=== PATIENT | female | born 1995 | race Caucasian/White ===

== ENCOUNTER 2017-11-11 05:04 | Emergency (ER) | payer BC, SELFPAY ==
[2017-11-11 05:17] VITALS: BMI 18.6
--- NOTE | 2017-11-11 05:19 | CT_ITS ---
CT head/brain wo con Ordering Physician: Brandon Carrion MD Patient Age: 22 years: Female HISTORY: ITS.REASON: pain TECHNIQUE: Axial CT head with brain and bone windows performed and submitted to PACS. COMPARISON :No relevant FINDINGS No acute intracranial findings. . No hemorrhage. No mass. No subdural collection. Ventricles and basal cisterns appear satisfactory. [place]-white matter interface satisfactory. Posterior fossa unremarkable. The mastoid air cells are well-developed and clear. Middle ear unremarkable. IACs unremarkable. IMPRESSION: No acute intracranial findings. Brain within normal limits.
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
--- NOTE | 2017-11-11 05:19 | XR_ITS ---
XR pelvis 1-2V Ordering Physician: Brandon Carrion MD Patient Age: 22 years: Female HISTORY: ITS.REASON: pain TECHNIQUE: AP osseous pelvis COMPARISON :CT abdomen and pelvis May 2017 FINDINGS The study is performed subsequent to a contrast CT. This contrast outlines the ureters filling the common and filling the bladder. The osseous pelvis is intact with no fractures evident. AP view of sacrum and hips unremarkable. IMPRESSION: Osseous pelvis intact. No fracture.
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
--- NOTE | 2017-11-11 05:23 | XR_ITS ---
XR knee RT 3V Ordering Physician: Brandon Carrion MD Patient Age: 22 years: Female HISTORY: ITS.REASON: painright knee pain TECHNIQUE: 3 views right knee COMPARISON :. None. FINDINGS No fracture evident. Osseous structures intact. Joint spaces well-maintained. Upper normal joint fluid; Difficult to exclude scant joint effusion. Lateral view there is also some slight undulation at the anterior aspect of the femoral condyle. If pain should persist persist this questionable observation may benefit from follow-up IMPRESSION: . no discrete fracture. No dislocation A detailed review note subtle undulation anterior aspect of femoral condyle lateral view.- I doubt acute significance but if pain persists may warrant follow-up/further evaluation. Upper normal joint fluid
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
[2017-11-11 05:24] VITALS: BP 124/73; PULSE 80; RESP 14; TEMP 36.9; O2SAT 100; BMI 18.6
[2017-11-11 05:26] LABS: Urine Pregnancy, HCG Qual. Negative (Negative)
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
--- NOTE | 2017-11-11 06:00 | PC.NURSE ---
Deputy Ramos is at bedside at this time speaking with pt's mother.
[2017-11-11 06:10] LABS: Basophils % 0.2 % (0.1-2.0); Eosinophils % 0.2 % (0.1-12.0); Hematocrit 43.3 % (37.0-47.0); Hemoglobin 14.5 g/dL (12.2-16.2); Lymphocytes # 1.5 K/mm3 (0.7-4.5); Mean Corpuscular HGB Conc 33.5 g/dL (31.8-35.4); Mean Corpuscular Hemoglobin 31.1 pg (27.0-31.2); Mean Corpuscular Volume 92.9 fl (81-99); Mean Platelet Volume 7.7 fl (7.4-10.4); Monocytes # 0.6 K/mm3 (0.1-1.0); Monocytes % 3.9 % (1.7-9.3); Neutrophils # 12.4 K/mm3 (1.8-7.8); Neutrophils % 85.7 % (37.0-80.0); Platelet Count 249 K/mm3 (142-424); Red Blood Count 4.66 M/mm3 (4.20-5.40); Red Cell Distribution Width 12.6 % (11.5-17.5); White Blood Count 14.5 K/mm3 (4.5-13.0)
[2017-11-11 06:12] LABS: MANUAL DIFFERENTIAL MANUAL DIFFERENTIAL (MANUAL DIFF)
[2017-11-11 06:12] LABS: Appearance,Urine CLEAR (Clear); Bilirubin,Urine Negative (Negative); Blood, Urine Negative (Negative); Color,Urine YELLOW (Yellow); Glucose,Urine (UA) Negative (Negative); Ketones,Urine TRACE (Negative); Leukocyte Esterase,Urine Negative (Negative); Microscopic, Urine URINE MICROSCOPIC (MICROSCOPIC); Nitrate,Urine Negative (Negative); Protein,Urine 1+ (Negative); Specific Gravity, Urine 1.015 (1.005-1.030); Urobilinogen,Urine 0.2 EU/dl (0.2)
[2017-11-11 06:17] LABS: Activated Partial Thrombo Time 24.5 seconds (23.6-34.0); Prothrombin Time 11.9 seconds (9.4-11.8)
[2017-11-11 06:19] LABS: Alanine Aminotransferase 19 U/L (12-78); Albumin Level 4.8 gm/dL (3.4-5.0); Albumin/Globulin Ratio 1.3 (1.1-1.8); Alkaline Phosphatase 73 U/L (46-116); Amylase 178 U/L (25-125); Anion Gap 13.2 mEq/L (5-15); Aspartate Amino Transferase 11 U/L (15-37); Bilirubin,Total 0.4 mg/dL (0.2-1.0); Blood Urea Nitrogen 9 mg/dL (7-18); Calcium 9.2 mg/dL (8.5-10.1); Carbon Dioxide 24 mmol/L (21.0-32.0); Chloride 101 mmol/L (98-107); Creatinine Clearance Estimated 64 mL/min (0-300); Creatinine,Serum 1.06 mg/dL (0.55-1.02); Estimated Glomerular Filt Rate 66 ml/min (>60); GFR (African American) 80 ML/MIN (>60); Globulin 3.6 gm/dl (1.3-3.2); Glucose 121 mg/dL (74-106); Lipase 65 u/L (73-393); Potassium 3.2 mmoL/L (3.5-5.1); Sodium 135 mmol/L (136-145); Total Protein,Serum 8.4 gm/dL (6.4-8.2)
[2017-11-11 06:20] LABS: RBC,Urine Occasional #/hpf (0-3); WBC,Urine Occasional #/hpf (0-3)
[2017-11-11 06:21] LABS: Bacteria,Urine 1+ /lpf; Mucus,Urine 1+ /lpf
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
[2017-11-11 06:34] LABS: Lymphocytes % 12 % (10-50); Monocytes % 4 % (2-9); Neutrophils % 81 % (42-76); Platelet Estimate Normal; RBC Morphology Normal; Total Cells Counted 100
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
[2017-11-11 07:16] VITALS: BP 120/68; PULSE 88; RESP 12; TEMP 36.9; O2SAT 98
== END 2017-11-11 07:19 | disposition home or self-care (01) ==
PROVIDERS: Emergency Provider Emergency Medicine
DX: S06.0X0A Concussion without loss of consciousness, initial encounter (principal); S60.512A Abrasion of left hand, initial encounter; S80.212A Abrasion, left knee, initial encounter; Y04.2XXA Assault by strike against or bumped into by another person, initial encounter; Y92.009 Unspecified place in unspecified non-institutional (private) residence as the place of occurrence of the external cause; R09.89 Other specified symptoms and signs involving the circulatory and respiratory systems; F17.210 Nicotine dependence, cigarettes, uncomplicated
CPT/HCPCS: 70450; 70486; 70491; 71045; 72125; 72170; 73130; 73562; 80053; 81001; 81025; 82150; 83690; 85007; 85025; 85610; 85730; 93041; 99283; Q9967

== ENCOUNTER → 2018-04-16 14:59 | Outpatient (CLI) | payer BC, SELFPAY ==
[2018-04-16 15:40] LABS: Basophils % 0.4 % (0.1-2.0); Eosinophils # 0.1 K/mm3 (0.0-0.4); Eosinophils % 1.2 % (0.1-12.0); Hematocrit 35.5 % (37.0-47.0); Hemoglobin 11.9 g/dL (12.2-16.2); Lymphocytes # 1.7 K/mm3 (0.7-4.5); Lymphocytes % 23.8 K/mm3 (10-50); Mean Corpuscular HGB Conc 33.5 g/dL (31.8-35.4); Mean Corpuscular Hemoglobin 31.1 pg (27.0-31.2); Mean Corpuscular Volume 92.9 fl (81-99); Mean Platelet Volume 7.4 fl (7.4-10.4); Monocytes # 0.2 K/mm3 (0.1-1.0); Monocytes % 3.4 % (1.7-9.3); Neutrophils % 71.2 % (37.0-80.0); Platelet Count 193 K/mm3 (142-424); Red Blood Count 3.82 M/mm3 (4.20-5.40); Red Cell Distribution Width 12.7 % (11.5-17.5)
[2018-04-16 15:47] LABS: Amphetamine/Metha Screen,Urine Negative ng/mL (<1000); Barbiturates Screen,Urine Negative ng/mL (<200); Benzodiazepines Screen,Urine Negative ng/mL (<200); Cannabinoid Screen,Urine Negative ng/mL (<50); Cocaine Screen,Urine Negative ng/mL (<300); Methadone Screen,Urine Negative ng/mL (<300); Opiate Screen,Urine Negative ng/mL (<300); Phencyclidine Screen,Urine Negative ng/mL (<25)
[2018-04-16 16:15] LABS: Thyroid Stimulating Hormone 0.75 uIU/ml (0.516-4.13)
[2018-04-18 07:25] LABS: HIV Screen 4th Generation wRfx Non Reactive (Non Reactive)
[2018-04-18 08:11] LABS: Hepatitis B Surface Antigen Negative (Negative)
[2018-04-18 08:46] LABS: Rubella Antibodies, IgG 1.35 index (Immune >0.99)
[2018-04-18 11:31] LABS: Rapid Plasma Reagin Ab Titer Non Reactive (NonRea<1:1)
== END ==
PROVIDERS: Family Provider Family Medicine; PCP Family Medicine; Visit Provider Obstetrics & Gynecology
DX: Z34.90 Encounter for supervision of normal pregnancy, unspecified, unspecified trimester (principal)
CPT/HCPCS: 36415; 80305; 84443; 85025; 86592; 86703; 86762; 86850; 87340; G0432

== ENCOUNTER → 2018-07-24 14:55 | Outpatient (CLI) | payer BC, SELFPAY ==
--- NOTE | 2018-07-24 15:01 | US_ITS ---
US OB /maternal detail: INDICATION: ITS.REASON: SIZE DISCREPANCY ORDERING PHYSICIAN: Delio Montes MD PATIENT AGE: 22 years TECHNIQUE: ultrasound transabdominal scanning. COMPARISON: No previous relevant studies. FINDINGS: Single viable intrauterine gestation. Cephalic position. Placenta: Posterior placenta grade 1. There is anteverted amount fluid. The cervix appears satisfactory. Closed and measuring 3 cm in length. Complete survey performed and was unremarkable on the submitted images as in PACS. No discrete anomalies identified on survey imaging by technologist. Active fetus. Three-vessel cord with satisfactory umbilical cord insertion. 4- chamber heart noted. Survey of brain & ventricles unremarkable. Face and neck survey unremarkable. Diaphragm and chest views unremarkable. Abdomen: Both kidneys noted and unremarkable. Stomach noted and satisfactory. Spine: Survey of the spine satisfactory with no anomalies identified nor imaged. Both arms and legs noted. Amniotic Fluid: Adequate. Maternal adnexa: No significant findings. Measurements: Average ultrasound age 23w3d. Gestational Age 22w4d. Estimated due date by ultrasound age 0311/17/2018. Estimated weight 574 grams. BPD = 23w6d OFD = 23w1d HC = 22w6d AC = 23w4d FL = 23w0d Growth Percentile= 75% Heart Rate = 146 Cerebellum = 23w0d Humerus = 23w1d HC/AC is 1.11 (1.06-1.25). CI is 80% (70-86%). FL/BPD is 69%. FL/AC is 22% (20-24%). IMPRESSION: There is a single live fetus present which is in cephalic presentation. Average ultrasound age is 23 weeks and 3 days. Fetus is active with no obvious anomalies. Estimated due date by ultrasound is 11/17/2018. All parameters correlate. Please see above for details.
== END ==
PROVIDERS: PCP Family Medicine; Visit Provider Obstetrics & Gynecology
DX: Z34.90 Encounter for supervision of normal pregnancy, unspecified, unspecified trimester (principal)
CPT/HCPCS: 76811

== ENCOUNTER → 2018-08-10 15:17 | Outpatient (CLI) | payer BC, SELFPAY ==
[2018-08-10 17:18] LABS: Glucose 1 Hour 79 mg/dL (74-106)
== END ==
PROVIDERS: Visit Provider Obstetrics & Gynecology
DX: Z34.90 Encounter for supervision of normal pregnancy, unspecified, unspecified trimester (principal)
CPT/HCPCS: 36415; 82951

== ENCOUNTER → 2018-10-15 15:52 | Outpatient (CLI) | payer BC, SELFPAY | PROVIDERS: Visit Provider Obstetrics & Gynecology | DX: Z34.90 Encounter for supervision of normal pregnancy, unspecified, unspecified trimester (principal) | CPT/HCPCS: 86403 ==

== ENCOUNTER 2018-11-09 00:24 | Outpatient (CLI) | payer BC, SELFPAY ==
[2018-11-09 00:44] VITALS: BMI 25.3
[2018-11-09 00:51] LABS: Microscopic, Urine URINE MICROSCOPIC (MICROSCOPIC)
[2018-11-09 01:00] LABS: Appearance,Urine CLEAR (Clear); Bilirubin,Urine Negative (Negative); Blood, Urine Negative (Negative); Color,Urine YELLOW (Yellow); Glucose,Urine (UA) Negative (Negative); Ketones,Urine Negative (Negative); Leukocyte Esterase,Urine Negative (Negative); Nitrate,Urine Negative (Negative); Protein,Urine Negative (Negative); Specific Gravity, Urine <= 1.005 (1.005-1.030); Urobilinogen,Urine 0.2 EU/dl (0.2)
[2018-11-09 01:06] LABS: WBC,Urine Occasional #/hpf (0-3)
[2018-11-09 01:07] LABS: Bacteria,Urine Trace /lpf
[2018-11-09 01:11] VITALS: BP 119/76; PULSE 95; RESP 20; TEMP 36.6; O2SAT 98; BMI 25.3
[2018-11-09 01:23] LABS: Fetal Membrane Rupture (Rapid) Negative (Negative)
== END 2018-11-09 03:18 | disposition home or self-care (01) ==
LOC: OBOUT 00:27 → OB 00:28
PROVIDERS: PCP Family Medicine; Visit Provider Obstetrics & Gynecology
DX: O60.03 Preterm labor without delivery, third trimester (principal); Z3A.37 37 weeks gestation of pregnancy
CPT/HCPCS: 59025; 81001; 84112; 96360; 96372

== ENCOUNTER 2018-11-11 16:22 | Outpatient (CLI) | payer BC, SELFPAY ==
[2018-11-11 16:33] VITALS: BMI 25.3
[2018-11-11 16:42] LABS: Microscopic, Urine URINE MICROSCOPIC (MICROSCOPIC)
[2018-11-11 16:46] LABS: Appearance,Urine SL CLOUDY (Clear); Bilirubin,Urine Negative (Negative); Blood, Urine Negative (Negative); Color,Urine YELLOW (Yellow); Glucose,Urine (UA) Negative (Negative); Ketones,Urine Negative (Negative); Leukocyte Esterase,Urine Negative (Negative); Nitrate,Urine Negative (Negative); Protein,Urine Negative (Negative)
[2018-11-11 16:57] LABS: Bacteria,Urine 1+ /lpf
[2018-11-11 17:00] LABS: Amphetamine/Metha Screen,Urine Negative ng/mL (<1000); Barbiturates Screen,Urine Negative ng/mL (<200); Benzodiazepines Screen,Urine Negative ng/mL (<200); Cannabinoid Screen,Urine Negative ng/mL (<50); Cocaine Screen,Urine Negative ng/mL (<300); Methadone Screen,Urine Negative ng/mL (<300); Opiate Screen,Urine Negative ng/mL (<300); Phencyclidine Screen,Urine Negative ng/mL (<25)
[2018-11-11 17:36] VITALS: BP 111/71; PULSE 99; RESP 18; TEMP 36.6; O2SAT 99; BMI 25.3
== END 2018-11-11 18:05 | disposition home or self-care (01) ==
LOC: OBOUT 16:22 → OB 16:24
PROVIDERS: PCP Family Medicine; Visit Provider Nurse Practitioner Obstetrics & Gynecology
DX: O60.03 Preterm labor without delivery, third trimester (principal); Z3A.39 39 weeks gestation of pregnancy
CPT/HCPCS: 59025; 80305; 81001; 87086; 96360

== ENCOUNTER 2018-11-12 05:54 | Inpatient (IN) ==
[2018-11-12 08:13] LABS: Basophils % 0.2 % (0.1-2.0); Eosinophils % 0.3 % (0.1-12.0); Hematocrit 32.8 % (37.0-47.0); Hemoglobin 11.2 g/dL (12.2-16.2); Lymphocytes # 1.9 K/mm3 (0.7-4.5); Mean Corpuscular HGB Conc 34.1 g/dL (31.8-35.4); Mean Corpuscular Hemoglobin 30.3 pg (27.0-31.2); Mean Corpuscular Volume 88.9 fl (81-99); Mean Platelet Volume 7.6 fl (7.4-10.4); Monocytes # 0.3 K/mm3 (0.1-1.0); Monocytes % 2.6 % (1.7-9.3); Neutrophils # 10.4 K/mm3 (1.8-7.8); Neutrophils % 81.9 % (37.0-80.0); Platelet Count 296 K/mm3 (142-424); Red Blood Count 3.69 M/mm3 (4.20-5.40); Red Cell Distribution Width 13.6 % (11.5-17.5); White Blood Count 12.7 K/mm3 (4.8-10.8)
--- NOTE | 2018-11-12 08:39 | Progress Note ---
[facility] Anesthesia Checklist - Structural Data Admitted From: Inpatient Planned Operative Procedure/s: labor epidural Consent for Planned Operative Procedure(s) Verified: Yes - Airway Assessment C-Spine Mobility Assessed: Yes TMJ Mobility Assessed: Yes Dentition: Good Dentition - Neurological Assessment Level of Consciousness: Awake, Alert, Appropriate - Anesthesia Plan Anesthesia Risk discussed: Yes Anesthesia Plan: Verified ASA Class: II Anesthesia Type: Epidural [facility] History I have reviewed the patient's past medical history: Yes *Have you ever received a pneumonia vaccine?: No *Have you received a flu vaccine this season?: No Other Surgeries: No: Amputation: No Fractures: Yes (right leg as child) - *Social History Smoking Status: Current every day smoker # Packs/Day (cigarettes): 1 Alcohol Intake: never Alcohol Intake Frequency:: a few times a month Substance Use Type: denies use *Occupational Status:: unemployed Family Hx:: Hypertension Para: 0
--- NOTE | 2018-11-12 08:53 | Progress Note ---
Internal Medicine - PN: Subj *Date: 11/12/18 *Time: 08:52 Interval history: Epidural now in situ. Cervix completely effaced, 5 cm, with the presenting vertex at -1 station. Plan is for vaginal delivery. It should be noted that the patient is Rh- but did not receive RhoGam during the because she had moved to [place] and was supposed to see an enterprise business architect there. However, she states that she never did see anyone before moving back here. Exam Vital signs and Labs for Last 24 Hours: Temp Pulse Resp BP Pulse Ox 97.6 F 70 18 127/77 100 11/12/18 06:23 11/12/18 06:23 11/12/18 06:23 11/12/18 06:23 11/12/18 06:23 Laboratory Results - last 24 hr 11/12/18 08:00: WBC 12.7 H, RBC 3.69 L, Hgb 11.2 L, Hct 32.8 L, MCV 88.9, MCH 30.3, MCHC 34.1, RDW 13.6, Plt Count 296, MPV 7.6, Neut % (Auto) 81.9 H, Lymph % (Auto) 15.0, [place] % (Auto) 2.6, Eos % (Auto) 0.3, Baso % (Auto) 0.2, Neut # (Auto) 10.4 H, Lymph # (Auto) 1.9, [place] # (Auto) 0.3, Eos # (Auto) 0.0, Baso # (Auto) 0.0 I & O for Last 24 hours: Intake & Output 11/09/18 11/10/18 11/11/18 11/12/18 10:59 10:59 11:59 11:59 Weight 143 lb
--- NOTE | 2018-11-12 10:24 | Progress Note ---
Internal Medicine - PN: Subj *Date: 11/12/18 *Time: 10:23 Interval history: Cervix now completely effaced, 6-7 cm, with the presenting vertex at 0 station. Exam Vital signs and Labs for Last 24 Hours: Temp Pulse Resp BP Pulse Ox 97.6 F 70 18 127/77 100 11/12/18 06:23 11/12/18 06:23 11/12/18 06:23 11/12/18 06:23 11/12/18 06:23 Laboratory Results - last 24 hr 11/12/18 08:00: WBC 12.7 H, RBC 3.69 L, Hgb 11.2 L, Hct 32.8 L, MCV 88.9, MCH 30.3, MCHC 34.1, RDW 13.6, Plt Count 296, MPV 7.6, Neut % (Auto) 81.9 H, Lymph % (Auto) 15.0, [place] % (Auto) 2.6, Eos % (Auto) 0.3, Baso % (Auto) 0.2, Neut # (Auto) 10.4 H, Lymph # (Auto) 1.9, [place] # (Auto) 0.3, Eos # (Auto) 0.0, Baso # ( Auto) 0.0 11/12/18 08:00: Blood Type O Negative, Antibody Screen Negative I & O for Last 24 hours: Intake & Output 11/09/18 11/10/18 11/11/18 11/12/18 10:59 10:59 11:59 11:59 Weight 143 lb
--- NOTE | 2018-11-12 12:31 | Progress Note ---
Internal Medicine - PN: Subj *Date: 11/12/18 *Time: 12:31 Interval history: Cervix now complete, complete, +2. Pushing. Exam Vital signs and Labs for Last 24 Hours: Temp Pulse Resp BP Pulse Ox 97.6 F 70 18 127/77 100 11/12/18 06:23 11/12/18 06:23 11/12/18 06:23 11/12/18 06:23 11/12/18 06:23 Laboratory Results - last 24 hr 11/12/18 08:00: WBC 12.7 H, RBC 3.69 L, Hgb 11.2 L, Hct 32.8 L, MCV 88.9, MCH 30.3, MCHC 34.1, RDW 13.6, Plt Count 296, MPV 7.6, Neut % (Auto) 81.9 H, Lymph % (Auto) 15.0, [place] % (Auto) 2.6, Eos % (Auto) 0.3, Baso % (Auto) 0.2, Neut # (Auto) 10.4 H, Lymph # (Auto) 1.9, [place] # (Auto) 0.3, Eos # (Auto) 0.0, Baso # (Auto) 0.0 11/12/18 08:00: Blood Type O Negative, Antibody Screen Negative I & O for Last 24 hours: Intake & Output 11/10/18 11/11/18 11/12/18 11/13/18 10:59 11:59 11:59 11:59 Weight 143 lb
--- NOTE | 2018-11-12 12:32 | Progress Note ---
Internal Medicine - PN: Subj *Date: 11/12/18 *Time: 12:31 Interval history: Cervix now a rim, complete, 0 station. Exam Vital signs and Labs for Last 24 Hours: Temp Pulse Resp BP Pulse Ox 97.6 F 70 18 127/77 100 11/12/18 06:23 11/12/18 06:23 11/12/18 06:23 11/12/18 06:23 11/12/18 06:23 Laboratory Results - last 24 hr 11/12/18 08:00: WBC 12.7 H, RBC 3.69 L, Hgb 11.2 L, Hct 32.8 L, MCV 88.9, MCH 30.3, MCHC 34.1, RDW 13.6, Plt Count 296, MPV 7.6, Neut % (Auto) 81.9 H, Lymph % (Auto) 15.0, [place] % (Auto) 2.6, Eos % (Auto) 0.3, Baso % (Auto) 0.2, Neut # (Auto) 10.4 H, Lymph # (Auto) 1.9, [place] # (Auto) 0.3, Eos # (Auto) 0.0, Baso # (Auto) 0.0 11/12/18 08:00: Blood Type O Negative, Antibody Screen Negative I & O for Last 24 hours: Intake & Output 11/10/18 11/11/18 11/12/18 11/13/18 10:59 11:59 11:59 11:59 Weight 143 lb
--- NOTE | 2018-11-12 13:11 | Procedure Note ---
- Delivery Note Delivery Date:: 11/12/18 Delivery Time:: 12:54 Anesthesia Type: Epidural Was labor medically induced?: No Induction method: none Gestational age (weeks): 38 Infant delivered prior to 39 weeks?: Yes Justification for early elective delivery:: Active Labor Infant Gender: Female at 1 minute: 9 at 5 minutes: 9 Suction Catheter Type: [place] AF:: Clear Delivery Procedure:: Normal spontaneous vaginal delivery Placental Delivery Description: Spontaneous
--- NOTE | 2018-11-12 13:16 | Progress Note ---
Internal Medicine - PN: Subj *Date: 11/12/18 *Time: 12:54 Interval history: This 23-year-old 1, now para 1, Ab0 white female was admitted at 38-2/7 weeks with regular contractions at 4 cm of dilatation. Her course has been uncomplicated, except for the fact that she did not receive RhoGam at 28 weeks because she had [place] and did not see any thermostat mechanic during that timeframe. An amniotomy revealed clear fluid, and an internal monitor was placed. The patient labored under a labor epidural, which worked well. She went steadily to completion at 1220 and delivered spontaneously, without an episiotomy, at 1254. Was no nuchal cord, nor was there any meconium. The baby's nasal and oropharynx were bulb suction, and the baby cried spontaneously on the perineum, as was delivered. The cord was clamped and cut, 3 vessels were noted to be within the cord, and cord blood was obtained. The cord pH was 7.34. The baby was handed into the arms of the attending RN, who assigned Apgars of 9 at 1 minute and 9 at 5 minutes to this 6 pound 8 ounce, 19 inch female infant, born at 1254 on 11/12/18. The baby was recovered in excellent condition. The placenta delivered spontaneously, intact, at 1257, making the total time in labor 7 hours 57 minutes. The uterus was inspected and was felt to be clean, and was involuting well, with IV Pitocin running. There were no lacerations. The sponge and needle count was correct. The estimated blood loss was 350 cc. The patient tolerated the procedure well, and was recovered in good condition. Her blood type is O Rh-, and she will be worked up for Rh immunoglobulin eligibility. Her rubella titer is immune. She plans to breast-feed. Exam Vital signs and Labs for Last 24 Hours: Temp Pulse Resp BP Pulse Ox 97.6 F 70 18 127/77 100 11/12/18 06:23 11/12/18 06:23 11/12/18 06:23 11/12/18 06:23 11/12/18 06:23 Laboratory Results - last 24 hr 11/12/18 08:00: WBC 12.7 H, RBC 3.69 L, Hgb 11.2 L, Hct 32.8 L, MCV 88.9, MCH 30.3, MCHC 34.1, RDW 13.6, Plt Count 296, MPV 7.6, Neut % (Auto) 81.9 H, Lymph % (Auto) 15.0, [place] % (Auto) 2.6, Eos % (Auto) 0.3, Baso % (Auto) 0.2, Neut # (Auto) 10.4 H, Lymph # (Auto) 1.9, [place] # (Auto) 0.3, Eos # (Auto) 0.0, Baso # (Auto) 0.0 11/12/18 08:00: Blood Type O Negative, Antibody Screen Negative I & O for Last 24 hours: Intake & Output 11/10/18 11/11/18 11/12/18 11/13/18 10:59 11:59 11:59 11:59 Weight 143 lb
--- NOTE | 2018-11-12 16:21 | Progress Note ---
Internal Medicine - PN: Subj *Date: 11/12/18 *Time: 16:20 Interval history: Day of delivery. Lochia normal. Uterine fundus involuting well. Vital signs stable. Impression: Stable. Exam Vital signs and Labs for Last 24 Hours: Temp Pulse Resp BP Pulse Ox 97.6 F 70 18 127/77 100 11/12/18 06:23 11/12/18 06:23 11/12/18 06:23 11/12/18 06:23 11/12/18 06:23 Laboratory Results - last 24 hr 11/12/18 08:00: WBC 12.7 H, RBC 3.69 L, Hgb 11.2 L, Hct 32.8 L, MCV 88.9, MCH 30.3, MCHC 34.1, RDW 13.6, Plt Count 296, MPV 7.6, Neut % (Auto) 81.9 H, Lymph % (Auto) 15.0, [place] % (Auto) 2.6, Eos % (Auto) 0.3, Baso % (Auto) 0.2, Neut # (Auto) 10.4 H, Lymph # (Auto) 1.9, [place] # (Auto) 0.3, Eos # (Auto) 0.0, Baso # (Auto) 0.0 11/12/18 08:00: Blood Type O Negative, Antibody Screen Negative 11/12/18 13:07: Cord ABG pH 7.34 L I & O for Last 24 hours: Intake & Output 11/10/18 11/11/18 11/12/18 11/13/18 10:59 11:59 11:59 11:59 Weight 143 lb
[2018-11-13 05:59] LABS: Hematocrit 25.1 % (37.0-47.0); Hemoglobin 8.4 g/dL (12.2-16.2)
--- NOTE | 2018-11-13 07:19 | Progress Note ---
Internal Medicine - PN: Subj *Date: 11/13/18 *Time: 07:18 Interval history: This is day #1. The patient is afebrile. Vital signs stable. Abdomen soft. Lochia normal. Uterine fundus involuting well. She is nursing well. Her hemoglobin is 8.4 g, but she is clinically stable. The baby is Rh-, and therefore RhoGam is not indicated. Impression: Stable. Exam Vital signs and Labs for Last 24 Hours: Temp Pulse Resp BP Pulse Ox 97.6 F 70 18 127/77 100 11/12/18 06:23 11/12/18 06:23 11/12/18 06:23 11/12/18 06:23 11/12/18 06:23 Laboratory Results - last 24 hr 11/12/18 08:00: WBC 12.7 H, RBC 3.69 L, Hgb 11.2 L, Hct 32.8 L, MCV 88.9, MCH 30.3, MCHC 34.1, RDW 13.6, Plt Count 296, MPV 7.6, Neut % (Auto) 81.9 H, Lymph % (Auto) 15.0, [place] % (Auto) 2.6, Eos % (Auto) 0.3, Baso % (Auto) 0.2, Neut # (Auto) 10.4 H, Lymph # (Auto) 1.9, [place] # (Auto) 0.3, Eos # (Auto) 0.0, Baso # (Auto) 0.0 11/12/18 08:00: Blood Type O Negative, Antibody Screen Negative 11/12/18 13:07: Cord ABG pH 7.34 L 11/13/18 05:16: Blood Type Cancelled, Antibody Screen Cancelled, Screen Cancelled, Baby's Rh Status Cancelled 11/13/18 05:16: Hgb 8.4 L D, Hct 25.1 L I & O for Last 24 hours: Intake & Output 11/10/18 11/11/18 11/12/18 11/13/18 10:59 11:59 11:59 11:59 Weight 143 lb
[2018-11-13 13:05] LABS: Hematocrit 24.5 % (37.0-47.0); Hemoglobin 8.4 g/dL (12.2-16.2)
[2018-11-14 08:45] VITALS: BP 105/58
--- NOTE | 2018-11-14 10:00 | Discharge Summary ---
General - General Admission date:: 11/12/18 Discharge date: 11/14/18 HPI HPI: She is a 23-year-old 1 now para 1 who is 38 and 2 weeks gestational age. She came in in active labor. Hospital Course Hospital Course: She progressed under labor epidural to full dilation and delivered spontaneously a liveborn female child at 12:54 PM in the afternoon of November 12, 2018. The baby had Apgars of 9 at 1 minute and 9 at 5 minutes. She has done well and has remained afebrile throughout her hospitalization. She is eating and drinking and ambulate in. She is breast-feeding. She has O- blood, she is rubella immune and was group B stopcock is negative. Her baby is Rh- so she did not receive RhoGam. She is discharged home to follow-up with Dr. Hare in approximately 3 weeks time. She is taking [id number] analgesics. She will continue with her vitamins and iron. Objective Vital signs: Temp Pulse Resp BP Pulse Ox 98.7 F 91 H 18 105/58 L 99 11/14/18 08:45 11/14/18 08:45 11/14/18 08:45 11/14/18 08:45 11/14/18 08:45 no acute distress Results Labs on day of discharge: Labs from last 24 hours 11/13/18 12:57 Hgb 8.4 L Hct 24.5 L DS: Diagnosis - Discharge Diagnosis (1) Normal delivery at term Status: Acute Discharge Plan - Patient Discharge Instructions ACTIVITY: No heavy lifting DIET: continue same diet Additional Instructions: NO DRIVING FOR 2 WEEKS NO HEAVY LIFTING OR STRENUOUS ACTIVITY NOTHING IN VAGINA FOR 6 [address]KS FOLLOW-UP WITH DR. HARE IN 2 WEEKS Patient Instructions: Depression, Hemorrhage, HMH Post Discharge Instructions - Follow up Plan Disposition: Home, Self-Retirement Medications: Home Medications Medication Instructions Recorded Confirmed Type Ferrous Sulfate 325 mg PO DAILY 11/09/18 11/09/18 History Mv-Mins No.50/Iron,Carb/Folic 1 tab PO DAILY 11/09/18 11/09/18 History [Vol-Tab Rx Tablet] Prescriptions/Medication Reconciliation: Continue Mv-Mins No.50/Iron,Carb/Folic [Vol-Tab Rx Tablet] 1 tab PO DAILY Ferrous Sulfate 325 mg PO DAILY
== END 2018-11-14 10:55 | disposition home or self-care (01) | DRG 807 ==
LOC: OBOUT 05:54 → OB 05:55
PROVIDERS: ADMIT Obstetrics & Gynecology; ATTEND Obstetrics & Gynecology
CPT/HCPCS: C1758

== ENCOUNTER 2019-07-23 02:30 | Observation (INO) ==
[2019-07-23 03:45] LABS: Basophils % 0.2 % (0.1-2.0); Eosinophils # 0.1 K/mm3 (0.0-0.4); Eosinophils % 0.3 % (0.1-12.0); Hematocrit 36.5 % (37.0-47.0); Hemoglobin 11.7 g/dL (12.2-16.2); Lymphocytes # 1.5 K/mm3 (0.7-4.5); Lymphocytes % 9.4 % (10-50); Mean Corpuscular Volume 95.2 fl (81-99); Mean Platelet Volume 7.9 fl (7.4-10.4); Monocytes # 0.5 K/mm3 (0.1-1.0); Neutrophils # 13.5 K/mm3 (1.8-7.8); Neutrophils % 87.1 % (37.0-80.0); Platelet Count 317 K/mm3 (142-424); Red Blood Count 3.84 M/mm3 (4.20-5.40); Red Cell Distribution Width 14.7 % (11.5-17.5); White Blood Count 15.5 K/mm3 (4.8-10.8)
[2019-07-23 04:02] LABS: Anisocytosis 1+; Lymphocytes % 8 % (10-50); Monocytes % 1 % (2-9); Neutrophils % 91 % (42-76); Total Cells Counted 100
[2019-07-23 04:12] LABS: Microscopic, Urine URINE MICROSCOPIC (MICROSCOPIC)
[2019-07-23 04:13] LABS: Appearance,Urine CLEAR (Clear); Bilirubin,Urine Negative (Negative); Blood, Urine Negative (Negative); Color,Urine YELLOW (Yellow); Glucose,Urine (UA) Negative (Negative); Ketones,Urine 1+ (Negative); Leukocyte Esterase,Urine 1+ (Negative); PH,Urine 6.5 (5.0-8.5); Protein,Urine Negative (Negative); Specific Gravity, Urine 1.025 (1.005-1.030)
[2019-07-23 04:22] LABS: Amphetamine/Metha Screen,Urine Negative ng/mL (<1000); Barbiturates Screen,Urine Negative ng/mL (<200); Benzodiazepines Screen,Urine Negative ng/mL (<200); Cannabinoid Screen,Urine Positive ng/mL (<50); Cocaine Screen,Urine Negative ng/mL (<300); Methadone Screen,Urine Negative ng/mL (<300); Opiate Screen,Urine Negative ng/mL (<300); Phencyclidine Screen,Urine Negative ng/mL (<25)
[2019-07-23 04:25] LABS: Bacteria,Urine 1+ /lpf; Mucus,Urine 1+ /lpf
[2019-07-23 05:47] VITALS: BP 104/72
[2019-07-23 07:48] LABS: Anion Gap 12.5 mEq/L (5-15); Calcium 8.9 mg/dL (8.5-10.1); Thyroid Stimulating Hormone 0.86 uIU/ml (0.358-3.740)
[2019-07-23 07:49] LABS: Albumin Level 3.5 gm/dL (3.4-5.0); Bilirubin,Direct 0.1 mg/dL (0.0-0.2); Bilirubin,Indirect 0.2 mg/dL (0.0-0.9); Bilirubin,Total 0.3 mg/dL (0.2-1.0); Total Protein,Serum 7.6 gm/dL (6.4-8.2)
--- NOTE | 2019-07-23 10:47 | Progress Note ---
Internal Medicine - PN: Subj *Date: 07/23/19 *Time: 10:45 (This 23-year-old white female at 20 weeks of gestation ( care in [facility]) was admitted early this morning by Dr. Hoffmna with signs and symptoms of hyperemesis gravidarum. She was treated with IV fluids and Phenergan/Zofran, and now feels better. Her lab work, including CMP, was normal. The baby is active. The patient is discharged home and instructed to stay well-hydrated. She has an appointment next week in [place] and she is to keep that. If her symptoms recur, she will contact her primary OB.) Exam Vital signs and Labs for Last 24 Hours: Temp Pulse Resp BP Pulse Ox 98.1 F 66 24 104/72 L 99 07/23/19 05:18 07/23/19 02:56 07/23/19 02:56 07/23/19 05:18 07/23/19 02:56 Laboratory Results - last 24 hr 07/23/19 03:05: Influenza Type A Ag Negative, Influenza Type B Ag Negative 07/23/19 03:05: WBC 15.5 H, RBC 3.84 L, Hgb 11.7 L, Hct 36.5 L, MCV 95.2, MCH 30.5, MCHC 32.0, RDW 14.7, Plt Count 317, MPV 7.9, Neut % (Auto) 87.1 H, Lymph % (Auto) 9.4 L, [place] % (Auto) 3.0, Eos % (Auto) 0.3, Baso % (Auto) 0.2, Neut # (Auto) 13.5 H, Lymph # (Auto) 1.5, [place] # (Auto) 0.5, Eos # (Auto) 0.1, Baso # (Auto) 0.0, Total Counted 100, Neutrophils % (Manual) 91 H, Lymphocytes % (Manual) 8 L, Monocytes % (Manual) 1 L, Platelet Estimate Normal, Anisocytosis 1+ 07/23/19 03:05: Sodium 139, Potassium 3.5, Chloride 106, Carbon Dioxide 24, Anion Gap 12.5, BUN 10, Creatinine 0.80, Estimated Creat Clear 88, Estimated GFR 91, Est GFR ( Amer) 110, Glucose 111 H, Calcium 8.9, TSH 0.86 11/19/19 03:05: Total Bilirubin 0.3, Direct Bilirubin 0.1, Indirect Bilirubin 0.2, AST 14 L, ALT 12, Alkaline Phosphatase 78, Total Protein 7.6, Albumin 3.5 07/23/19 04:03: Urine Color Yellow, Urine Appearance Clear, Urine pH 6.5, Ur Specific [place] 1.025, Urine Protein Negative, Urine Glucose (UA) Negative, Urine Ketones 1+, Urine Blood Negative, Urine Nitrate Negative, Urine Bilirubin Negative, Urine Urobilinogen 1.0, Ur Leukocyte Esterase 1+ A, Urine RBC 3-5, Urine WBC 5-10, Ur Squamous Epith Cells 5-10, Urine Bacteria 1+, Urine Mucus 1+ 07/23/19 04:03: Urine Opiates Screen Negative, Urine Methadone Screen Negative, Ur Barbituates Screen Negative, Ur Phencyclidine Scrn Negative, Ur Amphetamines Screen Negative, U Benzodiazepines Scrn Negative, Urine Cocaine Screen Negative, U Marijuana (THC) Screen Positive H I & O for Last 24 hours: Intake & Output 07/20/19 07/21/19 07/22/19 07/23/19 11:59 11:59 11:59 11:59 Weight 110 lb
--- NOTE | 2019-07-23 10:51 | Discharge Summary ---
General - General Admission date:: 07/23/19 Discharge date: 07/23/19 (This 23-year-old white female at 20 weeks of gestation was admitted for signs and symptoms of hyperemesis. The baby looked good on the monitor. She was treated with intravenous fluids, Phenergan and Zofran, and her symptoms have subsided. She is tolerating liquids. She has her usual care in [facility]. She is discharged home to increase her fluid intake orally. She is to follow-up with her primary OB.) Objective Vital signs: Temp Pulse Resp BP Pulse Ox 98.1 F 66 24 104/72 L 99 07/23/19 05:18 07/23/19 02:56 07/23/19 02:56 07/23/19 05:18 07/23/19 02:56 Results Labs on day of discharge: Labs from last 24 hours 07/23/19 07/23/19 07/23/19 04:03 04:03 03:05 WBC RBC Hgb Hct MCV MCH MCHC RDW Plt Count MPV Neut % (Auto) Lymph % (Auto) [place] % (Auto) Eos % (Auto) Baso % (Auto) Neut # (Auto) Lymph # (Auto) [place] # (Auto) Eos # (Auto) Baso # (Auto) Total Counted Neutrophils % (Manual) Lymphocytes % (Manual) Monocytes % (Manual) Platelet Estimate Anisocytosis Sodium Potassium Chloride Carbon Dioxide Anion Gap BUN Creatinine Estimated Creat Clear Estimated GFR Est GFR ( Amer) Glucose Calcium Total Bilirubin 0.3 Direct Bilirubin 0.1 Indirect Bilirubin 0.2 AST 14 L ALT 12 Alkaline Phosphatase 78 Total Protein 7.6 Albumin 3.5 TSH Urine Color Yellow Urine Appearance Clear Urine pH 6.5 Ur Specific [place] 1.025 Urine Protein Negative Urine Glucose (UA) Negative Urine Ketones 1+ Urine Blood Negative Urine Nitrate Negative Urine Bilirubin Negative Urine Urobilinogen 1.0 Ur Leukocyte Esterase 1+ A Urine RBC 3-5 Urine WBC 5-10 Ur Squamous Epith Cells 5-10 Urine Bacteria 1+ Urine Mucus 1+ Urine Opiates Screen Negative Urine Methadone Screen Negative Ur Barbituates Screen Negative Ur Phencyclidine Scrn Negative Ur Amphetamines Screen Negative U Benzodiazepines Scrn Negative Urine Cocaine Screen Negative U Marijuana (THC) Screen Positive H Influenza Type A Ag Influenza Type B Ag 07/23/19 07/23/19 07/23/19 03:05 03:05 03:05 WBC 15.5 H RBC 3.84 L Hgb 11.7 L Hct 36.5 L MCV 95.2 MCH 30.5 MCHC 32.0 RDW 14.7 Plt Count 317 MPV 7.9 Neut % (Auto) 87.1 H Lymph % (Auto) 9.4 L [place] % (Auto) 3.0 Eos % (Auto) 0.3 Baso % (Auto) 0.2 Neut # (Auto) 13.5 H Lymph # (Auto) 1.5 [place] # (Auto) 0.5 Eos # (Auto) 0.1 Baso # (Auto) 0.0 Total Counted 100 Neutrophils % (Manual) 91 H Lymphocytes % (Manual) 8 L Monocytes % (Manual) 1 L Platelet Estimate Normal Anisocytosis 1+ Sodium 139 Potassium 3.5 Chloride 106 Carbon Dioxide 24 Anion Gap 12.5 BUN 10 Creatinine 0.80 Estimated Creat Clear 88 Estimated GFR 91 Est GFR ( Amer) 110 Glucose 111 H Calcium 8.9 Total Bilirubin Direct Bilirubin Indirect Bilirubin AST ALT Alkaline Phosphatase Total Protein Albumin TSH 0.86 Urine Color Urine Appearance Urine pH Ur Specific [place] Urine Protein Urine Glucose (UA) Urine Ketones Urine Blood Urine Nitrate Urine Bilirubin Urine Urobilinogen Ur Leukocyte Esterase Urine RBC Urine WBC Ur Squamous Epith Cells Urine Bacteria Urine Mucus Urine Opiates Screen Urine Methadone Screen Ur Barbituates Screen Ur Phencyclidine Scrn Ur Amphetamines Screen U Benzodiazepines Scrn Urine Cocaine Screen U Marijuana (THC) Screen Influenza Type A Ag Negative Influenza Type B Ag Negative Discharge Plan - Patient Discharge Instructions ACTIVITY: Ambulate as tolerated DIET: advance to your usual diet - Follow up Plan Disposition: Home, Self-Fdc Medications: Home Medications Medication Instructions Recorded Confirmed Type Ferrous Sulfate 325 mg PO DAILY 11/09/18 07/23/19 History Mv-Mins No.50/Iron,Carb/Folic 1 tab PO DAILY 11/09/18 07/23/19 History [Vol-Tab Rx Tablet] Prescriptions/Medication Reconciliation: Continued Mv-Mins No.50/Iron,Carb/Folic [Vol-Tab Rx Tablet] 1 tab PO DAILY Ferrous Sulfate 325 mg PO DAILY - Problem Reconciliation Problems Reviewed?: Yes
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
== END 2019-07-23 11:23 | disposition home or self-care (01) ==
LOC: OBOUT 02:30 → OB 02:37 → INTOOBSV 05:34 → OB 05:34
PROVIDERS: ADMIT Obstetrics & Gynecology; ATTEND Obstetrics & Gynecology
CPT/HCPCS: 59025; 80048; 80076; 80305; 81001; 84443; 85007; 85025; 87086; 87275; 87276; 96360; 96367; G0378; J2405

== ENCOUNTER 2019-09-15 13:02 | Outpatient (CLI) | payer OTHER, SELFPAY ==
[2019-09-15 13:53] VITALS: BMI 18.8
[2019-09-15 14:00] VITALS: BMI 18.8
[2019-09-15 14:07] LABS: Microscopic, Urine URINE MICROSCOPIC (MICROSCOPIC)
[2019-09-15 14:09] LABS: Appearance,Urine CLEAR (Clear); Bilirubin,Urine Negative (Negative); Blood, Urine 2+ (Negative); Color,Urine YELLOW (Yellow); Glucose,Urine (UA) Negative (Negative); Ketones,Urine Negative (Negative); Leukocyte Esterase,Urine 2+ (Negative); Nitrate,Urine Negative (Negative); PH,Urine 6.5 (5.0-8.5); Protein,Urine Negative (Negative); Specific Gravity, Urine 1.025 (1.005-1.030)
[2019-09-15 14:16] LABS: Bacteria,Urine 2+ /lpf; Mucus,Urine 2+ /lpf
[2019-09-15 14:18] LABS: Amphetamine/Metha Screen,Urine Negative ng/mL (<1000); Barbiturates Screen,Urine Negative ng/mL (<200); Benzodiazepines Screen,Urine Negative ng/mL (<200); Cannabinoid Screen,Urine Positive ng/mL (<50); Cocaine Screen,Urine Negative ng/mL (<300); Methadone Screen,Urine Negative ng/mL (<300); Opiate Screen,Urine Negative ng/mL (<300); Phencyclidine Screen,Urine Negative ng/mL (<25)
[2019-09-15 15:30] VITALS: BP 101/50; PULSE 64; RESP 16; TEMP 36.4; O2SAT 100
== END 2019-09-15 16:50 | disposition home or self-care (01) ==
LOC: OBOUT 13:04 → OB 13:07
PROVIDERS: PCP Family Medicine; Visit Provider Obstetrics & Gynecology
DX: O47.02 False labor before 37 completed weeks of gestation, second trimester (principal); Z3A.27 27 weeks gestation of pregnancy
CPT/HCPCS: 59025; 80305; 81001; 87086; 96360; 96372

== ENCOUNTER → 2019-10-02 12:03 | Outpatient (CLI) | payer OTHER, SELFPAY | PROVIDERS: Visit Provider Obstetrics & Gynecology | DX: Z34.90 Encounter for supervision of normal pregnancy, unspecified, unspecified trimester (principal) | CPT/HCPCS: 36415; J2790 ==

== ENCOUNTER 2019-10-03 09:55 | Outpatient (CLI) | payer OTHER, SELFPAY ==
[2019-10-03 10:15] VITALS: BP 97/48; PULSE 79; RESP 18; O2SAT 100
== END 2019-10-03 10:30 | disposition home or self-care (01) ==
LOC: INF 10:08
PROVIDERS: PCP Family Medicine; Visit Provider Obstetrics & Gynecology
DX: O26.899 Other specified pregnancy related conditions, unspecified trimester (principal); Z3A.30 30 weeks gestation of pregnancy; Z67.91 Unspecified blood type, Rh negative
CPT/HCPCS: 96372; J2790

== ENCOUNTER → 2019-10-04 13:31 | Outpatient (CLI) | payer OTHER, SELFPAY ==
--- NOTE | 2019-10-04 13:31 | US_ITS ---
PROCEDURE: US OB /MATERNAL DETAIL CLINICAL INDICATION: US OB Complete Late care anatomy scan COMPARISON: OBFEMAT US OB /maternal detail from 07/24/2018 FINDINGS: There is a single live fetus which is in cephalic position. Cervix is closed and measures 3.8 cm transabdominal. Placenta is anterior in implantation and grade 2. Average appearing amniotic fluid volume. Amniotic fluid volume index is normal at 9 cm Complete survey performed and was unremarkable on the submitted images as in PACS. No discrete anomalies identified on survey imaging by technologist. Active fetus. Three-vessel cord with satisfactory umbilical cord insertion. 4- chamber heart noted. Survey of brain & ventricles Unremarkable. Face and neck survey unremarkable. Diaphragm and chest views unremarkable. Abdomen: Both kidneys noted and unremarkable. Stomach noted and satisfactory. Spine: Survey of the spine satisfactory with no anomalies identified nor imaged. Both arms and legs noted. Amniotic Fluid: Adequate. Maternal adnexa: No significant findings. Measurements: Average ultrasound age 30weeks 2days. Gestational Age 30weeks 2days Estimated due date by ultrasound age 0412/11/2019. Estimated weight 1,460g BPD = 30weeks 5days OFD = weeks 3 HC = 30weeks 3days AC = 29weeks 2days FL = 30weeks 3days Growth Percentile= 19% Heart Rate = 132bpm Cerebellum = Humerus = 30weeks 3days HC/AC is 1.11 CI is 0.77 FL/BPD is 0.76 FL/AC is 0.23 IMPRESSION: A single live IUP which is in cephalic presentation with an average ultrasound age 30 weeks and 2 days. heart body motion noted. No obvious anomalies. Please see above for Dictated by: Flo Morelos MD 10/04/2019 18:06 Electronically signed by Flo Morelos MD in [place] 10/04/2019 18:06
== END ==
PROVIDERS: PCP Family Medicine; Visit Provider Obstetrics & Gynecology
DX: Z36.0 Encounter for antenatal screening for chromosomal anomalies (principal)
CPT/HCPCS: 76805; 76811

== ENCOUNTER 2019-10-20 01:56 | Observation (INO) ==
[2019-10-20 02:27] LABS: Microscopic, Urine URINE MICROSCOPIC (MICROSCOPIC)
[2019-10-20 02:39] LABS: Appearance,Urine CLEAR (Clear); Bilirubin,Urine Negative (Negative); Blood, Urine Negative (Negative); Color,Urine YELLOW (Yellow); Glucose,Urine (UA) Negative (Negative); Ketones,Urine 2+ (Negative); Leukocyte Esterase,Urine 2+ (Negative); PH,Urine 6.5 (5.0-8.5); Protein,Urine Negative (Negative); Specific Gravity, Urine 1.025 (1.005-1.030)
[2019-10-20 02:40] LABS: Amphetamine/Metha Screen,Urine Negative ng/mL (<1000); Barbiturates Screen,Urine Negative ng/mL (<200); Benzodiazepines Screen,Urine Negative ng/mL (<200); Cannabinoid Screen,Urine Negative ng/mL (<50); Cocaine Screen,Urine Negative ng/mL (<300); Methadone Screen,Urine Negative ng/mL (<300); Opiate Screen,Urine Negative ng/mL (<300); Phencyclidine Screen,Urine Negative ng/mL (<25)
[2019-10-20 02:46] LABS: WBC,Urine 20-50 #/hpf (0-3)
--- NOTE | 2019-10-20 11:17 | History & Physical Report ---
OB - H&P: HPI Antepartum - History of Present Illness Chief complaint: labor History of present illness: She is a 24-year-old 3 para 1 aborta 1 who is 32 weeks gestational age. She began having contractions on October 19, 2019. As result that we elected to admit her for tocolyse this. She has not had labor in the past. - History of Present Criteria for establishing EDC:: LMP confirmed by 1st trimester US care: good care Ultrasounds: normal 1st trimester US, normal mid trimester US Obstetrical complications: labor Medical complications: none [facility] History I have reviewed the patient's past medical history: Yes Medical History: Denies:: Cancer, Diabetes Mellitus Type 1, Diabetes Mellitus Type 2, MRSA *Have you ever received a pneumonia vaccine?: No *Have you received a flu vaccine this season?: No Other Surgeries: Yes: Dilation and Curettage. No: Amputation: No Fractures: Yes (right leg as child) - *Social History Smoking Status: Current every day smoker # Packs/Day (cigarettes): 1 Alcohol Intake: never Alcohol Intake Frequency:: a few times a month Substance Use Type: denies use *Occupational Status:: employed *Travel in the last 8 weeks: None Family Hx:: Hypertension Para: 1 Review of Systems - Review of Systems Review of systems:: pertinent systems reviewed and negative unless documented below Meds Home Medications Medication Instructions Recorded Confirmed Type lq-[id number]-iron 8 mg-folic acid 1 tab PO DAILY tab 10/02/19 10/20/19 History 400 mcg-vit K1 50 mcg-lutein tablet RX: Ondansetron [Ondansetron Odt 4 mg PO Q6HP PRN 10/20/19 10/20/19 History 8mg Tab] Allergies Allergy/AdvReac Type Severity Reaction Status Date / Time Penicillins [PENICILLINS] Allergy Unknown Hives Verified 10/20/19 03:05 venom-honey bee Allergy Unknown Hives Verified 10/20/19 03:05 [BEE VENOM (HONEY BEE)] OB - H&P: Exam - Physical Exam Vital signs: Temp Pulse Resp BP Pulse Ox 98.1 F 81 18 96/53 L 98 10/20/19 07:13 10/20/19 07:13 10/20/19 07:13 10/20/19 07:13 10/20/19 07:13 - Constitutional no acute distress - Routine HEENT Exam Head: Present: normocephalic Eye: Present: EOMI, PERRL ENT: Present: mucous membranes moist - Routine Neck Exam Present: supple, full ROM - Routine Respiratory Exam Absent: accessory muscle use (good air entry bilaterally), respiratory distress, wheezes, crackles - Routine Cardiovascular Exam Present: RRR. Absent: murmur - Routine Abdominal Exam Present: soft, normoactive bowel sounds. Absent: tenderness, distended, guarding - Routine Rectal Exam Patient deferred: visual exam, digital exam - Routine Exam Patient deferred: external exam, groin exam, perineal exam - Routine Extremities Exam Present: full ROM. Absent: cyanosis, edema - Routine Skin Exam Present: intact. Absent: cyanosis - Routine Neurological Exam Present: alert, oriented X3 - Routine Psychiatric Exam Present: normal affect OB - Results - Labs Labs: Urine 10/20/19 Range/Units 02:05 Urine Color Yellow (Yellow) Urine Appearance Clear (Clear) Urine pH 6.5 (5.0-8.5) Ur Specific [place] 1.025 (1.005-1.030) Urine Protein Negative (Negative) Urine Glucose (UA) Negative (Negative) OB - A/P Antepartum (1) labor in third trimester Current visit: Yes Status: Acute (2) Tobacco smoking complicating Problem details: 09/05 PPD Current visit: No Status: Acute - Additional Plan Plan: other Additional Information:: She has been having contractions and she was found to be 2 cm dilated 50% effaced. Her contractions have come and gone. She has received her first course of steroids. She will receive another dose this evening. She has taken IV fluids as well as Brethine and this seemed to help with her contractions. I have however restarted again this morning. We will try nifedipine and see if this helps. She also has a urinary tract infection we will treat her with Ancef. We will plan to keep her again today. We will see how she does over the next 24 hours.
--- NOTE | 2019-10-20 11:20 | Progress Note ---
Internal Medicine - PN: Subj *Date: 10/20/19 *Time: 11:18 Interval history: She continues to have occasional contractions and most recently has had contractions every 2 minutes. She has received a bolus and nifedipine. This seems to have settled her contractions. We will continue with this and continue with her hospitalization today. She will receive another dose of steroids this evening. She had 2+ leukocytes in her urine we will go ahead and treat her with Ancef. She says that she has a an allergy to penicillin that she says that she had this as a child and does not know what the reaction was. Exam Vital signs and Labs for Last 24 Hours: Temp Pulse Resp BP Pulse Ox 98.1 F 81 18 96/53 L 98 10/20/19 07:13 10/20/19 07:13 10/20/19 07:13 10/20/19 07:13 10/20/19 07:13 Laboratory Results - last 24 hr 10/20/19 02:05: Urine Color Yellow, Urine Appearance Clear, Urine pH 6.5, Ur Specific [place] 1.025, Urine Protein Negative, Urine Glucose (UA) Negative, Urine Ketones 2+, Urine Blood Negative, Urine Nitrate Negative, Urine Bilirubin Negative, Urine Urobilinogen 1.0, Ur Leukocyte Esterase 2+ A, Urine WBC 20-50, Ur Squamous Epith Cells 3-5 10/20/19 02:05: Urine Opiates Screen Negative, Urine Methadone Screen Negative, Ur Barbituates Screen Negative, Ur Phencyclidine Scrn Negative, Ur Amphetamines Screen Negative, U Benzodiazepines Scrn Negative, Urine Cocaine Screen Negative, U Marijuana (THC) Screen Negative 10/20/19 02:05: Fibronectin Negative I & O for Last 24 hours: Intake & Output 10/17/19 10/18/19 10/19/19 10/20/19 11:59 11:59 11:59 11:59 Weight 114 lb - Constitutional no acute distress Assessment and Plan (1) labor in third trimester Current visit: Yes Status: Acute Category: Medical Code(s): O60.03 - labor without delivery, third trimester (2) Tobacco smoking complicating Problem details: 09/05 PPD Current visit: No Status: Acute Category: Medical Code(s): O99.330 - Smoking (tobacco) complicating , unspecified trimester - Assessment and plan all Dx Assessment and Plan for all problems:: We will continue with hospitalization for now. We will continue with nifedipine as well as IV fluids. She is getting another bolus this morning. We have started her on Ancef 2 g now and then 1 g every 8 hours. She will receive her second dose of steroids this evening. We will continue with bedrest and admission for now.
[2019-10-21 12:09] VITALS: BP 103/59
--- NOTE | 2019-10-21 13:04 | Discharge Summary ---
General - General Admission date:: 10/20/19 Discharge date: 10/21/19 HPI HPI: Admitted at 32 4/7 weeks with labor Previous treatment for contractions (brethine) earlier this and had documented cervical change She was admitted for tocolysis (brethine, procardia) and steroids Treatment was successful and contractions abated She is discharged home on HD #3 in stable condition, on bedrest She will continue procardia po q6 F/U already scheduled in office for later this week labor precautions advised Hospital Course Hospital Course: per HPI Rhogam Administration: Not Indicated (Previous documentation of rhogam at 30 wks) Objective Vital signs: Temp Pulse Resp BP Pulse Ox 98.4 F 64 17 103/59 L 99 10/21/19 12:00 10/21/19 12:00 10/21/19 12:00 10/21/19 12:00 10/21/19 12:00 Narrative: CONSTITUTIONAL: no acute distress HEENT: mucous membranes moist PULMONARY: breathing unlabored without audible wheezes CV: no tachycardia or visible JVD; normal LE peripheral pulses ABD: soft, NT/ND, no guarding. Gravid uterus. : cervix 2/50/-2 (no change) SKIN: no visible rash or lesions HEME: no lymphadenopathy EXT: no edema LEs NEURO: alert/oriented, no altered mental status PSYCH: appropriate mood and demeanor without anxiety/depression NST: Basline: 140 Variability: moderate Accelerations: yes Decelerations: no Impression: Reactive, Category 1 DS: Diagnosis - Discharge Diagnosis (1) labor in third trimester Status: Acute (2) Small for dates fetus Status: Acute (3) Tobacco smoking complicating Status: Acute Problem details: 1/2 PPD (4) Anemia affecting Status: Acute Problem details: HgB 10.4 (5) Rh negative status during Status: Acute (6) Rubella non-immune status, antepartum Status: Acute Discharge Plan - Patient Discharge Instructions ACTIVITY: Bed rest DIET: regular diet Additional Instructions: bed rest, nothing in vagina, follow-up with dr. hoffman on monday @ 10:30 Patient Instructions: Hemorrhage, [facility] Labor, Antepartum Care - Follow up Plan Follow up with: April Hoffman MD [Staff Physician] - Disposition: Home, Self-Shelter Medications: Home Medications Medication Instructions Recorded Confirmed Type zp-jmqq-gxbt-iron 8 mg-folic acid 1 tab PO DAILY tab 10/02/19 10/20/19 History 400 mcg-vit K1 50 mcg-lutein tablet Ondansetron [Ondansetron Odt 8mg 4 mg PO Q6HP PRN 10/20/19 10/20/19 History Tab] NIFEdipine [NIFEdipine 10mg 10 mg PO Q6HP #120 cap 10/21/19 Rx Capsule] Prescriptions/Medication Reconciliation: New NIFEdipine [NIFEdipine 10mg Capsule] 10 mg PO Q6HP #120 cap Continued mu-thiy-ubbl-iron 8 mg-folic acid 400 mcg-vit K1 50 mcg-lutein tablet 1 tab PO DAILY tab Ondansetron [Ondansetron Odt 8mg Tab] 4 mg PO Q6HP PRN PRN Reason: nausea and vomiting - Problem Reconciliation Problems Reviewed?: Yes
== END 2019-10-21 13:10 | disposition home or self-care (01) ==
LOC: OB 01:56 → OBOUT 01:56 → OB 01:57
PROVIDERS: ADMIT Nurse Practitioner Obstetrics & Gynecology; ATTEND Nurse Practitioner Obstetrics & Gynecology
CPT/HCPCS: 59025; 80305; 81001; 82731; 87086; 94761; 96361; 96365; 96366; 96367; 96372; G0378; G0463

== ENCOUNTER → 2019-10-25 14:25 | Outpatient (CLI) | payer OTHER, SELFPAY ==
[2019-10-25 16:47] LABS: Amphetamine/Metha Screen,Urine Negative ng/ml (<1000)
[2019-10-25 16:48] LABS: Barbiturates Screen,Urine Negative ng/ml (<200)
[2019-10-25 16:49] LABS: Benzodiazepines Screen,Urine Negative ng/ml (<200); Cannabinoid Screen,Urine Negative ng/ml (<50)
[2019-10-25 16:50] LABS: Cocaine Screen,Urine Negative ng/ml (<300)
[2019-10-25 16:51] LABS: Methadone Screen,Urine Negative ng/ml (<300); Opiate Screen,Urine Negative ng/ml (<300)
[2019-10-25 16:52] LABS: Phencyclidine Screen,Urine Negative ng/ml (<25)
== END ==
PROVIDERS: Visit Provider Obstetrics & Gynecology
DX: Z34.90 Encounter for supervision of normal pregnancy, unspecified, unspecified trimester (principal)
CPT/HCPCS: 80305

== ENCOUNTER → 2019-11-07 16:51 | Outpatient (CLI) | payer OTHER, SELFPAY ==
[2019-11-12 14:58] LABS: Neisseria gonorrhoeae, NAA Negative (Negative)
== END ==
PROVIDERS: Visit Provider Obstetrics & Gynecology
DX: Z34.90 Encounter for supervision of normal pregnancy, unspecified, unspecified trimester (principal)
CPT/HCPCS: 86403; 87491; 87591

== ENCOUNTER 2019-11-28 18:32 | Outpatient (CLI) | payer OTHER, SELFPAY ==
[2019-11-28 18:42] VITALS: BMI 21.6
[2019-11-28 18:51] LABS: Microscopic, Urine URINE MICROSCOPIC (MICROSCOPIC)
[2019-11-28 18:53] VITALS: BP 115/75; PULSE 88; RESP 18; TEMP 36.3; O2SAT 100; BMI 22.3
[2019-11-28 19:03] LABS: Appearance,Urine CLEAR (Clear); Bilirubin,Urine Negative (Negative); Blood, Urine Negative (Negative); Color,Urine YELLOW (Yellow); Glucose,Urine (UA) Negative (Negative); Ketones,Urine Negative (Negative); Leukocyte Esterase,Urine 3+ (Negative); Nitrate,Urine Negative (Negative); Protein,Urine Negative (Negative); Urobilinogen,Urine 0.2 EU/dl (0.2)
[2019-11-28 19:14] LABS: Barbiturates Screen,Urine Negative ng/ml (<200); Benzodiazepines Screen,Urine Negative ng/ml (<200)
[2019-11-28 19:15] LABS: Amphetamine/Metha Screen,Urine Negative ng/ml (<1000)
[2019-11-28 19:16] LABS: Cannabinoid Screen,Urine Negative ng/ml (<50); Cocaine Screen,Urine Negative ng/ml (<300)
[2019-11-28 19:17] LABS: Methadone Screen,Urine Negative ng/ml (<300); Opiate Screen,Urine Negative ng/ml (<300)
[2019-11-28 19:18] LABS: Phencyclidine Screen,Urine Negative ng/ml (<25)
[2019-11-28 19:19] LABS: Bacteria,Urine Trace /lpf
== END 2019-11-28 22:55 | disposition home or self-care (01) ==
LOC: OBOUT 18:34 → OB 18:35
PROVIDERS: PCP Obstetrics & Gynecology; Visit Provider Obstetrics & Gynecology
DX: O60.03 Preterm labor without delivery, third trimester (principal); Z3A.38 38 weeks gestation of pregnancy
CPT/HCPCS: 59025; 80305; 81001; 87086; 96365; 96367; G0463

== ENCOUNTER 2019-11-29 02:52 | Inpatient (IN) ==
[2019-11-29 03:36] LABS: Basophils % 0.1 % (0.1-2.0); Eosinophils # 0.1 K/mm3 (0.0-0.4); Eosinophils % 0.4 % (0.1-12.0); Hematocrit 33.9 % (37.0-47.0); Hemoglobin 11.5 g/dL (12.2-16.2); Lymphocytes # 1.8 K/mm3 (0.7-4.5); Lymphocytes % 12.8 % (10-50); Mean Corpuscular Volume 87.5 fl (81-99); Mean Platelet Volume 8.4 fl (7.4-10.4); Monocytes # 0.4 K/mm3 (0.1-1.0); Monocytes % 3.1 % (1.7-9.3); Neutrophils # 11.8 K/mm3 (1.8-7.8); Neutrophils % 83.7 % (37.0-80.0); Platelet Count 314 K/mm3 (142-424); Red Blood Count 3.88 M/mm3 (4.20-5.40); Red Cell Distribution Width 15.2 % (11.5-17.5); White Blood Count 14.1 K/mm3 (4.8-10.8)
--- NOTE | 2019-11-29 04:42 | Progress Note ---
[facility] Anesthesia Checklist - Patient Identification Patient Identification: Arm Band, Verbal (Name & ) - Structural Data Admitted From: Home Planned Operative Procedure/s: Labor epidural Consent for Planned Operative Procedure(s) Verified: Yes Verified Documents: Surgical Consent, History and Physical - Chart Verification Results Verified: CBC - Additional verifications Patient : Yes Anesthesia Reactions: No - Airway Assessment C-Spine Mobility Assessed: Yes TMJ Mobility Assessed: Yes Dentition: Good Dentition - Neurological Assessment Level of Consciousness: Awake, Alert, Appropriate, Follows Commands Hx Seizures: No Numbness or tingling in extremities: No - Anesthesia Plan Anesthesia Risk discussed: Yes Anesthesia Plan: Verified ASA Class: II Anesthesia Type: Epidural [facility] History I have reviewed the patient's past medical history: Yes Medical History: Denies:: Cancer, Diabetes Mellitus Type 1, Diabetes Mellitus Type 2, MRSA *Have you ever received a pneumonia vaccine?: No *Have you received a flu vaccine this season?: No Anesthesia experience/problems:: none Other Surgeries: Yes: Dilation and Curettage. No: Amputation: No Fractures: Yes (right leg as child) - *Social History Smoking Status: Current every day smoker # Packs/Day (cigarettes): 1 Alcohol Intake: never Alcohol Intake Frequency:: a few times a month Substance Use Type: denies use *Occupational Status:: unemployed *Travel in the last 8 weeks: None Family Hx:: Hypertension Para: 1
--- NOTE | 2019-11-29 06:02 | Procedure Note ---
- Delivery Note Delivery Date:: 11/29/19 Delivery Time:: 05:30 Anesthesia Type: Epidural Was labor medically induced?: No Infant delivered prior to 39 weeks?: Yes Justification for early elective delivery:: Active Labor Infant Gender: Male at 1 minute: 8 at 5 minutes: 9 Delivery Procedure:: 38 6/7 wks, presented with spontaneous active labor. Following placement of epidural, amniotomy performed with clear fluid noted. FSE placed without complication or difficulty. Patient progressed rapidly to complete dilation and spontaneous vaginal delivery of live born male over intact perineum. Delivery uncomplicated No nuchal cord or shoulder dystocia with delivery placed in RAHUL with mother immediately after umbilical cord clamped/cut, with standard nursing assessment performed Infant Apgars: 8 & 9 Placenta spontaneously expressed and examined; noted to be complete/intact. Vulva, vagina, and cervix inspected; small superficial perineal laceration reapproximated for hemostasis EBL: 200 cc All sponge/needle/instrument counts correct at conclusion of procedure Disposition: Mom/baby stable to recovery in LDRP Placental Delivery Description: Spontaneous
[2019-11-30 05:59] LABS: Hematocrit 30.1 % (37.0-47.0); Hemoglobin 9.5 g/dL (12.2-16.2)
--- NOTE | 2019-11-30 11:49 | Discharge Summary ---
General - General Admission date:: 11/29/19 Discharge date: 11/30/19 HPI HPI: PPD #1 No unusual complaints Ambulating and voiding without difficulty Tolerating regular diet Lochia appropriate Hospital Course Rhogam Administration: Not Indicated Objective Vital signs: Temp Pulse Resp BP Pulse Ox 98.2 F 63 16 120/70 100 11/30/19 11:25 11/30/19 11:25 11/30/19 11:25 11/30/19 11:25 11/30/19 07:40 Narrative: CONSTITUTIONAL: no acute distress HEENT: mucous membranes moist PULMONARY: breathing unlabored without audible wheezes CV: no tachycardia or visible JVD; normal LE peripheral pulses ABD: soft, NT/ND, no guarding : fundus firm at/below umbilicus SKIN: no visible rash or lesions EXT: 1+ edema LEs NEURO: alert/oriented, no altered mental status PSYCH: appropriate mood and demeanor without visible anxiety/depression Results Labs on day of discharge: Labs from last 24 hours 11/30/19 11/29/19 05:50 03:30 Hgb 9.5 L Hct 30.1 L Antibody Identification Anti-D DS: Diagnosis - Discharge Diagnosis (1) Vaginal delivery Status: Acute (2) Active labor at term Status: Acute (3) Anemia affecting Status: Acute Problem details: HgB 10.4 (4) Penicillin allergy Status: Acute (5) Rh negative status during Status: Acute (6) Rubella non-immune status, antepartum Status: Acute (7) Tobacco smoking complicating Status: Acute Problem details: 1/2 PPD Discharge Plan - Patient Discharge Instructions ACTIVITY: Continue current activity DIET: regular diet Additional Instructions: No heavy lifting, no strenuous activity, nothing in the vagina for 6 weeks. Patient Instructions: Depression, Hemorrhage, Measles, Mumps, Rubella Vaccine, DI for Labor and Delivery, Vaginal , DI for Pre- eclampsia, [facility] Post Discharge Instructions - Follow up Plan Follow up with: April Zamora MD [Staff Physician] - (CALL ON MONDAY TO SCHEDULE A 6 WEEK FOLLOW UP APPOINTMENT WITH DR. ZAMORA [phone]) Disposition: Home, Self-Custodial Medications: Home Medications Medication Instructions Recorded Confirmed Type kk-rghl-zmdz-iron 8 mg-folic acid 1 tab PO DAILY tab 10/02/19 11/29/19 History 400 mcg-vit K1 50 mcg-lutein tablet Ondansetron [Ondansetron Odt 8mg 4 mg PO Q6HP PRN 10/20/19 11/29/19 History Tab] Ibuprofen [Motrin 400mg 800 mg PO Q6HP PRN #30 tab 11/30/19 Rx tablet] Prescriptions/Medication Reconciliation: New Ibuprofen [Motrin 400mg tablet] 800 mg PO Q6HP PRN #30 tab PRN Reason: Mild To Moderate Pain Acetaminophen [Acetaminophen 325mg tab] 650 mg PO Q4HP PRN tablet PRN Reason: Mild Pain Continued cg-onob-ovko-iron 8 mg-folic acid 400 mcg-vit K1 50 mcg-lutein tablet 1 tab PO DAILY tab Ondansetron [Ondansetron Odt 8mg Tab] 4 mg PO Q6HP PRN PRN Reason: nausea and vomiting - Problem Reconciliation Problems Reviewed?: Yes
[2019-11-30 17:42] VITALS: BP 116/68
== END 2019-11-30 17:20 | disposition home or self-care (01) | DRG 807 ==
LOC: OBOUT 02:52 → OB 02:58
PROVIDERS: ADMIT Obstetrics & Gynecology; ATTEND Obstetrics & Gynecology
CPT/HCPCS: G0463

== ENCOUNTER 2020-05-18 15:03 | Emergency (ER) | payer OTHER, SELFPAY ==
[2020-05-18 15:09] VITALS: BMI 19.5
[2020-05-18 15:10] VITALS: BP 112/70; PULSE 80; RESP 18; TEMP 36.7; O2SAT 99
== END 2020-05-18 15:12 | disposition home or self-care (01) ==
LOC: UTC 15:10
PROVIDERS: Emergency Provider Nurse Practitioner Family; PCP Emergency Medicine
DX: Z48.02 Encounter for removal of sutures (principal)

== ENCOUNTER → 2020-07-16 11:17 | Outpatient (CLI) | payer OTHER, SELFPAY ==
[2020-07-17 10:36] LABS: HIV Screen 4th Generation wRfx Non Reactive (Non Reactive)
[2020-07-17 11:43] LABS: Hep A Ab, IgM Negative (Negative); Hepatitis B Core Antibody IgM Negative (Negative); Hepatitis B Surface Antigen Negative (Negative)
[2020-07-17 18:57] LABS: Hepatitis C Antibody <0.1 s/co ratio (0.0-0.9); Rapid Plasma Reagin Ab Titer Non Reactive (NonRea<1:1)
== END ==
PROVIDERS: Visit Provider Obstetrics & Gynecology
DX: Z01.419 Encounter for gynecological examination (general) (routine) without abnormal findings (principal)
CPT/HCPCS: 36415; 80074; 86592; 86703; G0432

== ENCOUNTER 2020-08-20 15:06 | Emergency (ER) | payer OTHER, SELFPAY ==
[2020-08-20 15:50] VITALS: BP 107/50; PULSE 83; RESP 20; TEMP 36.4; O2SAT 97; BMI 18.6
--- NOTE | 2020-08-20 16:08 | HMH.EDUTC ---
[facility] [place] Disposition Clinical Impression: Exposure to COVID-19 virus Disposition: Home, Self-Care Condition on Discharge: Good Instructions: COVID-19: Testing and Tracing, Preventing the Spread of Coronavirus Discharge Instructions, COVID-19 Viral Test, DI for COVID-19 (Suspected or Confirmed ) Additional Instructions: You were tested for today for COVID19 your test result should be back in the next 24-48 hours, you may call to the [facility] to see if your test results are back in the next 48 hours [phone] [facility] hours are 9am-9pm You was given a handout with instructions for Self Quarantine and Self isolation for while you wait on test results and what to do if they are positive If you are positive the Health Dept will be contacting you also Referrals: Keron Hope MD [Primary Care Provider] - As needed Time of Disposition: 16:09 Medical Decision Making - Stevie Inquiry Pt receiving controlled substance: No Stevie was queried for this patient: No Vital Signs: 08/20/20 15:50 Temperature 97.6 F Temperature Source Oral Pulse Rate [Right Brachial] 83 Respiratory Rate 20 Blood Pressure [Right Arm] 107/50 L Blood Pressure Mean [Right Arm] 69 Blood Pressure Source [Right Arm] Automatic Cuff Blood Pressure Position [Right Arm] Sitting 02 Sat by Pulse Oximetry 97 Oxygen Delivery Method Room Air Orders (Tests/Meds): ORDERS Category Date Time Status Covid-19 Nasal PCR Sendout P&C Stat Lab 08/20/20 15:40 Received [facility] [place] HPI - General Stated complaint: covid test Time Seen by Provider: 08/20/20 16:08 Mode of Arrival: Ambulatory Source of Information: Patient Limitations: No Limitations Description of Symptoms (Recalled from Triage Doc. by RN): REQUESTING COVID TEST D/T EXPOSURE; DENIES SYMPTOMS HEENT Symptoms (Recalled from RN notes): No Resp Symptoms (Recalled from RN notes): No Skin Symptoms (Recalled from RN notes): No MS Symptoms (Recalled from RN notes): No Functional Status (Recalled from RN notes): WNL - History of Present Illness Provider Complaint: Patient states that she was recently around her brother and his girlfriend and they have since tested postive for COVID states that she is not having any symptoms but wanted to get tested - Related Data Allergies Allergy/AdvReac Type Severity Reaction Status Date / Time Penicillins [PENICILLINS] Allergy Unknown Hives Verified 07/16/20 09:06 venom-honey bee Allergy Unknown Hives Verified 07/16/20 09:06 [BEE VENOM (HONEY BEE)] - Worker's Comp Is this a Worker's Comp case?: No [facility] History - Hepatitis A Screen Drug use history?: No High risk sexual behaviors?: No History of sexually transmitted infection?: No Currently employed?: No Childcare worker?: No Do you have indoor plumbing?: Yes Do you have electricity?: Yes Attestation statement:: This patient has been screened for Hepatitis A risk factors. I have reviewed the patient's past medical history: Yes Medical History: Denies:: Cancer, Diabetes Mellitus Type 1, Diabetes Mellitus Type 2, MRSA, Seizures Other Surgeries: Yes: Dilation and Curettage. No: Amputation: No Fractures: Yes (right leg as child) Comment: 2016- D&E - Social History Smoking Status: Current every day smoker # Packs/Day (cigarettes): 1 Alcohol Intake: never Alcohol Intake Frequency:: a few times a month Substance Use Type: denies use Occupational Status: other Family Hx:: Hypertension Comment: 2016- SAB, D&E, 11/12/18-Vaginal Delivery (female) ROS Obtained: Yes All systems reviewed & no additional complaints, Yes Systems reviewed as appropriate & no additional complaints - Constitutional Constitutional: Reports system reviewed and no additional complaints, except as docu, Denies body ache, Denies fever(s), Denies headache(s) - ENT Ears, Nose, Mouth, and Throat: Reports system reviewed and no additional complaints, except as docu, Denies nasal congestion, Denies nasal discharge, Denies sore throa
[2020-08-20 16:10] VITALS: BP 107/50; PULSE 83; RESP 20; TEMP 36.4; O2SAT 97
[2020-08-22 10:57] LABS: Covid-19 Nasal PCR Sendout P&C NEGATIVE
== END 2020-08-20 16:24 | disposition home or self-care (01) ==
PROVIDERS: Emergency Provider Nurse Practitioner; PCP Family Medicine
DX: Z20.828 Contact with and (suspected) exposure to other viral communicable diseases (principal); F17.210 Nicotine dependence, cigarettes, uncomplicated; Z88.0 Allergy status to penicillin
CPT/HCPCS: 99201; U0004

== ENCOUNTER 2021-05-21 20:01 | Emergency (ER) | payer OTHER, SELFPAY ==
[2021-05-21] VITALS (7 sets, daily range): BP systolic 117–125; BP diastolic 68–91; PULSE 90–117; RESP 14; TEMP 37.3; O2SAT 99–100; BMI 17.4
--- NOTE | 2021-05-21 20:08 | HMH.EDGENADL ---
ED Disposition Clinical Impression: Opiate withdrawal, Dehydration, Hypokalemia, Exposure to COVID-19 virus Disposition: Home, Self-Care Condition on Discharge: Good Instructions: DI for Dehydration -- Adult, DI for Hypokalemia, DI for Drug or Alcohol Withdrawal Additional Instructions: Phenergan as needed for nausea. Drink plenty of fluids. COVID-19 Quarantine: Quarantine if you have been in close contact (within 6 feet of someone for a cumulative total of 15 minutes or more over a 24-hour period) with someone who has COVID-19, unless you have been fully vaccinated. People who are fully vaccinated do NOT need to quarantine after contact with someone who had COVID-19 unless they have symptoms. However, fully vaccinated people should get tested 3-5 days after their exposure, even if they don?t have symptoms and wear a mask indoors in public for 14 days following exposure or until their test result is negative. What to do Stay home for 14 days after your last contact with a person who has COVID-19. Watch for fever (100.4?F), cough, shortness of breath, or other symptoms of COVID-19. If possible, stay away from people you live with, especially people who are at higher risk for getting very sick from COVID-19. After quarantine: Watch for symptoms until 14 days after exposure. If you have symptoms, immediately self-isolate and contact your local public health authority or healthcare provider. You may be able to shorten your quarantine Your local public health authorities make the final decisions about how long quarantine should last, based on local conditions and needs. Follow the recommendations of your local public health department if you need to quarantine. Options they will consider include stopping quarantine: After day 10 without testing OR After day 7 after receiving a negative test result (test must occur on day 5 or later) Referrals: Provider,Referral, [Primary Care Provider] - - Critical Care Critical Care Time: No Attestation: On 05/21/21, the high probability of a clinically significant, sudden or life threatening deterioration of the following system(s) required my full and direct attention, intervention and personal management. The time I documented below is in addition to time spent performing reported procedures but includes the following listed in this critical care notation. Medical Decision Making - Stevie Inquiry Pt receiving controlled substance: No Vital Signs: 05/21/21 19:57 05/21/21 20:29 05/21/21 21:00 Temperature 99.1 F Temperature Source Oral Pulse Rate 114 H Pulse Rate [Left Radial] 101 H Respiratory Rate 14 Blood Pressure 123/90 Blood Pressure [Right Arm] 125/91 H Blood Pressure Mean 97 Blood Pressure Mean [Right Arm] 102 Blood Pressure Source [Right Arm] Automatic Cuff Blood Pressure Position [Right Arm] Supine 02 Sat by Pulse Oximetry 100 99 Oxygen Delivery Method Room Air Room Air 05/21/21 21:30 05/21/21 22:00 05/21/21 22:30 Temperature Temperature Source Pulse Rate 115 H 112 H 117 H Pulse Rate [Left Radial] Respiratory Rate Blood Pressure 119/85 119/88 121/77 Blood Pressure [Right Arm] Blood Pressure Mean 94 100 91 Blood Pressure Mean [Right Arm] Blood Pressure Source [Right Arm] Blood Pressure Position [Right Arm] 02 Sat by Pulse Oximetry 99 99 99 Oxygen Delivery Method 05/21/21 23:00 Temperature Temperature Source Pulse Rate 114 H Pulse Rate [Left Radial] Respiratory Rate Blood Pressure 125/68 Blood Pressure [Right Arm] Blood Pressure Mean 85 Blood Pressure Mean [Right Arm] Blood Pressure Source [Right Arm] Blood Pressure Position [Right Arm] 02 Sat by Pulse Oximetry 99 Oxygen Delivery Method - Lab Data Lab Results 05/21/21 20:13: WBC 12.0 H, RBC 5.06, Hgb 15.7, Hct 46.4, MCV 91.8, MCH 30.9, MCHC 33.7, RDW 13.5, Plt Count 377, MPV 7.2 L, Neut % (Auto) 84.3 H, Lymph % (Auto) 9.8
--- NOTE | 2021-05-21 20:17 | XR_ITS ---
PROCEDURE INFORMATION: Exam: XR Chest Exam date and time: 05/21/2021 8:17 PM Age: 25 years old Clinical indication: Cough and other: Exposure to covid; Additional info: Cough, covid exposure TECHNIQUE: Imaging protocol: XR of the chest. Views: 1 view. COMPARISON: CR CXR2 XR chest AP 11/11/2017 6:07 AM FINDINGS: Airway: Patent Lungs: Unremarkable. No consolidation. Pleural spaces: Unremarkable. No pleural effusion. No pneumothorax. Heart/Mediastinum: Unremarkable. No cardiomegaly. Bones/joints: No acute skeletal abnormality or aggressive osseous lesion. Soft tissues: Bilateral nipple piercings. IMPRESSION: Negative for acute thoracic pathology.
[2021-05-21 20:28] LABS: Basophils % 0.3 % (0.1-2.0); Coronavirus 19, PCR Not Detected (NotDetected); Eosinophils # 0.1 K/mm3 (0.0-0.4); Eosinophils % 0.9 % (0.1-12.0); Hematocrit 46.4 % (37.0-47.0); Hemoglobin 15.7 g/dL (12.2-16.2); Influenza A, PCR Not Detected (NotDetected); Influenza B, PCR Not Detected (NotDetected); Lymphocytes # 1.2 K/mm3 (0.7-4.5); Lymphocytes % 9.8 % (10-50); Mean Corpuscular HGB Conc 33.7 g/dL (31.8-35.4); Mean Corpuscular Hemoglobin 30.9 pg (27.0-31.2); Mean Corpuscular Volume 91.8 fl (81-99); Mean Platelet Volume 7.2 fl (7.4-10.4); Monocytes # 0.6 K/mm3 (0.1-1.0); Monocytes % 4.7 % (1.7-9.3); Neutrophils # 10.1 K/mm3 (1.8-7.8); Neutrophils % 84.3 % (37.0-80.0); Platelet Count 377 K/mm3 (142-424); Red Blood Count 5.06 M/mm3 (4.20-5.40); Red Cell Distribution Width 13.5 % (11.5-17.5)
[2021-05-21 20:31] LABS: Chloride 101 mmol/L (98-107); Potassium 3.1 mmoL/L (3.5-5.1); Sodium 149 mmol/L (136-145)
[2021-05-21 20:33] LABS: Alanine Aminotransferase 19 U/L (12-78); Alkaline Phosphatase 94 U/L (38-126); Anion Gap 20.1 mEq/L (5-15); Aspartate Amino Transferase 25 U/L (14-36); Bilirubin,Total 0.5 mg/dl (0.2-1.3); Blood Urea Nitrogen 14 mg/dl (7-17); Carbon Dioxide 31 mmol/L (22.0-30.0); Creatinine Clearance Estimated 44 mL/min (50-200); Estimated Glomerular Filt Rate 47 ml/min (>60); GFR (African American) 56 ML/MIN (>60)
[2021-05-21 20:34] LABS: Albumin Level 5.2 g/dl (3.5-5.0); Albumin/Globulin Ratio 1.3 (1.1-1.8); Calcium 9.5 mg/dl (8.4-10.2); Globulin 4.1 g/dL (1.3-3.2); Glucose 122 mg/dl (74-100); Total Protein,Serum 9.3 g/dl (6.3-8.2)
[2021-05-21 20:39] LABS: Ethyl Alcohol < 10 mg/dl (0-10); HCG Qualitative, Serum Negative (Negative)
[2021-05-21 23:24] LABS: Amphetamine/Metha Screen,Urine Negative ng/ml (<1000)
[2021-05-21 23:25] LABS: Barbiturates Screen,Urine Negative ng/ml (<200); Benzodiazepines Screen,Urine Negative ng/ml (<200)
[2021-05-21 23:26] LABS: Cannabinoid Screen,Urine Positive ng/ml (<50); Cocaine Screen,Urine Negative ng/ml (<300)
[2021-05-21 23:27] LABS: Methadone Screen,Urine Negative ng/ml (<300)
[2021-05-21 23:28] LABS: Opiate Screen,Urine Negative ng/ml (<300); Phencyclidine Screen,Urine Negative ng/ml (<25)
== END 2021-05-22 00:24 | disposition home or self-care (01) ==
PROVIDERS: Emergency Provider Emergency Medicine
DX: F11.93 Opioid use, unspecified with withdrawal (principal); E86.0 Dehydration; Z20.822 Contact with and (suspected) exposure to COVID-19; F12.10 Cannabis abuse, uncomplicated; E87.6 Hypokalemia; F17.210 Nicotine dependence, cigarettes, uncomplicated; Z88.0 Allergy status to penicillin
CPT/HCPCS: 71045; 80053; 80305; 84703; 85025; 96365; 99283; C9803; J2405; U0003; U0005

== ENCOUNTER 2021-08-12 12:03 | Emergency (ER) | payer OTHER, SELFPAY ==
[2021-08-12 12:26] VITALS: BMI 19.5
[2021-08-12 12:27] VITALS: BP 95/60; PULSE 134; RESP 16; TEMP 36.6; O2SAT 99; BMI 19.5
[2021-08-12 12:33] LABS: Apearance,Urine Clear (Clear); Bilirubin,Urine Negative (Negative); Blood, Urine Trace (Negative); Color,Urine Yellow (Yellow); Glucose,Urine (UA) Negative (Negative); Ketones,Urine 15 (Negative); Protein,Urine Negative (Negative); Specific Gravity, Urine 1.025 (1.005-1.030); UTC Leukocyte Esterase,Urine Trace (Negative); UTC Nitrate,Urine Negative (Negative); UTC Pregnancy Test, Urine Negative (Negative); Urobilinogen,Urine 0.2 EU/dl (0.2)
--- NOTE | 2021-08-12 12:39 | HMH.EDUTC ---
[facility] [place] Disposition Clinical Impression: Right lower quadrant abdominal pain Disposition: Still a Patient Condition on Discharge: Fair Referrals: Keron Hope MD [Primary Care Provider] - Time of Disposition: 13:12 Medical Decision Making - Medical Records Medical records reviewed: No: I reviewed the patient's medical records. - Stevie Inquiry Pt receiving controlled substance: No Vital Signs: 08/12/21 12:27 08/12/21 12:55 Temperature 98 F 98 F Temperature Source Oral Oral Pulse Rate [Left Radial] 134 H 131 H Respiratory Rate 16 16 Blood Pressure [Right Arm] 95/60 L 98/61 L Blood Pressure Mean [Right Arm] 71 73 02 Sat by Pulse Oximetry 99 99 Oxygen Delivery Method Room Air Room Air - Lab Data Lab results reviewed: Yes: I reviewed the patient's lab results. Lab Results 08/12/21 12:27: Urine Color Yellow, Urine Appearance Clear, Urine pH 6.0, Ur Specific [place] 1.025, Urine Protein Negative, Urine Glucose (UA) Negative, Urine Ketones 15, Urine Blood Trace, Urine Nitrate Negative, Urine Bilirubin Negative, Urine Urobilinogen 0.2, Ur Leukocyte Esterase Trace, Tst Clinic Negative Orders (Tests/Meds): ORDERS Category Date Time Status Complete Blood Count Auto Diff Stat Lab 08/12/21 12:53 Received Comprehensive Metabolic Panel Stat Lab 08/12/21 12:53 Received Urinalysis and Microscopic Stat Lab 08/12/21 12:53 Received Medical Decision Narrative: She was sent to the er due to her right lower quadrant abdominal pain. [facility] HPI - General Stated complaint: rt side pain Time Seen by Provider: 08/12/21 12:39 Mode of Arrival: Ambulatory Source of Information: Patient Limitations: No Limitations Description of Symptoms (Recalled from Triage Doc. by RN): [facility]/o right flank pain that started 2 days ago. pt states this pain started abruptly while she was working. pt denies urinary symptoms such as burning with urination, frequency and urgency. pt states this pain gets worse when she takes a deep breath in. HEENT Symptoms (Recalled from RN notes): No Resp Symptoms (Recalled from RN notes): No Skin Symptoms (Recalled from RN notes): No MS Symptoms (Recalled from RN notes): No Functional Status (Recalled from RN notes): na - History of Present Illness Provider Complaint: She is here with progressively worsening right lower quadrant abdominal pain. Her pain started 2 days ago. She has not had a fever but she has been chilling. She denies any urinary complaints. She denies possibility that she might be . She denies any vaginal bleeding. She does still have her appendix. - Related Data Home Medications Medication Instructions Recorded Confirmed No Known Home Medications 01/13/21 05/21/21 Allergies Allergy/AdvReac Type Severity Reaction Status Date / Time Penicillins [PENICILLINS] Allergy Unknown Hives Verified 07/16/20 09:06 venom-honey bee Allergy Unknown Hives Verified 07/16/20 09:06 [BEE VENOM (HONEY BEE)] - Worker's Comp Is this a Worker's Comp case?: No [facility] History - Hepatitis A Screen Drug use history?: No High risk sexual behaviors?: No History of sexually transmitted infection?: No Currently employed?: No Childcare worker?: No Do you have indoor plumbing?: Yes Do you have electricity?: Yes Attestation statement:: This patient has been screened for Hepatitis A risk factors. I have reviewed the patient's past medical history: Yes Medical History: Denies:: Cancer, Diabetes Mellitus Type 1, Diabetes Mellitus Type 2, MRSA, Seizures Other Surgeries: Yes: Dilation and Curettage. No: Amputation: No Fractures: Yes (right leg as child) Comment: 2017- D&E - Social History Smoking Status: Current every day smoker # Packs/Day (cigarettes): 1 Alcohol Intake: never Alcohol Intake Frequency:: a few times a month Substance Use Type: denies use Occupational Status: other Family Hx:: Hypertension Comment: 2017- SAB, D&E, 11/12/18-Vag
[2021-08-12 12:55] VITALS: BP 98/61; PULSE 131; RESP 16; TEMP 36.6; O2SAT 99; BMI 19.5
[2021-08-12 13:06] LABS: Microscopic, Urine URINE MICROSCOPIC (MICROSCOPIC)
--- NOTE | 2021-08-12 13:08 | CT_ITS ---
PROCEDURE INFORMATION: Exam: CT Abdomen And Pelvis With Contrast Exam date and time: 08/12/2021 1:08 PM Age: 25 years old Clinical indication: Abdominal pain; Additional info: Right sided flank pain TECHNIQUE: Imaging protocol: Computed tomography of the abdomen and pelvis with contrast. Radiation optimization: All CT scans at this facility use at least one of these dose optimization techniques: automated exposure control; mA and/or kV adjustment per patient size (includes targeted exams where dose is matched to clinical indication); or iterative reconstruction. Contrast material: ISOVUE; Contrast volume: 75 ml; Contrast route: IV; COMPARISON: ABDPELW/O CT ABD PELVIS W/O CONTRAST 05/13/2017 11:16 PM FINDINGS: Evaluation is somewhat limited by paucity of mesenteric fat. Pleural spaces: No acute airspace or pleural disease. Liver: Hepatic granuloma. Gallbladder and bile ducts: Unremarkable gallbladder. Pancreas: No pancreatic mass or ductal dilatation. Spleen: Granuloma in the enlarged spleen, measuring 14.5 cm in length. Adrenal glands: Stable left adrenal nodularity. Kidneys and ureters: Normal renal morphology. No hydronephrosis. Stomach and bowel: Prominent stool and diverticula.Localized infiltration of mesenteric fat and trace fluid in the subhepatic space, contiguous with the hepatic flexure, most likely representing diverticulitis. Follow-up imaging is recommended to ensure complete interval resolution. Appendix: No acute appendicitis. Intraperitoneal space: Prominent dependent free fluid in the cul-de-sac. Vasculature: Normal caliber of the abdominal aorta. Lymph nodes: Subcentimeter lymph nodes. Urinary bladder: Nondistended bladder. Reproductive: Follicular change in the ovaries along with a 1.5 cm left ovarian cyst. Bones/joints: No acute osseous pathology. Soft tissues: Umbilical piercing. IMPRESSION: 1. Localized infiltration mesenteric fat and trace fluid in the subhepatic space, contiguous with the hepatic flexure, most likely representing diverticulitis. Follow-up imaging is recommended to ensure complete interval resolution. 2. Prominent free fluid in the cul-de-sac. 3. Additional findings as described above.
[2021-08-12 13:10] LABS: Appearance,Urine CLEAR (Clear); Bilirubin,Urine Negative (Negative); Blood, Urine TRACE-I (Negative); Color,Urine YELLOW (Yellow); Glucose,Urine (UA) Negative (Negative); Ketones,Urine 1+ (Negative); Leukocyte Esterase,Urine Negative (Negative); Nitrate,Urine Negative (Negative); Protein,Urine Negative (Negative); Specific Gravity, Urine 1.025 (1.005-1.030); Urobilinogen,Urine 0.2 EU/dl (0.2)
[2021-08-12 13:12] LABS: Basophils # 0.1 K/mm3 (0-0.2); Basophils % 0.5 % (0.1-2.0); Eosinophils # 0.1 K/mm3 (0.0-0.4); Eosinophils % 0.7 % (0.1-12.0); Hemoglobin 10.8 g/dL (12.2-16.2); Lymphocytes # 1.6 K/mm3 (0.7-4.5); Mean Corpuscular HGB Conc 33.9 g/dL (31.8-35.4); Mean Corpuscular Hemoglobin 30.4 pg (27.0-31.2); Mean Corpuscular Volume 89.8 fl (81-99); Mean Platelet Volume 7.8 fl (7.4-10.4); Monocytes # 0.4 K/mm3 (0.1-1.0); Monocytes % 4.1 % (1.7-9.3); Neutrophils # 8.6 K/mm3 (1.8-7.8); Neutrophils % 79.7 % (37.0-80.0); Platelet Count 280 K/mm3 (142-424); Red Blood Count 3.56 M/mm3 (4.20-5.40); Red Cell Distribution Width 13.9 % (11.5-17.5); White Blood Count 10.7 K/mm3 (4.8-10.8)
[2021-08-12 13:18] LABS: Alanine Aminotransferase 8 U/L (12-78); Albumin Level 4.1 g/dl (3.5-5.0); Albumin/Globulin Ratio 1.4 (1.1-1.8); Alkaline Phosphatase 85 U/L (38-126); Anion Gap 8.7 mEq/L (5-15); Aspartate Amino Transferase 19 U/L (14-36); Bilirubin,Total 0.4 mg/dl (0.2-1.3); Blood Urea Nitrogen 9 mg/dl (7-17); Carbon Dioxide 26 mmol/L (22.0-30.0); Chloride 104 mmol/L (98-107); Creatinine Clearance Estimated 77 mL/min (50-200); Estimated Glomerular Filt Rate 78 ml/min (>60); GFR (African American) 94 ML/MIN (>60); Glucose 93 mg/dl (74-100); Potassium 3.7 mmoL/L (3.5-5.1); Sodium 135 mmol/L (136-145); Total Protein,Serum 7.1 g/dl (6.3-8.2)
--- NOTE | 2021-08-12 13:22 | PC.NURSE ---
Pt to CT
[2021-08-12 13:32] LABS: Bacteria,Urine Trace /lpf
[2021-08-12 13:47] VITALS: BP 126/63; PULSE 74; RESP 16; O2SAT 100
--- NOTE | 2021-08-12 13:48 | HMH.EDGENADL ---
ED Disposition Clinical Impression: Ruptured ovarian cyst Disposition: Home, Self-Care Condition on Discharge: Good Instructions: DI for Acute Abdominal Pain Additional Instructions: Ibuprofen for pain while at work or driving. [place] for pain at night. Follow-up with Dr. Hoffman in the office, call for appointment. Additional instructions for ABDOMINAL PAIN: Return immediately if worsening abdominal pain, vomiting, shortness of breath, fever, vomiting of blood or abdominal distention. Prescriptions: Hydrocod/Acet 5/325 mg [[place] 5/325mg tablet] 1 tab PO Q6HP PRN #8 tab PRN Reason: Pain Transmission Status: Sent to [facility] Referrals: Keron Hope MD [Primary Care Provider] - Forms: Work/School Release - Critical Care Critical Care Time: No Attestation: On 08/12/21, the high probability of a clinically significant, sudden or life threatening deterioration of the following system(s) required my full and direct attention, intervention and personal management. The time I documented below is in addition to time spent performing reported procedures but includes the following listed in this critical care notation. Medical Decision Making - Stevie Inquiry Pt receiving controlled substance: No Vital Signs: 08/12/21 12:27 08/12/21 12:55 08/12/21 13:47 Temperature 98 F 98 F Temperature Source Oral Oral Pulse Rate [Left Radial] 134 H 131 H 74 Respiratory Rate 16 16 16 Blood Pressure [Right Arm] 95/60 L 98/61 L 126/63 Blood Pressure Mean [Right Arm] 71 73 84 Blood Pressure Source [Right Arm] Automatic Cuff Blood Pressure Position [Right Arm] Sitting 02 Sat by Pulse Oximetry 99 99 100 Oxygen Delivery Method Room Air Room Air Room Air 08/12/21 15:35 Temperature Temperature Source Pulse Rate [Left Radial] 70 Respiratory Rate 16 Blood Pressure [Right Arm] 128/71 Blood Pressure Mean [Right Arm] 90 Blood Pressure Source [Right Arm] Automatic Cuff Blood Pressure Position [Right Arm] Sitting 02 Sat by Pulse Oximetry 98 Oxygen Delivery Method Room Air - Lab Data Lab Results 08/12/21 12:27: Urine Color Yellow, Urine Appearance Clear, Urine pH 6.0, Ur Specific [place] 1.025, Urine Protein Negative, Urine Glucose (UA) Negative, Urine Ketones 15, Urine Blood Trace, Urine Nitrate Negative, Urine Bilirubin Negative, Urine Urobilinogen 0.2, Ur Leukocyte Esterase Trace, [facility]st Clinic Negative 08/12/21 12:53: Urine Color Yellow, Urine Appearance Clear, Urine pH 6.0, Ur Specific [place] 1.025, Urine Protein Negative, Urine Glucose (UA) Negative, Urine Ketones 1+, Urine Blood Trace-i, Urine Nitrate Negative, Urine Bilirubin Negative, Urine Urobilinogen 0.2, Ur Leukocyte Esterase Negative, Urine RBC 3-5, Urine WBC 5-10, Ur Squamous Epith Cells 5-10, Urine Bacteria Trace 08/12/21 12:53: WBC 10.7, RBC 3.56 L, Hgb 10.8 L, Hct 32.0 L, MCV 89.8, MCH 30.4, MCHC 33.9, RDW 13.9, Plt Count 280, MPV 7.8, Neut % (Auto) 79.7, Lymph % (Auto) 15.0, [place] % (Auto) 4.1, Eos % (Auto) 0.7, Baso % (Auto) 0.5, Neut # (Auto) 8.6 H, Lymph # (Auto) 1.6, [place] # (Auto) 0.4, Eos # (Auto) 0.1, Baso # (Auto) 0.1 08/12/21 12:53: Sodium 135 L, Potassium 3.7, Chloride 104, Carbon Dioxide 26, Anion Gap 8.7, BUN 9, Creatinine 0.90, Estimated Creat Clear 77, Estimated GFR 78, Est GFR ( Amer) 94, Glucose 93, Calcium 9.0, Total Bilirubin 0.4, AST 19, ALT 8 L, Alkaline Phosphatase 85, Total Protein 7.1, Albumin 4.1, Globulin 3.0, Albumin/Globulin Ratio 1.4 08/12/21 12:54: HCG, Quant < 2 Result diagrams: 08/12/21 12:53 08/12/21 12:53 Orders (Tests/Meds): ED MEDICATIONS Discontinued Medications Generic Name Dose Route Start Last Admin Trade Name Freq PRN Reason Stop Dose Admin Sodium Chloride 1,000 mls @ 999 mls/hr 08/12/21 13:15 08/12/21 13:14 Sod Chlor 0.9% 1000ml Bag IV 08/12/21 14:15 999 mls/hr .Q1H1M RAMÓN Administration Iopamidol 75 ml 08/12/21 13:31 08/12/21 13:32 Iopamidol-
[2021-08-12 15:23] LABS: HCG,Quantitative < 2 mIU/ml (0-5.42)
[2021-08-12 15:35] VITALS: BP 128/71; PULSE 70; RESP 16; O2SAT 98
--- NOTE | 2021-08-12 15:38 | US_ITS ---
PROCEDURE INFORMATION: Exam: US Pelvis, Transvaginal Exam date and time: 08/12/2021 3:38 PM Age: 25 years old Clinical indication: Pelvic pain; Patient HX: RT side pain-- CT showed free fluid; Additional info: Pelvic fluid TECHNIQUE: Imaging protocol: Real-time transvaginal pelvic ultrasound with image documentation. Transvaginal imaging was used for better evaluation of the endometrium, adnexa, and/or cervix. COMPARISON: Abdominal/pelvic CT 08/12/21 FINDINGS: Uterus: Uterus measures 9.9 by 3.8 by 5.0 cm. Normal caliber of the endometrium measuring 9 mm in diameter. Cervix: Nabothian cyst. Right ovary/adnexa: Right ovary measures 4.1 x 2.2 x 2.7 cm. Subcentimeter follicles. Ovarian blood flow demonstrated on color flow imaging. Doppler imaging was not performed. Left ovary/adnexa: Left ovary measures 4.0 x 2.4 by 3.6 cm. Multiple follicles, the largest measuring 10 mm. Ovarian blood flow demonstrated on color flow imaging. Doppler imaging was not performed. Intraperitoneal space: Prominent free fluid with low level internal echoes. IMPRESSION: Prominent free fluid with low level internal echoes.
--- NOTE | 2021-08-12 16:01 | PC.NURSE ---
PT GOING FOR TRANSVAG US
--- NOTE | 2021-08-12 16:19 | PC.NURSE ---
Shasha from rad speaking with Dr. Gusman regarding US report
[2021-08-12 16:59] LABS: C-Reactive Protein 59.7 mg/L (0-4)
[2021-08-12 17:11] LABS: Erythrocyte Sedimentation Rate 40 mm/hr (0-20)
[2021-08-12 17:41] VITALS: BP 122/70; PULSE 70; RESP 16; TEMP 36.8; O2SAT 98
[2021-08-16 05:07] LABS: Neisseria gonorrhoeae, NAA Negative (Negative)
== END 2021-08-12 17:42 | disposition home or self-care (01) ==
LOC: UTC 12:06 → ER 12:59
PROVIDERS: Nurse Practitioner Family; Emergency Provider Emergency Medicine; PCP Family Medicine
DX: N83.201 Unspecified ovarian cyst, right side (principal); F17.210 Nicotine dependence, cigarettes, uncomplicated
CPT/HCPCS: 74177; 76830; 80053; 81001; 81003; 81025; 84702; 85025; 85651; 86140; 87210; 87491; 87591; 96365; 96375; 99284; J2405; Q9967

== ENCOUNTER 2021-08-18 13:09 | Emergency (ER) | payer OTHER, SELFPAY ==
[2021-08-18] VITALS (11 sets, daily range): BP systolic 95–118; BP diastolic 55–82; PULSE 62–92; RESP 14–18; TEMP 36.8; O2SAT 96–100; BMI 19.5
--- NOTE | 2021-08-18 13:20 | CT_ITS ---
PROCEDURE: CT ABDOMEN PELVIS W CON CLINICAL INDICATION: abd pain COMPARISON: CT CT ABDOMEN PELVIS W CON from 08/12/2021 TECHNIQUE: IV Contrast: 75ML Isovue 370 Oral Contrast None Axial images obtained with sagittal and coronal reformats. All CT scans at the facility use one or more dose reduction, viz: automated exposure control, ma/kV adjustment per patient size (including targeted exams where dose is matched to indication, i.e. head), or iterative reconstruction technique. FINDINGS: LOWER THORAX: No acute finding ABDOMEN & PELVIS: The liver, spleen, adrenal glands, and pancreas have an unremarkable appearance. No renal or ureteral calculi. No hydronephrosis. There remains some mild stranding of the fat in the right pericolic gutter with a small amount fluid in the right pericolic gutter.. No obvious colonic wall thickening.. There may be a slight increase in mount of fluid in the right pericolic gutter. No evidence of appendicitis. No intestinal obstruction or free air. There is a moderate amount of fluid in the pelvis. There is a 1.7 cm left ovarian cyst with enhancing rim. No obvious pelvic abscess. Multiple unopacified bowel loops in the abdomen or pelvis which could obscure or mimic pathology. If symptoms persist, consider repeat exam with IV and oral contrast.. The uterus is anteverted and demonstrates some heterogeneous density.. The cervix is somewhat prominent. No acute bony findings. IMPRESSION: Persistent small amount fluid in the right pericolic gutter with some minimal stranding of the fat in the right pericolic gutter. This does raises question of of underlying inflammatory changes. Previous reader raise the question of diverticulitis in the right colon. No obvious diverticula or focal thickening of the colon apparent. This could be better evaluated with repeat exam with IV and oral contrast. Moderate amount of fluid in the pelvis with heterogeneous density of the uterus. Pelvic inflammatory disease is a consideration. Please correlate with clinical parameters. Dictated by: Flo Morelos MD 08/18/2021 15:50 Flo Morelos MD in OV 08/18/2021 15:50
--- NOTE | 2021-08-18 13:20 | US_ITS ---
PROCEDURE: US TRANSVAGINAL CLINICAL INDICATION: abd sabrina COMPARISON: US US TRANSVAGINAL from 08/12/2021 FINDINGS: UTERUS: 9cm x 6cmx 4cm with a combined endometrial thickness of 5.8mm LEFT OVARY: [id number] with a volume of 16.6ml. RIGHT OVARY: [id number] with a volume of 16.3ml. Is a moderate amount of pelvic fluid. There are bilateral ovarian follicles with the largest on the left at 1.6 cm. IMPRESSION: Moderate amount fluid in the pelvis Dictated by: Flo Morelos MD 08/18/2021 14:35 Flo Morelos MD in OV 08/18/2021 14:35
[2021-08-18 13:28] LABS: Microscopic, Urine URINE MICROSCOPIC (MICROSCOPIC)
[2021-08-18 13:32] LABS: Basophils # 0.1 K/mm3 (0-0.2); Basophils % 0.8 % (0.1-2.0); Eosinophils # 0.2 K/mm3 (0.0-0.4); Eosinophils % 2.6 % (0.1-12.0); Hematocrit 34.2 % (37.0-47.0); Hemoglobin 11.6 g/dL (12.2-16.2); Lymphocytes # 2.4 K/mm3 (0.7-4.5); Mean Corpuscular HGB Conc 33.9 g/dL (31.8-35.4); Mean Corpuscular Hemoglobin 30.1 pg (27.0-31.2); Mean Corpuscular Volume 88.8 fl (81-99); Mean Platelet Volume 7.9 fl (7.4-10.4); Monocytes # 0.4 K/mm3 (0.1-1.0); Monocytes % 4.4 % (1.7-9.3); Neutrophils # 5.8 K/mm3 (1.8-7.8); Neutrophils % 65.2 % (37.0-80.0); Platelet Count 432 K/mm3 (142-424); Red Blood Count 3.85 M/mm3 (4.20-5.40); Red Cell Distribution Width 13.5 % (11.5-17.5); White Blood Count 8.9 K/mm3 (4.8-10.8)
--- NOTE | 2021-08-18 13:35 | PC.NURSE ---
notified rad of ultrasound order
[2021-08-18 13:41] LABS: Chloride 105 mmol/L (98-107); Sodium 139 mmol/L (136-145)
[2021-08-18 13:44] LABS: Alanine Aminotransferase 10 U/L (12-78); Alkaline Phosphatase 90 U/L (38-126); Aspartate Amino Transferase 22 U/L (14-36); Bilirubin,Total 0.4 mg/dl (0.2-1.3); Blood Urea Nitrogen 12 mg/dl (7-17); Carbon Dioxide 25 mmol/L (22.0-30.0); Creatinine Clearance Estimated 77 mL/min (50-200); Estimated Glomerular Filt Rate 78 ml/min (>60); GFR (African American) 94 ML/MIN (>60); Glucose 101 mg/dl (74-100); Lipase 37 U/L (23-300)
[2021-08-18 13:55] LABS: Appearance,Urine CLEAR (Clear); Bilirubin,Urine Negative (Negative); Blood, Urine Negative (Negative); Color,Urine YELLOW (Yellow); Glucose,Urine (UA) Negative (Negative); Ketones,Urine Negative (Negative); Leukocyte Esterase,Urine Negative (Negative); Nitrate,Urine Negative (Negative); Protein,Urine Negative (Negative); Specific Gravity, Urine >= 1.030 (1.005-1.030); Urobilinogen,Urine 0.2 EU/dl (0.2)
[2021-08-18 13:59] LABS: HCG Qualitative, Serum Negative (Negative)
[2021-08-18 14:01] LABS: Anion Gap 13.1 mEq/L (5-15); Potassium 4.1 mmoL/L (3.5-5.1)
--- NOTE | 2021-08-18 14:01 | PC.NURSE ---
Shasha from US speaking with Dr. Maya regarding results
[2021-08-18 14:04] LABS: Albumin Level 4.2 g/dl (3.5-5.0); Albumin/Globulin Ratio 1.1 (1.1-1.8); Globulin 3.8 g/dL (1.3-3.2)
--- NOTE | 2021-08-18 14:52 | HMH.EDABDPAI ---
ED Disposition Clinical Impression: PID (acute pelvic inflammatory disease) Disposition: Home, Self-Care Condition on Discharge: Good Instructions: Pelvic Inflammatory Disease Additional Instructions: Please follow-up with your primary care physician in 1 to 2 days for further management. You have also been prescribed doxycycline and Flagyl to take for 14 days as prescribed please return back to the emergency department for any concerning symptoms such as worsening abdominal pain, fevers, lethargy or any other concerning symptoms. Prescriptions: Ketorolac Tromethamine [Toradol 10mg tablet] 30 mg PO Q6HP PRN #10 tab MDD 40mg/day PRN Reason: ([employer] Use Only) Pain Per Pt Transmission Status: Received by [facility] Doxycycline Hyclate [Doxycycline 150mg Tablet] 150 mg PO BID #30 tab Transmission Status: Received by [facility] metroNIDAZOLE [metroNIDAZOLE 500mg Tablet] 500 mg PO BID #28 tab Transmission Status: Received by [facility] Referrals: Keron Hope MD [Primary Care Provider] - Forms: Work/School Release Time of Disposition: 17:00 - Critical Care Critical Care Time: No Attestation: On 08/18/21, the high probability of a clinically significant, sudden or life threatening deterioration of the following system(s) required my full and direct attention, intervention and personal management. The time I documented below is in addition to time spent performing reported procedures but includes the following listed in this critical care notation. Medical Decision Making - Medical Records Medical records reviewed: Yes: I reviewed the patient's medical records. - Stevie Inquiry Pt receiving controlled substance: No Vital Signs: 08/18/21 13:10 08/18/21 13:17 08/18/21 13:30 Temperature 98.2 F Temperature Source Oral Pulse Rate 75 79 Pulse Rate [Right Radial] 89 Respiratory Rate 16 16 18 Blood Pressure 105/58 L 112/62 Blood Pressure [Right Arm] 105/58 L Blood Pressure Mean 66 72 Blood Pressure Mean [Right Arm] 73 Blood Pressure Source [Right Arm] Automatic Cuff Blood Pressure Position [Right Arm] Sitting 02 Sat by Pulse Oximetry 97 99 98 Oxygen Delivery Method Room Air 08/18/21 14:02 08/18/21 14:30 08/18/21 15:30 Temperature Temperature Source Pulse Rate 82 74 92 H Pulse Rate [Right Radial] Respiratory Rate 14 16 14 Blood Pressure 99/61 L 100/76 L 104/82 L Blood Pressure [Right Arm] Blood Pressure Mean 68 Blood Pressure Mean [Right Arm] Blood Pressure Source [Right Arm] Blood Pressure Position [Right Arm] 02 Sat by Pulse Oximetry 100 96 100 Oxygen Delivery Method 08/18/21 15:45 08/18/21 16:21 08/18/21 16:30 Temperature Temperature Source Pulse Rate 71 67 79 Pulse Rate [Right Radial] Respiratory Rate 14 14 15 Blood Pressure 95/55 L 95/55 L 104/62 L Blood Pressure [Right Arm] Blood Pressure Mean 62 76 Blood Pressure Mean [Right Arm] Blood Pressure Source [Right Arm] Blood Pressure Position [Right Arm] 02 Sat by Pulse Oximetry 99 97 98 Oxygen Delivery Method 08/18/21 17:00 08/18/21 17:39 Temperature 98.3 F Temperature Source Pulse Rate 62 84 Pulse Rate [Right Radial] Respiratory Rate 17 15 Blood Pressure 96/56 L 118/74 Blood Pressure [Right Arm] Blood Pressure Mean 69 Blood Pressure Mean [Right Arm] Blood Pressure Source [Right Arm] Blood Pressure Position [Right Arm] 02 Sat by Pulse Oximetry 98 Oxygen Delivery Method Room Air - Lab Data Lab results reviewed: Yes: I reviewed the patient's lab results. Lab Results 08/18/21 13:15: Urine Color Yellow, Urine Appearance Clear, Urine pH 6.0, Ur Specific [place] >= 1.030, Urine Protein Negative, Urine Glucose (UA) Negative, Urine Ketones Negative, Urine Blood Negative, Urine Nitrate Negative, Urine Bilirubin Negative, Urine Urobilinogen 0.2, Ur Leukocyte Esterase Negative, Urine RBC None, U
[2021-08-18 15:29] LABS: Lactic Acid 0.5 mmol/L (0.7-2.1)
== END 2021-08-18 17:41 | disposition home or self-care (01) ==
PROVIDERS: Emergency Provider Student in an Organized Health Care Education/Training Program; PCP Family Medicine
DX: N73.0 Acute parametritis and pelvic cellulitis (principal); F17.210 Nicotine dependence, cigarettes, uncomplicated; Z88.0 Allergy status to penicillin
CPT/HCPCS: 74177; 76830; 80053; 81001; 83605; 83690; 84703; 85025; 86850; 96365; 96375; 99283; J2405; Q9967

== ENCOUNTER → 2021-12-14 10:21 | Outpatient (CLI) | payer OTHER, SELFPAY ==
[2021-12-14 12:05] LABS: HCG,Quantitative 40 mIU/ml (0-5.42)
== END ==
PROVIDERS: Visit Provider Obstetrics & Gynecology
DX: Z32.00 Encounter for pregnancy test, result unknown (principal)
CPT/HCPCS: 36415; 84702

== ENCOUNTER → 2021-12-21 15:06 | Outpatient (CLI) | payer OTHER, SELFPAY ==
[2021-12-21 16:57] LABS: HCG,Quantitative 1539 mIU/ml (0-5.42)
== END ==
PROVIDERS: Visit Provider Obstetrics & Gynecology
DX: Z34.90 Encounter for supervision of normal pregnancy, unspecified, unspecified trimester (principal)
CPT/HCPCS: 36415; 84702

== ENCOUNTER → 2021-12-23 12:33 | Outpatient (CLI) | payer OTHER, SELFPAY ==
[2021-12-23 15:49] LABS: HCG,Quantitative 2373 mIU/ml (0-5.42)
== END ==
PROVIDERS: Visit Provider Obstetrics & Gynecology
DX: Z34.90 Encounter for supervision of normal pregnancy, unspecified, unspecified trimester (principal)
CPT/HCPCS: 36415; 84702

== ENCOUNTER → 2021-12-29 09:10 | Outpatient (CLI) | payer OTHER, SELFPAY ==
[2021-12-29 10:59] LABS: HCG,Quantitative 8928 mIU/ml (0-5.42)
== END ==
PROVIDERS: Visit Provider Obstetrics & Gynecology
DX: Z34.90 Encounter for supervision of normal pregnancy, unspecified, unspecified trimester (principal)
CPT/HCPCS: 36415; 84702

== ENCOUNTER → 2022-01-05 15:06 | Outpatient (CLI) | payer OTHER, SELFPAY ==
--- NOTE | 2022-01-05 15:15 | US_ITS ---
FINAL REPORT CLINICAL HISTORY: Viability, dates FINDINGS: PELVIC ULTRASOUND A single living intrauterine is present. A yolk sac is noted. The heart rate is detected at 122 beats per minute. Estimated gestational age is 6 weeks 1 day based on a crown-rump length of 0.4 cm. The right ovary is unremarkable and measures 2.7 x 1.7 x 1.1 cm. The left ovary is unremarkable and measures 3.6 x 2.6 x 2.5 cm. There is a trace amount of fluid in the cul-de-sac. IMPRESSION: Single living intrauterine with an estimated gestational age of 6 weeks 1 day. Reviewed, Interpreted and Dictated by Ismael Hennessy III, MD Transcribed by Albin Flores Authenticated by Ismael Hennessy III, MD on 01/05/2022 04:35:55 PM [facility]
[2022-01-05 18:32] LABS: HCG,Quantitative 24098 mIU/ml (0-5.42)
== END ==
PROVIDERS: PCP Nurse Practitioner Family; Visit Provider Obstetrics & Gynecology
DX: Z34.90 Encounter for supervision of normal pregnancy, unspecified, unspecified trimester (principal)
CPT/HCPCS: 36415; 76801; 84702

== ENCOUNTER 2022-01-24 12:24 | Emergency (ER) | payer OTHER, SELFPAY ==
[2022-01-24] VITALS (7 sets, daily range): BP systolic 97–110; BP diastolic 48–60; PULSE 100–118; RESP 16–20; TEMP 36.8; O2SAT 92–100; BMI 18.6
[2022-01-24 13:01] LABS: Influenza A, PCR Not Detected (NotDetected); Influenza B, PCR Not Detected (NotDetected)
[2022-01-24 13:46] LABS: Coronavirus 19, PCR Detected (NotDetected)
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
== END 2022-01-24 15:04 | disposition home or self-care (01) ==
PROVIDERS: Emergency Provider Student in an Organized Health Care Education/Training Program; PCP Family Medicine
DX: U07.1 COVID-19 (principal); J06.9 Acute upper respiratory infection, unspecified; M54.9 Dorsalgia, unspecified; Z3A.09 9 weeks gestation of pregnancy; Z72.0 Tobacco use
CPT/HCPCS: 96374; 99284; C9803; U0003; U0005

== ENCOUNTER 2022-01-25 20:26 | Emergency (ER) | payer OTHER, SELFPAY ==
[2022-01-25 20:29] VITALS: BP 110/63; PULSE 80; RESP 18; TEMP 36.7; O2SAT 100; BMI 18.6
[2022-01-25 20:40] VITALS: BMI 18.6
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
--- NOTE | 2022-01-25 21:11 | PC.NURSE ---
Pt gone to RAD
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
[2022-01-25 21:36] LABS: Urine Pregnancy, HCG Qual. Positive (Negative)
[2022-01-25 21:57] VITALS: BP 108/73; PULSE 87; RESP 16; TEMP 37.1; O2SAT 99
== END 2022-01-25 21:59 | disposition home or self-care (01) ==
PROVIDERS: Emergency Provider Emergency Medicine; PCP Physician Assistant
DX: O26.891 Other specified pregnancy related conditions, first trimester (principal); S06.0X0A Concussion without loss of consciousness, initial encounter; Z3A.09 9 weeks gestation of pregnancy; Y04.8XXA Assault by other bodily force, initial encounter; U07.1 COVID-19; Z72.0 Tobacco use; Z88.0 Allergy status to penicillin
CPT/HCPCS: 70150; 70250; 71046; 72040; 81025; 99284

== ENCOUNTER → 2022-03-03 11:16 | Outpatient (CLI) | payer OTHER, SELFPAY ==
[2022-03-03 12:09] LABS: Basophils % 0.3 % (0.1-2.0); Eosinophils # 0.1 K/mm3 (0.0-0.4); Eosinophils % 1.1 % (0.1-12.0); Hematocrit 34.6 % (37.0-47.0); Hemoglobin 12.1 g/dL (12.2-16.2); Lymphocytes # 1.7 K/mm3 (0.7-4.5); Lymphocytes % 21.5 % (10-50); Mean Corpuscular Hemoglobin 32.1 pg (27.0-31.2); Mean Corpuscular Volume 91.7 fl (81-99); Mean Platelet Volume 7.6 fl (7.4-10.4); Monocytes # 0.2 K/mm3 (0.1-1.0); Monocytes % 2.9 % (1.7-9.3); Neutrophils # 5.7 K/mm3 (1.8-7.8); Neutrophils % 74.2 % (37.0-80.0); Platelet Count 234 K/mm3 (142-424); Red Blood Count 3.78 M/mm3 (4.20-5.40); Red Cell Distribution Width 13.4 % (11.5-17.5); White Blood Count 7.7 K/mm3 (4.8-10.8)
[2022-03-03 12:26] LABS: Amphetamine/Metha Screen,Urine Negative ng/ml (<1000); Benzodiazepines Screen,Urine Negative ng/ml (<200)
[2022-03-03 12:27] LABS: Barbiturates Screen,Urine Negative ng/ml (<200)
[2022-03-03 12:28] LABS: Cannabinoid Screen,Urine Positive ng/ml (<50); Cocaine Screen,Urine Negative ng/ml (<300)
[2022-03-03 12:29] LABS: Methadone Screen,Urine Negative ng/ml (<300)
[2022-03-03 12:30] LABS: Opiate Screen,Urine Negative ng/ml (<300); Phencyclidine Screen,Urine Negative ng/ml (<25)
[2022-03-03 14:51] LABS: Thyroid Stimulating Hormone 2.23 uIU/mL (0.465-4.68)
[2022-03-04 08:15] LABS: HIV Screen 4th Generation wRfx Non Reactive (Non Reactive)
[2022-03-04 09:58] LABS: Rubella Antibodies, IgG 4.55 index (Immune >0.99)
[2022-03-04 10:18] LABS: Hepatitis B Surface Antigen Negative (Negative); Hepatitis C Antibody <0.1 s/co ratio (0.0-0.9)
[2022-03-04 11:28] LABS: Rapid Plasma Reagin Ab Titer Non Reactive (NonRea<1:1)
== END ==
PROVIDERS: PCP Nurse Practitioner Family; Visit Provider Obstetrics & Gynecology
DX: Z34.90 Encounter for supervision of normal pregnancy, unspecified, unspecified trimester (principal)
CPT/HCPCS: 36415; 80305; 84443; 85025; 86592; 86703; 86762; 86850; 87340; 87380; G0432

== ENCOUNTER → 2022-03-10 09:54 | Outpatient (CLI) | payer OTHER, SELFPAY | PROVIDERS: PCP Nurse Practitioner Family; Visit Provider Obstetrics & Gynecology | DX: Z34.80 Encounter for supervision of other normal pregnancy, unspecified trimester (principal) | CPT/HCPCS: 36415 ==

== ENCOUNTER → 2022-05-04 12:49 | Outpatient (CLI) | payer OTHER, SELFPAY ==
--- NOTE | 2022-05-04 12:53 | US_ITS ---
FINAL REPORT CLINICAL HISTORY: 20 week Anatomy scan FINDINGS: There is a single live intrauterine gestation. Presentation is breech. The cervix is closed and measures 4.5 cm. Placenta is posterior, high, grade 1. movement is noted. Heart rate detected at 143 beats per minute Three-vessel cord with satisfactory umbilical cord insertion. Four-chamber heart is noted. ABDOMEN: Both kidneys are unremarkable. Stomach is unremarkable. SPINE: No anomalies identified. AMNIOTIC FLUID: Appropriate amount. MEASUREMENTS: ULTRASOUND AGE: 23 weeks 0 days. GESTATION AGE: 23 weeks 1 day. ESTIMATED WEIGHT: 541 g GROWTH PERCENTILE: LMP percentile 29 % BPD: 5.66 cm corresponding to 23 days. OFD: 7.10 cm corresponding to 22 weeks 6 days. HC: 20.17 cm corresponding to 22 weeks days. AC: 18 cm corresponding to 23 weeks 0 days. FL: 4.01 cm corresponding to 23 weeks 0 days. CEREBELLUM: 2.39 cm corresponding to 23 weeks 4 days. HUMERUS: 3.74 cm corresponding to 23 weeks 1 day. HC/AC: 1.12 CI: 80% FL/BPD: 71% FL/AC: 22% IMPRESSION: Single living IUP with an ultrasound age of 23 weeks 0 days. Reviewed, Interpreted and Dictated by Ismael Hennessy III, MD Transcribed by Renay Linton Authenticated and . [facility]
== END ==
PROVIDERS: PCP Nurse Practitioner Family; Visit Provider Obstetrics & Gynecology
DX: Z34.90 Encounter for supervision of normal pregnancy, unspecified, unspecified trimester (principal); Z3A.20 20 weeks gestation of pregnancy
CPT/HCPCS: 76811

== ENCOUNTER 2022-06-09 08:15 | Outpatient (CLI) | payer OTHER, SELFPAY ==
[2022-06-09 08:18] LABS: MANUAL DIFFERENTIAL MANUAL DIFFERENTIAL (MANUAL DIFF)
[2022-06-09 08:39] LABS: Basophils # 0.1 K/mm3 (0-0.2); Basophils % 0.9 % (0.1-2.0); Eosinophils # 0.1 K/mm3 (0.0-0.4); Eosinophils % 1.5 % (0.1-12.0); Hematocrit 35.7 % (37.0-47.0); Hemoglobin 11.9 g/dL (12.2-16.2); Lymphocytes # 2.1 K/mm3 (0.7-4.5); Lymphocytes % 26.9 % (10-50); Mean Corpuscular HGB Conc 33.4 g/dL (31.8-35.4); Mean Corpuscular Hemoglobin 30.5 pg (27.0-31.2); Mean Corpuscular Volume 91.3 fl (81-99); Mean Platelet Volume 8.5 fl (7.4-10.4); Monocytes # 0.3 K/mm3 (0.1-1.0); Neutrophils # 5.3 K/mm3 (1.8-7.8); Neutrophils % 66.8 % (37.0-80.0); Platelet Count 302 K/mm3 (142-424); Red Cell Distribution Width 14.1 % (11.5-17.5); White Blood Count 7.9 K/mm3 (4.8-10.8)
[2022-06-09 09:00] LABS: Glucose,Fasting 83 mg/dl (74-100)
[2022-06-09 09:40] VITALS: BP 121/58; PULSE 78; RESP 18; O2SAT 100
[2022-06-09 10:18] LABS: Glucose 1 Hour 102 mg/dL (74-100)
[2022-06-09 11:31] LABS: Eosinophils % 1 % (0-3); Lymphocytes % 33 % (10-50); Monocytes % 4 % (2-9); Neutrophils % 62 % (42-76); Platelet Estimate Normal; RBC Morphology Normal; Total Cells Counted 100
== END 2022-06-09 09:50 | disposition home or self-care (01) ==
LOC: LAB 08:15 → INF 09:54
PROVIDERS: PCP Nurse Practitioner Family; Visit Provider Obstetrics & Gynecology
DX: Z34.90 Encounter for supervision of normal pregnancy, unspecified, unspecified trimester (principal); Z3A.22 22 weeks gestation of pregnancy
CPT/HCPCS: 36415; 82951; 85007; 85014; 85018; 85048; 85049; 96372; J2790

== ENCOUNTER 2022-06-22 14:25 | Outpatient (CLI) | payer OTHER, SELFPAY ==
[2022-06-22 14:37] VITALS: BMI 21.2
[2022-06-22 14:54] LABS: Microscopic, Urine URINE MICROSCOPIC (MICROSCOPIC)
[2022-06-22 15:03] LABS: Appearance,Urine CLEAR (Clear); Bilirubin,Urine Negative (Negative); Blood, Urine Negative (Negative); Color,Urine YELLOW (Yellow); Glucose,Urine (UA) Negative (Negative); Ketones,Urine 2+ (Negative); Leukocyte Esterase,Urine 1+ (Negative); Nitrate,Urine Negative (Negative); Protein,Urine Negative (Negative); Urobilinogen,Urine 0.2 EU/dl (0.2)
[2022-06-22 15:07] VITALS: BP 132/59; PULSE 116; RESP 16; TEMP 36.9; O2SAT 100; BMI 21.2
[2022-06-22 15:18] LABS: Amphetamine/Metha Screen,Urine Negative ng/ml (<1000); Barbiturates Screen,Urine Negative ng/ml (<200)
[2022-06-22 15:19] LABS: Benzodiazepines Screen,Urine Negative ng/ml (<200)
[2022-06-22 15:20] LABS: Cannabinoid Screen,Urine Positive ng/ml (<50); Cocaine Screen,Urine Negative ng/ml (<300)
[2022-06-22 15:21] LABS: Bacteria,Urine Trace /lpf; Methadone Screen,Urine Negative ng/ml (<300); Squamous Epithelial Cell,Urine Occasional #/hpf (0-5); WBC,Urine Occasional #/hpf (0-3)
[2022-06-22 15:22] LABS: Opiate Screen,Urine Negative ng/ml (<300)
[2022-06-22 15:23] LABS: Phencyclidine Screen,Urine Negative ng/ml (<25)
--- NOTE | 2022-07-21 10:00 | US_ITS ---
FINAL REPORT CLINICAL HISTORY: sga FINDINGS: TRANSABDOMINAL ULTRASOUND There is a single live intrauterine gestation. Presentation is cephalic. The cervix is closed and measures 2.9 cm. Placenta is posterior/fundal grade 2. Cardiac activity is confirmed at 128 bpm. Fetus is active. BLADE: 8.8 cm cm MEASUREMENTS: ULTRASOUND AGE: 33 weeks 3 days. GESTATION AGE: 34 weeks 2 days. ESTIMATED WEIGHT: 2065 g GROWTH PERCENTILE: 11% LMP percentile BPD: 8.5 cm corresponding with 34 weeks 3 days. OFD: 10.5 cm corresponding with 33 weeks 0 days. HC: 30 cm corresponding with 33 weeks 2 days. AC: 28.4 cm corresponding with 32 weeks 3 days. FL: 6.4 cm corresponding with 33 weeks 1 days. HC/AC: 1.06 CI: 81% FL/BPD: 75% FL/AC: 23% S/D ratio: 2.16 BREATHIN/2 MOVEMENT: 2/2 TONE: 2/2 FLUID VOLUME: 2/2 BPP SCORE: 8/8 IMPRESSION: Single living IUP with an ultrasound age of 33 weeks 3 days. No gross anomaly identified. BPP SCORE: 8/8 BLADE: 8.8 cm S/D ratio: 2.16 Reviewed, Interpreted and Dictated by Moreno Kelsey MD Transcribed by Tiera Conteh Authenticated and [facility]
== END 2022-06-22 15:49 | disposition home or self-care (01) ==
LOC: OBOUT 14:27 → OB 14:28
PROVIDERS: Nurse Practitioner Obstetrics & Gynecology; PCP Nurse Practitioner Family; Visit Provider Obstetrics & Gynecology
DX: O26.893 Other specified pregnancy related conditions, third trimester (principal); Z3A.30 30 weeks gestation of pregnancy; M54.50 Low back pain, unspecified
CPT/HCPCS: 59025; 80305; 81001; 87086; G0463

== ENCOUNTER → 2022-07-21 09:56 | Outpatient (CLI) | payer OTHER, SELFPAY | PROVIDERS: PCP Nurse Practitioner Family; Visit Provider Obstetrics & Gynecology | DX: Z34.90 Encounter for supervision of normal pregnancy, unspecified, unspecified trimester (principal) | CPT/HCPCS: 76811; 76819; 76820 ==

== ENCOUNTER 2022-07-25 09:59 | Outpatient (CLI) | payer OTHER, SELFPAY ==
[2022-07-25 10:12] VITALS: BMI 21.7
[2022-07-25 10:29] VITALS: BP 118/67; PULSE 86; RESP 18; TEMP 37.1; O2SAT 100; BMI 22.4
== END 2022-07-25 10:45 | disposition home or self-care (01) ==
LOC: OBOUT 10:01 → OB 10:02
PROVIDERS: PCP Nurse Practitioner Family; Visit Provider Obstetrics & Gynecology
DX: O26.893 Other specified pregnancy related conditions, third trimester (principal); Z3A.34 34 weeks gestation of pregnancy
CPT/HCPCS: 96372; G0463

== ENCOUNTER 2022-07-26 10:02 | Outpatient (CLI) | payer OTHER, SELFPAY ==
[2022-07-26 10:15] VITALS: BP 106/68; PULSE 108; RESP 18; TEMP 36.7; O2SAT 100; BMI 22.6
== END 2022-07-26 15:35 | disposition home or self-care (01) ==
LOC: OBOUT 10:03 → OB 10:04 → OBOUT 12:12 → OB 12:13
PROVIDERS: PCP Nurse Practitioner Family; Visit Provider Obstetrics & Gynecology
DX: O72.1 Other immediate postpartum hemorrhage (principal)
CPT/HCPCS: G0378

== ENCOUNTER → 2022-08-02 17:10 | Outpatient (CLI) | payer OTHER, SELFPAY | PROVIDERS: Visit Provider Obstetrics & Gynecology | DX: Z34.90 Encounter for supervision of normal pregnancy, unspecified, unspecified trimester (principal) | CPT/HCPCS: 86403 ==

== ENCOUNTER 2022-08-04 04:47 | Inpatient (IN) | payer OTHER, SELFPAY ==
[2022-08-04 04:57] VITALS: BMI 22.1
[2022-08-04 05:41] LABS: Coronavirus 19, PCR Not Detected (NotDetected); Influenza A, PCR Not Detected (NotDetected); Influenza B, PCR Not Detected (NotDetected); Microscopic, Urine URINE MICROSCOPIC (MICROSCOPIC)
[2022-08-04 05:43] LABS: Appearance,Urine CLEAR (Clear); Bilirubin,Urine Negative (Negative); Blood, Urine Negative (Negative); Color,Urine YELLOW (Yellow); Glucose,Urine (UA) Negative (Negative); Ketones,Urine Negative (Negative); Leukocyte Esterase,Urine Negative (Negative); Nitrate,Urine Negative (Negative); PH,Urine 6.5 (5.0-8.5); Protein,Urine Negative (Negative); Specific Gravity, Urine >= 1.030 (1.005-1.030); Urobilinogen,Urine 0.2 EU/dl (0.2)
[2022-08-04 05:49] LABS: Basophils # 0.1 K/mm3 (0-0.2); Basophils % 0.8 % (0.1-2.0); Eosinophils # 0.1 K/mm3 (0.0-0.4); Hematocrit 34.6 % (37.0-47.0); Lymphocytes # 2.4 K/mm3 (0.7-4.5); Mean Corpuscular HGB Conc 31.8 g/dL (31.8-35.4); Mean Corpuscular Hemoglobin 28.9 pg (27.0-31.2); Mean Corpuscular Volume 90.7 fl (81-99); Mean Platelet Volume 9.2 fl (7.4-10.4); Monocytes # 0.3 K/mm3 (0.1-1.0); Monocytes % 3.5 % (1.7-9.3); Neutrophils # 6.8 K/mm3 (1.8-7.8); Neutrophils % 69.7 % (37.0-80.0); Platelet Count 304 K/mm3 (142-424); Red Blood Count 3.81 M/mm3 (4.20-5.40); Red Cell Distribution Width 14.8 % (11.5-17.5); White Blood Count 9.8 K/mm3 (4.8-10.8)
[2022-08-04 05:56] LABS: Barbiturates Screen,Urine Negative ng/ml (<200)
[2022-08-04 05:57] LABS: Amphetamine/Metha Screen,Urine Negative ng/ml (<1000); Benzodiazepines Screen,Urine Negative ng/ml (<200)
[2022-08-04 05:58] LABS: Cannabinoid Screen,Urine Negative ng/ml (<50)
[2022-08-04 05:59] LABS: Cocaine Screen,Urine Negative ng/ml (<300); Methadone Screen,Urine Negative ng/ml (<300)
[2022-08-04 06:00] VITALS: BP 101/53; PULSE 60; RESP 17; TEMP 36.7; O2SAT 98; BMI 22.1
[2022-08-04 06:00] LABS: Opiate Screen,Urine Negative ng/ml (<300); Phencyclidine Screen,Urine Negative ng/ml (<25)
[2022-08-04 06:03] LABS: Bacteria,Urine Trace /lpf; RBC,Urine Occasional #/hpf (0-3)
[2022-08-04 07:15] VITALS: BP 111/77; PULSE 74; RESP 17; TEMP 36.6; O2SAT 100
--- NOTE | 2022-08-04 11:37 | EXP.ANES.CKL ---
[facility] Disclaimer: The information contained in this section may have been updated after the patient was seen, as this information can be updated by other users. Medical History PID (acute pelvic inflammatory disease) Surgical History History of dilation and curettage Family History Other Hypertension Social History Smoking Status: Current every day smoker alcohol intake: never substance use type: denies use current occupational status: unemployed Travel in the last 8 weeks: None [facility] Anesthesia Checklist Patient Identification Patient Identification: Arm Band and Verbal (Name & ) Structural Data Admitted From: Inpatient Planned Operative Procedure/s: Labor epidural Consent for Planned Operative Procedure(s) Verified: Yes NPO Status Verified Time NPO: 00:00 Chart Verification Results Verified: CBC Additional verifications Patient : Yes Anesthesia Reactions: No Airway Assessment C-Spine Mobility Assessed: Yes TMJ Mobility Assessed: Yes Dentition: Good Dentition Neurological Assessment Level of Consciousness: Awake Hx Seizures: No Numbness or tingling in extremities: No Anesthesia Plan Anesthesia Risk discussed: Yes Anesthesia Plan: Verified ASA Class: II Anesthesia Type: Epidural
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
--- NOTE | 2022-08-04 17:33 | EXP.DN ---
Delivery Note Delivery Date:: 08/04/22 Delivery Time:: 12:46 Anesthesia Type: Epidural Was labor medically induced?: Yes Induction method: per pitocin protocol Gestational age (weeks): 36 delivered prior to 39 weeks?: Yes Justification for early elective delivery:: IUGR and Oligohydraminos Gender: Female at 1 minute: 8 at 5 minutes: 9 Delivery Procedure:: Spontaneous vaginal delivery of live born over intact perineum. Delivery uncomplicated No nuchal cord No shoulder dystocia with delivery placed in RAHUL immediately after delivery, with standard nursing assessment performed Apgars: 8 & 9 Placenta spontaneously expressed and examined; noted to be complete/intact. Vulva, vagina, and cervix inspected; no lacerations present EBL: 300 cc All sponge/needle/instrument counts correct at conclusion of procedure Placental Delivery Description: Spontaneous
[2022-08-04 20:46] VITALS: BP 114/68; PULSE 70; RESP 17; TEMP 36.9; O2SAT 98
[2022-08-05 04:44] VITALS: BP 116/69; PULSE 60; RESP 16; TEMP 36.7; O2SAT 99
[2022-08-05 07:54] LABS: Hematocrit 29.9 % (37.0-47.0); Hemoglobin 10.1 g/dL (12.2-16.2)
[2022-08-05 08:43] VITALS: BP 113/74; PULSE 70; RESP 18; TEMP 36.6
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
== END 2022-08-06 12:07 | disposition home or self-care (01) | DRG 806 ==
PROVIDERS: Admitting Provider Obstetrics & Gynecology; PCP Family Medicine; Visit Provider Obstetrics & Gynecology
DX: O36.5930 Maternal care for other known or suspected poor fetal growth, third trimester, not applicable or unspecified (principal); O41.03X0 Oligohydramnios, third trimester, not applicable or unspecified; Z37.0 Single live birth; Z3A.36 36 weeks gestation of pregnancy; F12.90 Cannabis use, unspecified, uncomplicated; Z23 Encounter for immunization; O36.5130 Maternal care for known or suspected placental insufficiency, third trimester, not applicable or unspecified
CPT/HCPCS: 59409; 36415; 59025; 80305; 81001; 85014; 85018; 85025; 86403; 86850; 86870; C1758; C9803; U0003; U0005

== ENCOUNTER 2023-01-28 00:21 | Emergency (ER) | payer OTHER, SELFPAY ==
[2023-01-28 00:22] VITALS: BP 104/60; PULSE 89; RESP 14; TEMP 36.6; O2SAT 98; BMI 21.0
--- NOTE | 2023-01-28 00:44 | CT_ITS ---
PROCEDURE INFORMATION: Exam: CT Abdomen And Pelvis With Contrast Exam date and time: 01/28/2023 1:47 AM Age: 27 years old Clinical indication: Nausea and vomiting TECHNIQUE: Imaging protocol: Computed tomography of the abdomen and pelvis with contrast. Total images: 258 Radiation optimization: All CT scans at this facility use at least one of these dose optimization techniques: automated exposure control; mA and/or kV adjustment per patient size (includes targeted exams where dose is matched to clinical indication); or iterative reconstruction. Contrast material: ISOVUE; Contrast volume: 75 ml; Contrast route: IV; REPORTING DATA: Count of CT and Cardiac NM exams in prior 12 months: This patient has received 0 known CTs and 0 known cardiac nuclear medicine studies in the 12 months prior to the current study. COMPARISON: CT ABDOMEN PELVIS W CON 08/18/2021 2:50 PM FINDINGS: Lungs: Lung bases are clear. Heart: Normal heart size. Liver: Normal. No mass. Gallbladder and bile ducts: Normal. No calcified stones. No ductal dilation. Pancreas: Normal. No ductal dilation. Spleen: Nonenlarged spleen with calcified granuloma. Adrenal glands: Normal. No mass. Kidneys and ureters: No nephrolithiasis, hydronephrosis, or perinephric fluid. No discrete renal mass. Stomach and bowel: Gastric antral wall thickening. Wall thickening of the duodenum and small bowel compatible with acute enteritis. Fluid-filled nondilated small bowel and colon. No ileus or bowel obstruction. Fluid-filled colon with scattered air-fluid levels implying diarrheal state. No significant colonic wall thickening. Unremarkable rectum. Appendix: Normal appendix. Intraperitoneal space: No ascites. No free air. Vasculature: Abdominal aorta is normal in caliber. Major abdominal vessels enhance appropriately. Lymph nodes: Unremarkable. No enlarged lymph nodes. Urinary bladder: Collapsed bladder. Reproductive: Uterus and ovaries appear physiologic. No adnexal mass. Trace free pelvic fluid. Bones/joints: No acute osseous abnormality or concerning bone lesions. Soft tissues: Focal diastasis of the rectus fascia at the umbilicus. IMPRESSION: 1. Generalized bowel wall thickening of the gastric antrum, duodenum, and small bowel (with associated fluid distention) compatible with acute gastroenteritis. 2. No ileus or bowel obstruction. 3. Scattered air-fluid levels throughout the colon compatible with diarrheal state. No convincing evidence for active colitis. 4. Trace free pelvic fluid.
[2023-01-28 00:56] LABS: Basophils # 0.1 K/mm3 (0-0.2); Basophils % 0.4 % (0.1-2.0); Eosinophils # 0.2 K/mm3 (0.0-0.4); Eosinophils % 1.2 % (0.1-12.0); Hematocrit 41.3 % (37.0-47.0); Hemoglobin 13.4 g/dL (12.2-16.2); Lymphocytes # 1.8 K/mm3 (0.7-4.5); Lymphocytes % 15.1 % (10-50); Mean Corpuscular HGB Conc 32.4 g/dL (31.8-35.4); Mean Corpuscular Hemoglobin 28.7 pg (27.0-31.2); Mean Corpuscular Volume 88.8 fl (81-99); Mean Platelet Volume 8.1 fl (7.4-10.4); Monocytes # 0.4 K/mm3 (0.1-1.0); Monocytes % 3.4 % (1.7-9.3); Neutrophils # 9.8 K/mm3 (1.8-7.8); Platelet Count 295 K/mm3 (142-424); Red Blood Count 4.65 M/mm3 (4.20-5.40); Red Cell Distribution Width 13.2 % (11.5-17.5); White Blood Count 12.3 K/mm3 (4.8-10.8)
[2023-01-28 01:00] LABS: Chloride 103 mmol/L (98-107); Potassium 3.4 mmoL/L (3.5-5.1); Sodium 139 mmol/L (136-145)
[2023-01-28 01:02] LABS: Amylase 105 U/L (30-110)
[2023-01-28 01:03] LABS: Alanine Aminotransferase 24 U/L (12-78); Albumin Level 4.7 g/dl (3.5-5.0); Albumin/Globulin Ratio 1.3 (1.1-1.8); Alkaline Phosphatase 77 U/L (38-126); Anion Gap 16.4 mEq/L (5-15); Aspartate Amino Transferase 29 U/L (14-36); Bilirubin,Total 0.3 mg/dl (0.2-1.3); Blood Urea Nitrogen 9 mg/dl (7-17); Calcium 9.3 mg/dl (8.4-10.2); Carbon Dioxide 23 mmol/L (22.0-30.0); Creatinine Clearance Estimated 71 mL/min (50-200); Estimated Glomerular Filt Rate 68 ml/min (>60); GFR (African American) 82 ML/MIN (>60); Globulin 3.6 g/dL (1.3-3.2); Glucose 142 mg/dl (74-100); Lipase 58 U/L (23-300); Total Protein,Serum 8.3 g/dl (6.3-8.2)
[2023-01-28 01:06] LABS: HCG Qualitative, Serum Negative (Negative)
[2023-01-28 01:30] VITALS: BP 120/71; PULSE 97; O2SAT 99
[2023-01-28 02:00] VITALS: BP 113/64; PULSE 95; O2SAT 98
[2023-01-28 02:30] VITALS: BP 107/54; PULSE 89; O2SAT 96
--- NOTE | 2023-01-28 02:33 | HMH.EDNVD ---
Discharge Plan Disposition Patient Disposition: Home, Self-Care Prescriptions Prescriptions: New ondansetron HCl 4 mg Tablet 4 mg PO Q8H PRN (Reason: Nausea) Qty: 20 0RF No Action Xulane 150-35 mcg/24 hr patch weekly 1 patch transdermal Q7D Qty: 3 2RF Rx Instructions: apply once weekly for 3 weeks of a 4-week cycle Referrals Follow up/Referrals: Claire Sanchez MD [Primary Care Provider] - See instructions Clinical Impressions Clinical Impression: Gastroenteritis Instructions Patient Instructions: DI for Nausea -- Adult Discharge ED Provider: Murali (ED)Brandon Nausea/Vomiting/Diarrhea HPI General Chief complaint: Nausea/Vomiting/Diarrhea Stated complaint: vomiting, weakness, abd pain Time Seen by Provider: 01/28/23 02:34 Mode of Arrival: Wheelchair Source of Information: Patient and Medical Record Limitations: No Limitations Description of Symptoms (Recalled from ER Triage Doc. by RN): pt states that she woke up aprox 10 pm and started vomiting amd has been unable to stop . the pt states that she has also been dizzy but contributes that to the fact that she is hypoglycemic and she is unable to eat History of Present Illness HPI Narrative: onset of vomiting tonight - no diarrhea and no fever - some element of abd pain complaint: vomiting and abdominal pain Onset (ago): hour(s) Associated Abdominal Pain: Yes Location of pain: diffuse Severity: moderate Quality: cramping Associated symptoms: denies other symptoms Related Data Previous Rx's Medication Instructions Recorded norelgestromin 150 mcg-e.estradiol 1 patch transdermal Q7D #3 ea 12/01/22 35 mcg/24 hr weekly transderm patch (Xulane) ondansetron HCl 4 mg tablet 4 mg PO Q8H PRN Nausea #20 tabs 01/28/23 Allergies Allergy/AdvReac Type Severity Reaction Status Date / Time Penicillins [PENICILLINS] Allergy Unknown Hives Verified 01/06/23 13:22 venom-honey bee Allergy Unknown Hives Verified 01/06/23 13:22 [BEE VENOM (HONEY BEE)] [facility] Disclaimer: The information contained in this section may have been updated after the patient was seen, as this information can be updated by other users. Medical History History of chlamydia PID (acute pelvic inflammatory disease) Rh negative status during Fetus Rh negative Surgical History History of dilation and curettage Family History Other Hypertension Social History Smoking Status: Current every day smoker tobacco type: e-cigarettes alcohol intake: never substance use type: denies use current occupational status: unemployed Travel in the last 8 weeks: None ROS Obtained: Yes All systems reviewed & no additional complaints except as documented Physical Exam General General appearance: alert Head Head exam: normocephalic Eye Eye exam: Present PERRL and EOMI ENT ENT exam: Present mucous membranes moist Neck Neck exam: Absent trachea midline Chest Chest inspection: Present normal inspection Respiratory Respiratory exam: Present normal lung sounds bilaterally Cardiovascular Cardiovascular exam: Present regular rate; Absent systolic murmur Abdominal Exam Abdominal exam: Present soft; Absent tenderness or guarding Extremities Exam Extremities exam: Present full ROM Neurological Exam Neurological exam: Present alert, oriented X3 and CN II-XII intact; Absent motor sensory deficit Psychiatric Psychiatric exam: Present normal affect Skin Skin exam: Absent rash Medical Decision Making Medical Records Medical records reviewed: Yes I reviewed the patient's medical records. Stevie Inquiry Pt receiving controlled substance: No Vital Signs: 01/28/23 00:22 01/28/23 01:30 01/28/23 02:00 Temperature 97.8 F Temperature So
[2023-01-28 03:29] VITALS: BP 104/58; PULSE 68; RESP 14; TEMP 36.9; O2SAT 99
== END 2023-01-28 03:51 | disposition home or self-care (01) ==
PROVIDERS: Emergency Provider Emergency Medicine; PCP Family Medicine
DX: K52.9 Noninfective gastroenteritis and colitis, unspecified (principal); R53.1 Weakness; F17.290 Nicotine dependence, other tobacco product, uncomplicated
CPT/HCPCS: 74177; 80053; 82150; 83690; 84703; 85025; 96361; 96374; 96375; 99284; 99285; J2405; Q9967

== ENCOUNTER 2023-01-31 07:47 | Emergency (ER) | payer OTHER, SELFPAY ==
[2023-01-31 07:47] VITALS: BP 106/72; PULSE 97; RESP 17; TEMP 36.4; O2SAT 97; BMI 20.3
--- NOTE | 2023-01-31 07:58 | PC.NURSE ---
KAREN CRUZ at
[2023-01-31 08:00] VITALS: BP 110/63; PULSE 88; O2SAT 100
--- NOTE | 2023-01-31 08:04 | HMH.EDGENADL ---
Discharge Plan Disposition Patient Disposition: Home, Self-Care Condition: Good Prescriptions Prescriptions: New ondansetron 4 mg tablet,disintegrating 4 mg PO Q8H PRN (Reason: nausea and vomiting) 4 Days Qty: 10 0RF promethazine 12.5 mg tablet 12.5 mg PO Q6H PRN (Reason: nausea and vomiting) Qty: 10 0RF Rx Instructions: 3 doses during day; last dose no later than 4 hr before bedtime No Action Xulane 150-35 mcg/24 hr patch weekly 1 patch transdermal Q7D Qty: 3 2RF Rx Instructions: apply once weekly for 3 weeks of a 4-week cycle ondansetron HCl 4 mg Tablet 4 mg PO Q8H PRN (Reason: Nausea) Qty: 20 0RF Referrals Follow up/Referrals: Keron Hope MD [Primary Care Provider] - See instructions Activity Restrictions/Add. Instructions Additional Instructions/Restrictions: Hydrate with an oral rehydration solution such as Pedialyte. Avoid caffeine and dairy products. Avoid fried greasy spicy foods. Clinical Impressions Clinical Impression: Gastroenteritis Stand Alone Forms Stand Alone Forms: Work/School Release Instructions Patient Instructions: DI for Diarrhea and Traveler's Diarrhea -- Adult, DI for Diarrhea and Traveler's Diarrhea -- Child, DI for Nausea -- Adult, DI for Nausea -- Child Discharge ED Provider: Murali ([facility])Brandon General Adult HPI General Chief complaint: Nausea/Vomiting/Diarrhea Stated complaint: Vomiting, diarrhea Time Seen by Provider: 01/31/23 07:55 Mode of Arrival: Ambulatory Source of Information: Patient Limitations: No Limitations Description of Symptoms (Recalled from ER Triage Doc. by RN): pt to the ED with nausea, vomiting and diarrhea since monday with no relief from OTC medications History of Present Illness HPI narrative: Patient presents with an approximate 5-day history of nausea vomiting diarrhea and lower abdominal discomfort she was seen here on January 28 for abdominal pain and diarrhea at that time and had a CT scan that demonstrated findings consistent with gastroenteritis. She denies fever at this time. She states the diarrhea has abated but she has persistent vomiting and lower abdominal discomfort which she describes as moderate. Related Data Previous Rx's Medication Instructions Recorded norelgestromin 150 mcg-e.estradiol 1 patch transdermal Q7D #3 ea 12/01/22 35 mcg/24 hr weekly transderm patch (Xulane) ondansetron HCl 4 mg tablet 4 mg PO Q8H PRN Nausea #20 tabs 01/28/23 ondansetron 4 mg disintegrating 4 mg PO Q8H PRN nausea and 01/31/23 tablet vomiting 4 days #10 tabs promethazine 12.5 mg tablet 12.5 mg PO Q6H PRN nausea and 01/31/23 vomiting #10 tabs Allergies Allergy/AdvReac Type Severity Reaction Status Date / Time Penicillins [PENICILLINS] Allergy Unknown Hives Verified 01/06/23 13:22 venom-honey bee Allergy Unknown Hives Verified 01/06/23 13:22 [BEE VENOM (HONEY BEE)] [facility] Disclaimer: The information contained in this section may have been updated after the patient was seen, as this information can be updated by other users. Medical History History of chlamydia PID (acute pelvic inflammatory disease) Rh negative status during Surgical History History of dilation and curettage Family History Other Hypertension Social History Smoking Status: Never smoker alcohol intake: never substance use type: denies use current occupational status: unemployed Travel in the last 8 weeks: None ROS Obtained: Yes All systems reviewed & no additional complaints except as documented Physical Exam General General appearance: alert and in no apparent distress Head Head exam: atraumatic, normocephalic and normal inspection Eye Eye exam: Present normal appearance, PERRL and EOMI
[2023-01-31 08:12] LABS: Basophils % 0.7 % (0.1-2.0); Eosinophils # 0.2 K/mm3 (0.0-0.4); Eosinophils % 2.9 % (0.1-12.0); Hematocrit 46.2 % (37.0-47.0); Lymphocytes # 1.8 K/mm3 (0.7-4.5); Lymphocytes % 31.6 % (10-50); Mean Corpuscular HGB Conc 32.6 g/dL (31.8-35.4); Mean Corpuscular Hemoglobin 28.9 pg (27.0-31.2); Mean Corpuscular Volume 88.7 fl (81-99); Mean Platelet Volume 8.1 fl (7.4-10.4); Monocytes # 0.4 K/mm3 (0.1-1.0); Monocytes % 6.4 % (1.7-9.3); Neutrophils # 3.3 K/mm3 (1.8-7.8); Neutrophils % 58.4 % (37.0-80.0); Platelet Count 305 K/mm3 (142-424); Red Blood Count 5.21 M/mm3 (4.20-5.40); White Blood Count 5.6 K/mm3 (4.8-10.8)
[2023-01-31 08:13] LABS: Chloride 101 mmol/L (98-107); Potassium 3.6 mmoL/L (3.5-5.1); Sodium 142 mmol/L (136-145)
[2023-01-31 08:15] LABS: Alanine Aminotransferase 24 U/L (12-78); Aspartate Amino Transferase 31 U/L (14-36); Blood Urea Nitrogen 10 mg/dl (7-17); Creatinine Clearance Estimated 71 mL/min (50-200); Estimated Glomerular Filt Rate 68 ml/min (>60); GFR (African American) 82 ML/MIN (>60)
[2023-01-31 08:16] LABS: Albumin Level 4.7 g/dl (3.5-5.0); Albumin/Globulin Ratio 1.3 (1.1-1.8); Alkaline Phosphatase 81 U/L (38-126); Anion Gap 16.6 mEq/L (5-15); Bilirubin,Total 0.4 mg/dl (0.2-1.3); Carbon Dioxide 28 mmol/L (22.0-30.0); Globulin 3.7 g/dL (1.3-3.2); Glucose 90 mg/dl (74-100); Lipase 50 U/L (23-300); Total Protein,Serum 8.4 g/dl (6.3-8.2)
[2023-01-31 08:30] VITALS: BP 101/53
[2023-01-31 08:45] LABS: Benzodiazepines Screen,Urine Negative ng/ml (<200)
[2023-01-31 08:46] LABS: Amphetamine/Metha Screen,Urine Negative ng/ml (<1000); Barbiturates Screen,Urine Negative ng/ml (<200)
[2023-01-31 08:47] LABS: Cannabinoid Screen,Urine Positive ng/ml (<50)
[2023-01-31 08:48] LABS: Cocaine Screen,Urine Negative ng/ml (<300); Methadone Screen,Urine Negative ng/ml (<300)
[2023-01-31 08:49] LABS: Opiate Screen,Urine Negative ng/ml (<300)
[2023-01-31 08:50] LABS: Phencyclidine Screen,Urine Negative ng/ml (<25)
--- NOTE | 2023-01-31 08:50 | PC.NURSE ---
pt given warm blanket, pt reports tolerating roslyn mist well, not nauseated at this time. notified er
[2023-01-31 09:10] VITALS: BP 101/53; PULSE 77; RESP 16; TEMP 36.6; O2SAT 98
== END 2023-01-31 09:15 | disposition home or self-care (01) ==
PROVIDERS: Emergency Medicine; Emergency Provider Emergency Medicine; PCP Family Medicine
DX: K52.9 Noninfective gastroenteritis and colitis, unspecified (principal); F12.90 Cannabis use, unspecified, uncomplicated
CPT/HCPCS: 80053; 80305; 83690; 85025; 96361; 96374; 99284; 99285; J2405

== ENCOUNTER 2023-03-21 17:55 | Emergency (ER) | payer OTHER, SELFPAY ==
[2023-03-21 17:56] VITALS: BP 120/73; PULSE 86; RESP 16; TEMP 36.9; O2SAT 100; BMI 21.0
--- NOTE | 2023-03-21 18:46 | PC.NURSE ---
DR ENCARNACION AT BEDSIDE
--- NOTE | 2023-03-21 18:54 | XR_ITS ---
PROCEDURE INFORMATION: Exam: XR Left Hand Exam date and time: 03/21/2023 6:56 PM Age: 27 years old Clinical indication: Injury or trauma; Other: Guinea pig bite to left index finger. Patient HX: Guinea pig bite to left index finger Monday. ; Additional info: L index finger concern tenosynovitis TECHNIQUE: Imaging protocol: Radiologic exam of the left hand. Views: 3 or more views. COMPARISON: No relevant prior studies available. FINDINGS: Bones/joints: No acute fracture or malalignment. Soft tissues: Possible small puncture or laceration along the radial aspect of the distal index finger. IMPRESSION: Possible small puncture or laceration along the radial aspect of the distal index finger. No acute osseous findings.
--- NOTE | 2023-03-21 18:57 | HMH.EDGENADL ---
Discharge Plan Disposition Patient Disposition: Xfer Short-Term Hosp Chief Complaint: Animal Bite Prescriptions Prescriptions: No Action Xulane 150-35 mcg/24 hr patch weekly 1 patch transdermal Q7D Qty: 3 2RF Rx Instructions: apply once weekly for 3 weeks of a 4-week cycle ondansetron 4 mg tablet,disintegrating 4 mg PO Q8H PRN (Reason: nausea and vomiting) 4 Days Qty: 10 0RF promethazine 12.5 mg tablet 12.5 mg PO Q6H PRN (Reason: nausea and vomiting) Qty: 10 0RF Rx Instructions: 3 doses during day; last dose no later than 4 hr before bedtime Referrals Follow up/Referrals: Ivis Lopez APRN [Primary Care Provider] - See instructions Activity Restrictions/Add. Instructions Additional Instructions/Restrictions: At this time please present directly to [facility] in [place] for evaluation by the hand surgery team. Clinical Impressions Clinical Impression: Infected hand, Animal bite Discharge ED Provider: Delta Anderson General Adult HPI General Chief complaint: Animal Bite Stated complaint: ao07/16 Lt index finger guinea pig bite Time Seen by Provider: 03/21/23 18:26 Mode of Arrival: Ambulatory Source of Information: Patient Limitations: No Limitations Description of Symptoms (Recalled from ER Triage Doc. by RN): Patient presents to ED for complaints of a Guinea pig bite to the left pointer finger that happened Monday. Patient reports using neosporin and peroxide to the bite daily to keep it clean. PAtient reports the pain is getting worse. Notable reddness and swelling to the puncture site. Not UTD on tetanus vaccine. History of Present Illness HPI narrative: Patient is a 27-year-old female with no pertinent past medical history who presents to the emergency department for evaluation of finger swelling and pain. History is obtained by patient at bedside. She was bit by her guinea pig on her distal finger on Monday evening. Since then she has originally slow progressing but over the last 24 hours rapidly progressing erythema, swelling, pain, inability to significantly range her index finger. This caused her to present for continued evaluation. No other acute complaints at this time. Related Data Previous Rx's Medication Instructions Recorded norelgestromin 150 mcg-e.estradiol 1 patch transdermal Q7D #3 ea 12/01/22 35 mcg/24 hr weekly transderm patch (Xulane) ondansetron 4 mg disintegrating 4 mg PO Q8H PRN nausea and 01/31/23 tablet vomiting 4 days #10 tabs promethazine 12.5 mg tablet 12.5 mg PO Q6H PRN nausea and 01/31/23 vomiting #10 tabs Allergies Allergy/AdvReac Type Severity Reaction Status Date / Time Penicillins [PENICILLINS] Allergy Unknown Hives Verified 02/03/23 13:28 venom-honey bee Allergy Unknown Hives Verified 02/03/23 13:28 [BEE VENOM (HONEY BEE)] [facility] Disclaimer: The information contained in this section may have been updated after the patient was seen, as this information can be updated by other users. Medical History History of chlamydia PID (acute pelvic inflammatory disease) Rh negative status during Fetus Rh negative Surgical History History of dilation and curettage Family History Other Hypertension Social History Smoking Status: Current every day smoker tobacco type: e-cigarettes alcohol intake: never substance use type: denies use current occupational status: unemployed Travel in the last 8 weeks: None ROS Obtained: Yes Systems reviewed as appropriate & no additional complaints except as documented Physical Exam General General appearance: alert and in no apparent distress Head Head exam: atraumatic and normocephalic Eye Eye exam: Present PERRL and EOMI ENT ENT exam:
--- NOTE | 2023-03-21 19:00 | PC.NURSE ---
Report given to shipping and receiving supervisor
--- NOTE | 2023-03-21 19:29 | PC.NURSE ---
call to [facility] for transfer they will call back, images power shared
[2023-03-21 19:40] LABS: Basophils # 0.1 K/mm3 (0-0.2); Basophils % 0.7 % (0.1-2.0); Chloride 103 mmol/L (98-107); Eosinophils # 0.1 K/mm3 (0.0-0.4); Eosinophils % 1.5 % (0.1-12.0); Hemoglobin 12.4 g/dL (12.2-16.2); Lymphocytes # 2.4 K/mm3 (0.7-4.5); Lymphocytes % 35.7 % (10-50); Mean Corpuscular HGB Conc 31.9 g/dL (31.8-35.4); Mean Corpuscular Hemoglobin 28.5 pg (27.0-31.2); Mean Corpuscular Volume 89.6 fl (81-99); Mean Platelet Volume 8.2 fl (7.4-10.4); Monocytes # 0.3 K/mm3 (0.1-1.0); Monocytes % 4.1 % (1.7-9.3); Neutrophils # 3.9 K/mm3 (1.8-7.8); Neutrophils % 58.1 % (37.0-80.0); Platelet Count 331 K/mm3 (142-424); Red Blood Count 4.35 M/mm3 (4.20-5.40); Red Cell Distribution Width 12.9 % (11.5-17.5); White Blood Count 6.8 K/mm3 (4.8-10.8)
[2023-03-21 19:41] LABS: Potassium 4.3 mmoL/L (3.5-5.1); Sodium 139 mmol/L (136-145)
[2023-03-21 19:43] LABS: Alanine Aminotransferase 17 U/L (12-78); Aspartate Amino Transferase 21 U/L (14-36); Blood Urea Nitrogen 13 mg/dl (7-17); Creatinine Clearance Estimated 71 mL/min (50-200); Estimated Glomerular Filt Rate 68 ml/min (>60); GFR (African American) 82 ML/MIN (>60)
[2023-03-21 19:44] LABS: Albumin Level 4.5 g/dl (3.5-5.0); Albumin/Globulin Ratio 1.3 (1.1-1.8); Alkaline Phosphatase 83 U/L (38-126); Anion Gap 11.3 mEq/L (5-15); Bilirubin,Total 0.2 mg/dl (0.2-1.3); Calcium 9.5 mg/dl (8.4-10.2); Carbon Dioxide 29 mmol/L (22.0-30.0); Globulin 3.6 g/dL (1.3-3.2); Glucose 98 mg/dl (74-100); Total Protein,Serum 8.1 g/dl (6.3-8.2)
[2023-03-21 19:52] LABS: HCG Qualitative, Serum Negative (Negative)
--- NOTE | 2023-03-21 19:53 | PC.NURSE ---
Dr Anderson spoke with nathaly CRUZ
--- NOTE | 2023-03-21 19:58 | PC.NURSE ---
pt accepted at [facility] by Dr Maher
--- NOTE | 2023-03-21 20:15 | PC.NURSE ---
gave report to Shayla QUIROGA at [facility]
[2023-03-21 20:24] VITALS: BP 125/72; PULSE 69; RESP 16; TEMP 36.8
== END 2023-03-21 20:28 | disposition short-term general hospital (02) ==
PROVIDERS: Emergency Provider Emergency Medicine; PCP Nurse Practitioner Family
DX: F17.290 Nicotine dependence, other tobacco product, uncomplicated; W55.81XA Bitten by other mammals, initial encounter; R22.31 Localized swelling, mass and lump, right upper limb; S61.25 Open bite of finger without damage to nail; L08.9 Local infection of the skin and subcutaneous tissue, unspecified
CPT/HCPCS: 73130; 80053; 84703; 85025; 87040; 96365; 96375; 99285

== ENCOUNTER 2023-06-29 17:33 | Emergency (ER) | payer OTHER, SELFPAY ==
[2023-06-29] VITALS (7 sets, daily range): BP systolic 89–110; BP diastolic 56–82; PULSE 62–80; RESP 16; TEMP 36.9; O2SAT 99–100; BMI 20.2
--- NOTE | 2023-06-29 17:48 | HMH.EDGENADL ---
Discharge Plan Disposition Patient Disposition: Home, Self-Care Prescriptions Prescriptions: New ondansetron 4 mg tablet,disintegrating 4 mg PO Q6H PRN (Reason: nausea and vomiting) 5 Days Qty: 20 0RF No Action valacyclovir [Valtrex] 1 gram tablet 1,000 mg PO Q12H 7 Days Qty: 14 0RF lidocaine 5 % ointment 1 applic topical BID PRN (Reason: pain) Qty: 30 0RF metronidazole 500 mg tablet 500 mg PO BID 7 Days Qty: 14 0RF Referrals Follow up/Referrals: Ivis Lopez APRN [Primary Care Provider] - See instructions Activity Restrictions/Add. Instructions Additional Instructions/Restrictions: Your symptoms are most likely secondary to a viral illness and should be self-limiting please return with any worsening abdominal pain or inability to tolerate anything by mouth. Clinical Impressions Clinical Impression: Nausea vomiting and diarrhea Instructions Patient Instructions: DI for Diarrhea and Traveler's Diarrhea -- Adult, DI for Diarrhea and Traveler's Diarrhea -- Child, DI for Nausea -- Adult, DI for Nausea -- Child Discharge ED Provider: Stacy Hoffman General Adult HPI General Chief complaint: Nausea/Vomiting/Diarrhea Stated complaint: nausea, vomiting, hot flashes Time Seen by Provider: 06/29/23 17:37 History of Present Illness HPI narrative: Patient is a 27-year-old female here with nausea vomiting diarrhea for the last week. She is accompanied by her mother. Both are historians. Patient states that she is a G4, P3 has not missed any periods but is concerned she may be . She would like to have a test from her blood to make sure that she is not . She knows that she is too early for this to show up on urine test she states. No significant abdominal pain no dysuria frequency or urgency. No blood in her urine no vaginal bleeding or vaginal discharge. No blood in her stool no fevers. Also she has a history of chronic marijuana use but states her symptoms have not improved with hot shower. Related Data Previous Rx's Medication Instructions Recorded lidocaine 5 % topical ointment 1 applic topical BID PRN pain #30 05/31/23 grams valacyclovir 1 gram tablet 1,000 mg PO Q12H 7 days #14 tabs 05/31/23 (Valtrex) metronidazole 500 mg tablet 500 mg PO BID 7 days #14 tabs 06/05/23 ondansetron 4 mg disintegrating 4 mg PO Q6H PRN nausea and 06/29/23 tablet vomiting 5 days #20 tabs Allergies Allergy/AdvReac Type Severity Reaction Status Date / Time Penicillins [PENICILLINS] Allergy Unknown Hives Verified 05/31/23 13:33 venom-honey bee Allergy Unknown Hives Verified 05/31/23 13:33 [BEE VENOM (HONEY BEE)] [facility] Disclaimer: The information contained in this section may have been updated after the patient was seen, as this information can be updated by other users. Medical History (Updated 06/29/23 @ 17:50 by Stacy Hoffman MD) Herpes simplex of female genitalia History of chlamydia PID (acute pelvic inflammatory disease) Rh negative status during Surgical History History of dilation and curettage Family History Other Hypertension Social History Smoking Status: Current every day smoker tobacco type: e-cigarettes alcohol intake: never substance use type: denies use current occupational status: unemployed Travel in the last 8 weeks: None ROS Obtained: Yes All systems reviewed & no additional complaints except as documented Physical Exam General General appearance: alert Respiratory Respiratory exam: Present normal lung sounds bilaterally Cardiovascular Cardiovascular exam: Present regular rate; Absent tachycardia Abdominal Exam Abdominal exam: Present soft; Absent distention or tenderness Neurological Exam Neurological exam: Present alert and oriented
[2023-06-29 18:06] LABS: Basophils % 0.8 % (0.1-2.0); Eosinophils # 0.1 K/mm3 (0.0-0.4); Eosinophils % 2.5 % (0.1-12.0); Hematocrit 38.7 % (37.0-47.0); Hemoglobin 13.2 g/dL (12.2-16.2); Lymphocytes # 2.2 K/mm3 (0.7-4.5); Lymphocytes % 38.2 % (10-50); Mean Corpuscular HGB Conc 34.1 g/dL (31.8-35.4); Mean Corpuscular Volume 87.8 fl (81-99); Mean Platelet Volume 7.8 fl (7.4-10.4); Monocytes # 0.2 K/mm3 (0.1-1.0); Monocytes % 3.6 % (1.7-9.3); Neutrophils # 3.1 K/mm3 (1.8-7.8); Neutrophils % 54.8 % (37.0-80.0); Platelet Count 251 K/mm3 (142-424); Red Blood Count 4.41 M/mm3 (4.20-5.40); Red Cell Distribution Width 15.5 % (11.5-17.5); White Blood Count 5.7 K/mm3 (4.8-10.8)
[2023-06-29 18:07] LABS: Chloride 103 mmol/L (98-107); Sodium 138 mmol/L (136-145)
[2023-06-29 18:08] LABS: Potassium 3.5 mmoL/L (3.5-5.1)
[2023-06-29 18:10] LABS: Alanine Aminotransferase 18 U/L (12-78); Albumin Level 4.9 g/dl (3.5-5.0); Albumin/Globulin Ratio 1.4 (1.1-1.8); Alkaline Phosphatase 61 U/L (38-126); Anion Gap 11.5 mEq/L (5-15); Aspartate Amino Transferase 26 U/L (14-36); Bilirubin,Total 0.4 mg/dl (0.2-1.3); Blood Urea Nitrogen 10 mg/dl (7-17); Carbon Dioxide 27 mmol/L (22.0-30.0); Creatinine Clearance Estimated 68 mL/min (50-200); Estimated Glomerular Filt Rate 68 ml/min (>60); GFR (African American) 82 ML/MIN (>60); Globulin 3.4 g/dL (1.3-3.2); Total Protein,Serum 8.3 g/dl (6.3-8.2)
[2023-06-29 18:11] LABS: Calcium 9.2 mg/dl (8.4-10.2); Glucose 116 mg/dl (74-100)
[2023-06-29 18:36] LABS: HCG Qualitative, Serum Negative (Negative)
--- NOTE | 2023-06-29 18:48 | PC.NURSE ---
Pt ambulatory to bathroom and back to bed. No other needs voiced. Call light within reach.
--- NOTE | 2023-06-29 19:03 | PC.NURSE ---
Pt made aware of lipase order
--- NOTE | 2023-06-29 19:34 | PC.NURSE ---
Rounded on patient; PAtient stating she is feeling better. MD notified Call light within reach of patient
--- NOTE | 2023-06-29 19:49 | PC.NURSE ---
[facility] requesting to PO challenge patient; drink provided to patient.
[2023-06-29 20:03] LABS: Lipase 42 U/L (23-300)
== END 2023-06-29 20:26 | disposition home or self-care (01) ==
PROVIDERS: Emergency Provider Student in an Organized Health Care Education/Training Program; PCP Nurse Practitioner Family
DX: R11.2 Nausea with vomiting, unspecified (principal); R19.7 Diarrhea, unspecified
CPT/HCPCS: 80053; 83690; 84703; 85025; 96361; 96374; 99285; J2405

== ENCOUNTER → 2023-07-11 15:28 | Outpatient (CLI) | payer OTHER, SELFPAY ==
[2023-07-11 16:47] LABS: HCG,Quantitative < 2 mIU/ml (0-5.42)
[2023-07-13 11:12] LABS: Progesterone 11.3 ng/mL (.)
== END ==
PROVIDERS: PCP Nurse Practitioner Family; Visit Provider Obstetrics & Gynecology
DX: Z32.00 Encounter for pregnancy test, result unknown (principal)
CPT/HCPCS: 36415; 84144; 84702

== ENCOUNTER 2023-10-04 04:39 | Observation (INO) | payer OTHER, SELFPAY ==
[2023-10-04] VITALS (8 sets, daily range): BP systolic 80–119; BP diastolic 37–71; PULSE 54–87; RESP 16–18; TEMP 36.4–37.1; O2SAT 92–100; BMI 35.1; BMI 17.5
--- NOTE | 2023-10-04 05:00 | CT_ITS ---
PROCEDURE INFORMATION: Exam: CT Abdomen And Pelvis With Contrast Exam date and time: 10/04/2023 5:49 AM Age: 28 years old Clinical indication: Abdominal pain; Additional info: Lower abd pain w/ n/v x2d TECHNIQUE: Imaging protocol: Computed tomography of the abdomen and pelvis with contrast. Radiation optimization: All CT scans at this facility use at least one of these dose optimization techniques: automated exposure control; mA and/or kV adjustment per patient size (includes targeted exams where dose is matched to clinical indication); or iterative reconstruction. Contrast material: ISOVUE; Contrast volume: 75 ml; Contrast route: IV; COMPARISON: CT ABDOMEN PELVIS W CON 01/28/2023 1:47 AM FINDINGS: Liver: Normal. No mass. Gallbladder and bile ducts: Normal. No calcified stones. No ductal dilation. Pancreas: Normal. No ductal dilation. Spleen: Normal. No splenomegaly. Adrenal glands: Normal. No mass. Kidneys and ureters: Normal. No hydronephrosis. Stomach and bowel: Unremarkable. No obstruction. No mucosal thickening. Appendix: No evidence of appendicitis. Intraperitoneal space: Unremarkable. No free air. No significant fluid collection. Vasculature: Unremarkable. No abdominal aortic aneurysm. Lymph nodes: Unremarkable. No enlarged lymph nodes. Urinary bladder: Unremarkable as visualized. Reproductive: Left adnexal hypodensity measuring 1.7 cm likely prominent follicle.. Bones/joints: Unremarkable. No acute fracture. Soft tissues: Unremarkable. IMPRESSION: No acute findings.
--- NOTE | 2023-10-04 05:01 | HMH.EDGENADL ---
Discharge Plan Disposition Patient Disposition: Still a Patient Chief Complaint: Abdominal Pain Prescriptions Prescriptions: No Action valacyclovir [Valtrex] 1 gram tablet 1,000 mg PO Q12H 7 Days Qty: 14 0RF ondansetron 4 mg tablet,disintegrating 4 mg PO Q6H PRN (Reason: nausea and vomiting) 5 Days Qty: 20 0RF Referrals Follow up/Referrals: Ivis Lopez APRN [Primary Care Provider] - See instructions Clinical Impressions Clinical Impression: Unintentional weight loss Nausea & vomiting Qualifiers: Vomiting type: unspecified Qualified Code(s): R11.2 - Nausea with vomiting, unspecified Instructions Patient Instructions: DI for Acute Abdominal Pain Discharge ED Provider: Jean Gunderson General Adult [facility] General Chief complaint: Abdominal Pain Stated complaint: vomiting, nausea Time Seen by Provider: 10/04/23 04:42 Mode of Arrival: Ambulatory Source of Information: Patient Limitations: No Limitations Description of Symptoms (Recalled from ER Triage Doc. by RN): Pt presents with abdominal pain with N/V since yesterday. Pt states she hasnt been able to eat much since havinf 7 teeth pulled last . Denies any fevers or excessive drainage from tooth extractions. Has been on antibiotic, steroid and pain medication since . History of Present Illness HPI narrative: 28-year-old female currently on steroids, antibiotics, Lortab after recent tooth extractions presents to the ER with lower abdominal pain, nausea, vomiting for the last 2 days. Patient states she cannot keep anything down. She states she tried taking home Phenergan but had emesis after. She states she has lower abdominal pain, no history of cholecystectomy or appendectomy. Patient states that she has been taking her medications from her teeth extractions as directed. She endorses mild constipation, no diarrhea. She states she has not had a documented fever but did have sweats in the last 24 hours. Nonbloody, nonbilious vomiting. Last menstrual period was 1 week ago. Related Data Previous Rx's Medication Instructions Recorded valacyclovir 1 gram tablet 1,000 mg PO Q12H 7 days #14 tabs 05/31/23 (Valtrex) ondansetron 4 mg disintegrating 4 mg PO Q6H PRN nausea and 06/29/23 tablet vomiting 5 days #20 tabs Allergies Allergy/AdvReac Type Severity Reaction Status Date / Time Penicillins [PENICILLINS] Allergy Unknown Hives Verified 08/14/23 15:27 venom-honey bee Allergy Unknown Hives Verified 08/14/23 15:27 [BEE VENOM (HONEY BEE)] [facility] Disclaimer: The information contained in this section may have been updated after the patient was seen, as this information can be updated by other users. 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 genitalia History of chlamydia PID (acute pelvic inflammatory disease) Rh negative status during Fetus Rh negative Surgical History History of dilation and curettage Family History Other Hypertension Social History Smoking Status: Current every day smoker tobacco type: e-cigarettes alcohol intake: never substance use type: denies use current occupational status: unemployed Travel in the last 8 weeks: None ROS Obtained: Yes All systems reviewed & no additional complaints except as documented Constitutional Constitutional: Denies chills, Denies fever(s), Denies headache(s) and Denies weakness Eyes Eyes: Denies change in vision ENT Ears, Nose, Mouth, and Throat: Denies dizziness, Denies headache(s), Denies nasal congestion and Denies sore throat Cardiovascular Cardiovascular: Denies chest pain, Denies dyspnea and Denies leg edema Respiratory Respiratory: Denies cough and Denies dyspnea Gastrointestinal Gastrointestingal: Reports abdominal pain, nausea and vomiting; Denies constipation or diarrhea Genitourinary Female Genitourinary: Denies dysuria Musculoskeletal Musculoskeletal: Denies arthralgias, Denies myalgias, Denies numbness and Denies tingling Integumentary/Breasts Skin/Breast: Denies change in pigmentation Neurologic Neurologic: Denies dizziness, Denies headache(s), Denies numbness, Denies tingling and Denies weakness Physical Exam General General appearance: alert and in no apparent distress Head Head exam: atraumatic and normocephalic Eye Eye exam: Present PERRL and EOMI ENT ENT exam: Present mucous membranes moist and other (Well-healing tooth extraction sites, no signs of intraoral infection) Neck Neck exam: Present normal inspection and full ROM Chest Chest inspection: Present symmetric chest wall rise Respiratory Respiratory exam: Present normal lung sounds bilaterally; Absent respiratory distress, wheezes or stridor Cardiovascular Cardiovascular exam: Present regular rate and normal rhythm Abdominal Exam Abdominal exam: Present soft and tenderness (lower abdominal without rebound or guarding); Absent distention, guarding or rebound Extremities Exam Extremities exam: Present full ROM Neurological Exam Neurological exam: Present alert and oriented X3; Absent motor sensory deficit Psychiatric Psychiatric exam: Present normal affect and normal mood Skin Skin exam: Present warm and dry Medical Decision Making Stevie Inquiry Pt receiving controlled substance: No Vital Signs: 10/04/23 04:40 10/04/23 05:39 10/04/23 06:42 Temperature 97.9 F Temperature Source Oral Pulse Rate 54 L Pulse Rate [Left] 87 Respiratory Rate 18 Blood Pressure 84/37 L Blood Pressure [Orthostatic Lying Left Arm] 81/40 L Blood Pressure [Orthostatic Sitting Left Arm] 87/42 L Blood Pressure [Orthostatic Standing Left Arm] 97/58 L Blood Pressure [Right Arm] 91/50 L Blood Pressure Mean [Right Arm] 63 Blood Pressure Source Blood Pressure Source [Right Arm] Automatic Cuff Blood Pressure Position Blood Pressure Position [Right Arm] Sitting 02 Sat by Pulse Oximetry 98 100 Oxygen Delivery Method Room Air 10/04/23 06:43 Temperature 97.9 F Temperature Source Oral Pulse Rate 58 L Pulse Rate [Left] Respiratory Rate 18 Blood Pressure 80/52 L Blood Pressure [Orthostatic Lying Left Arm] Blood Pressure [Orthostatic Sitting Left Arm] Blood Pressure [Orthostatic Standing Left Arm] Blood Pressure [Right Arm] Blood Pressure Mean [Right Arm] Blood Pressure Source Manual Cuff/ Auscultation Blood Pressure Source [Right Arm] Blood Pressure Position Supine Blood Pressure Position [Right Arm] 02 Sat by Pulse Oximetry 98 Oxygen Delivery Method Room Air Lab Data Lab Results 10/04/23 05:00: WBC 10.7, RBC 4.54, Hgb 14.1, Hct 41.3, MCV 91.1, MCH 31.1, MCHC 34.1, RDW 14.9, Plt Count 221, MPV 7.8, Neut % (Auto) 79.4, Lymph % (Auto) 16.2, Logan % (Auto) 2.9, Eos % (Auto) 0.9, Baso % (Auto) 0.6, Neut # (Auto) 8.5 H, Lymph # (Auto) 1.7, Logan # (Auto) 0.3, Eos # (Auto) 0.1, Baso # (Auto) 0.1, Sodium 137, Potassium 4.3, Chloride 103, Carbon Dioxide 22, Anion Gap 16.3 H, BUN 16, Creatinine 0.90, Estimated Creat Clear 135, Estimated GFR 76, Est GFR ( Amer) 92, Glucose 69 L, Calcium 9.4, Total Bilirubin 0.9, AST 21, ALT 13, Alkaline Phosphatase 80, Total Protein 8.0, Albumin 4.8, Globulin 3.2, Albumin/Globulin Ratio 1.5, Serum HCG, Qual Negative 10/04/23 05:00 10/04/23 05:00 Orders (Tests/Meds): ED MEDICATIONS Generic Name Dose Route Start Last Admin Trade Name Freq PRN Reason Stop Dose Admin Promethazine HCl 12.5 mg 10/04/23 06:39 Promethazine Hcl 25mg/Ml 1ml Vial IV 10/04/23 06:40 ONCE ONE Sodium Chloride 10 ml 10/04/23 05:56 10/04/23 05:57 Sodium Chloride 0.9% 10ml Syr (Rad Only) IV 11/03/23 05:55 10 ml NEEDED PRN Administration Maintain IV Site Sodium Chloride 25 ml 10/04/23 06:39 Sodium Chloride 0.9% 25ml Bag IV 10/04/23 06:40 ONCE ONE Discontinued Medications Generic Name Dose Route Start Last Admin Trade Name Freq PRN Reason Stop Dose Admin Acetaminophen 1,000 mg 10/04/23 05:00 10/04/23 05:09 Acetaminophen 1,000mg/100ml Vial IV 10/04/23 05:01 1,000 mg ONCE ONE Administration Lactated Ringer's 1,000 mls @ 999 mls/hr 10/04/23 05:00 10/04/23 05:10 Lactated Ringer's 1000 Ml Bag IV 10/04/23 06:00 999 mls/hr .Q1H1M ONE Administration Lactated Ringer's 1,000 mls @ 999 mls/hr 10/04/23 05:43 10/04/23 05:45 Lactated Ringer's 1000 Ml Bag IV 10/04/23 06:43 999 mls/hr .Q1H1M ONE Administration Iopamidol 75 ml 10/04/23 05:56 10/04/23 05:57 Iopamidol-370 (76%);100ml Bottle IV 10/04/23 05:57 75 ml ONCE ONE Administration Ondansetron HCl 4 mg 10/04/23 05:00 10/04/23 05:09 Ondansetron 4mg/2ml Vial IV 10/04/23 05:01 4 mg ONCE ONE Administration ORDERS Category Date Time Status CT abdomen pelvis w con Stat Cat Scan 10/04/23 05:00 Completed CBC w/Auto Diff [Complete Blood Count Auto Diff] Stat Lab 10/04/23 05:00 Completed CMP [Comprehensive Metabolic Panel] Stat Lab 10/04/23 05:00 Completed HCG Qualitative, Serum Stat Lab 10/04/23 05:00 Completed UDS [Drug Screen,Urine] Stat Lab 10/04/23 06:30 Received Urinalysis and Microscopic Stat Lab 10/04/23 06:30 Received Medical Decision Narrative: In summary, this 28year old female presents to the emergency department today with lower abdominal pain, nausea, vomiting. On initial evaluation patient is hemodynamically stable, afebrile, physical exam notable for lower abdominal tenderness to palpation, no rebound or guarding, moist mucous membranes with good skin turgor, no findings of dehydration on exam, cardiopulmonary exam reassuring. Differential diagnosis includes but is not limited to appendicitis, constipation, medication side effect, urinary tract infection, viral syndrome, electrolyte abnormality, dehydration though I have much lower suspicion for dehydration based on clinical exam. Based on these concerns, I ordered basic labs, CT imaging, test, urine studies. Patient received IV fluids, Zofran, IV Tylenol for treatment. Review of prior records demonstrates patient has history of THC positive urine screens which increases my suspicion for possible cannabis hyperemesis. Labs personally reviewed demonstrate no leukocytosis or anemia, CMP notable for tracely elevated anion gap likely secondary to emesis and volume losses as well as ketosis from poor oral intake. Normal bilirubin, normal kidney function and liver function tests. Patient did have blood pressure in the ER and received a second liter of IV fluids. She continued to perfuse well and had normal heart rate. She states she has history of having significantly low blood pressure. Review of [employer] visit from the beginning of 2022 demonstrates she had blood pressure 92/72 but her visits since that time have been more normotensive with SBP 100 or above. On further discussion with patient, she admits that she has previously had abnormal Pap smears and was actually supposed to have follow-up today to reevaluate and make sure the abnormal cells had resolved. This does increase my suspicion for possible malignancy. On further review of prior records, patient has frequently presented to our ER in the last year for nausea, vomiting, diarrhea. She admits that she has lost 20 pounds in the last several months unintentionally because of this intractable problem. She states that she has tried both smoking marijuana and not smoking marijuana however review of prior records demonstrates frequently positive THC. It is possible patient has developed cannabis hyperemesis. May also have cyclic vomiting syndrome. CT abdomen pelvis on my personal interpretation does not demonstrate any findings of appendicitis or bowel obstruction. No masses. See radiology read for final interpretation. On reassessment patient remains hypotensive. Her maps are above 60 and she continues to perfuse well, mentating normally, she denies being lightheaded, however she continues having nausea. IV Phenergan was ordered. Given she is requiring repeated doses of antiemetics as well as fluid bolus in order to maintain her blood pressure yet she still is hypotensive I do not believe she is appropriate for discharge. I discussed admission with the patient and she is amenable to this plan. Her orthostatic blood pressures are better and show improvement when patient stands, however when she is sitting and lying she has extremely low blood pressures I am concerned for hypoperfusion and the potential for organ damage though she does not have signs of this at this time. I called to discuss admission of this patient with the hospitalist at [place] 6:40 AM however they were unavailable. They are likely rounding/handing off but I do think they should at least evaluate the patient for admission given her weight loss and hypotension as well as intractable nausea. Patient handed off to Dr. Arora at physician handoff pending hospitalist consult. Critical Care Critical Care Time Critical Care Time: No
[2023-10-04] MEDS: ACETAMINOPHEN 1,000MG/100ML VIAL 1000 MG IV (05:09)
[2023-10-04] MEDS: ONDANSETRON 4MG/2ML VIAL 4 MG IV (05:09)
[2023-10-04] MEDS: LACTATED RINGERS 1000ML 1,000 ML 999 ML IV ×2 (05:10→05:45)
[2023-10-04 05:13] LABS: Basophils # 0.1 K/mm3 (0-0.2); Basophils % 0.6 % (0.1-2.0); Eosinophils # 0.1 K/mm3 (0.0-0.4); Eosinophils % 0.9 % (0.1-12.0); Hematocrit 41.3 % (37.0-47.0); Hemoglobin 14.1 g/dL (12.2-16.2); Lymphocytes # 1.7 K/mm3 (0.7-4.5); Lymphocytes % 16.2 % (10-50); Mean Corpuscular HGB Conc 34.1 g/dL (31.8-35.4); Mean Corpuscular Hemoglobin 31.1 pg (27.0-31.2); Mean Corpuscular Volume 91.1 fl (81-99); Mean Platelet Volume 7.8 fl (7.4-10.4); Monocytes # 0.3 K/mm3 (0.1-1.0); Monocytes % 2.9 % (1.7-9.3); Neutrophils # 8.5 K/mm3 (1.8-7.8); Neutrophils % 79.4 % (37.0-80.0); Platelet Count 221 K/mm3 (142-424); Red Blood Count 4.54 M/mm3 (4.20-5.40); Red Cell Distribution Width 14.9 % (11.5-17.5); White Blood Count 10.7 K/mm3 (4.8-10.8)
[2023-10-04 05:22] LABS: Alanine Aminotransferase 13 U/L (12-78); Albumin Level 4.8 g/dl (3.5-5.0); Albumin/Globulin Ratio 1.5 (1.1-1.8); Alkaline Phosphatase 80 U/L (38-126); Anion Gap 16.3 mEq/L (5-15); Aspartate Amino Transferase 21 U/L (14-36); Bilirubin,Total 0.9 mg/dl (0.2-1.3); Blood Urea Nitrogen 16 mg/dl (7-17); Calcium 9.4 mg/dl (8.4-10.2); Carbon Dioxide 22 mmol/L (22.0-30.0); Chloride 103 mmol/L (98-107); Creatinine Clearance Estimated 135 mL/min (50-200); Estimated Glomerular Filt Rate 76 ml/min (>60); GFR (African American) 92 ML/MIN (>60); Globulin 3.2 g/dL (1.3-3.2); Glucose 69 mg/dl (74-100); Potassium 4.3 mmoL/L (3.5-5.1); Sodium 137 mmol/L (136-145)
[2023-10-04 05:29] LABS: HCG Qualitative, Serum Negative (Negative)
--- NOTE | 2023-10-04 05:31 | PC.NURSE ---
Pt aware of urine specimen needed
--- NOTE | 2023-10-04 05:46 | PC.NURSE ---
pt. to CT
[2023-10-04] MEDS: IOPAMIDOL-370 (76%);100ML BOTTLE 75 ML IV (05:57)
[2023-10-04] MEDS: SODIUM CHLORIDE 0.9% 10ML SYR (RAD ONLY) 10 ML IV (05:57)
--- NOTE | 2023-10-04 06:04 | PC.NURSE ---
PATIENT BACK FROM CT
[2023-10-04 06:34] LABS: Microscopic, Urine URINE MICROSCOPIC (MICROSCOPIC)
[2023-10-04 06:38] LABS: Appearance,Urine CLEAR (Clear); Blood, Urine TRACE-I (Negative); Color,Urine YELLOW (Yellow); Glucose,Urine (UA) Negative (Negative); Ketones,Urine 3+ (Negative); Leukocyte Esterase,Urine Negative (Negative); Nitrate,Urine Negative (Negative); Protein,Urine Negative (Negative); Specific Gravity, Urine 1.025 (1.005-1.030); Urobilinogen,Urine 0.2 EU/dl (0.2)
[2023-10-04] MEDS: PROMETHAZINE HCL 25MG/ML 1ML VIAL 12.5 MG IV (06:49)
--- NOTE | 2023-10-04 06:53 | PC.NURSE ---
CONTACTED house for bed assignment. dx: intractible vomiting,unintentional weight loss, hypotension
[2023-10-04 07:10] LABS: Bilirubin,Urine 1+ (Negative)
[2023-10-04 07:11] LABS: RBC,Urine Occasional #/hpf (0-3)
[2023-10-04 07:12] LABS: Bacteria,Urine Trace /lpf
--- NOTE | 2023-10-04 07:28 | PC.NURSE ---
dr tee speaking with hospitalist
[2023-10-04] MEDS: METOCLOPRAMIDE HCL 10MG/2ML VIAL 10 MG IVP (07:48)
--- NOTE | 2023-10-04 08:05 | PC.NURSE ---
report given to kallie rn
--- NOTE | 2023-10-04 08:15 | PC.NURSE ---
arrived by w/c from ED
[2023-10-04] MEDS: LACTATED RINGERS 1000ML 1,000 ML 50 ML IV (08:45)
[2023-10-04 09:12] LABS: Barbiturates Screen,Urine Negative ng/ml (<200); Benzodiazepines Screen,Urine Negative ng/ml (<200)
[2023-10-04 09:13] LABS: Amphetamine/Metha Screen,Urine Negative ng/ml (<1000)
[2023-10-04 09:14] LABS: Cannabinoid Screen,Urine Positive ng/ml (<50); Cocaine Screen,Urine Negative ng/ml (<300)
[2023-10-04 09:15] LABS: Methadone Screen,Urine Negative ng/ml (<300)
[2023-10-04 09:16] LABS: Opiate Screen,Urine Positive ng/ml (<300)
[2023-10-04 09:25] LABS: Phencyclidine Screen,Urine Negative ng/ml (<25)
[2023-10-04] MEDS: DEXTROSE 15GM PACKET 15 GM PO (09:41)
[2023-10-04 11:12] LABS: POC Glucose,Bedside 71 (70-110)
--- NOTE | 2023-10-04 13:06 | DIET.NUTRFU ---
Saw patient to review diet consistency. Patient recently had 7 teeth extracted. All her wisdom teeth and two front teeth that will later be replaced with bridge. She has not been able to eat anything since sx. She is very anxious about eating anything also, reviewed the different diet choices and would rather be on full liquids until stitches at taken out, She believes her followup for stitches removal is in the next couple days. This RD did encourage her to request diet advancement when ready through nursing. If pain subsides and able to chew would not recommend the full liquids for long length of time. Full liquids will not meet nutritional needs. Patient does not trigger for nutritional assessment at this time.
--- NOTE | 2023-10-04 16:46 | P.HP_ITS ---
History of Present Illness *Reason for visit:: Intractable nausea vomiting *History of present illness: Patient is a 28-year-old female with past medical history of marijuana use who presented to hospital due to greater than nausea vomiting. According to patient she has not been able to hold down food, she tried home Zofran without much improvement. Patient mentions she also has abdominal discomfort. Patient mention she had these episodes in the past as well. Patient denies fever chills diarrhea constipation dysuria. Assessment Intractable nausea vomiting Marijuana use Weight loss Plan Gentle IV fluid therapy As needed Zofran, Phenergan Monitor and replace electrolytes Resume home medications Likely discharge 1 to 2 days pending clinical improvement DVT prophylaxis-Lovenox PFSH PFS Disclaimer: The information contained in this section may have been updated after the patient was seen, as this information can be updated by other users. Medical History (Updated 10/04/23 @ 08:23 by Sakina Calderon RN) Anxiety Herpes simplex of female genitalia History of chlamydia PID (acute pelvic inflammatory disease) Rh negative status during Surgical History History of dilation and curettage Family History Other Hypertension Social History (Updated 10/04/23 @ 08:23 by Sakina Calderon RN) Smoking Status: Current every day smoker tobacco type: e-cigarettes alcohol intake: never substance use type: denies use current occupational status: unemployed Travel in the last 8 weeks: None Review of Systems Review of Systems Review of systems (narrative): as per HPI Constitutional Constitutional: Denies headache(s) and Denies weakness ENT Ears, Nose, Mouth, and Throat: Denies dizziness and Denies headache(s) *Musculoskeletal Musculoskeletal: Denies numbness and Denies tingling *Neurologic Neurologic: Denies dizziness, Denies headache(s), Denies numbness, Denies tingling and Denies weakness Meds Home Medications and Allergies Home Medications Medication Instructions Recorded Confirmed Type ondansetron 4 mg disintegrating 4 mg PO Q6H PRN nausea and 06/29/23 10/04/23 Rx tablet vomiting 5 days #20 tabs New Prescriptions to Start Prescriptions: Allergies Allergy/AdvReac Type Severity Reaction Status Date / Time Penicillins [PENICILLINS] Allergy Unknown Hives Verified 08/14/23 15:27 venom-honey bee Allergy Unknown Hives Verified 08/14/23 15:27 [BEE VENOM (HONEY BEE)] Exam Data for Last 24 hours Vital signs and Labs for Last 24 Hours: Temp Pulse Resp BP Pulse Ox O2 Del Method 98.1 F 56 L 16 98/59 L 98 Room Air 10/04/23 15:57 10/04/23 15:57 10/04/23 15:57 10/04/23 15:57 10/04/23 15:57 10/04/23 15:57 Laboratory Results - last 24 hr 10/04/23 05:00: WBC 10.7, RBC 4.54, Hgb 14.1, Hct 41.3, MCV 91.1, MCH 31.1, MCHC 34.1, RDW 14.9, Plt Count 221, MPV 7.8, Neut % (Auto) 79.4, Lymph % (Auto) 16.2, Valencia % (Auto) 2.9, Eos % (Auto) 0.9, Baso % (Auto) 0.6, Neut # (Auto) 8.5 H, Lymph # (Auto) 1.7, Valencia # (Auto) 0.3, Eos # (Auto) 0.1, Baso # (Auto) 0.1, Sodium 137, Potassium 4.3, Chloride 103, Carbon Dioxide 22, Anion Gap 16.3 H, BUN 16, Creatinine 0.90, Estimated Creat Clear 135, Estimated GFR 76, Est GFR ( Amer) 92, Glucose 69 L, Calcium 9.4, Total Bilirubin 0.9, AST 21, ALT 13, Alkaline Phosphatase 80, Total Protein 8.0, Albumin 4.8, Globulin 3.2, Albumin/Globulin Ratio 1.5, Serum HCG, Qual Negative 10/04/23 06:30: Urine Color Yellow, Urine Appearance Clear, Urine pH 6.0, Ur Specific Alpine 1.025, Urine Protein Negative, Urine Glucose (UA) Negative, Urine Ketones 3+, Urine Blood Trace-i, Urine Nitrate Negative, Urine Bilirubin 1+ A, Urine Urobilinogen 0.2, Ur Leukocyte Esterase Negative, Urine RBC Occasional, Urine WBC 3-5, Ur Squamous Epith Cells 5-10, Urine Bacteria Trace, Urine Opiates Screen Positive H, Urine Methadone Screen Negative, Ur Barbituates Screen Negative, Ur Phencyclidine Scrn Negative, Ur Amphetamines Screen Negative, U Benzodiazepines Scrn Negative, Urine Cocaine Screen Negative, U Marijuana (THC) Screen Positive H 10/04/23 11:03: POC Glucose 71 I & O for Last 24 hours: Intake & Output 10/01/23 10/02/23 10/03/23 10/04/23 23:59 23:59 23:59 23:59 Intake Total 170 / 170 Output Total 0 / 0 Balance 170 / 170 Weight 43.573 kg Constitutional Constitutional: no acute distress *Routine HEENT Exam Head: Present normocephalic Eye: Present EOMI and PERRL ENT: Present mucous membranes moist *Routine Neck Exam Neck: Present supple; Absent lymphadenopathy *Routine Respiratory Exam Respiratory: Present CTA bilaterally *Routine Cardiovascular Exam Cardiovascular: Present RRR *Routine Abdominal Exam Abdominal: Present soft and normoactive bowel sounds; Absent tenderness *Routine Rectal Exam Rectal:: deferred *Routine Genitalia Exam Genitalia:: deferred *Routine Extremities Exam Extremities: Absent cyanosis, clubbing or edema *Routine Skin Exam Skin: Present warm; Absent rash *Routine Neurological Exam Neurological: Present alert and oriented X3 Assessment and Plan *Assessment and plan (1) Nausea & vomiting: Status: Acute Qualifiers: Vomiting type: unspecified Qualified Code(s): R11.2 - Nausea with vomiting, unspecified Category: Medical Code(s): R11.2 - Nausea with vomiting, unspecified (2) Unintentional weight loss: Status: Acute Category: Medical Code(s): R63.4 - Abnormal weight loss (3) Nausea vomiting and diarrhea: Status: Acute Category: Medical Code(s): R11.2 - Nausea with vomiting, unspecified; R19.7 - Diarrhea, unspecified (4) Gastroenteritis: Status: Acute Category: Medical Code(s): K52.9 - Noninfective gastroenteritis and colitis, unspecified (5) Urinary tract infection: Status: Acute Category: Medical Code(s): N39.0 - Urinary tract infection, site not specified Plan Patient is a 28-year-old female with past medical history of marijuana use who presented to hospital due to greater than nausea vomiting. According to patient she has not been able to hold down food, she tried home Zofran without much improvement. Patient mentions she also has abdominal discomfort. Patient mention she had these episodes in the past as well. Patient denies fever chills diarrhea constipation dysuria. Assessment Intractable nausea vomiting Marijuana use Weight loss Plan Gentle IV fluid therapy As needed Zofran, Phenergan Monitor and replace electrolytes Resume home medications Likely discharge 1 to 2 days pending clinical improvement DVT prophylaxis-Lovenox
--- NOTE | 2023-10-04 17:51 | PC.NURSE ---
No vomiting during shift. Bowel sounds active and VS stable. Patient able to drink gatorade and ensure chocolate shake. Patient able to tolerate drinks well.
[2023-10-05] MEDS: PROMETHAZINE HCL 25MG/ML 1ML VIAL 25 MG IV (00:38)
[2023-10-05] MEDS: ACETAMINOPHEN 325MG TAB 650 MG PO (00:42)
[2023-10-05 04:00] VITALS: BP 104/69; PULSE 55; RESP 18; TEMP 36.7; O2SAT 99; BMI 17.9
[2023-10-05] MEDS: LACTATED RINGERS 1000ML 1,000 ML 50 ML IV (04:39)
--- NOTE | 2023-10-05 06:11 | PC.NURSE ---
Patient rested well throughout shift without concerns. Medicated once for PRN nausea and pain per MAR with relief. Patient VSS, NAD, and plans to discharge home today.
[2023-10-05 07:13] LABS: Basophils % 0.6 % (0.1-2.0); Eosinophils # 0.2 K/mm3 (0.0-0.4); Eosinophils % 3.1 % (0.1-12.0); Hematocrit 33.4 % (37.0-47.0); Hemoglobin 11.5 g/dL (12.2-16.2); Lymphocytes # 2.4 K/mm3 (0.7-4.5); Lymphocytes % 44.6 % (10-50); Mean Corpuscular HGB Conc 34.4 g/dL (31.8-35.4); Mean Corpuscular Hemoglobin 31.2 pg (27.0-31.2); Mean Corpuscular Volume 90.8 fl (81-99); Mean Platelet Volume 7.8 fl (7.4-10.4); Monocytes # 0.3 K/mm3 (0.1-1.0); Monocytes % 4.8 % (1.7-9.3); Neutrophils # 2.5 K/mm3 (1.8-7.8); Neutrophils % 46.8 % (37.0-80.0); Platelet Count 199 K/mm3 (142-424); Red Blood Count 3.68 M/mm3 (4.20-5.40); White Blood Count 5.4 K/mm3 (4.8-10.8)
[2023-10-05 07:15] LABS: Chloride 103 mmol/L (98-107); Potassium 3.6 mmoL/L (3.5-5.1); Sodium 137 mmol/L (136-145)
[2023-10-05 07:18] LABS: Anion Gap 9.6 mEq/L (5-15); Blood Urea Nitrogen 9 mg/dl (7-17); Calcium 8.4 mg/dl (8.4-10.2); Carbon Dioxide 28 mmol/L (22.0-30.0); Creatinine Clearance Estimated 60 mL/min (50-200); Estimated Glomerular Filt Rate 67 ml/min (>60); GFR (African American) 81 ML/MIN (>60); Glucose 86 mg/dl (74-100)
[2023-10-05 08:00] VITALS: BP 104/67; PULSE 52; RESP 18; TEMP 36.8; O2SAT 99
--- NOTE | 2023-10-05 09:27 | P.DS_ITS ---
General Admission date:: 10/04/23 Discharge date: 10/05/23 HPI HPI HPI: Patient is a 28-year-old female with past medical history of marijuana use who presented to hospital due to greater than nausea vomiting. According to patient she has not been able to hold down food, she tried home Zofran without much improvement. Patient mentions she also has abdominal discomfort. Patient mention she had these episodes in the past as well. Patient denies fever chills diarrhea constipation dysuria. Hospital Course Hospital Course Hospital Course: Patient is a 28-year-old female with past medical history of marijuana use who presented to hospital due to greater than nausea vomiting. According to patient she has not been able to hold down food, she tried home Zofran without much improvement. Patient mentions she also has abdominal discomfort. Patient mention she had these episodes in the past as well. Patient denies fever chills diarrhea constipation dysuria. Assessment Intractable nausea vomiting - resolved, patient is tolerating diet and mentions she feels back to her regular health status, she wishes to be discharged, patient will be discharged in stable condition Marijuana use Weight loss - recommended to f/u with PCP as OP Exam Data for Last 24 hours Vital signs and Labs for Last 24 Hours: Temp Pulse Resp BP Pulse Ox O2 Del Method 98.2 F 52 L 18 104/67 L 99 Room Air 10/05/23 08:00 10/05/23 08:00 10/05/23 08:00 10/05/23 08:00 10/05/23 08:00 10/05/23 08:55 Laboratory Results - last 24 hr 10/04/23 06:30: Ur Phencyclidine Scrn Negative 10/04/23 11:03: POC Glucose 71 10/05/23 06:39: WBC 5.4 D, RBC 3.68 L, Hgb 11.5 L, Hct 33.4 L, MCV 90.8, MCH 31.2, MCHC 34.4, RDW 15.0, Plt Count 199, MPV 7.8, Neut % (Auto) 46.8, Lymph % (Auto) 44.6, [place] % (Auto) 4.8, Eos % (Auto) 3.1, Baso % (Auto) 0.6, Neut # (Auto) 2.5, Lymph # (Auto) 2.4, [place] # (Auto) 0.3, Eos # (Auto) 0.2, Baso # (Auto) 0.0, Sodium 137, Potassium 3.6, Chloride 103, Carbon Dioxide 28, Anion Gap 9.6, BUN 9 D, Creatinine 1.00, Estimated Creat Clear 60, Estimated GFR 67, Est GFR ( Amer) 81, Glucose 86, Calcium 8.4 I & O for Last 24 hours: Intake & Output 10/02/23 10/03/23 10/04/23 10/05/23 23:59 23:59 23:59 23:59 Intake Total 804 / 1654 850 / 850 Output Total 0 / 200 200 / 200 Balance 804 / 1454 650 / 650 Weight 43.573 kg 44.225 kg Constitutional Constitutional: no acute distress *Routine HEENT Exam Head: Present normocephalic Eye: Present EOMI and PERRL ENT: Present mucous membranes moist *Routine Neck Exam Neck: Present supple; Absent lymphadenopathy *Routine Respiratory Exam Respiratory: Present CTA bilaterally *Routine Cardiovascular Exam Cardiovascular: Present RRR *Routine Abdominal Exam Abdominal: Present soft and normoactive bowel sounds; Absent tenderness *Routine Extremities Exam Extremities: Absent cyanosis, clubbing or edema *Routine Skin Exam Skin: Present warm; Absent rash *Routine Neurological Exam Neurological: Present alert and oriented X3 Results Data Completed and Pending Labs on day of discharge: Labs from last 24 hours 10/05/23 10/04/23 10/04/23 06:39 11:03 06:30 WBC 5.4 D RBC 3.68 L Hgb 11.5 L Hct 33.4 L MCV 90.8 MCH 31.2 MCHC 34.4 RDW 15.0 Plt Count 199 MPV 7.8 Neut % (Auto) 46.8 Lymph % (Auto) 44.6 [place] % (Auto) 4.8 Eos % (Auto) 3.1 Baso % (Auto) 0.6 Neut # (Auto) 2.5 Lymph # (Auto) 2.4 [place] # (Auto) 0.3 Eos # (Auto) 0.2 Baso # (Auto) 0.0 Sodium 137 Potassium 3.6 Chloride 103 Carbon Dioxide 28 Anion Gap 9.6 BUN 9 D Creatinine 1.00 Estimated Creat Clear 60 Estimated GFR 67 Est GFR ( Amer) 81 Glucose 86 POC Glucose 71 Calcium 8.4 Ur Phencyclidine Scrn Negative DS: Diagnosis Discharge Diagnosis (1) Nausea & vomiting: Status: Acute Code(s): R11.2 - Nausea with vomiting, unspecified Qualifiers: Vomiting type: unspecified Qualified Code(s): R11.2 - Nausea with vomiting, unspecified (2) Unintentional weight loss: Status: Acute Code(s): R63.4 - Abnormal weight loss (3) Nausea vomiting and diarrhea: Status: Acute Code(s): R11.2 - Nausea with vomiting, unspecified; R19.7 - Diarrhea, unspecified (4) Gastroenteritis: Status: Acute Code(s): K52.9 - Noninfective gastroenteritis and colitis, unspecified (5) Urinary tract infection: Status: Acute Code(s): N39.0 - Urinary tract infection, site not specified Meds Home Medications and Allergies Home Medications Medication Instructions Recorded Confirmed Type ondansetron 4 mg disintegrating 4 mg PO TID PRN nausea and 10/05/23 10/06/23 Rx tablet vomiting 4 days #10 tabs New Prescriptions to Start Prescriptions: ondansetron Lalo George Allergies Allergy/AdvReac Type Severity Reaction Status Date / Time Penicillins [PENICILLINS] Allergy Unknown Hives Verified 10/06/23 09:58 venom-honey bee Allergy Unknown Hives Verified 10/06/23 09:58 [BEE VENOM (HONEY BEE)] Discharge Plan Disposition Patient Disposition: Home, Self-Care Condition: Good Follow up Plan Follow up with: Ivis Lopez APRN [Primary Care Provider] - 10/18/23 10:00 am Prescriptions/Medication Reconciliation: New ondansetron 4 mg tablet,disintegrating 4 mg PO TID PRN (Reason: nausea and vomiting) 4 Days Qty: 10 0RF Discontinued ondansetron 4 mg tablet,disintegrating 4 mg PO Q6H PRN (Reason: nausea and vomiting) 5 Days Qty: 20 0RF Problem Reconciliation Problems Reviewed?: Yes Patient Discharge Instructions ACTIVITY: Ambulate as tolerated DIET: advance to your usual diet Patient Instructions: DI for Vomiting -- Adult, Nausea and Vomiting-Adult Providers Primary Care Provider: Ivis Lopez Admit Provider: Lalo George Attending Provider: Lalo George
--- NOTE | 2023-10-05 09:33 | PC.NURSE ---
clinic pharmacy called.
--- NOTE | 2023-10-06 14:24 | CARE MANAGER ---
Contacted patient related to hospital discharge. She states she still feels bad, but is not vomiting. She is aware of follow up appointment and denies any questions or concerns. KIMBER Chen
== END 2023-10-05 10:21 | disposition home or self-care (01) ==
LOC: ER 06:51 → 2ND 07:14
PROVIDERS: Emergency Medicine; Admitting Provider Internal Medicine; Emergency Provider Emergency Medicine; PCP Nurse Practitioner Family; Visit Provider Internal Medicine
DX: K52.9 Noninfective gastroenteritis and colitis, unspecified (principal); N39.0 Urinary tract infection, site not specified; F17.290 Nicotine dependence, other tobacco product, uncomplicated; R19.7 Diarrhea, unspecified; R63.4 Abnormal weight loss; R11.2 Nausea with vomiting, unspecified
CPT/HCPCS: 36415; 74177; 80048; 80053; 80307; 81001; 82962; 84703; 85025; 99285; G0378; J0131; J2405; Q9967

== ENCOUNTER 2023-10-19 10:24 | Day surgery (SDC) | payer OTHER, SELFPAY ==
[2023-10-12 15:36] VITALS: BMI 16.2
[2023-10-19] MEDS: LACTATED RINGERS 1000ML 1,000 ML 100 ML IV (11:13)
[2023-10-19 11:16] VITALS: BP 98/67; PULSE 80; RESP 18; TEMP 36.4; O2SAT 100
[2023-10-19 11:33] LABS: Urine Pregnancy, HCG Qual. Negative (Negative)
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
[2023-10-19 11:56] VITALS: O2SAT 98
--- NOTE | 2023-10-19 12:05 | HMH.SCOPE ---
Procedure: Date: 10/19/23 Patient Date of :: 1995 Procedure Performed:: Diagnostic EGD Indications:: Nausea/Vomiting Weight loss Performing Provider:: Shannan Agosto MD Referring Provider:: Radha Winston APRN Sedation:: Propofol Procedure:: The gastroscope was gently passed through the incisoral orifice into the oral cavity and under direct visualization the esophagus was intubated. The endoscope was passed down the esophagus, through the stomach, and into the duodenum. Color, texture, mucosa, and anatomy of the esophagus, stomach, and duodenum were carefully examined with the scope. Findings:: Oropharynx: normal Esophagus: normal EG Junction: intact at 40 cm Cardia: normal Fundus: normal Body: normal Antrum: normal Duodenal bulb: normal Duodenum (second and third portion): normal Impression: Normal EGD. No evidence of ulcer disease or outlet obstruction Signs and symptoms consistent with nicotine overdose/poisoning exacerbated by Cannabis use Recommendations:: Cessation of nicotine and cannabis use Complications:: None Estimated blood obtained (mL): 0 Colonoscopy Component Colonoscopy Component Was a colonoscopy performed during today's procedure?: No
[2023-10-19 12:10] VITALS: BP 97/47; PULSE 90; RESP 14; TEMP 36.6; O2SAT 92
[2023-10-19 12:20] VITALS: BP 95/57; PULSE 79; RESP 16; O2SAT 96
--- NOTE | 2023-10-19 12:26 | SUR.PHASEII ---
1210: Pt is postop bay. O2 3L mask placed on pt. Oral airway in place. Nataliia Child Rn at bedside at this time.
--- NOTE | 2023-10-19 12:29 | SUR.PHASEII ---
1220: Pt responds to commands. Oral airway out and O2 removed.
[2023-10-19 12:30] VITALS: BP 91/57; PULSE 80; RESP 16; O2SAT 97
== END 2023-10-19 12:45 | disposition home or self-care (01) ==
PROVIDERS: PCP Family Medicine; Visit Provider Internal Medicine Gastroenterology
PROC: 0DJ08ZZ Inspection of Upper Intestinal Tract, Via Natural or Artificial Opening Endoscopic (ICD-10-PCS; CPT 43235; principal; 2023-10-19 11:30)
DX: R11.2 Nausea with vomiting, unspecified (principal); R63.4 Abnormal weight loss; T65.294A Toxic effect of other tobacco and nicotine, undetermined, initial encounter; F12.90 Cannabis use, unspecified, uncomplicated
CPT/HCPCS: 43235; 81025

== ENCOUNTER 2023-12-13 11:53 | Outpatient (CLI) | payer OTHER, SELFPAY ==
[2023-12-16 07:12] LABS: Neisseria gonorrhoeae, NAA Negative (Negative)
== END 2023-12-13 23:59 | disposition home or self-care (01) ==
LOC: LAB.DROPOF 12-15 11:55
PROVIDERS: PCP Family Medicine; Visit Provider Obstetrics & Gynecology
DX: O26.891 Other specified pregnancy related conditions, first trimester (principal); Z3A.09 9 weeks gestation of pregnancy
CPT/HCPCS: 87086; 87491; 87591

== ENCOUNTER 2023-12-27 08:45 | Outpatient (CLI) | payer OTHER, SELFPAY ==
[2023-12-27 09:09] LABS: Basophils % 0.4 % (0.1-2.0); Eosinophils # 0.1 K/mm3 (0.0-0.4); Eosinophils % 1.6 % (0.1-12.0); Hematocrit 36.3 % (37.0-47.0); Mean Corpuscular HGB Conc 33.1 g/dL (31.8-35.4); Mean Corpuscular Hemoglobin 32.1 pg (27.0-31.2); Mean Corpuscular Volume 97.2 fl (81-99); Mean Platelet Volume 8.4 fl (7.4-10.4); Monocytes # 0.3 K/mm3 (0.1-1.0); Monocytes % 3.3 % (1.7-9.3); Neutrophils # 5.3 K/mm3 (1.8-7.8); Neutrophils % 60.7 % (37.0-80.0); Platelet Count 227 K/mm3 (142-424); Red Blood Count 3.74 M/mm3 (4.20-5.40); Red Cell Distribution Width 13.4 % (11.5-17.5); White Blood Count 8.8 K/mm3 (4.8-10.8)
[2023-12-27 18:37] LABS: Iron 134 ug/dL (37-170)
[2023-12-27 18:47] LABS: Total Iron Binding Capacity 337 ug/dL (265-497)
[2023-12-28 10:42] LABS: HIV Screen 4th Generation wRfx Non Reactive (Non Reactive)
[2023-12-28 12:12] LABS: Rapid Plasma Reagin Ab Titer Non Reactive titer (NonRea<1:1)
[2023-12-29 10:08] LABS: Hepatitis B Surface Antigen Negative; Hepatitis C Antibody Non Reactive
[2023-12-29 10:09] LABS: Rubella Antibodies, IgG 2.76
== END 2023-12-27 23:59 | disposition home or self-care (01) ==
PROVIDERS: PCP Family Medicine; Visit Provider Obstetrics & Gynecology
DX: O26.891 Other specified pregnancy related conditions, first trimester (principal); D64.9 Anemia, unspecified; Z3A.09 9 weeks gestation of pregnancy; R11.2 Nausea with vomiting, unspecified; Z11.4 Encounter for screening for human immunodeficiency virus [HIV]
CPT/HCPCS: 36415; 83540; 83550; 85025; 86593; 86703; 86762; 86850; 87340; 87380; G0432

== ENCOUNTER 2024-03-21 10:05 | Outpatient (CLI) | payer OTHER, SELFPAY ==
--- NOTE | 2024-03-21 10:06 | US_ITS ---
PROCEDURE: US OB /MATERNAL DETAIL CLINICAL INDICATION: 20 week + Anatomy Scan COMPARISON: No exams were available for comparison FINDINGS: Transabdominal sonographic images of the pelvis were obtained. From her established due date she is 21 weeks 1 day. Single viable intrauterine gestation. Breech position. Placenta: Posteriorplacenta grade 1. There is an average amount of fluid. The cervix appears satisfactory. Closed and measuring 3.2 cm in length. Complete survey performed and was unremarkable on the submitted images as in PACS. No discrete anomalies identified on survey imaging by technologist. Active fetus. Three-vessel cord with satisfactory umbilical cord insertion. 4- chamber heart noted. Situs, aortic arch, LVOT, RVOT, three-vessel view appear normal. Survey of brain & ventricles Unremarkable. Cerebellum, thalamus, choroid plexus, cisterna magna appear normal. Face and neck survey unremarkable. Profile, nasion, lips and nose appeared normal. Diaphragm and chest views unremarkable. Abdomen: Both kidneys were not visualized due to position stomach and bladder noted and satisfactory. Spine: Survey of the spine was not done secondary to position. Both arms and legs noted. Amniotic Fluid: Adequate. Measurements: Average ultrasound age 21weeks 0 days. Estimated due date by ultrasound age 1108/01/2024. Estimated weight 385g BPD = 20weeks 6days HC = 21weeks 0 days AC = 21weeks 2days FL = 20weeks 5days Growth Percentile= 31 Heart Rate = 149bpm Cerebellum = 20weeks 0 days Humerus = 21weeks 0 days HC/AC is 1.16 FL/BPD is 0.69 FL/AC is 0.21 IMPRESSION: 1. Viable fetus in the breech presentation with a posterior placenta grade 1. 2. The fluid is within normal limits. 3. Anatomical scan appears normal. 4. Suggest repeat scan in 2-4 weeks to look at the spine and kidneys due to position. 5. biometry is consistent with the dates. Dictated by: Sal Christensen MD 03/21/2024 10:51 Sal Christensen MD in OV 03/21/2024 10:51
== END 2024-03-21 23:59 | disposition home or self-care (01) ==
LOC: RAD 10:06
PROVIDERS: PCP Family Medicine; Visit Provider Obstetrics & Gynecology
DX: Z36.3 Encounter for antenatal screening for malformations (principal); Z3A.21 21 weeks gestation of pregnancy; O26.892 Other specified pregnancy related conditions, second trimester; O99.322 Drug use complicating pregnancy, second trimester; Z67.91 Unspecified blood type, Rh negative; F12.90 Cannabis use, unspecified, uncomplicated
CPT/HCPCS: 76811

== ENCOUNTER 2024-04-10 10:54 | Outpatient (CLI) | payer OTHER, SELFPAY ==
--- NOTE | 2024-04-10 10:57 | US_ITS ---
PROCEDURE: US OB FOLLOW UP CLINICAL INDICATION: Limited views of spine kidneys-position of baby COMPARISON: US US OB /MATERNAL DETAIL from 03/21/2024 FINDINGS: Transabdominal sonographic images of the pelvis were obtained. The following parameters are obtained: From her established due date she is 24weeks Viable fetus in the cephalic presentation with a fundal placenta grade 1. There is a placental Ty seen. The cervix measures 3.5 cm. heart rate: 144bpm bpm. Amniotic fluid: Appears normal. No obvious anomalies evident. profile seen, stomach, bladder, kidneys appear normal, three-vessel cord, four chamber heart appear normal. spine: Upper, thoracic and lower spine appear normal. IMPRESSION: 1. Viable fetus in the cephalic presentation with a fundal placenta grade 1. A placental Ty is seen. 2. The fluid is within normal limits. 3. Limited anatomical scan appears normal. 4. spine was still incompletely seen at the sacrum. Suggest repeat scan at 28 weeks. The rest of spine however appears normal. 5. Kidneys that were not well seen on the last examination appear normal. Dictated by: Sal Christensen MD 04/10/2024 17:45 Sal Christensen MD in OV 04/10/2024 17:45
== END 2024-04-10 23:59 | disposition home or self-care (01) ==
LOC: RAD 10:55
PROVIDERS: PCP Family Medicine; Visit Provider Obstetrics & Gynecology
DX: Z36.2 Encounter for other antenatal screening follow-up (principal); O09.892 Supervision of other high risk pregnancies, second trimester; O99.322 Drug use complicating pregnancy, second trimester; F12.90 Cannabis use, unspecified, uncomplicated; Z3A.24 24 weeks gestation of pregnancy
CPT/HCPCS: 76816

== ENCOUNTER 2024-04-25 12:30 | Observation (INO) | payer OTHER, SELFPAY ==
[2024-04-25] VITALS (8 sets, daily range): BP systolic 88–104; BP diastolic 51–61; PULSE 82–103; RESP 13–26; TEMP 36.8–36.9; O2SAT 99–100; BMI 21.2; BMI 21.3
--- NOTE | 2024-04-25 12:28 | ECG_ITS ---
APPROVED REPORT Exam: Resting ECG HR:99 bpm ECG Measurements Heart Rate 99 AXES NV 149 P 72 QRSd 78 QRS 88 QT 332 T 35 QTc 388 Conclusion SINUS RHYTHM WITH SINUS ARRHYTHMIA NORMAL ECG Electronically signed by : MYLENE ENCARNACION, 04/26/2024 23:22:15
--- NOTE | 2024-04-25 12:37 | HMH.EDGENADL ---
Discharge Plan Disposition Patient Disposition: Admitted Clinical Impressions Clinical Impression: Epigastric abdominal pain, Nausea & vomiting, Second trimester Discharge ED Provider: Miguelina Bond General Adult HPI <Justyn Borja MD - Last Filed: 04/25/24 18:52> General Chief complaint: Chest Pain Stated complaint: chest pain Time Seen by Provider: 04/25/24 12:37 History of Present Illness HPI narrative: The patient presents with a chief complaint of chest pain, which she initially thought was heartburn. The pain has been persistent since yesterday and is described as sharp, radiating up to her collarbone. The pain is exacerbated by laughing, coughing, and burping, and is worse when sitting up compared to lying down on her side. She denies any previous history of heartburn or similar symptoms. The patient reports a history of shortness of breath for several weeks, but denies coughing up any blood or sputum. She also mentions experiencing low-grade fever (99?F) on one side of her head prior to the visit. The patient is currently 26 weeks and has a follow-up appointment with her OB doctor tomorrow. She denies any belly pain, bleeding, or discharge, but has experienced occasional contractions that resolve with position change. The patient has a history of a heart murmur during childhood but did not require any medications. She denies any other medical conditions or daily medications. Additional details: - The pain was not constant before yesterday but became persistent since then. - She describes the pain as being so severe at one point that she almost passed out and had to lie down on the bathroom floor. - The patient reports feeling constantly nauseous but has been avoiding vomiting due to fear of pain. - She mentions having to undergo multiple anatomy scans due to movement during previous attempts. - The patient initially resisted seeking medical attention, thinking it might just be heartburn, but her partner encouraged her to get checked out when the symptoms persisted. Please note that above description of symptoms, in this electronic medical record under categorization of recalled from ER triage doctor by RN are reflective of an initial nursing assessment, however, is not reflective of my full history and physical exam that was personally taken and clarified. Consequentially, this preceding description of symptoms, which may include the patient's categorized chief complaint in the EMR, do not reflect my personal clinical impression, and the ultimate description of history of present illness and patient stated complaints should be deferred to this section of the note. Unless stated otherwise or congruent with this section of the note, additional signs, symptoms, or incongruence should be interpreted as inaccurate with my clinical impression. Related Data Previous Rx's ?Medication ?Instructions ?Recorded ondansetron 4 mg disintegrating 4 mg PO Q8H PRN nausea and 12/27/23 tablet vomiting #30 tabs polyethylene glycol 3350 17 17 g PO BID PRN constipation #119 02/28/24 gram/dose oral powder (Miralax) grams Allergies Allergy/AdvReac Type Severity Reaction Status Date / Time Penicillins [PENICILLINS] Allergy Unknown Hives Verified 03/21/24 09:28 venom-honey bee Allergy Unknown Hives Verified 03/21/24 09:28 [BEE VENOM (HONEY BEE)] [facility] <Justyn Borja MD - Last Filed: 04/25/24 18:52> [facility] Disclaimer: The information contained in this section may have been updated after the patient was seen, as this information can be updated by other users. 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 genitalia History of delivery, currently Rh negative state in antepartum period Marijuana use during Nausea and vomiting during Anxiety Nausea & vomiting LGSIL on Pap smear of cervix DUB (dysfunctional uterine bleeding) Rh negative status during Fetus Rh negative History of chlamydia PID (acute pelvic inflammatory disease) Surgical History History of dilation and curettage Family History Other Heart attack Hypertension Thyroid disorder Social History (Updated 04/25/24 @ 17:40 by Chetna Sales RN) Smoking Status: Current every day smoker alcohol intake: never substance use type: denies use and marijuana current occupational status: unemployed Travel in the last 8 weeks: None <Justyn Borja MD - Last Filed: 04/25/24 18:52> ROS Obtained: Yes other As per HPI Physical Exam <Justyn Borja MD - Last Filed: 04/25/24 18:52> General General appearance: alert Head Head exam: atraumatic and normocephalic Eye Eye exam: Present normal appearance Neck Neck exam: Present normal inspection Chest Chest inspection: Present normal inspection and symmetric chest wall rise Respiratory Respiratory exam: Present normal lung sounds bilaterally; Absent respiratory distress Cardiovascular Cardiovascular exam: Present regular rate and normal rhythm Abdominal Exam Abdominal exam: Present soft and tenderness Abdominal tenderness: Present epigastrium Neurological Exam Neurological exam: Present alert and oriented X3 Psychiatric Psychiatric exam: Present normal affect and normal mood Skin Skin exam: Present warm and dry Medical Decision Making <Justyn Borja MD - Last Filed: 04/25/24 18:52> Medical Records Medical records reviewed: Yes I reviewed the patient's medical records. Stevie Inquiry Pt receiving controlled substance: No Vital Signs: 04/25/24 12:30 04/25/24 13:00 04/25/24 13:30 Temperature 98.4 F Temperature Source Oral Pulse Rate 94 H 103 H Pulse Rate [Left Radial] 86 Respiratory Rate 13 22 21 Blood Pressure 100/61 L 99/60 L Blood Pressure [Right Arm] 104/60 L Blood Pressure Mean [Right Arm] 74 02 Sat by Pulse Oximetry 100 99 99 Oxygen Delivery Method Room Air Room Air 04/25/24 14:35 04/25/24 15:30 04/25/24 16:00 Temperature Temperature Source Pulse Rate 102 H 94 H 94 H Pulse Rate [Left Radial] Respiratory Rate 26 H Blood Pressure 99/58 L 101/60 L 99/60 L Blood Pressure [Right Arm] Blood Pressure Mean [Right Arm] 02 Sat by Pulse Oximetry 99 100 100 Oxygen Delivery Method Room Air Room Air 04/25/24 17:14 Temperature 98.4 F Temperature Source Pulse Rate 88 Pulse Rate [Left Radial] Respiratory Rate 20 Blood Pressure 99/60 L Blood Pressure [Right Arm] Blood Pressure Mean [Right Arm] 02 Sat by Pulse Oximetry Oxygen Delivery Method Room Air Lab Data Lab Results 04/25/24 12:36: WBC 7.7, RBC 3.55 L, Hgb 11.6 L, Hct 34.8 L, MCV 98.0, MCH 32.6 H, MCHC 33.3, RDW 13.3, Plt Count 223, MPV 7.9, Neut % (Auto) 81.8 H, Lymph % (Auto) 13.9, [place] % (Auto) 3.4, Eos % (Auto) 0.5, Baso % (Auto) 0.3, Neut # (Auto) 6.3, Lymph # (Auto) 1.1, [place] # (Auto) 0.3, Eos # (Auto) 0.0, Baso # (Auto) 0.0, Sodium 134 L, Potassium 3.5, Chloride 106, Carbon Dioxide 26, Anion Gap 5.5, BUN 4 L, Creatinine 0.60, Estimated Creat Clear 118, Estimated GFR 121, Est GFR ( Amer) 146, Glucose 91, Calcium 8.3 L, Magnesium 1.6, Total Bilirubin 0.5, AST 23, ALT 13, Alkaline Phosphatase 95, Troponin I < 0.01, Total Protein 6.8, Albumin 3.5, Globulin 3.3 H, Albumin/Globulin Ratio 1.1, Lipase 36 04/25/24 13:46: SARS-CoV-2 (PCR) Not detected, Influenza A Untype (PCR) Not detected, Influenza Type B (PCR) Not detected 04/25/24 16:00: Troponin I < 0.01 04/25/24 12:36 04/25/24 12:36 Orders (Tests/Meds): ED MEDICATIONS Generic Name Dose Route Start Last Admin Trade Name Freq PRN Reason Stop Dose Admin Lactated Ringer's 1,000 mls @ 125 mls/hr 04/25/24 18:15 Lactated Ringer's 1000 Ml Bag IV 05/25/24 18:14 .Q8H RAMÓN Pantoprazole Sodium 40 mg 04/26/24 09:00 Pantoprazole 40mg Vial IV 05/26/24 08:59 DAILY RAMÓN Discontinued Medications Generic Name Dose Route Start Last Admin Trade Name Freq PRN Reason Stop Dose Admin Acetaminophen 1,000 mg 04/25/24 16:36 04/25/24 17:03 Acetaminophen 1,000mg/100ml Vial IV 04/25/24 16:37 1,000 mg ONCE ONE Administration Acetaminophen 1,000 mg 04/25/24 17:01 04/25/24 17:09 Acetaminophen 1,000mg/100ml Vial IV 04/25/24 17:02 Not Given ONCE ONE Famotidine 20 mg 04/25/24 13:14 04/25/24 13:36 Famotidine 20mg Tablet PO 04/25/24 13:15 20 mg ONCE ONE Administration Lactated Ringer's 1,000 mls @ 999 mls/hr 04/25/24 16:45 04/25/24 17:03 Lactated Ringer's 1000 Ml Bag IV 04/25/24 17:45 999 mls/hr .Q1H1M RAMÓN Administration Lactated Ringer's 1,000 mls @ 999 mls/hr 04/25/24 17:01 04/25/24 17:09 Lactated Ringer's 1000 Ml Bag IV 04/25/24 17:45 Not Given .Q1H1M RAMÓN Ondansetron HCl 4 mg 04/25/24 14:19 04/25/24 14:22 Ondansetron 4mg/2ml Vial IV 04/25/24 14:20 4 mg ONCE ONE Administration Ondansetron HCl 4 mg 04/25/24 16:36 04/25/24 17:03 Ondansetron 4mg/2ml Vial IV 04/25/24 16:37 4 mg ONCE ONE Administration Ondansetron HCl 4 mg 04/25/24 17:01 04/25/24 17:10 Ondansetron 4mg/2ml Vial IV 04/25/24 17:02 Not Given ONCE ONE ORDERS Category Date Time Status XR chest portable Stat Exams 04/25/24 14:33 Completed CBC w/Auto Diff [Complete Blood Count Auto Diff] Stat Lab 04/25/24 12:36 Completed CMP [Comprehensive Metabolic Panel] Stat Lab 04/25/24 12:36 Completed Lipase Stat Lab 04/25/24 12:36 Completed MAG [Magnesium] Stat Lab 04/25/24 12:36 Completed Rapid PCR Covid and Flu A/B Stat Lab 04/25/24 13:46 Completed Troponin I Q3H Lab 04/25/24 12:36 Completed Troponin I Q3H Lab 04/25/24 16:00 Completed HEART Score History (anamnesis): Slightly suspicious ECG: Normal Age: <45 years Risk factors: No known risk factors Troponin: </= normal limit HEART Score: 0 Medical Decision Narrative: Patient with history and exam per above presenting for evaluation of multiple complaints including chest pain, nausea, shortness of breath. Differential diagnosis includes ACS, SCAD, pancreatitis, related nausea and vomiting, overall, given reproducible chest and abdominal tenderness to palpation, no leg pain, no leg swelling, no hemoptysis, no acute onset dyspnea, no pleuritic component to her chest pain, no hypoxemia, no family or personal history of DVT or PE, and isolated tachycardia in the setting of , I have low pretest probability based off the clinical symptoms and physical exam at this time for pulmonary embolism. Patient was treated with famotidine, laboratory analysis included CBC, CMP, mag, lipase, troponins x 2. Patient was additionally treated with ondansetron. COVID testing also obtained. Laboratory analysis reveals no leukocytosis, creatinine within normal limits, hemoglobin 11.6 in the setting of . Initial troponin undetectable. Chest x-ray read pending at this time. Care was transferred to incoming physician. This is Dr. Hoffman I took over from Dr. Rene around 4 PM. On reassessment of the patient patient feeling significantly worse despite Pepcid. Initially working diagnosis was possible GERD but without significant improvement this is unlikely. Other things in the differential were acute coronary syndrome pulmonary embolism etc. At this point she is breathing very comfortably and has an oxygen saturation of 100% and defines the discomfort in the epigastric/superior aspect of her fundus. She states she has had no significant vaginal bleeding loss of fluids contractions etc. But she certainly localizes it to the mid to upper aspect of her abdomen at this point and is really leaning away from the cardiovascular type complaints. Chest x-ray was performed which I personally reviewed and also reviewed with Dr. Rene and we do not see any acute abnormality specifically no evidence of any type of fluid in her lungs etc. Dr. Rene also did a bedside ultrasound of her heart and lungs in addition to the abdominal ultrasound which he will document which did not show any significant abnormalities of the baby her heart or lungs. Patient's vital signs are stable labs unremarkable specifically no evidence of acute pancreatitis myocardial injury or myocardial infarction. There remains significant diagnostic uncertainty and with the patient's clinical status worsening a little bit we will administer IV fluids IV Tylenol and Zofran to see if this improves her symptoms but in the meantime I spoke with Dr. Caraballo her [facility] doctor who agrees to keep the patient for observation. <Stacy Hoffman MD - Last Filed: 04/25/24 16:45> Vital Signs: 04/25/24 12:30 04/25/24 13:00 04/25/24 13:30 Temperature 98.4 F Temperature Source Oral Pulse Rate 94 H 103 H Pulse Rate [Left Radial] 86 Respiratory Rate 13 22 21 Blood Pressure 100/61 L 99/60 L Blood Pressure [Right Arm] 104/60 L Blood Pressure Mean [Right Arm] 74 02 Sat by Pulse Oximetry 100 99 99 Oxygen Delivery Method Room Air Room Air 04/25/24 14:35 04/25/24 15:30 04/25/24 16:00 Temperature Temperature Source Pulse Rate 102 H 94 H 94 H Pulse Rate [Left Radial] Respiratory Rate 26 H Blood Pressure 99/58 L 101/60 L 99/60 L Blood Pressure [Right Arm] Blood Pressure Mean [Right Arm] 02 Sat by Pulse Oximetry 99 100 100 Oxygen Delivery Method Room Air Room Air 04/25/24 17:14 Temperature 98.4 F Temperature Source Pulse Rate 88 Pulse Rate [Left Radial] Respiratory Rate 20 Blood Pressure 99/60 L Blood Pressure [Right Arm] Blood Pressure Mean [Right Arm] 02 Sat by Pulse Oximetry Oxygen Delivery Method Room Air Lab Data Lab results reviewed: Yes I reviewed the patient's lab results. Lab Results 04/25/24 12:36: WBC 7.7, RBC 3.55 L, Hgb 11.6 L, Hct 34.8 L, MCV 98.0, MCH 32.6 H, MCHC 33.3, RDW 13.3, Plt Count 223, MPV 7.9, Neut % (Auto) 81.8 H, Lymph % (Auto) 13.9, [place] % (Auto) 3.4, Eos % (Auto) 0.5, Baso % (Auto) 0.3, Neut # (Auto) 6.3, Lymph # (Auto) 1.1, [place] # (Auto) 0.3, Eos # (Auto) 0.0, Baso # (Auto) 0.0, Sodium 134 L, Potassium 3.5, Chloride 106, Carbon Dioxide 26, Anion Gap 5.5, BUN 4 L, Creatinine 0.60, Estimated Creat Clear 118, Estimated GFR 121, Est GFR ( Amer) 146, Glucose 91, Calcium 8.3 L, Magnesium 1.6, Total Bilirubin 0.5, AST 23, ALT 13, Alkaline Phosphatase 95, Troponin I < 0.01, Total Protein 6.8, Albumin 3.5, Globulin 3.3 H, Albumin/Globulin Ratio 1.1, Lipase 36 04/25/24 13:46: SARS-CoV-2 (PCR) Not detected, Influenza A Untype (PCR) Not detected, Influenza Type B (PCR) Not detected 04/25/24 16:00: Troponin I < 0.01 Orders (Tests/Meds): ED MEDICATIONS Generic Name Dose Route Start Last Admin Trade Name Freq PRN Reason Stop Dose Admin Lactated Ringer's 1,000 mls @ 125 mls/hr 04/25/24 18:15 Lactated Ringer's 1000 Ml Bag IV 05/25/24 18:14 .Q8H RAMÓN Pantoprazole Sodium 40 mg 04/26/24 09:00 Pantoprazole 40mg Vial IV 05/26/24 08:59 DAILY RAMÓN Discontinued Medications Generic Name Dose Route Start Last Admin Trade Name Freq PRN Reason Stop Dose Admin Acetaminophen 1,000 mg 04/25/24 16:36 04/25/24 17:03 Acetaminophen 1,000mg/100ml Vial IV 04/25/24 16:37 1,000 mg ONCE ONE Administration Acetaminophen 1,000 mg 04/25/24 17:01 04/25/24 17:09 Acetaminophen 1,000mg/100ml Vial IV 04/25/24 17:02 Not Given ONCE ONE Famotidine 20 mg 04/25/24 13:14 04/25/24 13:36 Famotidine 20mg Tablet PO 04/25/24 13:15 20 mg ONCE ONE Administration Lactated Ringer's 1,000 mls @ 999 mls/hr 04/25/24 16:45 04/25/24 17:03 Lactated Ringer's 1000 Ml Bag IV 04/25/24 17:45 999 mls/hr .Q1H1M RAMÓN Administration Lactated Ringer's 1,000 mls @ 999 mls/hr 04/25/24 17:01 04/25/24 17:09 Lactated Ringer's 1000 Ml Bag IV 04/25/24 17:45 Not Given .Q1H1M RAMÓN Ondansetron HCl 4 mg 04/25/24 14:19 04/25/24 14:22 Ondansetron 4mg/2ml Vial IV 04/25/24 14:20 4 mg ONCE ONE Administration Ondansetron HCl 4 mg 04/25/24 16:36 04/25/24 17:03 Ondansetron 4mg/2ml Vial IV 04/25/24 16:37 4 mg ONCE ONE Administration Ondansetron HCl 4 mg 04/25/24 17:01 04/25/24 17:10 Ondansetron 4mg/2ml Vial IV 04/25/24 17:02 Not Given ONCE ONE ORDERS Category Date Time Status XR chest portable Stat Exams 04/25/24 14:33 Completed CBC w/Auto Diff [Complete Blood Count Auto Diff] Stat Lab 04/25/24 12:36 Completed CMP [Comprehensive Metabolic Panel] Stat Lab 04/25/24 12:36 Completed Lipase Stat Lab 04/25/24 12:36 Completed MAG [Magnesium] Stat Lab 04/25/24 12:36 Completed Rapid PCR Covid and Flu A/B Stat Lab 04/25/24 13:46 Completed Troponin I Q3H Lab 04/25/24 12:36 Completed Troponin I Q3H Lab 04/25/24 16:00 Completed Medical Decision Narrative: Patient with history and exam per above presenting for evaluation of Diagnoses considered include ED workup and treatment included: Labs were independently interpreted by me, significant for Imaging was independently visualized and interpreted by me, significant for Please refer to radiology report for full details. My clinical impression at this time is most consistent with I discussed my clinical impression with patient and answered all questions. At this time, the evidence for any other entities in the differential is insufficient to warrant any further testing or ED observation. This was explained to the patient. The patient was advised that persistent or worsening symptoms require further evaluation. This is Dr. Hoffman I took over from Dr. Rene around 4 PM. On reassessment of the patient patient feeling significantly worse despite Pepcid. Initially working diagnosis was possible GERD but without significant improvement this is unlikely. Other things in the differential were acute coronary syndrome pulmonary embolism etc. At this point she is breathing very comfortably and has an oxygen saturation of 100% and defines the discomfort in the epigastric/superior aspect of her fundus. She states she has had no significant vaginal bleeding loss of fluids contractions etc. But she certainly localizes it to the mid to upper aspect of her abdomen at this point and is really leaning away from the cardiovascular type complaints. Chest x-ray was performed which I personally reviewed and also reviewed with Dr. Rene and we do not see any acute abnormality specifically no evidence of any type of fluid in her lungs etc. Dr. Rene also did a bedside ultrasound of her heart and lungs in addition to the abdominal ultrasound which he will document which did not show any significant abnormalities of the baby her heart or lungs. Patient's vital signs are stable labs unremarkable specifically no evidence of acute pancreatitis myocardial injury or myocardial infarction. There remains significant diagnostic uncertainty and with the patient's clinical status worsening a little bit we will administer IV fluids IV Tylenol and Zofran to see if this improves her symptoms but in the meantime I spoke with Dr. Caraballo her [facility] doctor who agrees to keep the patient for observation. Critical Care <Justyn Borja MD - Last Filed: 04/25/24 18:52> Critical Care Time Critical Care Time: No
[2024-04-25 13:24] LABS: Albumin Level 3.5 g/dl (3.5-5.0); Chloride 106 mmol/L (98-107); Potassium 3.5 mmoL/L (3.5-5.1); Sodium 134 mmol/L (136-145)
[2024-04-25 13:25] LABS: Basophils % 0.3 % (0.1-2.0); Eosinophils % 0.5 % (0.1-12.0); Hematocrit 34.8 % (37.0-47.0); Hemoglobin 11.6 g/dL (12.2-16.2); Lymphocytes # 1.1 K/mm3 (0.7-4.5); Lymphocytes % 13.9 % (10-50); Mean Corpuscular HGB Conc 33.3 g/dL (31.8-35.4); Mean Corpuscular Hemoglobin 32.6 pg (27.0-31.2); Mean Platelet Volume 7.9 fl (7.4-10.4); Monocytes # 0.3 K/mm3 (0.1-1.0); Monocytes % 3.4 % (1.7-9.3); Neutrophils # 6.3 K/mm3 (1.8-7.8); Neutrophils % 81.8 % (37.0-80.0); Platelet Count 223 K/mm3 (142-424); Red Blood Count 3.55 M/mm3 (4.20-5.40); Red Cell Distribution Width 13.3 % (11.5-17.5); White Blood Count 7.7 K/mm3 (4.8-10.8)
[2024-04-25 13:26] LABS: Alanine Aminotransferase 13 U/L (12-78); Anion Gap 5.5 mEq/L (5-15); Aspartate Amino Transferase 23 U/L (14-36); Blood Urea Nitrogen 4 mg/dl (7-17); Carbon Dioxide 26 mmol/L (22.0-30.0); Creatinine Clearance Estimated 118 mL/min (50-200); Estimated Glomerular Filt Rate 121 ml/min (>60); GFR (African American) 146 ML/MIN (>60)
[2024-04-25 13:27] LABS: Albumin/Globulin Ratio 1.1 (1.1-1.8); Alkaline Phosphatase 95 U/L (38-126); Bilirubin,Total 0.5 mg/dl (0.2-1.3); Calcium 8.3 mg/dl (8.4-10.2); Globulin 3.3 g/dL (1.3-3.2); Glucose 91 mg/dl (74-100); Lipase 36 U/L (23-300); Magnesium 1.6 mg/dl (1.6-2.3); Total Protein,Serum 6.8 g/dl (6.3-8.2)
[2024-04-25] MEDS: FAMOTIDINE 20MG TABLET 20 MG PO (13:36)
[2024-04-25 13:43] LABS: Troponin I < 0.01 ng/ml (0.00-0.034)
[2024-04-25 13:48] LABS: Coronavirus 19, PCR Not Detected (NotDetected); Influenza A, PCR Not Detected (NotDetected); Influenza B, PCR Not Detected (NotDetected)
[2024-04-25] MEDS: ONDANSETRON 4MG/2ML VIAL 4 MG IV ×2 (14:22→17:03)
--- NOTE | 2024-04-25 14:33 | XR_ITS ---
FINAL REPORT CLINICAL HISTORY: cough chest pain PATIENT IS 26 WEEKS PREG, SHIELDED ABD COMPARISON: None FINDINGS: The heart size is normal. The mediastinum is normal. There is no focal infiltrate or edema. There are no pleural effusions. There is no pneumothorax. There is no osseous abnormality. IMPRESSION: No acute cardiopulmonary process Reviewed, Interpreted and Dictated by Moreno Kelsey MD Transcribed by Rosa [employer] Authenticated and . [facility]
--- NOTE | 2024-04-25 14:56 | HMH.ITSTN ---
PATIENT STATES DOC IS AWARE SHE IS , SHIELDED ABDOMEN
--- NOTE | 2024-04-25 16:36 | PC.NURSE ---
judy mallory to speak with reyes mcginnis
[2024-04-25 16:40] LABS: Troponin I < 0.01 ng/ml (0.00-0.034)
--- NOTE | 2024-04-25 16:49 | PC.NURSE ---
pt to be admitted to [facility], Dr. Bond.
--- NOTE | 2024-04-25 16:59 | PC.NURSE ---
report called to rossy on second floor
[2024-04-25] MEDS: LACTATED RINGERS 1000ML 1,000 ML 999 ML IV ×2 (17:03→19:48)
[2024-04-25] MEDS: ACETAMINOPHEN 1,000MG/100ML VIAL 1000 MG IV (17:03)
--- NOTE | 2024-04-25 19:26 | EXP.OB.APHP ---
OB - H&P: HPI Antepartum History of Present Illness Chief complaint: epigastric pain in History of present illness: Ms Asmita Ferguson is a 28 yo at 26w1d who presented to the ED with complaint of chest pain. She admits she ate Wallisian late Monday night from one of the restaurants in [facility]. Her stomach was upset but she thought it was just heartburn. Yesterday, she woke up and ate her left over Wallisian food and started having severe constant chest pain . Pain radiates to her right shoulder. She admits to nausea and vomiting on Monday and again while in the ED. She received zofran in the ED and denies nausea now. Pain is still present today so she went to the ED. She states pain is sharp and constant. She still has an appetite. Baby is active. She denies contractions. She admits to loose bowel movement this morning. Denies fever/chills. No shortness of breath. History of Present Criteria for establishing EDC:: based on 1st trimester US only care: good care Ultrasounds: normal mid trimester US [facility] Disclaimer: The information contained in this section may have been updated after the patient was seen, as this information can be updated by other users. Medical History (Updated 04/25/24 @ 19:35 by Miguelina Bond DO) 26 weeks gestation of Herpes simplex of female genitalia History of delivery, currently Rh negative state in antepartum period Marijuana use during Nausea and vomiting during Anxiety Nausea & vomiting LGSIL on Pap smear of cervix DUB (dysfunctional uterine bleeding) Rh negative status during History of chlamydia PID (acute pelvic inflammatory disease) Surgical History History of dilation and curettage Family History Other Heart attack Hypertension Thyroid disorder Social History (Updated 04/25/24 @ 17:40 by Chetna Sales RN) Smoking Status: Current every day smoker alcohol intake: never substance use type: denies use and marijuana current occupational status: unemployed Travel in the last 8 weeks: None Review of Systems Review of Systems Review of systems:: pertinent systems reviewed and negative unless documented below *Cardiovascular Cardiovascular: Reports chest pain *Gastrointestinal Gastrointestinal: Reports abdominal pain (epigastric pain) and Reports loose stools Meds Home Medications and Allergies Home Medications ?Medication ?Instructions ?Recorded ?Confirmed ?Type ondansetron 4 mg disintegrating 4 mg PO Q8H PRN nausea and 12/27/23 03/21/24 Rx tablet vomiting #30 tabs polyethylene glycol 3350 17 17 g PO BID PRN constipation #119 02/28/24 03/21/24 Rx gram/dose oral powder (Miralax) grams New Prescriptions to Start Prescriptions: Allergies Allergy/AdvReac Type Severity Reaction Status Date / Time Penicillins [PENICILLINS] Allergy Unknown Hives Verified 03/21/24 09:28 venom-honey bee Allergy Unknown Hives Verified 03/21/24 09:28 [BEE VENOM (HONEY BEE)] OB - H&P: Exam Physical Exam Vital signs: Temp Pulse Resp BP Pulse Ox O2 Del Method 98.3 F 82 16 88/51 L 100 Room Air 04/25/24 17:30 04/25/24 17:30 04/25/24 17:30 04/25/24 17:30 04/25/24 17:30 04/25/24 17:30 Constitutional no acute distress and cooperative Routine HEENT Exam Head: Present normocephalic and atraumatic Eye: Absent conjunctivae pink ENT: Present mucous membranes moist Routine Neck Exam Present full ROM Routine Respiratory Exam Present CTA bilaterally and normal respiratory effort Routine Cardiovascular Exam Present RRR Routine Abdominal Exam Present soft (Gravid) and tenderness (RUQ next to rib cage and epigatric) Routine Rectal Exam Patient deferred: visual exam Routine Exam Patient deferred: external exam Routine Extremities Exam Present full ROM; Absent edema or calf tenderness Routine Neurological Exam Present alert, moving all extremities and normal speech Routine Psychiatric Exam Present normal affect and cooperative OB - Results Labs Labs: Short CBC 04/25/24 Range/Units 12:36 WBC 7.7 (4.8-10.8) K/mm3 Hgb 11.6 L (12.2-16.2) g/dL Hct 34.8 L (37.0-47.0) % Plt Count 223 (142-424) K/mm3 BMP 04/25/24 12:36 Sodium 134 L Potassium 3.5 Chloride 106 Carbon Dioxide 26 BUN 4 L Creatinine 0.60 Glucose 91 Calcium 8.3 L Cardiac Enzymes 04/25/24 04/25/24 Range/Units 12:36 16:00 Troponin I < 0.01 < 0.01 (0.00-0.034) ng/ml Liver Function 04/25/24 Range/Units 12:36 Total Bilirubin 0.5 (0.2-1.3) mg/dl AST 23 (14-36) U/L ALT 13 (12-78) U/L Alkaline Phosphatase 95 (38-126) U/L Albumin 3.5 (3.5-5.0) g/dl OB - A/P Antepartum (1) Epigastric abdominal pain: Status: Acute (2) Nausea & vomiting: Status: Acute (3) 26 weeks gestation of : Status: Acute (4) Marijuana use during : Status: Acute Additional Plan Additional Information:: Admit to L&D for observation Labwork reviewed and within normal limits Suspect biliary colic/gallbladder disease, food poisoning or gastritis Barber diet NPO at midnight Protonix 40 mg IV daily IV fluids RUQ and OB ultrasound in the AM Tylenol 1000 mg PO q 6 hours PRN Vistaril 25 mg PO q 8 hours PRN FHT q 8 hours
[2024-04-25] MEDS: PANTOPRAZOLE 40MG VIAL 20 MG IV (19:31)
[2024-04-25] MEDS: LACTATED RINGERS 1000ML 1,000 ML 125 ML IV (20:51)
[2024-04-25 21:04] LABS: Microscopic, Urine URINE MICROSCOPIC (MICROSCOPIC)
[2024-04-25 21:09] LABS: Appearance,Urine CLEAR (Clear); Bilirubin,Urine Negative (Negative); Blood, Urine Negative (Negative); Color,Urine YELLOW (Yellow); Glucose,Urine (UA) Negative (Negative); Ketones,Urine 1+ (Negative); Leukocyte Esterase,Urine Negative (Negative); Nitrate,Urine Negative (Negative); PH,Urine 6.5 (5.0-8.5); Protein,Urine Negative (Negative); Specific Gravity, Urine 1.015 (1.005-1.030)
[2024-04-25 21:14] LABS: Amphetamine/Metha Screen,Urine Negative ng/ml (<1000)
[2024-04-25 21:15] LABS: Barbiturates Screen,Urine Negative ng/ml (<200)
[2024-04-25 21:16] LABS: Benzodiazepines Screen,Urine Negative ng/ml (<200); Cannabinoid Screen,Urine Positive ng/ml (<50)
[2024-04-25 21:17] LABS: Cocaine Screen,Urine Negative ng/ml (<300)
[2024-04-25 21:18] LABS: Methadone Screen,Urine Negative ng/ml (<300); Opiate Screen,Urine Negative ng/ml (<300)
[2024-04-25 21:19] LABS: Phencyclidine Screen,Urine Negative ng/ml (<25)
[2024-04-25 21:29] LABS: Bacteria,Urine 2+ /lpf; RBC,Urine Occasional #/hpf (0-3)
--- NOTE | 2024-04-26 | US_ITS ---
FINAL REPORT CLINICAL HISTORY: RUQ PAIN COMPARISON: None FINDINGS: Sonographic images of the right upper quadrant were obtained. The pancreas is partially obscured.The liver has an unremarkable appearance. There is a minimal amount of sludge seen in the gallbladder. The gallbladder wall is normal. There is no evidence of stones. There is no evidence of biliary ductal dilatation.The common duct measures 3 mm. Limited images of the right kidney are unremarkable. IMPRESSION: Minimal sludge in the gallbladder. Reviewed, Interpreted and Dictated by Moreno Kelsey MD Transcribed by Katharina Blanchard Authenticated and [facility]
--- NOTE | 2024-04-26 07:00 | US_ITS ---
PROCEDURE: US OB >= 14 WEEKS FETUS CLINICAL INDICATION: abdominal pain COMPARISON: US US OB /MATERNAL DETAIL from 03/21/2024 US US OB FOLLOW UP from 04/10/2024 FINDINGS: Transabdominal sonographic images of the uterus were obtained. From her established due date she is 26weeks 2days. The following parameters are obtained: Viable Fetus in the cephalic presentation with a posterior placenta grade 1. Average ultrasound age is 26weeks 1day Estimated weight 871g Cervix measures 3.6 cm. Measurements: heart Rate = 152bpm BPD = 25weeks 6days, 25 percentile HC = 26weeks 5days, 37 percentile AC = 26weeks 0 days, 31 percentile FL = 25weeks 5days, 20 percentile HC/AC is 1.14 FL/BPD is 0.74 FL/AC is 0.22 25 percentile Amniotic fluid: MVP 4.23 cm No obvious anomalies evident.Kidneys, stomach, bladder, spine, profile, nasion, four-chamber heart, three-vessel cord appear normal. The spine was completely seen today and cervical, thoracic and lower spine appear normal. IMPRESSION: 1. Viable fetus in the cephalic presentation with a posterior placenta grade 1. 2. The fluid is within normal limits with an MVP 4.23 cm. 3. Limited anatomical scan appears normal. Spine appears normal today. 4. There has been good interval growth with the fetus currently 25th percentile. Dictated by: Sal Christensen MD 04/26/2024 09:38 Sal Christensen MD in OV 04/26/2024 09:38
--- NOTE | 2024-04-26 08:14 | PC.NURSE ---
Pt taken to Radiology via w/c for ultrasounds.
--- NOTE | 2024-04-26 08:33 | PC.NURSE ---
Pt brought back to unit from Radiology.
--- NOTE | 2024-04-26 08:50 | PC.NURSE ---
Pt back to floor from Radiology.
[2024-04-26] MEDS: PANTOPRAZOLE 40MG VIAL 40 MG IV (09:17)
--- NOTE | 2024-04-26 10:58 | P.DS_ITS ---
General Admission date:: 04/25/24 Discharge date: 04/26/24 HPI HPI HPI: Feeling a little better this morning. She states the sharp RUQ abdominal pain is not constant. Pain only occurs with coughing. She tolerated mashed potatoes last night. She is hungry this morning. No contractions. Baby is moving all over. No vaginal bleeding or leakage of fluid. Hospital Course Hospital Course Hospital Course: Ms Asmita Ferguson is a 28 yo at 26w1d who presented to the ED with complaint of chest pain. She admits she ate Iraqi late Monday night from one of the restaurants in [facility]. Her stomach was upset but she thought it was just heartburn. Yesterday, she woke up and ate her left over Iraqi food and started having severe constant chest pain . Pain radiates to her right shoulder. She admits to nausea and vomiting on Monday and again while in the ED. She received zofran in the ED and denies nausea now. Pain is still present today so she went to the ED. She states pain is sharp and constant. She still has an appetite. Baby is active. She denies contractions. She admits to loose bowel movement this morning. Denies fever/chills. No shortness of breath. She admitted for observation overnight. She received IV protonix and was put on a bland diet. She did not need any pain medication over night. Vital signs stable, afebrile. No contractions. FHTs were monitored every 8 hours. RUQ ultrasound this morning demonstrated minimal sludge in the gallbladder. OB ultrasound demonstrated viable fetus in the cephalic presentation with a posterior placenta grade 1. 2. The fluid is within normal limits with an MVP 4.23 cm. 3. Limited anatomical scan appears normal. Spine appears normal today. 4. There has been good interval growth with the fetus currently 25th percentile. She felt a little better this morning. Baby is active. She was discharged home with protonix and instructions to follow-up in the office in 1 week. Exam Data for Last 24 hours Vital signs and Labs for Last 24 Hours: Temp Pulse Resp BP Pulse Ox O2 Del Method 98.3 F 82 16 88/51 L 100 Room Air 04/25/24 17:30 04/25/24 17:30 04/25/24 17:30 04/25/24 17:30 04/25/24 17:30 04/25/24 17:30 Laboratory Results - last 24 hr 04/25/24 12:36: WBC 7.7, RBC 3.55 L, Hgb 11.6 L, Hct 34.8 L, MCV 98.0, MCH 32.6 H, MCHC 33.3, RDW 13.3, Plt Count 223, MPV 7.9, Neut % (Auto) 81.8 H, Lymph % (Auto) 13.9, [place] % (Auto) 3.4, Eos % (Auto) 0.5, Baso % (Auto) 0.3, Neut # (Auto) 6.3, Lymph # (Auto) 1.1, [place] # (Auto) 0.3, Eos # (Auto) 0.0, Baso # (Auto) 0.0, Sodium 134 L, Potassium 3.5, Chloride 106, Carbon Dioxide 26, Anion Gap 5.5, BUN 4 L, Creatinine 0.60, Estimated Creat Clear 118, Estimated GFR 121, Est GFR ( Amer) 146, Glucose 91, Calcium 8.3 L, Magnesium 1.6, Total Bi lirubin 0.5, AST 23, ALT 13, Alkaline Phosphatase 95, Troponin I < 0.01, Total Protein 6.8, Albumin 3.5, Globulin 3.3 H, Albumin/Globulin Ratio 1.1, Lipase 36 04/25/24 13:46: SARS-CoV-2 (PCR) Not detected, Influenza A Untype (PCR) Not detected, Influenza Type B (PCR) Not detected 04/25/24 16:00: Troponin I < 0.01 04/25/24 20:25: Urine Color Yellow, Urine Appearance Clear, Urine pH 6.5, Ur Specific [place] 1.015, Urine Protein Negative, Urine Glucose (UA) Negative, Urine Ketones 1+, Urine Blood Negative, Urine Nitrate Negative, Urine Bilirubin Negative, Urine Urobilinogen 1.0, Ur Leukocyte Esterase Negative, Urine RBC Occasional, Urine WBC 3-5, Ur Squamous Epith Cells 10-20, Urine Bacteria 2+, Urine Opiates Screen Negative, Urine Methadone Screen Negative, Ur Barbituates Screen Negative, Ur Phencyclidine Scrn Negative, Ur Amphetamines Screen Negative, U Benzodiazepines Scrn Negative, Urine Cocaine Screen Negative, U Marijuana (THC) Screen Positive H I & O for Last 24 hours: Intake & Output 04/23/24 04/24/24 04/25/24 04/26/24 23:59 23:59 23:59 23:59 Weight 116 lb 0.01 oz Constitutional Constitutional: no acute distress and cooperative *Routine HEENT Exam Head: Present normocephalic and atraumatic Eye: Absent conjunctivae pink ENT: Present mucous membranes moist *Routine Neck Exam Neck: Present full ROM *Routine Respiratory Exam Respiratory: Present CTA bilaterally and normal respiratory effort *Routine Cardiovascular Exam Cardiovascular: Present RRR *Routine Abdominal Exam Abdominal: Present soft (Gravid); Absent tenderness *Routine Rectal Exam Patient deferred: visual exam *Routine Exam Patient deferred: external exam *Routine Extremities Exam Extremities: Present full ROM; Absent edema or calf tenderness *Routine Neurological Exam Neurological: Present alert, moving all extremities and normal speech Routine Psychiatric Exam Psychiatric: Present normal affect and cooperative Results Data Completed and Pending Labs on day of discharge: Labs from last 24 hours 04/25/24 04/25/24 04/25/24 20:25 16:00 13:46 WBC RBC Hgb Hct MCV MCH MCHC RDW Plt Count MPV Neut % (Auto) Lymph % (Auto) [place] % (Auto) Eos % (Auto) Baso % (Auto) Neut # (Auto) Lymph # (Auto) [place] # (Auto) Eos # (Auto) Baso # (Auto) Sodium Potassium Chloride Carbon Dioxide Anion Gap BUN Creatinine Estimated Creat Clear Estimated GFR Est GFR ( Amer) Glucose Calcium Magnesium Total Bilirubin AST ALT Alkaline Phosphatase Troponin I < 0.01 Total Protein Albumin Globulin Albumin/Globulin Ratio Lipase Urine Color Yellow Urine Appearance Clear Urine pH 6.5 Ur Specific [place] 1.015 Urine Protein Negative Urine Glucose (UA) Negative Urine Ketones 1+ Urine Blood Negative Urine Nitrate Negative Urine Bilirubin Negative Urine Urobilinogen 1.0 Ur Leukocyte Esterase Negative Urine RBC Occasional Urine WBC 3-5 Ur Squamous Epith Cells 10-20 Urine Bacteria 2+ Urine Opiates Screen Negative Urine Methadone Screen Negative Ur Barbituates Screen Negative Ur Phencyclidine Scrn Negative Ur Amphetamines Screen Negative U Benzodiazepines Scrn Negative Urine Cocaine Screen Negative U Marijuana (THC) Screen Positive H SARS-CoV-2 (PCR) Not detected Influenza A Untype (PCR) Not detected Influenza Type B (PCR) Not detected 04/25/24 12:36 WBC 7.7 RBC 3.55 L Hgb 11.6 L Hct 34.8 L MCV 98.0 MCH 32.6 H MCHC 33.3 RDW 13.3 Plt Count 223 MPV 7.9 Neut % (Auto) 81.8 H Lymph % (Auto) 13.9 [place] % (Auto) 3.4 Eos % (Auto) 0.5 Baso % (Auto) 0.3 Neut # (Auto) 6.3 Lymph # (Auto) 1.1 [place] # (Auto) 0.3 Eos # (Auto) 0.0 Baso # (Auto) 0.0 Sodium 134 L Potassium 3.5 Chloride 106 Carbon Dioxide 26 Anion Gap 5.5 BUN 4 L Creatinine 0.60 Estimated Creat Clear 118 Estimated GFR 121 Est GFR ( Amer) 146 Glucose 91 Calcium 8.3 L Magnesium 1.6 Total Bilirubin 0.5 AST 23 ALT 13 Alkaline Phosphatase 95 Troponin I < 0.01 Total Protein 6.8 Albumin 3.5 Globulin 3.3 H Albumin/Globulin Ratio 1.1 Lipase 36 Urine Color Urine Appearance Urine pH Ur Specific [place] Urine Protein Urine Glucose (UA) Urine Ketones Urine Blood Urine Nitrate Urine Bilirubin Urine Urobilinogen Ur Leukocyte Esterase Urine RBC Urine WBC Ur Squamous Epith Cells Urine Bacteria Urine Opiates Screen Urine Methadone Screen Ur Barbituates Screen Ur Phencyclidine Scrn Ur Amphetamines Screen U Benzodiazepines Scrn Urine Cocaine Screen U Marijuana (THC) Screen SARS-CoV-2 (PCR) Influenza A Untype (PCR) Influenza Type B (PCR) DS: Diagnosis Discharge Diagnosis (1) Epigastric abdominal pain: Status: Acute Code(s): R10.13 - Epigastric pain (2) Nausea & vomiting: Status: Acute Code(s): R11.2 - Nausea with vomiting, unspecified (3) 26 weeks gestation of : Status: Acute Code(s): Z3A.26 - 26 weeks gestation of (4) Marijuana use during : Status: Acute Code(s): O99.320 - Drug use complicating , unspecified trimester; F12.90 - Cannabis use, unspecified, uncomplicated Meds Home Medications and Allergies Home Medications ?Medication ?Instructions ?Recorded ?Confirmed ?Type pantoprazole 40 mg tablet,delayed 40 mg PO DAILY #30 tabs 04/26/24 Rx release (Protonix) New Prescriptions to Start Prescriptions: pantoprazole [Protonix] Miguelina Bond Allergies Allergy/AdvReac Type Severity Reaction Status Date / Time Penicillins [PENICILLINS] Allergy Unknown Hives Verified 03/21/24 09:28 venom-honey bee Allergy Unknown Hives Verified 03/21/24 09:28 [BEE VENOM (HONEY BEE)] Discharge Plan Disposition Patient Disposition: Home, Self-Care Condition: Good Follow up Plan Follow up with: Miguelina Bond DO [Emergency Provider] - 04/30/24 3:00 pm Prescriptions/Medication Reconciliation: New pantoprazole [Protonix] 40 mg tablet,delayed release (DR/EC) 40 mg PO DAILY Qty: 30 2RF Problem Reconciliation Problems Reviewed?: Yes Patient Discharge Instructions ACTIVITY: Continue current activity DIET: other Additional Instructions: [place] Diet No fried/greasy or spicy foods Take Protonix approximately 30 prior to eating first meal in the A.M. Patient Instructions: [place] Diet, Antepartum Care Print Language: Syriac Providers Primary Care Provider: Keron Hope Admit Provider: Miguelina Bond Attending Provider: Miguelina Bond
== END 2024-04-26 11:52 | disposition home or self-care (01) ==
LOC: ER 16:45 → OB 17:16
PROVIDERS: Emergency Medicine; Admitting Provider Obstetrics & Gynecology; Emergency Provider Obstetrics & Gynecology; PCP Family Medicine; Visit Provider Obstetrics & Gynecology
DX: O99.322 Drug use complicating pregnancy, second trimester (principal); Z3A.26 26 weeks gestation of pregnancy; F12.90 Cannabis use, unspecified, uncomplicated; R11.2 Nausea with vomiting, unspecified; R10.13 Epigastric pain
CPT/HCPCS: 59025; 71045; 76705; 76805; 80053; 80307; 81001; 83690; 83735; 84484; 85025; 87086; 87636; 93005; G0378; J0131; J2405; J7120

== ENCOUNTER 2024-05-08 10:42 | Outpatient (CLI) | payer OTHER, SELFPAY ==
[2024-05-08 11:28] LABS: Glucose,Fasting 89 mg/dl (74-100)
[2024-05-08 11:37] LABS: Basophils # 0.1 K/mm3 (0-0.2); Basophils % 0.8 % (0.1-2.0); Eosinophils # 0.1 K/mm3 (0.0-0.4); Eosinophils % 1.4 % (0.1-12.0); Hematocrit 34.2 % (37.0-47.0); Mean Corpuscular HGB Conc 32.1 g/dL (31.8-35.4); Mean Corpuscular Volume 96.5 fl (81-99); Monocytes # 0.3 K/mm3 (0.1-1.0); Monocytes % 3.8 % (1.7-9.3); Neutrophils # 5.9 K/mm3 (1.8-7.8); Platelet Count 308 K/mm3 (142-424); Red Blood Count 3.55 M/mm3 (4.20-5.40); Red Cell Distribution Width 13.2 % (11.5-17.5); White Blood Count 8.4 K/mm3 (4.8-10.8)
[2024-05-08] MEDS: RHO(D) IMMUNE GLOBULIN 1,500 UNIT (300MCG) SYRINGE 300 MCG IM (12:28)
[2024-05-08 12:29] VITALS: BP 146/74; PULSE 98; RESP 18; O2SAT 100
[2024-05-08 12:51] LABS: Glucose 1 Hour 131 mg/dL (74-100)
[2024-05-09 14:13] LABS: Rapid Plasma Reagin Ab Titer Non Reactive titer (NonRea<1:1)
== END 2024-05-08 12:29 | disposition home or self-care (01) ==
LOC: INF 10:44
PROVIDERS: PCP Family Medicine; Visit Provider Obstetrics & Gynecology
DX: Z34.90 Encounter for supervision of normal pregnancy, unspecified, unspecified trimester (principal)
CPT/HCPCS: 36415; 82951; 85025; 86593; 96372; J2790

== ENCOUNTER 2024-07-10 10:00 | Outpatient (CLI) | payer OTHER, SELFPAY | END 2024-07-10 23:59 | disposition home or self-care (01) | LOC: LAB.DROPOF 07-11 10:36 | PROVIDERS: PCP Obstetrics & Gynecology; Visit Provider Obstetrics & Gynecology | DX: Z34.90 Encounter for supervision of normal pregnancy, unspecified, unspecified trimester (principal) | CPT/HCPCS: 86403 ==

== ENCOUNTER 2024-07-24 04:47 | Inpatient (IN) | payer OTHER, SELFPAY ==
--- OUTSIDE RECORDS SUMMARY | 2024-07-24 04:51 | XMS_ITS | Encounter Summary ---
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 OUTPATIENT CONVERSIONS [address] [place] [address] ProviderCornell MD [address] [place] [id number] Social History Tobacco Use Types Packs/Day Years Used Date Smoking Tobacco: Never Assessed Comments Unknown Sex and Gender Information Value Date Recorded Sex Assigned at Not on file Legal Sex Female 7:35 PM EDT Gender Identity Not on file Sexual Orientation Not on file documented as of this encounter Last Filed Vital Signs Vital Sign Reading Time Taken Comments Blood Pressure - - Pulse - - Temperature - - Respiratory Rate - - Oxygen Saturation - - Inhaled Oxygen Concentration - - Weight 47.6 kg (105 lb 0.1 oz) 05/15/2017 2:32 P M EDT Height 160 cm (5' 3 ) 05/15/2017 2:32 PM EDT Body Mass Index 18.6 05/15/2017 2:32 PM EDT documented in this encounter Plan of Treatment Not on file documented as of this encounter Visit Diagnoses Not on filedocumented in this encounter
--- OUTSIDE RECORDS SUMMARY | 2024-07-24 04:51 | XMS_ITS | Encounter Summary ---
Author Organization Healthcare Address [address] [place] [address] Care Team Providers Care Electrical Systems Drafter Name Role Phone Brenden Antoine MD Primary Care Provider [phone] Reason for Referral * Consultation (Routine) - Authorized Specialty Diagnoses / Procedures Referred By Rico alonso Referred To Contact Family Medicine Diagnoses Recent unexplained weight loss Shankar Chacon MD [address] [place] [phone] Phone: tel: fax: Referral ID Status Reason Start Date Expiration Date Visits Requested Visits Authorized [id number] Authorized Specialty Services Required 08/12/2023 02/10/2025 1 1 Reason for Visit * Reason Comments Multiple Complaints Encounter Details Date Type Department Care Team (Late st Contact Info) Description 08/12/2023 3:57 PM EST - 08/12/2023 6:59 PM EST Emergency [facility] Emergency Department [address] [place] [address] Shankar Chacon MD [address] [place] [phone] Recent unexplained weight loss (Primary Dx) Discharge Disposition: Home or Self Care Social History Tobacco Use Types Packs/Day Years Used Date Smoking Tobacco: Former Cigarettes Smokeless Tobacco: Never Alcohol Use Standard Drinks/Week Comments Yes 0 (1 standard drink = 0.6 oz pur e alcohol) occasional CAGE ASSESSMENT Answer Date Recorded Cage unable to access Not on file 05/26/2023 Maximum number of drinks you had on a given occasion in the last month? 0 drinks 05/26/2023 How many alcoholic Beverages do you typically drink in a week? 0 - 7 per week 05/26/2023 Have you ever felt you should CUT down on your d rinking? 0 05/26/2023 Have you been ANNOYED by peo ple criticizing your drinking? 0 05/26/2023 Have you felt GUILTY about your drinking? 0 05/26/2023 Have you had a drink first t alison in the morning (EYE-PATROL JUDGE) to steady your nerves or to get rid of a hangover? 0 05/26/2023 CAGE Questionnaire Score 0 023 Comments No Sex and Gender Information Value Date Recorded Sex Assigned at Not on file Legal Sex Female 7:35 PM EDT Gender Identity Not on file Sexual Orientation Not on file documented as of this encounter Last Filed Vital Signs Vital Sign Reading Time Taken Comments Blood Pressure 101/66 08/12/2023 3:55 PM EST Pulse 88 08/12/2023 3:55 PM EST Temperature 36.8 ??C (98.3 ??F) 08/12/2023 3:55 PM ES T Respiratory Rate 16 08/12/2023 3:55 PM EST Oxygen Saturation 98% 08/12/2023 3:55 PM EST Inhaled Oxygen Concentration - - Weight 46.6 kg (102 lb 11.8 oz) 08/12/2023 3:55 PM EST Height - - Body Mass Index 17.1 05/26/2023 7:29 PM EDT documented in this encounter Discharge Instructions * Discharge Instructions* Shankar Chacon MD - 08/12/2023 6:53 PM EST At this time we do not have a definitive diagnosis for your feelings of fatigue and weight loss. Wewill recommend that if your symptoms worsen you have any concerns your always welcome to return forrepeat evaluation. Please otherwise discuss your recent Pap results with your gear tooth grinding machine operator and discuss your lower belly pain if you are still having it. Please also consider talking about your family history of gear tooth grinding machine operator mass to discuss if any genetic testing is necessary for you. Additionally we have sent nauseamedication to the pharmacy if your nausea should become severe just on an as-needed basis. The hospital will call you with any results that do return positive. documented in this encounter Miscellaneous Notes * ED Provider Notes - Shankar Chacon MD - 08/12/2023 3:39 PM EST Images from the original note were not included. - HPI Chief Complaint Patient presents with Multiple Complaints Asmita Ferguson is a 27 y.o. female w/ h/o missed who presents to the ED with multiple complaints. Pt c/o weight loss, loss of appetite, fatigue, SOA, nausea and vomiting. PT reports she's been experiencing these symptoms for a month and a half. Pt explains she started taking marijuana 1 blunt a day for a month and medications and states there was no relief. Pt has family hx of ov carmelina cancer. Pt explains a resting state in bed is most comfortable as she feels weak and has no energy doing any activities. Pt denies fever, chest pain, diarrhea and chills. History provided by: Patient official court interpreter used: No No data recorded Patient History Past Medical History: Diagnosis Date Missed Missed Other specified health status No known health problems Past Surgical History: Procedure Laterality Date OTHER SURGICAL HISTORY N/A Reported Prior Surgical / Procedural History from [facility] No family history on file. Tobacco Use Smoking status: Former Types: Cigarettes Smokeless tobacco: Never Vaping Use Vaping Use: Every day Substance Use Topics Alcohol use: Yes Comment: occasional Drug use: Not Currently Allergies: Allergies Allergen Reactions Penicillins Unknown - Patient states they do not know rxn details Review of Systems Review of Systems Constitutional: Positive for appetite change, fatigue and unexpected weight change. Negative for chills and fever. HENT: Negative for ear pain and sore throat. Eyes: Negative for pain and visual disturbance. Respiratory: Positive for shortness of breath. Negative for cough. Cardiovascular: Negative for chest pain and palpitations. Gastrointestinal: Positive for nausea and vomiting. Negative for abdominal pain. Genitourinary: Negative for dysuria and hematuria. Musculoskeletal: Negative for arthralgias and back pain. Skin: Negative for color change and rash. Neurological: Negative for seizures and syncope. All other systems reviewed and are negative. Physical Exam ED Triage Vitals [08/12/23 1555] Temp Heart Rate Resp BP 36.8 ??C (98.3 ??F) 88 16 101/66 SpO2 Temp Source Heart Rate Source Patient Position 98 % Oral -- -- BP Location FiO2 (%) -- -- Physical Exam Vitals and nursing note reviewed. Constitutional: General: She is not in acute distress. Appearance: She is well-developed. HENT: Head: Normocephalic and atraumatic. Eyes: Conjunctiva/sclera: Conjunctivae normal. Cardiovascular: Rate and Rhythm: Normal rate and regular rhythm. Heart sounds: No murmur heard. Pulmonary: Effort: Pulmonary effort is normal. No respiratory distress. Breath sounds: Normal breath sounds. Abdominal: Palpations: Abdomen is soft. Tenderness: There is abdominal tenderness in the right lower quadrant and left lower quadrant. Musculoskeletal: General: No swelling. Cervical back: Neck supple. Skin: General: Skin is warm and dry. Capillary Refill: Capillary refill takes less than 2 seconds. Neurological: Mental Status: She is alert. Psychiatric: Mood and Affect: Mood normal. ED Course & MDM ED Course as of 08/12/231912 Sat Aug 12, [id number] CMP(!) Transaminase levels negative [ND] 1907 CBC w/diff(!) No acute white blood cell elevation [ND] 1907 Cannabinoid Screen Urine: Presumptive positive. Confirmation by LC-MS/MS to follow. As expected [ND] ED Course User Index [ND] Shankar Chacon MD Clinical Impressions as of 08/12/231912 Recent unexplained weight loss Asmita Ferguson is a 27 yrs old female presents today for Chief Complaint Patient presents with Multiple Complaints . ED Course Narrative: Patient is a 27-year-old female who presents today with unexplained weight loss, decreased appetite fatigue. Symptoms have been going on for the last 6 weeks. She does have a family history reportedly of uterine versus ovarian mass, also was noted to have an abnormal Pap smear and was complaining of suprapubic pain, no obvious suprapubic fullness noted on exam. We did elect to get CT scan for this reason to evaluate for possible intra- abdominal mass albeit unlikely. She haslabs performed which are overall reassuring. CT on my evaluation is without findings however radiology suggest potentially some hepatic inflammation. Hepatitis panel sent though transaminase levels are negative. Low suspicion that any actual hepatitis is present. Hep C is negative on today's evaluation as is HIV. She has a follow-up with her OBGYN in 3 days in order to discuss her findings. Patient has no acute findings that would suggest need for admission to the hospital and she is recommended to follow-up with family Medicine in order to establish care and discuss next plans as far as her abnormal labs are concern. Patient is agreeable to plan and was discharged in no acute distress. Nausea medicine sent to the pharmacy. Additional MDM Based on her history and physical exam, my differential diagnosis included several life threateningconditions including malignancy, mono, uti, viral syndrome. Ruling out the most morbid conditions drove my clinical assessment. In order to fully explore differential these tests and treatments were ordered. Orders Placed This Encounter Procedures Chlamydia trachomatis by PCR Neisseria gonorrhea DNA by PCR CT Abdomen Pelvis w IV Contrast XR Chest 1 View CBC w/diff CMP Magnesium Lipase Blood gas panel, venous Drug abuse screen Urinalysis with reflex microscopic AND culture (IF UTI SUSPECTED) hCG qualitative Monospot Test Urinalysis with reflex microscopic Urine Ellsworth Panel HIV 1 & 2 Antibody/Antigen Screen w/Reflex to HIV 1/2 Differentiation Hepatitis C antibody HIV 1 & 2 Antibody/Antigen Screen Hepatitis panel, acute THC Urine Confirm LCMSMS Ambulatory referral to Family Practice Medications sodium chloride 0.9 % infusion 1,000 mL (0 mL Intravenous Stopped 08/12/23 1830) ondansetron (Zofran) injection 4 mg (4 mg Intravenous Given 08/12/23 1651) iohexol (OMNIPaque) 300 MG/ML injection 100 mL (100 mL Intravenous Given 08/12/23 1750) Additional history was provided by partner (Please note that some lab interpretation may exist in the ED course area of note) Complicating her clinical picture is the social fact that she does not have a primary care physician which puts her at higher risk for treatment failure and subsequent morbidity. We discussed family practice referral Patient reevaluated after treatments provided and condition improved with medications given. Ultimately, this patient Was discharged Home (Discharge) The encounter diagnosis was Recent unexplained weight loss. . Patient was counseled on the diagnoses.Discharge medications if any are listed below. Listed medications are thought be either curative for listed diagnoses or will help control ongoing symptoms. Patient is requested to follow up with Family Medicine in order to obtain routine follow-up. Instructions on follow up as well asprecautions to return to the ER provided verbally by the EDMD, as well as written in patients discharge education packet. Specific instructions provided are as follows: Discharge Instructions At this time we do not have a definitive diagnosis for your feelings of fatigue and weight loss. Wewill recommend that if your symptoms worsen you have any concerns your always welcome to return forrepeat evaluation. Please otherwise discuss your recent Pap results with your gear tooth grinding machine operator and discuss your lower belly pain if you are still having it. Please also consider talking about your family history of gear tooth grinding machine operator mass to discuss if any genetic testing is necessary for you. Additionally we have sent nauseamedication to the pharmacy if your nausea should become severe just on an as-needed basis. The hospital will call you with any results that do return positive. Disposition Discharge AVS (Printed 08/12/2023) Discharge Orders Ambulatory referral to Family Practice Authorized - Medical Decision Making 08/12/2023, 4:08 PM Scribe Attestation: This note was dictated to me, Josey Valenzuela, acting as a scribe for Shankar Beltre MD. Attending Attestation: This documentation was recorded by Josey Valenzuela acting as a scribe in mypresence at the time of the encounter and accurately reflects the service I personally performed and the decisions made by me. ED Prescriptions Medication Sig Dispense Start Date End Date Auth. Provider ondansetron ODT (Zofran-ODT) 4 MG disintegrating tablet (Status: Discontinued) Take 1 tablet (4 mg)by mouth every 6 (six) hours if needed for nausea. 12 tablet 08/12/2023 08/12/2023 Shankar Chacon MD promethazine (Phenergan) 25 MG tablet (Status: Discontinued) Take 1 tablet (25 mg) by mouth every 6(six) hours if needed for nausea or vomiting for up to 15 doses. 15 tablet 08/12/2023 08/12/2023 Shankar Chacon MD ondansetron ODT (Zofran-ODT) 4 MG disintegrating tablet Take 1 tablet (4 mg) by mouth every 6 (six)hours if needed for nausea. 12 tablet 08/12/2023 09/11/2023 Shankar Chacon MD promethazine (Phenergan) 25 MG tablet Take 1 tablet (25 mg) by mouth every 6 (six) hours if needed for nausea or vomiting for up to 15 doses. 15 tablet 08/12/2023 -- Shankar Chacon MD Discharge Instructions At this time we do not have a definitive diagnosis for your feelings of fatigue and weight loss. Wewill recommend that if your symptoms worsen you have any concerns your always welcome to return forrepeat evaluation. Please otherwise discuss your recent Pap results with your gear tooth grinding machine operator and discuss your lower belly pain if you are still having it. Please also consider talking about your family history of gear tooth grinding machine operator mass to discuss if any genetic testing is necessary for you. Additionally we have sent nauseamedication to the pharmacy if your nausea should become severe just on an as-needed basis. The hospital will call you with any results that do return positive. Disposition Discharge AVS (Printed 08/12/2023) Discharge Orders Ambulatory referral to Family Practice Authorized Sign Off Checklist Clinical Impression: Complete ED Disposition: Complete - Shankar Chacon MD 08/12/231912 * ED Triage Notes - Fan Parker RN - 08/12/2023 3:39 PM EST Pt states she has been sick for approx 1 month. C/o vomiting, weight loss x 20 lbs, no appetite, and fatigue. documented in this encounter Plan of Treatment Scheduled Referrals Name Type Priority Associated Diagnoses Order Schedule Ambulatory referral to [facility] Outpatient Referral Routine Recent unexplained weight loss 1 Occurrences starting 08/12/2023 until 02/10/2025 documented as of this encounter Procedures Procedure Name Priority Date/Time Associated Diagnosis Comments URINALYSIS WITH REFLEX MICROSCOPIC STAT 08/12/2023 6:38 PM EST URINE ELLSWORTH PANEL STAT 08/12/2023 6:38 PM EST CHLAMYDIA TRACHOMATIS DNA BY PCR STAT 08/12/2023 6:38 PM EST DRUG ABUSE SCREEN, URINE STAT 08/12/2023 6:38 PM EST ACUTE HEPATITIS PANEL STAT 08/12/2023 6:38 PM EST NEISSERIA GONORRHEA DNA BY PCR STAT 08/12/2023 6:38 PM EST THC URINE CONFIRM STAT 08/12/2023 6:3 8 PM EST URINALYSIS WITH REFLEX MICROSCOPIC STAT 08/12/2023 6:[address] ABDOMEN PELVIS W IV CONTRAST STAT 08/12/2023 5:53 PM EST XR CHEST 1 VIEW STAT 08/12/2023 5:36 PM EST HIV 1/2 ANTIBODY/ANTIGEN SCREEN W/REFLEX TO HIV 1/2 ANTIBODY DIFFERENTIATION STAT 08/12/2023 4:31 PM EST HIV 1/2 ANTIBODY/ANTIGEN SCREEN WITH REFLEX TO HIV I/II DIFFERENTIATION STAT 08/12/2023 4:31 PM EST HEPATITIS C ANTIBODY W/REFLEX TO HCV QUANT PCR STAT 08/12/2023 4:31 PM EST MONOSPOT STAT 08/12/2023 4:31 PM EST CBC WITH AUTO DIFFERENTIAL STAT 08/12/2023 4:31 PM EST TEST QUALITATIVE PLASMA STAT 08/12/2023 4:31 PM EST MAGNESIUM, PLASMA STAT 08/12/2023 4:3 1 PM EST LIPASE, PLASMA STAT 08/12/2023 4:31 PM EST BLOOD GAS PANEL, VENOUS STAT 08/12/20 4:31 PM EST COMPREHENSIVE METABOLIC PANEL, PLASMA STAT 08/12/2023 4:31 PM EST documented in this encounter Results * (ABNORMAL) THC Urine Confirm LCMSMS (08/12/2023 6:38 PM EST) 9 Carboxy THC 73(H) <10 ng/mL 08/15/2023 3:01 AM EST [facility] 9 Carboxy THC Glucuronide >500(H) <25 ng/mL 08/15/2023 3:01 AM EST [facility] Urine Urine specimen obtained by clean catch procedure / Unknown Non-blood Collection / Unknown 08/12/2023 6:38 PM EST 08/12/2023 6:41 PM EST Narrative [facility] - 08/15/2023 3:01 AM EST Drug analysis is confirmed by LC-MS/MS (LC Tandem Mass Spectrometry) on Urine specimens. ?? This test was developed and its performance characteristics determined by [facility]. It has not been cleared or approved by the FDA. The laboratory is regulated under CLIA as qualified to perform high-complexity testing. This test is used for clinical purposes. Testing is performed at the [facility], [facility]. Shankar Chacon MD LAB URINE ORDERABLES Final Result Performing Organization Address City/State/[facility] Co de Phone Number [facility] [address] [place] [phone] * Hepatitis panel, acute (08/12/2023 6:38 PM EST) Pathologist [facility] [place] Hepatitis B Surf Antigen Negative Negative 08/12/2023 11:49 PM EST [facility] Hepatitis A Antibody IgM Negative Negative 08/12/2023 11:49 PM EST [facility] Hepatitis B Core Antibody IgM Negative Negative 08/12/2023 11:49 PM EST [facility] Blood Venous blood specimen / Unknown Venipuncture / Unknown 08/12/2023 6:38 PM EST 08/12/2023 6:41 PM EST Narrative [facility] - 08/12/2023 11:49 PM EST Hepatitis C Antibody previously reported on patient within 24hrs and will not be repeated on this panel. See previous results below: Hepatitis C Antibody ? Date ? Value ? Ref Range ? Status ? 08/12/2023 ? Negative ?Negative ?Final ? Shankar Chacon MD LAB BLOOD ORDERABLES Final Result Performing Organization Address [facility] Co de Phone Number [facility] [address] [place] [address] * Urine Ellsworth Panel (08/12/2023 6:38 PM EST) Extra Reflex urine culture not indicated 08/13/2023 3:09 AM EST [facility] Comment: Previously prelim verified as Specimen evaluation in progress on 08/12/2023 at 2001 EST. Previously prelim verified as Specimen evaluation in progress on 08/12/2023 at 2101 EST. Previously prelim verified as Specimen evaluation in progress on 08/12/2023 at 2201 EST. Previously prelim verified as Specimen evaluation in progress on 08/12/2023 at 2301 EST. Previously prelim verified as Specimen evaluation in progress on 08/13/2023 at 0001 EST. Previously prelim verified as Specimen evaluation in progress on 08/13/2023 at 0103 EST. Previously prelim verified as Specimen evaluation in progress on 08/13/2023 at 0201 EST. Urine Urine specimen obtained by clean catch procedure / Unknown Non-blood Collection / Unknown 08/12/2023 6:38 PM EST 08/12/2023 6:41 PM EST Shankar Cahcon MD LAB URINE ORDERABLES Final Result Performing Organization Address [facility] Co de Phone Number [facility] [address] [place] [address] * (ABNORMAL) Urinalysis with reflex microscopic (08/12/2023 6:38 PM EST) Pathologist [facility] [place] Color, Urine Yellow LAB URINALYSIS - AUTOMATED METHOD 08/12/2023 6:45 PM EST [facility] Clarity, Urine Clear LAB URINALYSIS - AUTOMATED METHOD 08/12/2023 6:45 PM EST [facility] Spec [place], Urine >=1.030 <=1.005 to >=1.030 LAB URINALYSIS - AUTOMATED METHOD 08/12/2023 6:45 PM EST [facility] pH, Urine 7.0 4.5 to 8 LAB URINALYSIS - AUTOMATED METHOD 08/12/2023 6:45 PM EST [facility] Protein, Urine Trace(A) Negative mg/dL LAB URINALYSIS - AUTOMATED METHOD 08/12/2023 6:45 PM EST [facility] Glucose, Urine Negative Negative mg/dL LAB URINALYSIS - AUTOMATED METHOD 08/12/2023 6:45 PM EST [facility] Ketones, Urine 15(A) Negative mg/dL LAB URINALYSIS - AUTOMATED METHOD 08/12/2023 6:45 PM EST [facility] Blood, Urine Negative Negative LAB URINALYSIS - AUTOMATED METHOD 08/12/2023 6:45 PM EST [facility] Bilirubin, Urine Negative Negative LAB URINALYSIS - AUTOMATED METHOD 08/12/2023 6:45 PM EST [facility] Urobilinogen, Urine 1.0 0.2 to 1.0 mg/dL LAB URINALYSIS - AUTOMATED METHOD 08/12/2023 6:45 PM EST [facility] Leukocytes, Urine Negative Negative LAB URINALYSIS - AUTOMATED METHOD 08/12/2023 6:45 PM EST [facility] Nitrite, Urine Negative Negative LAB URINALYSIS - AUTOMATED METHOD 08/12/2023 6:45 PM EST [facility] Urine Urine specimen obtained by clean catch procedure / Unknown Non-blood Collection / Unknown 08/12/2023 6:38 PM EST 08/12/2023 6:41 PM EST us Shankar Chacon MD LAB URINE ORDERABLES Final Result [facility] [address] [place] [address] * Neisseria gonorrhea DNA by PCR (08/12/2023 6:38 PM EST) Neisseria gonorrhea DNA PCR Result Not Detected Not Detected. 08/14/2023 12:39 PM EST [facility] Urine Urine specimen obtained by clean catch procedure / Unknown Non-blood Collection / Unknown 08/12/2023 6:38 PM EST 08/12/2023 6:41 PM EST Narrative [facility] - 08/14/2023 12:39 PM EST This test is performed by the [employer] m2000 instrument for Real Time PCR C. trachomatis and N. gonorrhea. This test is FDA approved for use with endocervical, vaginal, and urine specimens. This test is used for clinical purposes. It should not be regarded as invesigational or for research. The [facility] is certified under the Clinical Laboratory Improvement Amendments of 1988 (CLIA-88) as qualified to perform high complexity clinical laboratory testing. Shankar Chacon MD LAB MICROBIOLOGY - GENERAL ORDERABLES Final Result Performing Organization Address [facility] de Phone Number [facility] [address] [place] [address] * Chlamydia trachomatis by PCR (08/12/2023 6:38 PM EST) Chlamydia trachomatis DNA PCR Result Not Detected Not Detected 08/14/2023 12:39 PM EST [facility] Urine Urine specimen obtained by clean catch procedure / Unknown Non-blood Collection / Unknown 08/12/2023 6:38 PM EST 08/12/2023 6:41 PM EST Narrative [facility] - 08/14/2023 12:39 PM EST This test is performed by the [employer] m2000 instrument for Real Time PCR C. trachomatis and N. gonorrhea. This test is FDA approved for use with endocervical, vaginal, and urine specimens. This test is used for clinical purposes. It should not be regarded as invesigational or for research. The [facility] is certified under the Clinical Laboratory Improvement Amendments of 1988 (CLIA-88) as qualified to perform high complexity clinical laboratory testing. Shankar Chacon MD LAB MICROBIOLOGY - GENERAL ORDERABLES Final Result Performing Organization Address [facility] de Phone Number [facility] [address] [place] [address] * Drug abuse screen (08/12/2023 6:38 PM EST) Amphetamine Screen Urine Negative Cutoff: 500 ng/mL 08/12/2023 7:09 PM EST [facility] Benzodiazepines Screen Urine Negative Cutoff: 200 ng/mL 08/12/2023 7:09 PM EST [facility] Cannabinoid Screen Urine Presumptive positive. Confirmation by LC-MS/MS to follow. Cutoff: 50 ng/mL 08/12/2023 7:09 PM EST [facility] Cocaine Screen Urine Negative Cutoff: 300 ng/mL 08/12/2023 7:09 PM EST [facility] Barbiturate Screen Urine Negative Cutoff: 200 ng/mL 08/12/2023 7:09 PM EST [facility] Opiate Screen Urine Negative Cutoff: 300 ng/mL 08/12/2023 7:09 PM EST [facility] Methadone Screen Urine Negative Cutoff: 300 ng/mL 08/12/2023 7:09 PM EST [facility] Buprenorphine Screen Urine Negative Cutoff: 10 ng/mL 08/12/2023 7:09 PM EST [facility] Fentanyl Screen Urine Negative Cutoff: 1 ng/mL 08/12/2023 7:09 PM EST [facility] LAB Oxycodone Screen Urine Negative Cutoff: 100 ng/mL 08/12/2023 7:09 PM EST [facility] Urine Urine specimen obtained by clean catch procedure / Unknown Non-blood Collection / Unknown 08/12/2023 6:38 PM EST 08/12/2023 6:41 PM EST Shankar Chacon MD LAB URINE ORDERABLES Final Result [facility] [address] [place] [address] * CT Abdomen Pelvis w IV Contrast (08/12/2023 5:53 PM EST) Anatomical Region Laterality Modality Abdomen, Pelvis Computed Tomogra phy Impressions 08/12/2023 6:01 PM EST 1. Heterogenous enhancement of the hepatic parenchyma suggestive of nonspecific medical parenchymal disease/hepatitis. 2. No acute findings within the abdomen or pelvis otherwise CRITICAL RESULT: ?? No. COMMUNICATION: Per this written report. Drafted by Ada Paul MD on 08/12/2023 5:57 PM Final report signed by Ada Paul MD on 08/12/2023 6:01 PM Narrative 08/12/2023 6:01 PM EST CLINICAL INDICATION: Abdominal pain, acute, nonlocalized TECHNIQUE: Imaging of the abdomen and pelvis was performed, from lung bases through pubic symphysis, using spiral technique, following administration of IV contrast, Omnipaque 300, 100 mL. Delayed (excretory phase) images were performed through the kidneys. Reformatted images in the coronal and sagittal planes were generated from the axial data set to facilitate diagnostic accuracy. Total DLP (Dose-Length Product): 215.82 mGy.cm. Please note: The reported value represents the total of one or more individual components during the CT acquisition on this date and at this time, and as such, the same value may appear in more than one CT report depending on the interpreting/reporting physicians. COMPARISON: None. FINDINGS: Lung Bases: The lung bases are clear. Liver/Gallbladder/Biliary system: There is heterogenous enhancement of hepatic parenchyma, most obvious within the right hepatic lobe, with example on image 28 series 2. The appearance is somewhat improved on the delayed phase. No discrete focal lesions are noted. Normal Gallbladder. No intra- or extra-hepatic biliary ductal dilatation. Spleen: The spleen enhances homogeneously. Pancreas: The pancreas enhances homogeneously. Adrenals: The adrenals are morphologically unremarkable. Kidneys: The kidneys demonstrate symmetric nephrogram and excretion. No renal or ureteral calculi. No hydronephrosis. Bowel/Mesentery: The small bowel loops are not dilated. The large bowel loops are not dilated. The appendix is visualized and normal. Vessels/Lymph Nodes: The abdominal aorta is unremarkable. No lymphadenopathy within the abdomen or pelvis. Fluid Survey: No free fluid in the abdomen. No free fluid in the pelvis. Pelvis: There is a dominant follicle within the left ovary, measures up to 2.5 cm, image 67 of series 2. No suspicious lesions within the right adnexa. Unremarkable uterus and urinary bladder. Body Wall: Normal. Bones: No acute fracture. Procedure Note Ada Paul MD - 08/12/2023 CLINICAL INDICATION: Abdominal pain, acute, nonlocalized TECHNIQUE: Imaging of the abdomen and pelvis was performed, from lung bases throughpubic symphysis, using spiral technique, following administration of IVcontrast, Omnipaque 300, 100 mL. Delayed (excretory phase) images wereperformed through the kidneys. Reformatted images in the coronal andsagittal planes were generated from the axial data set to facilitatediagnostic accuracy. Total DLP (Dose-Length Product): 215.82 mGy.cm. Please note: The reportedvalue represents the total of one or more individual components during theCT acquisition on this date and at this time, and as such, the same valuemay appear in more than one CT report depending on theinterpreting/reporting physicians. COMPARISON: None. FINDINGS: Lung Bases: The lung bases are clear. Liver/Gallbladder/Biliary system: There is heterogenous enhancement ofhepatic parenchyma, most obvious within the right hepatic lobe, withexample on image 28 series 2. The appearance is somewhat improved on thedelayed phase. No discrete focal lesions are noted. Normal Gallbladder. Nointra- or extra-hepatic biliary ductal dilatation. Spleen: The spleen enhances homogeneously. Pancreas: The pancreas enhances homogeneously. Adrenals: The adrenals are morphologically unremarkable. Kidneys: The kidneys demonstrate symmetric nephrogram and excretion. Norenal or ureteral calculi. No hydronephrosis. Bowel/Mesentery: The small bowel loops are not dilated. The large bowelloops are not dilated. The appendix is visualized and normal. Vessels/Lymph Nodes: The abdominal aorta is unremarkable. Nolymphadenopathy within the abdomen or pelvis. Fluid Survey: No free fluid in the abdomen. No free fluid in the pelvis. Pelvis: There is a dominant follicle within the left ovary, measures up to2.5 cm, image 67 of series 2. No suspicious lesions within the rightadnexa. Unremarkable uterus and urinary bladder. Body Wall: Normal. Bones: No acute fracture. IMPRESSION: 1. Heterogenous enhancement of the hepatic parenchyma suggestive ofnonspecific medical parenchymal disease/hepatitis. 2. No acute findings within the abdomen or pelvis otherwise CRITICAL RESULT: No. COMMUNICATION: Per this written report. Drafted by Ada Paul MD on 08/12/2023 5:57 PM Final report signed by Ada Paul MD on 08/12/2023 6:01 PM Shankar Chacon MD IMG CT PROCEDURES Final Res ult * XR Chest 1 View (08/12/2023 5:36 PM EST) Anatomical Region Laterality Modality Chest Digital Radiogra phy Impressions 08/12/2023 6:09 PM EST No acute findings. No consolidation. CRITICAL RESULT: ?? No. COMMUNICATION: Per this written report. Drafted by Helen Wing MD on 08/12/2023 6:08 PM Final report signed by Helen Wing MD on 08/12/2023 6:09 PM Narrative 08/12/2023 6:09 PM EST CLINICAL INDICATION: fatigued, BOCANEGRA TECHNIQUE: XR CHEST 1 VIEW COMPARISON: 05/08/2020 FINDINGS: Lungs are clear. Heart and mediastinal contours are within normal limits. No consolidation, pneumothorax. ??No pleural effusion. Bony structures are unremarkable. Procedure Note Helen Wing MD - 08/12/2023 CLINICAL INDICATION: fatigued, BOCANEGRA TECHNIQUE: XR CHEST 1 VIEW COMPARISON: 05/08/2020 FINDINGS: Lungs are clear. Heart and mediastinal contours are within normal limits.No consolidation, pneumothorax. No pleural effusion. Bony structures areunremarkable. IMPRESSION: No acute findings. No consolidation. CRITICAL RESULT: No. COMMUNICATION: Per this written report. Drafted by Helen Wing MD on 08/12/2023 6:08 PM Final report signed by Helen Wing MD on 08/12/2023 6:09 PM Shankar Chacon MD IMG XR PROCEDURES Final Res ult * HIV 1 & 2 Antibody/Antigen Screen (08/12/2023 4:31 PM EST) HIV 1 & 2 Antibody/Antigen Screen Non Reactive Non Reactive 08/12/2023 5:13 PM EST [facility] Comment:Screening for HIV 1 & 2 antibodies, and P24 antigen is NONREACTIVE. No confirmatory testing is required. Blood Venous blood specimen / Unknown Venipuncture / Unknown 08/12/2023 4:31 PM EST 08/12/2023 4:38 PM EST Shankar Chacon MD LAB BLOOD ORDERABLES Final Result Performing Organization Address City/[facility] Co de Phone Number HEALTHCARE [facility] [address] [place] [address] * Hepatitis C antibody (08/12/2023 4:31 PM EST) Hepatitis C Antibody Negative Negative 08/12/2023 5:09 PM EST [facility] Blood Venous blood specimen / Unknown Venipuncture / Unknown 08/12/2023 4:31 PM EST 08/12/2023 4:38 PM EST Shankar Chacon MD LAB BLOOD ORDERABLES Final Result Performing Organization Address [facility] Phone Number [facility] [address] [place] [address] * (ABNORMAL) Monospot Test (08/12/2023 4:31 PM EST) Monospot Positive(A ) Negative 08/12/2023 7:30 PM EST [facility] Blood Venous blood specimen / Unknown Venipuncture / Unknown 08/12/2023 4:31 PM EST 08/12/2023 4:38 PM EST Shankar Chacon MD LAB BLOOD ORDERABLES Final Result Performing Organization Address [facility] de Phone Number HEALTHCARE LAB [address] [place] [address] * hCG qualitative (08/12/2023 4:31 PM EST) Test Negative Negative 08/12/2023 5:05 PM EST [facility] Blood Venous blood specimen / Unknown Venipuncture / Unknown 08/12/2023 4:31 PM EST 08/12/2023 4:38 PM EST Narrative [facility] - 08/12/2023 5:05 PM EST Reference Range: Males and non- females: Negative. us Shankar Chacon MD LAB BLOOD ORDERABLES Final Result [facility] [address] [place] [id number] * (ABNORMAL) Blood gas panel, venous (08/12/2023 4:31 PM EST) pH, Venous 7.40 7.32 - 7.43 LAB HEMATOLOGY METHOD 08/12/2023 4:39 PM EST [facility] pCO2, Venous 43 37 - 52 mmHg LAB HEMATOLOGY METHOD 08/12/2023 4:39 PM EST [facility] pO2, Venous 25 25 - 40 mmHg LAB HEMATOLOGY METHOD 08/12/2023 4:39 PM EST [facility] SO2, Measured, Venous 45(L) 65 - 80 % LAB HEMATOLOGY METHOD 08/12/2023 4:39 PM EST [facility] Base Excess, Venous 1.4 -2.0 - 3.0 mmol/L LAB HEMATOLOGY METHOD 08/12/2023 4:39 PM EST [facility] Bicarbonate, Calculated, Venous 27(H) 22 - 26 mmol/L LAB HEMATOLOGY METHOD 08/12/2023 4:39 PM EST [facility] Hematocrit, Whole Blood 38.3 34.0 - 45.0 % LAB HEMATOLOGY METHOD 08/12/2023 4:39 PM EST [facility] Sodium, Whole Blood 140 136 - 145 mmol/L LAB HEMATOLOGY METHOD 08/12/2023 4:39 PM EST [facility] Potassium, Whole Blood 3.6 3.6 - 4.9 mmol/L LAB HEMATOLOGY METHOD 08/12/2023 4:39 PM EST [facility] Chloride, Whole Blood 106 97 - 107 mmol/L LAB HEMATOLOGY METHOD 08/12/2023 4:39 PM EST [facility] Glucose, Whole Blood 91 74 - 99 mg/dL LAB HEMATOLOGY METHOD 08/12/2023 4:39 PM EST [facility] Lactate, Venous, Whole Blood 0.7 0.5 - 2.2 mmol/L LAB HEMATOLOGY METHOD 08/12/2023 4:39 PM EST [facility] Ionized Calcium, Whole Blood 4.7 4.6 - 5.1 mg/dL LAB HEMATOLOGY METHOD 08/12/2023 4:39 PM EST [facility] Blood Venous blood specimen / Unknown Venipuncture / Unknown 08/12/2023 4:31 PM EST 08/12/2023 4:37 PM EST us Shankar Chacon MD LAB BLOOD ORDERABLES Final Result Performing Organization Address City/[facility]/ZIP Co de Phone Number HEALTHCARE [facility] [address] [place] [address] * Lipase (08/12/2023 4:31 PM EST) Lipase, Plasma 24 19 - 63 U/L 08/12/2023 5:05 PM EST [facility] Blood Venous blood specimen / Unknown Venipuncture / Unknown 08/12/2023 4:31 PM EST 08/12/2023 4:38 PM EST Shankar Chacon MD LAB BLOOD ORDERABLES Final Result Performing Organization Address [facility] Co sd Phone Number [facility]ARE [facility] [address] [place] [address] * Magnesium (08/12/2023 4:31 PM EST) Magnesium, Plasma 2.0 1.9 - 2.4 mg/dL 08/12/2023 5:05 PM EST [facility] Blood Venous blood specimen / Unknown Venipuncture / Unknown 08/12/2023 4:31 PM EST 08/12/2023 4:38 PM EST Shankar Chacon MD LAB BLOOD ORDERABLES Final Result Performing Organization Address City/[facility] Co sd Phone Number [facility] [address] [place] [address] * (ABNORMAL) CMP (08/12/2023 4:31 PM EST) Glucose, Plasma 94 74 - 99 mg/dL 08/12/2023 5:05 PM EST [facility] BUN, Plasma 10 7 - 21 mg/dL 08/12/2023 5:05 PM EST [facility] Creatinine, Plasma 0.94 0.60 - 1.10 mg/dL 08/12/2023 5:05 PM EST [facility] BUN/Creatinine Ratio 11 08/12/2023 5:05 PM EST [facility] Sodium, Plasma 139 136 - 145 mmol/L 08/12/2023 5:05 PM EST [facility] Potassium, Plasma 3.7 3.7 - 4.8 mmol/L 08/12/2023 5:05 PM EST [facility] Chloride, Plasma 106 97 - 107 mmol/L 08/12/2023 5:05 PM EST [facility] CO2, Plasma 23 22 - 29 mmol/L 08/12/2023 5:05 PM EST [facility] Anion Gap 10 6 - 16 mmol/L 08/12/2023 5:05 PM EST [facility] Total Calcium, Plasma 9.3 8.9 - 10.2 mg/dL 08/12/2023 5:05 PM EST [facility] Total Protein 7.4 6.3 - 7.9 g/dL 08/12/2023 5:05 PM EST [facility] Albumin, Plasma 4.5 3.5 - 5.2 g/dL 08/12/2023 5:05 PM EST [facility] AST, Plasma 14 10 - 35 U/L 08/12/2023 5:05 PM EST [facility] ALT, Plasma <5(L) 10 - 35 U/L 08/12/2023 5:05 PM EST [facility] Alkaline Phosphatase, Plasma 66 35 - 104 U/L 08/12/2023 5:05 PM EST [facility] Total Bilirubin, Plasma 0.3 0.2 - 1.1 mg/dL 08/12/2023 5:05 PM EST [facility] eGFRcr 86.5 mL/min/1.7 3m*2 08/12/2023 5:05 PM EST [facility] Comment:Reported eGFRcr in m L/min/1.73m2 is based the CKD-EPI 2020 equation that does not use a race coefficient. Blood Venous blood specimen / Unknown Venipuncture / Unknown 08/12/2023 4:31 PM EST 08/12/2023 4:38 PM EST us Shankar Chacon MD LAB BLOOD ORDERABLES Final Result [facility] [address] [place] [address] * (ABNORMAL) CBC w/diff (08/12/2023 4:31 PM EST) WBC Count 4.25 3.70 - 10.30 10*3/uL LAB HEMATOLOGY METHOD 08/12/2023 4:40 PM EST [facility] RBC Count 4.20 3.90 - 5.20 10*6/uL LAB HEMATOLOGY METHOD 08/12/2023 4:40 PM EST [facility] HGB 12.1 11.2 - 15.7 g/dL LAB HEMATOLOGY METHOD 08/12/2023 4:40 PM EST [facility] HCT 36.0 34.0 - 45.0 % LAB HEMATOLOGY METHOD 08/12/2023 4:40 PM EST [facility] Platelet Count 195 155 - 369 10*3/uL LAB HEMATOLOGY METHOD 08/12/2023 4:40 PM EST [facility] MCV 86 79 - 98 fL LAB HEMATOLOGY METHOD 08/12/2023 4:40 PM EST [facility] MCH 28.8 26.0 - 32.0 pg LAB HEMATOLOGY METHOD 08/12/2023 4:40 PM EST [facility] MCHC 33.6 30.7 - 35.5 g/dL LAB HEMATOLOGY METHOD 08/12/2023 4:40 PM EST [facility] RDW 14.7(H) 11.5 - 14.5 % LAB HEMATOLOGY METHOD 08/12/2023 4:40 PM EST [facility] MPV 9.8 8.8 - 12.5 fL LAB HEMATOLOGY METHOD 08/12/2023 4:40 PM EST [facility] nRBC 0.0 <=0.0 per 100 WBCs LAB HEMATOLOGY METHOD 08/12/2023 4:40 PM EST [facility] Differential Type Automated LAB HEMATOLOGY METHOD 08/12/2023 4:40 PM EST [facility] Neutrophils % 45.0 % LAB HEMATOLOGY METHOD 08/12/2023 4:40 PM EST [facility] Lymphocytes % 44.0 % LAB HEMATOLOGY METHOD 08/12/2023 4:40 PM EST [facility] Monocytes % 7.0 % LAB HEMATOLOGY METHOD 08/12/2023 4:40 PM EST [facility] Eosinophils % 2.0 % LAB HEMATOLOGY METHOD 08/12/2023 4:40 PM EST [facility] Basophils % 1.0 % LAB HEMATOLOGY METHOD 08/12/2023 4:40 PM EST [facility] Immature Granulocytes % 1.0 % LAB HEMATOLOGY METHOD 08/12/2023 4:40 PM EST [facility] Neutrophils Absolute 1.94 1.60 - 6.10 10*3/uL LAB HEMATOLOGY METHOD 08/12/2023 4:40 PM EST [facility] Lymphocytes Absolute 1.88 1.20 - 3.90 10*3/uL LAB HEMATOLOGY METHOD 08/12/2023 4:40 PM EST [facility] Monocytes Absolute 0.28(L) 0.30 - 0.90 10*3/uL LAB HEMATOLOGY METHOD 08/12/2023 4:40 PM EST [facility] Eosinophils Absolute 0.09 0.00 - 0.50 10*3/uL LAB HEMATOLOGY METHOD 08/12/2023 4:40 PM EST [facility] Basophils Absolute 0.04 0.00 - 0.10 10*3/uL LAB HEMATOLOGY METHOD 08/12/2023 4:40 PM EST [facility] Immature Granulocytes Absolute 0.02 0.00 - 0.06 10*3/uL LAB HEMATOLOGY METHOD 08/12/2023 4:40 PM EST [facility] Blood Venous blood specimen / Unknown Venipuncture / Unknown 08/12/2023 4:31 PM EST 08/12/2023 4:37 PM EST Narrative [facility] - 08/12/2023 4:40 PM EST Therapeutic decision making should be based on absolute values, rather than percentages. us Shankar Chacon MD LAB BLOOD ORDERABLES Final Result [facility] [address] [place] [address] documented in this encounter Visit Diagnoses Diagnosis Recent unexplained weight loss- Primary documented in this encounter Administered Medications Inactive Administered Medications - up to 3 most recent administrations Medication Order MAR Action Action Date Dose Rate Site iohexol (OMNIPaque) 300 MG/ML injection 100 mL 100 mL, Intravenous, Once in imaging, 1 dose, Starting on 08/12/23 at 1707, Until 08/12/23 at 1750, Routine, Imaging Protocol Orders Given 08/12/2023 5:50 PM EST 100 mL ondansetron (Zofran) injection 4 mg 4 mg, Intravenous, Once, 1 dose, On 08/12/23 at 1650, STAT Given 08/12/2023 4:51 PM EST 4 mg sodium chloride 0.9 % infusion 1,000 mL 1,000 mL, Intravenous, Once, 1 dose, On 08/12/23 at 1615, STAT New Bag 08/12/2023 4:33 PM EST 1,000 mL documented in this encounter Active and Recently Administered Medications Times are shown in EST. Scheduled Medication Order 08/10/2023 08/11/2023 08/12/2023 iohexol (OMNIPaque) 300 MG/ML injection 100 mL (COMPLETED) 100 mL, Intravenous, Once in imaging, 1 dose, Starting on 08/12/23 at 1707, Until 08/12/23 at 1750, Routine, Imaging Protocol Orders 1750 (Given - Provid er: Travis Hoffman) ondansetron (Zofran) injection 4 mg (COMPLETED) 4 mg, Intravenous, Once, 1 dose, On 08/12/23 at 1650, STAT 1651 (Given - Provid er: Danna Monaco RN) sodium chloride 0.9 % infusion 1,000 mL (COMPLETED) 1,000 mL, Intravenous, Once, 1 dose, On 08/12/23 at 1615, STAT 1633 (New Bag - Prov ider: Danna Monaco, KIMBER)[id number] (Stopped - Provider: Danna Monaco RN) documented in this encounter Care Teams Electrical Systems Drafter Relationship Specialty Start Date End Date Brenden Antoine MD [address] [place] [address] PCP - General 03/21/23 documented as of this encounter
--- OUTSIDE RECORDS SUMMARY | 2024-07-24 04:51 | XMS_ITS | Encounter Summary ---
Author Organization Healthcare Address [address] [place] [address] Care Team Providers Care Online Marketing Manager Name Role Phone Brenden Antoine MD Primary Care Provider [phone] Encounter Details Date Type Department Care Team (Latest Contact Info) Description 05/26/2023 Travel Social History Tobacco Use Types Packs/Day Years [...] drink first t alison in the morning ([employer]) to steady your nerves or to get rid of a hangover? 0 05/26/2023 CAGE Questionnaire Score 0 023 Comments No Sex and Gender Information Value Date Recorded Sex Assigned at Not on file Legal Sex Female 7:35 PM EDT Gender Identity Not on file Sexual Orientation Not on file documented as of this encounter Plan of Treatment Not on file documented as of this encounter Visit Diagnoses Not on filedocumented in this encounter Additional Health Concerns Infection Onset Date Last Indicated Resolved Time COVID-19 Rule-Out 05/26/2023 05/26/2023 05/26/2023 8:52 PM EDT documented as of this encounter Care Teams Online Marketing Manager Relationship Specialty Start Date End Date Brenden Antoine MD [address] [place] [address] PCP - General 03/21/23 documented as of this encounter
--- OUTSIDE RECORDS SUMMARY | 2024-07-24 04:51 | XMS_ITS | Encounter Summary ---
Author Organization Healthcare Address [address] [place] [address] Care Team Providers Care Pole Peeler Name Role Phone Brenden Antoine MD Primary Care Provider [phone] Reason for Referral * Consultation (Urgent) - Authorized Specialty Diagnoses / Procedures Referred By Contac t Referred To Contact Orthopaedic Surgery Diagnoses Finger infection Jamie Mcnair PA [address] [place] [address] Phone: tel: fax: [facility] Orthopaedic Surgery & Sports Medicine [address], [address] [place] [address] Phone: tel: fax: Referral ID Status Reason Start Date Expiration Date V isits Requested Visits Authorized [id number] Authorized 03/22/2023 09/20/2024 1 1 Reason for Visit * Reason Comments Wound Check Encounter Details Date Type Department Care Team (Late st Contact Info) Description 03/21/2023 10:31 PM EDT - 03/22/2023 4:03 AM EDT Emergency [facility] Emergency [facility] [address] [place] [address] Finger infection (Primary Dx); Cellulitis of left index finger Discharge Disposition: Home or Self Care Social History Tobacco Use Types Packs/Day Years Used Date Smoking Tobacco: Former Cigarettes Smokeless Tobacco: Never Tobacco Cessation:Counseling Given: Not Answered Alcohol Use Standard Drinks/Week Comments Yes 0 (1 standard drink = 0.6 oz pur e alcohol) occasional CAGE ASSESSMENT Answer Date Recorded Cage unable to access Not on file 03/21/2023 Maximum number of drinks you had on a given occasion in the last month? 0 drinks 03/21/2023 How many alcoholic Beverages do you typically drink in a week? 0 - 7 per week 03/21/2023 Have you ever felt you should CUT down on your d rinking? 0 03/21/2023 Have you been ANNOYED by peo ple criticizing your drinking? 0 03/21/2023 Have you felt GUILTY about your drinking? 0 03/21/2023 Have you had a drink first t alison in the morning (EYE-MOHS SURGEON/GENERAL DERMATOLOGIST) to steady your nerves or to get rid of a hangover? 0 03/21/2023 CAGE Questionnaire Score 0 023 Comments No Sex and Gender Information Value Date Recorded Sex Assigned at Not on file Legal Sex Female 7:35 PM EDT Gender Identity Not on file Sexual Orientation Not on file documented as of this encounter Last Filed Vital Signs Vital Sign Reading Time Taken Comments Blood Pressure 94/56 03/22/2023 4:01 AM EDT Pulse 63 03/22/2023 4:01 AM EDT Temperature 36.9 ??C (98.4 ??F) 03/22/2023 4:01 AM ED T Respiratory Rate 18 03/22/2023 4:01 AM EDT Oxygen Saturation 95% 03/22/2023 4:01 AM EDT Inhaled Oxygen Concentration - - Weight 50.3 kg (111 lb) 03/21/2023 11:09 PM EDT Height 160 cm (5' 3 ) 03/21/2023 11:09 PM EDT Body Mass Index 19.66 03/21/2023 11:09 PM EDT documented in this encounter Discharge Instructions * Discharge Instructions* Jamie Mcnair PA - 03/22/2023 3:01 AM EDT Hand surgery evaluated and noted that you have cellulitis in your finger. IV antibiotics were givenin ED. Hand specialist recommended warm soaks three times daily and slowly removing packing material. If packing falls out it is okay to continue soaking. Please use oral antibiotics starting tomorrow. Will send with anti-inflammatory medication. You may use Tylenol with this medicine but do not use Ibuprofen with this until the medication is finished. Please return if you have new or worsening symptoms, develop fever, worsening swelling, or any other concerns. Please follow up in a week. documented in this encounter Medications at Time of Discharge clindamycin (Cleocin) 150 MG capsule Take 3 capsules (450 mg) by mouth 3 (three) times a day for 10 days. 90 capsule 03/22/2023 04/01/2023 ketorolac (Toradol) 10 MG tablet Take 1 tablet (10 mg) by mouth every 6 (six) hours if needed for moderate pain for up to 4 days. 16 tablet 03/22/2023 03/26/2023 sulfamethoxazole -trimethoprim (Bactrim DS) 800-160 MG tablet Take 2 tablets by mouth 2 (two) times a day for 7 days. 28 tablet 03/22/2023 03/29/2023 documented as of this encounter Miscellaneous Notes * Consults - Vu Benítez MD - 03/22/2023 1:16 AM EDTAssociated Order(s): IP CONSULT TO ORTHOPAEDICS ORTHOPAEDIC SURGERY HAND CONSULT NOTE 03/22/2023 CHIEF COMPLAINT: Guinea Pig Bite to L IF HISTORY OF PRESENT ILLNESS Asmita Ferguson is a 27 y.o. female with no medical history who presents to the ED with complaints of left index finger pain. She was cleaning out a guinea pig cage on Monday evening when her guinea pig bit the finger. She sustained a wound to the radial aspect of the index finger and initially treated it at home with local wound care. She developed erythema and worsening pain over the index finger over the next 2 days prompting presentation to outside ED. They were concerned for possiblepyogenic flexor tenosynovitis and transferred her here for further evaluation. She denies any fevers. She notes pain over the dorso-radial aspect of the finger that is shooting and throbbing. It is worse with movement but also present at rest. She denies pain in the wrist, other fingers, or thumb. She received tetanus in our ED and a dose of clindamycin at OSH prior to transfer. She last ate at 10PM (about 3 hours ago). Last Meal: 10PM on 03/21 RHD/LHD: RHD PAST MEDICAL HISTORY Denies any medical history No history of MRSA infection No history of DVT/PE MEDICATIONS Denies taking anticoagulant medications ALLERGIES Allergy to penicillin PAST SURGICAL HISTORY Denies any surgical history FAMILY HISTORY Family history non-contributory Denies family history of DVT/PE SOCIAL HISTORY Tobacco: Vapes daily EtOH: Occasional EtOH use Illicits: Denies Lives: In [place] Employment: [employer] REVIEW OF SYSTEMS Review of systems otherwise negative except as mentioned in HPI PHYSICAL EXAMINATION Visit Vitals BP 105/67 (BP Location: Right arm, Patient Position: Sitting) Pulse 86 Temp 36.8 ??C (98.3 ??F) (Oral) Resp 18 Ht 1.6 m (5' 3 ) Wt 50.3 kg (111 lb) LMP 03/21/2023 SpO2 98% BMI 19.66 kg/m?? OB Status Having periods Smoking Status Former BSA 1.5 m?? General Physical Exam Constitutional No acute distress, appears to be in pain Head Normocephalic and atraumatic Cardiovascular Peripheral perfusion intact Pulmonary/Chest Good respiratory effort, symmetric chest expansion, no respiratory difficulty appreciated Neurological Alert and oriented to person, place, and time Psychiatric Normal mood and affect, behavior and judgment FOCUSED HAND AND WRIST MUSCULOSKELETAL EXAM: Inspection: There is a 1 cm linear laceration over the radial aspect of the left index finger distal to to distal interphalangeal joint just dorsal to the midaxis of the finger without active drainage. There is erythema surrounding the laceration that is limited distal to the DIP joint. There is nofusiform swelling of the digit. There is tenderness over the distal phalanx. There is no tendernessover the volar aspect of the finger proximal to the DIP joint when distracted or in the palm or proximal volar wrist. Vascular/Capillary Refill Left: Radial pulse 2+ Thumb <2 sec, Index <2 sec, Middle <2 sec, ring <2 sec, small <2 sec Sensory Examination Left: Sensation intact in median, ulnar, and radial nerve distributions, sensation intact in radialand ulnar aspects of index finger Motor Examination Left: Thumb: 5/5 FPL, 5/5 FPB, 5/5 EPL, 5/5 EPB Index: 3/5 FDS, 3/5 FDP, 3/5 EDC, 3/5 EIP all limited due to pain and swelling Middle: 5/5 FDS, 5/5 FDP, 5/5 EDC Rin/5 FDS, 5/5 FDP, 5/5 EDC Small: 5/5 FDS, 5/5 FDP, 5/5 EDC, 5/5 EDM Wrist: 5/5 FCR, 5/5 FCU, 5/5 ECRL/B, 5/5 ECU IMAGING Imaging obtained and reviewed: Three views of the left hand were obtained that show no fracture, foreign body, or significant softtissue swelling. ASSESSMENT AND PLAN Asmita Ferguson is a 27 y.o. female patient with L IF cellulitis in setting of guinea pig bite After discussion with the patient, a digital block was performed with 1% lidocaine without epinephrine to allow examination of the finger and wound. Patient tolerated block with minimal pain. The wound was examined and there was no purulence. Using tenotomy and freer was able to access the nail pulp and there was no purulence within the pulp consistent with a felon. The wound was then irrigated with saline. A 3 cm piece of 1/4 iodoform packing material soaked in hibiclens was placed into the wound and Carlos A wrap was applied over the top. - Recommend IV abx (Ceftriaxone / Clindamycin given mild PCN allergy in setting of animal bite) forone dose - Agree with updating Tdap - No indication for rabies prophylaxis given guinea pig bite - Discussed warm soaks TID with the patient and slowly removing the packing material - if it falls out we discussed that it is ok and to continue with soaks - Recommend discharge on oral antibiotics per ED 10-14 days - Will schedule follow up in a week for a wound check Please page chief librarian circulation department [facility] resident with questions. Vu Benítez MD PGY-3, Orthopaedic Surgery [facility] Orthopaedic Trauma Service Pager: [phone] Orthopaedic Recon/Spine/Foot and Ankle Service Pager: [phone] Cosigned by Rommel Nava MD at 03/23/2023 11:37 AM EDT Associated attestation - Rommel Nava MD - 03/23/2023 11:37 AM EDT I saw and evaluated the patient with the resident/fellow. I discussed the case with the resident/fellow and agree with the findings and plan as documented. * ED Provider Notes - Jamie Mcnair PA - 03/21/2023 10:24 PM EDT Images from the original note were not included. - HPI Chief Complaint Patient presents with Wound Check HPI Asmita is a 27-year-old female with no reported past medical history who presents today for evaluation of finger injury and wound check. She mentions that on Monday, she was changing out her Guinea pig's cage, where she had Guinea pig bite her left index finger. States that it had latched onto her finger. States that she tried to clean wound off with soap and water, and wrapped the finger, howeverstarted to notice worsening swelling around the wound area, which is to the radial aspect of the left index finger, not involving the nail bed. States that the swelling had got worse, and it is difficult for her to range her finger, he had diffuse swelling over finger, therefore she presented for further evaluation at outside facility, who is concerned for flexor tenosynovitis, therefore transferred her to this emergency department for further evaluation by Hand surgery. Denies fever, chills. No data recorded Patient History Past Medical History: Diagnosis Date Missed Missed Other specified health status No known health problems Past Surgical History: Procedure Laterality Date OTHER SURGICAL HISTORY N/A Reported Prior Surgical / Procedural History from [place] No family history on file. Tobacco Use Smoking status: Former Types: Cigarettes Smokeless tobacco: Never Vaping Use Vaping Use: Every day Substance Use Topics Alcohol use: Yes Comment: occasional Drug use: Not Currently Immunization History Immunization History: not reviewed Allergies: Allergies Allergen Reactions Penicillins Unknown Review of Systems Review of Systems Constitutional: Negative for chills and fever. HENT: Negative for congestion, ear pain, rhinorrhea and sore throat. Eyes: Negative for pain and visual disturbance. Respiratory: Negative for cough and shortness of breath. Cardiovascular: Negative for chest pain and palpitations. Gastrointestinal: Negative for abdominal pain, nausea and vomiting. Genitourinary: Negative for dysuria and hematuria. Musculoskeletal: Positive for joint swelling. Negative for arthralgias and back pain. Finger pain Skin: Positive for wound. Negative for color change and rash. Neurological: Negative for syncope and headaches. All other systems reviewed and are negative. Physical Exam ED Triage Vitals 03/21/23 2230 Temp Heart Rate Resp BP 36.8 ??C (98.3 ??F) 86 18 105/67 SpO2 Temp Source Heart Rate Source Patient Position 98 % Oral -- Sitting BP Location FiO2 (%) Right arm -- Physical Exam Vitals and nursing note reviewed. Constitutional: General: She is not in acute distress. Appearance: Normal appearance. She is not ill-appearing. HENT: Head: Normocephalic. Right Ear: External ear normal. Left Ear: External ear normal. Nose: Nose normal. No rhinorrhea. Mouth/Throat: Mouth: Mucous membranes are moist. Eyes: Extraocular Movements: Extraocular movements intact. Conjunctiva/sclera: Conjunctivae normal. Cardiovascular: Rate and Rhythm: Normal rate and regular rhythm. Pulses: Radial pulses are 2+ on the right side. Pulmonary: Effort: Pulmonary effort is normal. No respiratory distress. Abdominal: General: Abdomen is flat. There is no distension. Musculoskeletal: General: No deformity. Cervical back: Normal range of motion and neck supple. Comments: Left index finger that appears to have a 1 cm wound to the lateral distal left finger, without nail bed involvement. There is swelling that is diffuse to the left index finger. The finger is held in flexion. There is pain upon passive extension, tenderness along the flexor tendon. There is discoloration to the index finger that she reports secondary to a spray morris. Skin: General: Skin is warm and dry. Coloration: Skin is not jaundiced or pale. Neurological: General: No focal deficit present. Mental Status: She is alert and oriented to person, place, and time. ED Course & MDM Clinical Impressions as of 03/22/23 0355 Finger infection Cellulitis of left index finger Medical Decision Making This patient was seen and evaluated by Jamie Mcnair PA-C, in conjunction with Dr. Chacon. In summary, Asmita is a 27 y.o. female with past medical history of no reported past medical historywho presents today for evaluation of finger injury and wound check. I reviewed prior records including her note prior to transfer which documented instruction to present to [facility] for evaluation by Hand surgery team. Noted patient is a 27-year-old female with no pertinent past medical history presented for evaluation of finger swelling and pain. Was bit by her Guinea pig on her distal fingers Monday. Has had slow progressing erythema, swelling, inability to range her index finger. Wound occurred on Monday. Was given clindamycin,the administered at 7:24 p.m.. Vancomycin was not given. Had CBC, CMP, hCG, blood culture, left hand x-ray performed. Results were not uploaded for her labs. Impression on a hand x-ray shows small puncture or laceration along the radial aspect of the distal index finger. This patient arrives well appearing, non-toxic appearing, in no acute distress. Vital signs on arrival are WNL and stable. Additional exam significant for mild fusiform swelling to the left index finger, does have pale appearance, however secondary to reported spray morris. She has finger held in flexion, and has pain on passive extension. Has tenderness diffusely to the finger. She does have a 1 cm wound to the lateral left index finger, does not involve the nail bed. No drainage to this area. She does have erythema surrounding the area of the wound. Based on her history and physical exam, my differential diagnosis included but not limited to flexor tenosynovitis, cellulitis, fluid collection including abscess, bony derangement, among others. Ruling out the most morbid conditions drove my clinical assessment. Therefore, obtained workup that included CBC, CMP, sed rate, CRP. Also obtained left hand x-ray Administered following medications while in the ED: Medications cefTRIAXone (Rocephin) 1 g in sodium chloride 0.9% 100 mL IVPB (Mini-Bag Plus) (0 g Intravenous Stopped 03/22/23237) clindamycin (Cleocin) IVPB 600 mg (600 mg Intravenous New Bag 03/22/23321) Tdap (BoostRIX) 5-2.5-18.5 LF-MCG/0.5 vaccine 0.5 mL (0.5 mL Intramuscular Given 03/21/232327) morphine PF 2 mg (2 mg Intravenous Given 03/21/232322) lidocaine (Xylocaine) 1 % injection 10 mL (10 mL Infiltration Given by Other 03/22/23 0204) fentaNYL (Sublimaze) injection 50 mcg (50 mcg Intravenous Given 03/22/23 0202) ketorolac (Toradol) injection 15 mg (15 mg Intravenous Given 03/22/23 0321) I interpreted and clinically used the Xray prior to its official reading. Upon my interpretation, shows no fracture or dislocation. Please see the interpretation for final read. Final read shows: No acute findings. I interpreted her laboratory workup which is significant for no leukocytosis, no inflammatory marker elevation. Based on outside hospital eval, and on my evaluation of patient, after interpreting labs by myself shows no acute leukocytosis, inflammatory marker elevation, however with clinical concern [facility] hand for evaluation of this patient. Based on interactive discussion with Orthopedics and Service, they recommended that this is likely cellulitis of the index finger, and was irrigated after wound was exposed. There is no pustular discharge noted. Finger was packed with soaked packing, and was given recommendations to perform warm soaks 3 times daily with slowly removing packing material. Oral antibiotics were recommended on an outpatient basis. I elected to treat this patient as a felon, with coverage of a mainly and bites. Elected to treat this patient with clindamycin and Bactrim, given this patient's penicillin allergy. Also gave patient recommendations to use anti-inflammatories and Tylenol. She was amenable to this plan, and was given return precautions upon being discharged in hemodynamically stable condition. Discussed follow-up with Hand surgery Clinic in 1week. Complicating her clinical picture is the social fact that she lives very far away which puts her athigher risk for treatment failure and subsequent morbidity. We discussed the day hearing to the plan, and return precautions to the ED. IMPRESSION: Finger infection; cellulitis of left index finger DISPOSITION: Discharge ED Prescriptions Medication Sig Dispense Start Date End Date Auth. Provider clindamycin (Cleocin) 150 MG capsule Take 3 capsules (450 mg) by mouth 3 (three) times a day for 10days. 90 capsule 03/22/2023 04/01/2023 Jamie Mcnair PA sulfamethoxazole-trimethoprim (Bactrim DS) 800-160 MG tablet Take 2 tablets by mouth 2 (two) times a day for 7 days. 28 tablet 03/22/2023 03/29/2023 Jamie Mcnair PA ketorolac (Toradol) 10 MG tablet Take 1 tablet (10 mg) by mouth every 6 (six) hours if needed for moderate pain for up to 4 days. 16 tablet 03/22/2023 03/26/2023 Jamie Mcnair PA Discharge Instructions Hand surgery evaluated and noted that you have cellulitis in your finger. IV antibiotics were givenin ED. Hand specialist recommended warm soaks three times daily and slowly removing packing material. If packing falls out it is okay to continue soaking. Please use oral antibiotics starting tomorrow. Will send with anti-inflammatory medication. You may use Tylenol with this medicine but do not use Ibuprofen with this until the medication is finished. Please return if you have new or worsening symptoms, develop fever, worsening swelling, or any other concerns. Please follow up in a week. Disposition Discharge AVS (Printed 03/22/2023) Follow-Ups Call Brenden Antoine MD; As needed Follow up with [facility] Orthopaedic Surgery & Sports Medicine (Orthopaedic Surgery) Discharge Orders Discharge Ambulatory referral to Orthopaedics Hand Authorized Sign Off Checklist Clinical Impression: Complete ED Disposition: Complete - Jamie Mcnair PA 03/22/23 0356 Cosigned by Shankar Chacon MD at 03/22/2023 4:22 AM EDT Associated attestation - Shankar Chacon MD - 03/22/2023 4:22 AM EDT The patient was seen only by Advanced Practice Provider (JAKE), and care was reviewed with me. * ED Triage Notes - Hannah Mccloud RN - 03/21/2023 10:24 PM EDT Patient presents to ED from [facility] for evaluation by hand surgery for left 2nd digit finger infection s/p guinea pig bite on Monday. documented in this encounter Plan of Treatment Scheduled Referrals Name Type Priority Associated Diagnoses Order Schedule Discharge Ambulatory referral to Orthopaedics Hand Outpatient Referral Routine Finger infection Expected: 03/22/2023 (Approximate), Expires: 09/22/2024 documented as of this encounter Procedures Procedure Name Priority Date/Time Associated Diagnosis Comments XR HAND LEFT 3+ VIEWS STAT 03/21/2023 11:42 PM EDT ED PROTOCOL HIV 1/2 ANTIBODY/ANTIGEN SCREEN W/REFLEX TO HIV 1/2 ANTIBODY DIFFERENTIATION STAT 03/21/2023 11:22 PM EDT HIV 1/2 ANTIBODY/ANTIGEN SCREEN WITH REFLEX TO HIV I/II DIFFERENTIATION STAT 03/21/2023 11:22 PM EDT HEPATITIS C ANTIBODY - ED W/REFLEX TO HCV QUANT PCR STAT 03/21/2023 11:22 PM EDT SEDIMENTATION RATE, AUTOMATED STAT 03/21/2023 11:22 PM EDT CBC WITH AUTO DIFFERENTIAL STAT 03/21/2023 11:22 PM EDT C-REACTIVE PROTEIN, PLASMA STAT 03/21/2023 11:22 PM EDT TEST QUALITATIVE PLASMA STAT Add-on 03/21/2023 11:22 PM EDT COMPREHENSIVE METABOLIC PANEL, PLASMA STAT 03/21/2023 11:22 PM EDT documented in this encounter Results * XR Hand 3+ Views Left (03/21/2023 11:42 PM EDT) Anatomical Region Laterality Modality Upper Extremities, Hand Left Digital Radiography Impressions 03/22/2023 12:33 AM EDT No acute findings. CRITICAL RESULT: ?? No. COMMUNICATION: Per this written report. Preliminary report signed by John Cartagena MD on 03/22/2023 12:19 AM By electronically signing this report, I, the attending physician, attest that I have personally reviewed the images/data for the above examination(s) and agree with the final edited report. Drafted by John Cartagena MD on 03/22/2023 12:15 AM Final report signed by Jayson Taveras MD on 03/22/2023 12:33 AM Narrative 03/22/2023 12:33 AM EDT CLINICAL INDICATION: left index fingerwound and infection TECHNIQUE: XR HAND LEFT 3+ VIEWS COMPARISON: Outside x-ray left hand same day, 4 hours prior FINDINGS: No fracture or dislocation. No radiopaque foreign body. No significant soft tissue abnormality. Procedure Note Jayson Taveras MD - 03/22/2023 CLINICAL INDICATION: left index fingerwound and infection TECHNIQUE: XR HAND LEFT 3+ VIEWS COMPARISON: Outside x-ray left hand same day, 4 hours prior FINDINGS: No fracture or dislocation. No radiopaque foreign body. No significantsoft tissue abnormality. IMPRESSION: No acute findings. CRITICAL RESULT: No. COMMUNICATION: Per this written report. Preliminary report signed by John Cartagena MD on 03/22/2023 12:19 AM By electronically signing this report, I, the attending physician, attestthat I have personally reviewed the images/data for the aboveexamination(s) and agree with the final edited report. Drafted by John Cartagena MD on 03/22/2023 12:15 AM Final report signed by Jayson Taveras MD on 03/22/2023 12:33 AM [facility] IM[facility] XR PROCEDURES Final Result * hCG qualitative (03/21/2023 11:22 PM EDT) Test Negative Negative 03/22/2023 3:03 AM EDT [facility] Blood Venous blood specimen / Unknown Venipuncture / Unknown 03/21/2023 11:22 PM EDT 03/21/2023 11:25 PM EDT Narrative [facility] - 03/22/2023 3:03 AM EDT Reference Range: Males and non- females: Negative. us [facility] BLOOD ORDERABLES Final Res ult Performing Organization Address City/[facility]/ZIP Co de Phone Number [facility] [address] [place] [address] * HIV 1 & 2 Antibody/Antigen Screen (03/21/2023 11:22 PM EDT) [facility] HIV 1 & 2 Antibody/Antigen Screen Non Reactive Non Reactive 03/22/2023 12:06 AM EDT [facility] Comment:Screening for HIV 1 & 2 antibodies, and P24 antigen is NONREACTIVE. No confirmatory testing is required. Blood Venous blood specimen / Unknown Venipuncture / Unknown 03/21/2023 11:22 PM EDT 03/21/2023 11:25 PM EDT [facility] BLOOD ORDERABLES Final Res ult Performing Organization Address [facility] Co de Phone Number [facility] [address] [place] [address] * Hepatitis C Antibody - ED (03/21/2023 11:22 PM EDT) [facility] Hepatitis C Antibody Negative Negative 03/22/2023 12:02 AM EDT [facility] Blood Venous blood specimen / Unknown Venipuncture / Unknown 03/21/2023 11:22 PM EDT 03/21/2023 11:25 PM EDT [facility] BLOOD ORDERABLES Final Res ult Performing Organization Address City/[facility] Co de Phone Number HEALTHCARE [facility] [address] [place] [address] * C-reactive protein (03/21/2023 11:22 PM EDT) [facility] CRP, Plasma <3.0 <=8.0 mg/L 03/21/2023 11:54 PM EDT [facility] Blood Venous blood specimen / Unknown Venipuncture / Unknown 03/21/2023 11:22 PM EDT 03/21/2023 11:25 PM EDT Narrative HEALTHCARE [facility] - 03/21/2023 11:54 PM EDT This CRP test is appropriate for assessment of infection, systemic inflammation and/or tissue injury. To assess cardiovascular disease risk order high sensitivity CRP (CRPH). Jamie [facility] BLOOD ORDERABLES Final Res ult Performing Organization Address City/[facility]/ZIP Co de Phone Number HEALTHCARE [facility] [address] [place] [address] * Sed rate, automated (03/21/2023 11:22 PM EDT) Sedimentation Rate 11 <20 mm/hr 2022 11:[address] [facility] Blood Venous blood specimen / Unknown Venipuncture / Unknown 03/21/2023 11:22 PM EDT 03/21/2023 11:25 PM EDT Jamie [facility] BLOOD ORDERABLES Final Res ult Performing Organization Address [facility] Co de Phone Number HEALTHCARE [facility] [address] [place] [address] * (ABNORMAL) CMP (03/21/2023 11:22 PM EDT) Glucose, Plasma 94 74 - 99 mg/dL 03/21/2023 11:[address] [facility] BUN, Plasma 14 7 - 21 mg/dL 03/21/2023 11:[address] [facility] Creatinine, Plasma 1.15(H) 0.60 - 1.10 mg/dL 03/21/2023 11:[address] [facility] BUN/Creatinine Ratio 12 03/21/2023 11:[address] [facility] Sodium, Plasma 138 136 - 145 mmol/L 03/21/2023 11:[address] [facility] Potassium, Plasma 3.7 3.7 - 4.8 mmol/L 03/21/2023 11:[address] [facility] Chloride, Plasma 101 97 - 107 mmol/L 03/21/2023 11:[address] [facility] CO2, Plasma 26 22 - 29 mmol/L 03/21/2023 11:[address] [facility] Anion Gap 11 6 - 16 mmol/L 03/21/2023 11:[address] [facility] Total Calcium, Plasma 9.5 8.9 - 10.2 mg/dL 03/21/2023 11:[address] [facility] Total Protein 7.6 6.3 - 7.9 g/dL 03/21/2023 11:[address] [facility] Albumin, Plasma 4.6 3.5 - 5.2 g/dL 03/21/2023 11:[address] [facility] AST, Plasma 12 11 - 32 U/L 03/21/2023 11:[address] [facility] ALT, Plasma 8 8 - 33 U/L 03/21/2023 11:[address] [facility] Alkaline Phosphatase, Plasma 77 35 - 104 U/L 03/21/2023 11:[address] [facility] Total Bilirubin, Plasma <0.2(L) 0.2 - 1.1 mg/dL 03/21/2023 11:[address] [facility] eGFRcr 67.9 mL/min/1.7 3m*2 03/21/2023 11:[address] [facility] Comment: Reported eGFRcr in mL/min/1.73m2 is based the CKD-EPI 2020 equation that does not use a race coefficient. Effective 03/30/22 our laboratory changed the eGFR calculation to the CKD-EPI 2020 equation from the previously reported eGFR, based on the MDRD equation. ??For comparisons between the two equations, please see laboratory website: ??[email or web address] Blood Venous blood specimen / Unknown Venipuncture / Unknown 03/21/2023 11:22 PM EDT 03/21/2023 11:25 PM EDT us Jamie [facility] BLOOD ORDERABLES Final Res ult [facility] [address] [place] [address] * CBC w/diff (03/21/2023 11:22 PM EDT) WBC Count 7.33 3.70 - 10.30 10*3/uL LAB HEMATOLOGY METHOD 03/21/2023 11:[address] [facility] RBC Count 4.23 3.90 - 5.20 10*6/uL LAB HEMATOLOGY METHOD 03/21/2023 11:[address] [facility] HGB 12.5 11.2 - 15.7 g/dL LAB HEMATOLOGY METHOD 03/21/2023 11:[address] [facility] HCT 36.9 34.0 - 45.0 % LAB HEMATOLOGY METHOD 03/21/2023 11:[address] [facility] Platelet Count 302 155 - 369 10*3/uL LAB HEMATOLOGY METHOD 03/21/2023 11:[address] [facility] MCV 87 79 - 98 fL LAB HEMATOLOGY METHOD 03/21/2023 11:[address] [facility] MCH 29.6 26.0 - 32.0 pg LAB HEMATOLOGY METHOD 03/21/2023 11:[address] [facility] MCHC 33.9 30.7 - 35.5 g/dL LAB HEMATOLOGY METHOD 03/21/2023 11:[address] [facility] RDW 12.3 11.5 - 14.5 % LAB HEMATOLOGY METHOD 03/21/2023 11:[address] [facility] MPV 9.5 8.8 - 12.5 fL LAB HEMATOLOGY METHOD 03/21/2023 11:[address] [facility] nRBC 0.0 <=0.0 per 100 WBCs LAB HEMATOLOGY METHOD 03/21/2023 11:[address] [facility] Differential Type Automated LAB HEMATOLOGY METHOD 03/21/2023 11:[address] [facility] Neutrophils % 54.0 % LAB HEMATOLOGY METHOD 03/21/2023 11:[address] [facility] Lymphocytes % 36.0 % LAB HEMATOLOGY METHOD 03/21/2023 11:[address] [facility] Monocytes % 6.0 % LAB HEMATOLOGY METHOD 03/21/2023 11:[address] [facility] Eosinophils % 2.0 % LAB HEMATOLOGY METHOD 03/21/2023 11:[address] [facility] Basophils % 1.0 % LAB HEMATOLOGY METHOD 03/21/2023 11:[address] [facility] Immature Granulocytes % 1.0 % LAB HEMATOLOGY METHOD 03/21/2023 11:[address] [facility] Neutrophils Absolute 4.02 1.60 - 6.10 10*3/uL LAB HEMATOLOGY METHOD 03/21/2023 11:[address] [facility] Lymphocytes Absolute 2.64 1.20 - 3.90 10*3/uL LAB HEMATOLOGY METHOD 03/21/2023 11:32 PM EDT [facility] Monocytes Absolute 0.44 0.30 - 0.90 10*3/uL LAB HEMATOLOGY METHOD 03/21/2023 11:32 PM EDT [facility] Eosinophils Absolute 0.11 0.00 - 0.50 10*3/uL LAB HEMATOLOGY METHOD 03/21/2023 11:32 PM EDT [facility] Basophils Absolute 0.06 0.00 - 0.10 10*3/uL LAB HEMATOLOGY METHOD 03/21/2023 11:32 PM EDT [facility] Immature Granulocytes Absolute 0.06 0.00 - 0.06 10*3/uL LAB HEMATOLOGY METHOD 03/21/2023 11:32 PM EDT [facility] Blood Venous blood specimen / Unknown Venipuncture / Unknown 03/21/2023 11:22 PM EDT 03/21/2023 11:25 PM EDT Narrative [facility] - 03/21/2023 11:32 PM EDT Therapeutic decision making should be based on absolute values, rather than percentages. us Jamie [facility] BLOOD ORDERABLES Final Res ult [facility] [address] [place] [id number] documented in this encounter Visit Diagnoses Diagnosis Finger infection- Primary Unspecified local infection of skin and subcutaneous tissue Cellulitis of left index finger documented in this encounter Administered Medications Inactive Administered Medications - up to 3 most recent administrations Medication Order MAR Action Action Date Dose Rate Site cefTRIAXone (Rocephin) 1 g in sodium chloride 0.9% 100 mL IVPB (Mini-Bag Plus) 1 g, Intravenous, Every 24 hours, First dose on Mon03/22/23 at 0155, Until Discontinued, Routine New Bag 03/22/2023 2:01 AM EDT 1 g 220 mL/hr clindamycin (Cleocin) IVPB 600 mg 600 mg, Intravenous, Every 8 hours, First dose on Mon03/22/23 at 0155, Until Discontinued, Routine, Sign New Bag 03/22/2023 3:22 AM EDT 600 mg 100 mL/hr fentaNYL (Sublimaze) injection 50 mcg 50 mcg (rounded from 50.3 mcg = 1 mcg/kg ? 50.3 kg), Intravenous, Once, 1 dose, On Mon03/22/23 at 0200, STAT Given 03/22/2023 2:02 AM EDT 50 mcg ketorolac (Toradol) injection 15 mg 15 mg, Intravenous, Once, 1 dose, On Mon03/22/23 at 0310, STAT Given 03/22/2023 3:21 AM EDT 15 mg lidocaine (Xylocaine) 1 % injection - Pyxis Override Pull 1 dose, Starting on Mon03/22/23 at 0154, Until Mon03/22/23 at 0204 lidocaine (Xylocaine) 1 % injection 10 mL 10 mL, Infiltration, Once, 1 dose, On Mon03/22/23 at 0155, Routine, Sign Given by Other 03/22/2023 2:04 AM EDT 10 mL morphine PF 2 mg 2 mg, Intravenous, Once, 1 dose, On Mon03/21/23 at 2320, STAT Given 03/21/2023 11:23 PM EDT 2 mg documented in this encounter Active and Recently Administered Medications Times are shown in EDT. Scheduled Medication Order 03/20/2023 03/21/2023 03/22/2023 cefTRIAXone (Rocephin) 1 g in sodium chloride 0.9% 100 mL IVPB (Mini-Bag Plus) 1 g, Intravenous, Every 24 hours, First dose on Mon03/22/23 at 0155, Until Discontinued, Routine 0201 (New Bag - Provider: Nini Katz, KIMBER)0238 (Stopped - Provider: Nini Katz, RN) clindamycin (Cleocin) IVPB 600 mg 600 mg, Intravenous, Every 8 hours, First dose on Mon03/22/23 at 0155, Until Discontinued, Routine, Sign 0322 (New Bag - Provider: Nini Katz, KIMBER)0402 (Stopped - Provider: Nini Katz, RN) fentaNYL (Sublimaze) injection 50 mcg (COMPLETED) 50 mcg (rounded from 50.3 mcg = 1 mcg/kg ? 50.3 kg), Intravenous, Once, 1 dose, On Mon03/22/23 at 0200, STAT 0202 (Given - Provid er: Nini Katz, KIMBER) ketorolac (Toradol) injection 15 mg (COMPLETED) 15 mg, Intravenous, Once, 1 dose, On Mon03/22/23 at 0310, STAT 0321 (Given - Provid er: Nini Katz, KIMBER) lidocaine (Xylocaine) 1 % injection 10 mL (COMPLETED) 10 mL, Infiltration, Once, 1 dose, On Mon03/22/23 at 0155, Routine, Sign 0204 (Given by Other - Provider: Nini Katz RN - Comment: Given per MD for procedure.) morphine PF 2 mg (COMPLETED) 2 mg, Intravenous, Once, 1 dose, On Mon03/21/23 at 2320, STAT 2323 (Given - Provider: Miguelina Kiser RN) documented in this encounter Care Teams Pole Peeler Relationship Specialty Start Date End Date Brenden Antoine MD [address] [place] [address] PCP - General 03/21/23 documented as of this encounter
--- OUTSIDE RECORDS SUMMARY | 2024-07-24 04:51 | XMS_ITS | Encounter Summary ---
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
--- OUTSIDE RECORDS SUMMARY | 2024-07-24 04:51 | XMS_ITS | Encounter Summary ---
Author Organization Healthcare Address [address] [place] [address] Care Team Providers Care Photocopier Technician Name Role Phone Unavailable Primary Care Provider Unavailabl e Encounter Details Date Type Department Care Team (Late st Contact Info) Description 04/14/2017 [facility] Vitals Encounter [facility] OUTPATIENT CONVERSIONS [address] [place] [address] ProviderCornell MD [address] [place] [address] Social History Tobacco Use Types Packs/Day [...] Weight 47.6 kg (105 lb 0.1 oz) 04/14/2017 2:29 P M EDT Height 160 cm (5' 3 ) 04/14/2017 2:29 PM EDT Body Mass Index 18.6 04/14/2017 2:29 PM EDT documented in this encounter Plan of Treatment Not on file documented as of this encounter Visit Diagnoses Not on filedocumented in this encounter
--- OUTSIDE RECORDS SUMMARY | 2024-07-24 04:51 | XMS_ITS | Encounter Summary ---
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 0 03/21/2023 CAGE Questionnaire Score 0 023 Comments No Sex and Gender Information Value Date Recorded Sex Assigned at Not on file Legal Sex Female 7:35 PM EDT Gender Identity Not on file Sexual Orientation Not on file documented as of this encounter Miscellaneous Notes * Telephone Encounter - Kalyani Ramirez - 04/05/2023 4:05 PM EDT Call placed. documented in this encounter Plan of Treatment Not on file documented as of this encounter Visit Diagnoses Not on filedocumented in this encounter Care Teams Nursing Project Coordinator Relationship Specialty Start Date End Date Brenden Antoine MD [address] [place] [address] PCP - General 03/21/23 documented as of this encounter
--- OUTSIDE RECORDS SUMMARY | 2024-07-24 04:51 | XMS_ITS | Encounter Summary ---
Author Organization Healthcare Address [address] [place] [address] Care Team Providers Care Mri Ct Tech Name Role Phone Unavailable Primary Care Provider Unavailabl e Encounter Details Date Type Department Care Team (Late st Contact Info) Description 05/05/2017 [facility] AEHR Vitals Encounter [facility] OUTPATIENT CONVERSIONS [address] [place] [address] ProviderCornell MD [address] [place] [address] Social History Tobacco Use Types Packs/Day [...] - Inhaled Oxygen Concentration - - Weight 48.5 kg (107 lb 0.2 oz) 05/05/2017 2:56 P M EDT Height 160 cm (5' 3 ) 05/05/2017 2:56 PM EDT Body Mass Index 18.96 05/05/2017 2:56 PM EDT documented in this encounter Plan of Treatment Not on file documented as of this encounter Visit Diagnoses Not on filedocumented in this encounter
--- OUTSIDE RECORDS SUMMARY | 2024-07-24 04:51 | XMS_ITS | Encounter Summary ---
Author Organization Healthcare Address [address] [place] [address] Care Team Providers Care Painter And Decorator Name Role Phone Brenden Antoine MD Primary Care Provider Reason for Visit * Reason Comments Vomiting Fever Encounter Details Date Type Department Care Team ([facility] Contact Info) Description 05/26/2023 7:01 PM EDT - 05/26/2023 8:29 PM EDT Emergency [facility] Emergency Department [address] [place] [address] Saw Jay MD [address] [place] [address] Viral syndrome (Primary Dx) Discharge Disposition: Home or Self [...] drink first t alison in the morning (EYE-PUBLIC RELATIONS COORDINATOR) to steady your nerves or to get [...] Sign Reading Time Taken Comments Blood Pressure 100/65 05/26/2023 8:20 PM EDT Pulse 99 05/26/2023 8:20 PM EDT Temperature 37.6 ??C (99.6 ??F) 05/26/2023 8:20 PM ED T Respiratory Rate 15 05/26/2023 8:20 PM EDT Oxygen Saturation 98% 05/26/2023 8:20 PM EDT Inhaled Oxygen Concentration - - Weight 50.3 kg (111 lb) 05/26/2023 7:29 PM EDT Height 165.1 cm (5' 5 ) 05/26/2023 7:29 PM EDT Body Mass Index 18.47 05/26/2023 7:29 PM EDT documented in this encounter Discharge Instructions * Discharge Instructions* Shayla Carpenter PA - 05/26/2023 8:14 PM EDT Please f/u with your PCP in 2-3 days for recheck. Please return to the ER with any new, concerning,or worsening symptoms. Please use Tylenol 650mg orally every 6 hours or Ibuprofen 600mg orally every 6 hours as needed for discomfort. * Attachments The following attachments cannot be sent through Care Everywhere. * URI, Viral, No Abx (Adult) (Niuean) documented in this encounter Medications at Time of Discharge acetaminophen (Tylenol) 500 MG tablet Take 2 tablets (1,000 mg) by mouth every 6 (six) hours if needed (pain) for up to 7 days. 56 tablet 05/26/2023 3 ondansetron ODT (Zofran-ODT) 4 MG disintegrating tablet Take 1 tablet (4 mg) by mouth every 6 (six) hours if needed for nausea. 12 tablet 05/26/2023 3 promethazine (Phenergan) 25 MG tablet Take 1 tablet (25 mg) by mouth every 6 (six) hours if needed for nausea or vomiting (OR COUGH). 30 tablet 05/26/2023 3 documented as of this encounter Miscellaneous Notes * ED Provider Notes - Shayla Carpenter PA - 05/26/2023 6:21 PM EDT Images from the original note were not included. -HPI Chief Complaint Patient presents with Vomiting Fever PIT Note Asmita Ferguson is a 27 y.o. female with no pertinent PMH who presents to ED with vomiting, fever. Pt presents with headache, fever since Monday and vomiting starting today. She also endorses myalgias. Her daughter was recently sick with a fever. Endorses tylenol DISK AND TAPE MACHINE TENDER. Denies surgical hx. Patient denies abdominal pain, congestion, neck stiffness, sore throat, chills, cough, chest pain, shortness of breath, nausea, and diarrhea. Date/Time: 05/26/2023/6:47 PM Entered by Marnie Mccloud acting as scribe for Dr. Jay. Scribe Attestation: This note was dictated to me, Marnie Mccloud, acting as a scribe for Dr. Jay. Attending Attestation: The documentation was recorded by Marnie Mccloud acting as scribe in mypresence at the time of the encounter and accurately reflects the service I personally performed. History provided by: Patient machine applicator cementer used: No Patient History Past Medical History: Diagnosis Date Missed Missed Other specified health status No known health problems Past Surgical History: Procedure Laterality Date OTHER SURGICAL HISTORY N/A Reported Prior Surgical / Procedural History from [facility] No family history on file. Tobacco Use Smoking status: Former Types: Cigarettes Smokeless tobacco: Never Vaping Use Vaping Use: Every day Substance Use Topics Alcohol use: Yes Comment: occasional Drug use: Not Currently Allergies: Allergies Allergen Reactions Penicillins Unknown - Patient states they do not know rxn details Review of Systems Review of Systems Constitutional: Positive for fever. Negative for chills and fatigue. HENT: Negative for congestion, ear pain, rhinorrhea and sore throat. Eyes: Negative for pain, discharge and visual disturbance. Respiratory: Negative for cough, chest tightness and shortness of breath. Cardiovascular: Negative for chest pain and palpitations. Gastrointestinal: Positive for vomiting. Negative for abdominal pain, diarrhea and nausea. Genitourinary: Negative for dysuria, frequency and hematuria. Musculoskeletal: Positive for myalgias. Negative for arthralgias, back pain and neck stiffness. Skin: Negative for color change and rash. Neurological: Positive for headaches. Negative for seizures and syncope. All other systems reviewed and are negative. Physical Exam ED Triage Vitals [05/26/23 1834] Temp Heart Rate Resp BP 37.5 ??C (99.5 ??F) 97 14 98/62 SpO2 Temp Source Heart Rate Source Patient Position 98 % Oral -- Sitting Physical Exam Vitals and nursing note reviewed. Constitutional: General: She is not in acute distress. Appearance: Normal appearance. She is well-developed. She is not ill-appearing, toxic-appearing or diaphoretic. HENT: Head: Normocephalic and atraumatic. Right Ear: External ear normal. Left Ear: External ear normal. Nose: Nose normal. No rhinorrhea. Mouth/Throat: Mouth: Mucous membranes are moist. Pharynx: Oropharynx is clear. Eyes: General: No scleral icterus. Right eye: No discharge. Left eye: No discharge. Extraocular Movements: Extraocular movements intact. Conjunctiva/sclera: Conjunctivae normal. Pupils: Pupils are equal, round, and reactive to light. Cardiovascular: Comments: Well-perfused. Non-cyanotic. Pulmonary: Effort: Pulmonary effort is normal. No accessory muscle usage or respiratory distress. Breath sounds: No stridor. Abdominal: General: Abdomen is flat. There is no distension. Tenderness: There is no abdominal tenderness. Musculoskeletal: General: Normal range of motion. Cervical back: Normal range of motion. No rigidity. Right lower leg: No edema. Left lower leg: No edema. Skin: General: Skin is warm and dry. Capillary Refill: Capillary refill takes less than 2 seconds. Coloration: Skin is not jaundiced. Neurological: General: No focal deficit present. Mental Status: She is alert and oriented to person, place, and time. GCS: GCS eye subscore is 4. GCS verbal subscore is 5. GCS motor subscore is 6. Gait: Gait is intact. Psychiatric: Attention and Perception: Attention normal. Mood and Affect: Mood and affect normal. Speech: Speech normal. Behavior: Behavior normal. Behavior is cooperative. Medical Decision Making Problems Addressed: Viral syndrome: acute illness or injury Amount and/or Complexity of Data Reviewed Labs: ordered. Decision-making details documented in ED Course. ED COURSE DDX: Based on history and physical exam, my differential diagnosis included viral syndrome, nausea and vomiting, dehydration, gastroenteritis. Ruling out the most morbid conditions drove my clinical assessment. Labs: Labs Reviewed SARS-COV-2, FLU A, FLU B, AND RSV - RAPID - Normal Result Value SARS CoV-2/COVID-19 RNA PCR Result Not Detected Influenza A Virus PCR Result Not Detected Influenza B Virus PCR Result Not Detected Respiratory Syncytial Virus (RSV) PCR Result Not Detected Narrative: This assay is for in vitro diagnostic use under FDA emergency use authorization only. Negative results do not preclude infection with the SARS CoV-2 virus and should not be the sole basis of a patient treatment/management or public health decision. Follow up testing should be performed according tothe current CDC recommendations. This test was performed on the Xpert Xpress SARS CoV-2 Plus assay test, a PCR- based method. Negative results should be considered presumptive and do not preclude current or future infection obtained through community transmission or other exposures. Negative results must be considered in the context of an individual's recent exposures, history, presence of clinical signs and symptoms consistent with COVID-19. Rads: No orders to display MDM: Patient seen by the [facility] physician and followed-up by myself. In summary: NARRATIVE: Patient is a 27-year-old female who presents today with complaints of nausea, vomiting, and fever. Reports some known sick contacts. Having hard time keep down Tylenol and ibuprofen to control her fever. She has only had 650 mg of Tylenol today and no ibuprofen since yesterday. She was given some Zofran and was able to tolerate by mouth intake here. Patient was provided with further sym ptomatic therapy for home and we discussed how to maximize her Tylenol and ibuprofen dosing. Discharged in good condition to return with any new, concerning, worsening symptoms. Clinical Impressions as of 05/26/232101 Viral syndrome DIAGNOSIS Final diagnoses: [B34.9] Viral syndrome Discharge Medication List as of 05/26/2023 8:21 PM START taking these medications Details acetaminophen (Tylenol) 500 MG tablet Take 2 tablets (1,000 mg) by mouth every 6 (six) hours if needed (pain) for up to 7 days., Starting 05/26/2023, Until 06/02/2023 at 2359, Normal ondansetron ODT (Zofran-ODT) 4 MG disintegrating tablet Take 1 tablet (4 mg) by mouth every 6 (six)hours if needed for nausea., Starting 05/26/2023, Until 06/25/2023 at 2359, Normal promethazine (Phenergan) 25 MG tablet Take 1 tablet (25 mg) by mouth every 6 (six) hours if needed for nausea or vomiting (OR COUGH)., Starting Mon05/26/2023, Until 06/25/2023 at 2359, Normal Orders Placed This Encounter Procedures SARS-CoV-2, Flu A, Flu B, and RSV - Rapid Initiate N95 isolation Initiate contact isolation Initiate eye protection ED Medication Administration from 05/26/2023 1821 to 05/26/20232028 Date/Time Order Dose Route Action Action by 05/26/2023 1917 EDT ondansetron ODT (Zofran-ODT) disintegrating tablet 4 mg 4 mg Oral Given Anand, V Discharge Instructions Please f/u with your PCP in 2-3 days for recheck. Please return to the ER with any new, concerning,or worsening symptoms. Please use Tylenol 650mg orally every 6 hours or Ibuprofen 600mg orally every 6 hours as needed for discomfort. Discharge References/Attachments URI, Viral, No Abx (Adult) (Niuean) Disposition Discharge AVS (Printed 05/26/2023) Shayla Carpenter PA-C EMR Dragon/Tape Folding Machine Operator disclaimer: Much of this encounter note is an electronic precise winder of spoken language to printed text. Electronic precise winder of spoken language may permit erroneous, or at times, nonsensical words or phrases to be inadvertently transcribed. Although I have reviewed the note for such errors, some may still exist. Please do not hesitate to reach out to me for clarification. Shayla Carpenter PA 05/26/232221 Cosigned by Saw Jay MD at 05/31/2023 8:01 AM EDT Associated attestation - Saw Jay MD - 05/31/2023 8:01 AM EDT I attest to being involved in more than half the total time in patient care. * ED Triage Notes - Nena Dunham RN - 05/26/2023 6:21 PM EDT Presents with c/o fever, vomiting, headache x 3 days. Highest temp at home was 102.8. documented in this encounter Plan of Treatment Not on file documented as of this encounter Procedures Procedure Name Priority Date/Time Associated Diagnosis Comments SARS-COV-2, FLU A, FLU B, AND RSV - RAPID STAT 05/26/2023 7:17 PM EDT documented in this encounter Results * SARS-CoV-2, Flu A, Flu B, and RSV - Rapid (05/26/2023 7:17 PM EDT) SARS CoV-2/COVID-19 RNA PCR Result Not Detected Not Detected 05/26/2023 8:52 PM EDT [facility] Influenza A Virus PCR Result Not Detected Not Detected 05/26/2023 8:52 PM EDT [facility] Influenza B Virus PCR Result Not Detected Not Detected 05/26/2023 8:52 PM EDT [facility] Respiratory Syncytial Virus (RSV) PCR Result Not Detected Not Detected 05/26/2023 8:52 PM EDT [facility] Swab Nasopharyngeal structure / Unknown Non-blood Collection / Unknown 05/26/2023 7:17 PM EDT 05/26/2023 7:56 PM EDT [facility] - 05/26/2023 8:52 PM EDT This assay is for in vitro diagnostic use under FDA emergency use authorization only. Negative results do not preclude infection with the SARS CoV-2 virus and should not be the sole basis of a patient treatment/management or public health decision. Follow up testing should be performed according to the current CDC recommendations. This test was performed on the Xpert Xpress SARS CoV-2 Plus assay test, a PCR- based method. Negative results should be considered presumptive and do not preclude current or future infection obtained through community transmission or other exposures. Negative results must be considered in the context of an individual's recent exposures, history, presence of clinical signs and symptoms consistent with COVID-19. us Saw Jay MD LAB MICROBIOLOGY - GENERAL ORDERABLES Final Result [facility] [address] [place] [address] documented in this encounter Visit Diagnoses Diagnosis Viral syndrome- Primary Unspecified viral infection, in conditions classified elsewhere and of unspecified site documented in this encounter Administered Medications Inactive Administered Medications - up to 3 most recent administrations Medication Order MAR Action Action Date Dose Rate Site ondansetron ODT (Zofran-ODT) disintegrating tablet 4 mg 4 mg, Oral, Once, 1 dose, On Mon05/26/23 at 1905, STAT Given 05/26/2023 7:17 PM EDT 4 mg documented in this encounter Active and Recently Administered Medications Times are shown in EDT. Scheduled Medication Order 05/24/2023 05/25/2023 05/26/2023 ondansetron ODT (Zofran-ODT) disintegrating tablet 4 mg (COMPLETED) 4 mg, Oral, Once, 1 dose, On Mon05/26/23 at 1905, STAT 1917 (Given - Provid er: Marisol Anand RN) documented in this encounter Additional Health Concerns Infection Onset Date Last Indicated Resolved Time COVID-19 Rule-Out 05/26/2023 05/26/2023 05/26/2023 8:52 PM EDT documented as of this encounter Care Teams Painter And Decorator Relationship Specialty Start Date End Date Brenden Antoine MD [address] [place] [address] PCP - General 03/21/23 documented as of this encounter
--- OUTSIDE RECORDS SUMMARY | 2024-07-24 04:51 | XMS_ITS | Encounter Summary ---
Author Organization [facility] Address [address] [place] [address] Care Team Providers Care Geography Faculty Member Name Role Phone Brenden Antoine MD Primary Care Provider Encounter Details Date Type Department Care Team (Latest Contact Info) Description 03/21/2023 Travel Social History Tobacco Use Types Packs/Day [...] drink first t alison in the morning (EYE-PRIVATE INVESTIGATOR SURVEILLANCE) to steady your nerves or to get [...] on filedocumented in this encounter Care Teams Geography Faculty Member Relationship Specialty Start Date End Date Brenden Antoine MD [address] [place], [place] [address] [address] PCP - General 03/21/23 documented as of this encounter
--- OUTSIDE RECORDS SUMMARY | 2024-07-24 04:51 | XMS_ITS | Clinical Summary ---
Author Organization Healthcare Address [address] [place] [address] Care Team Providers Care Furnace Cooler Name Role Phone Brenden Antoine MD Primary Care Provider [phone] Allergies Active Allergy Reactions Criticality Noted Date Comments Penicillins Unknown - Patient st ates they do not know rxn details Low 03/21/2023 Medications promethazine (Phenergan) 25 MG tablet Take 1 tablet (25 mg) by mouth every 6 (six) hours if needed for nausea or vomiting for up to 15 doses. 15 tablet 08/12/2023 Active Immunizations Name Administration Dates Next Due Tdap 03/21/2023,05/08/2020 Social History Tobacco Use Types Packs/Day Years [...] drink first t alison in the morning (EYE-PATTERN GATER) to steady your nerves or to get rid of a hangover? 0 05/26/2023 CAGE Questionnaire Score 0 023 Comments No Sex and Gender Information Value Date Recorded Sex Assigned at Not on file Legal Sex Female 7:35 PM EDT Gender Identity Not on file Sexual Orientation Not on file Last Filed Vital Signs Vital Sign Reading [...] 11.8 oz) 08/12/2023 3:55 PM EST Height 165.1 cm (5' 5 ) 05/26/2023 7:29 PM EDT Body Mass Index 17.1 05/26/2023 7:29 PM EDT Plan of Treatment Health Maintenance Due Date Last Done Comments [facility]-Depression Screening 1997 [facility]-/Child/Adol SDOH Screenings 1997 [facility]-Varicella Vaccines (1 of 2 - 13+ 2-dose series) 2010 [facility]-HPV Vaccines (1 - 3-dose series) 2012 [facility]- SDOH Screenings 2015 [facility]-Adult SDOH Screenings 2015 [facility]-Hepatitis A Vaccines (1 of 2 - Risk 2-dose series) 2016 [facility]-Hepatitis B Vaccines (1 of 3 - 19+ 3-dose series) 2016 [facility]-Pap Smear 2018 [facility]-XPPHD-85 Vaccine (1 - 2023- season) 2024 [facility]-Influenza Vaccine (#1) 2024 [facility]-DTaP,Tdap,and Td Vaccines (4 - Td or Tdap) 03/21/2033 03/21/2023, 05/08/2020, 10/22/2008 [facility]-Zoster Vaccines (1 of 2) 2047 [facility]-RSV Vaccine: 60+ Years or (1 - 1-dose 75+ series) 2072 [facility]-HIV Screening Completed 08/12/2023, , 03/21/2023, Additional history exists [facility]-Hepatitis C Screening Completed 2022, 08/12/2023, 03/21/2023, Additional history exists [facility]-HIB Vaccines Aged Out No longer e ligible based on patient's age to complete this topic [facility]-IPV Vaccines Aged Out No longer e ligible based on patient's age to complete this topic [facility]-Pneumococcal Vaccine: Pediatrics (0 to 5 Years) and At-Risk Patients (6 to 64 Years) Aged Out No longer eligible based on patient's age to complete this topic [facility]-Rotavirus Vaccines Aged Out No lo nger eligible based on patient's age to complete this topic Procedures Procedure Name Priority Date/Time Associated Diagnosis Comments HEPATITIS C ANTIBODY W/REFLEX TO HCV QUANT PCR STAT 08/12/2023 4:31 PM EST HIV 1/2 ANTIBODY/ANTIGEN SCREEN WITH REFLEX TO HIV I/II DIFFERENTIATION STAT 08/12/2023 4:31 PM EST from Last 3 Months or Most Recently Relevant to Health Maintenance Results * HIV 1 & 2 Antibody/Antigen Screen (08/12/2023 4:31 PM EST) HIV 1 & 2 Antibody/Antigen Screen Non Reactive Non Reactive 08/12/2023 5:13 PM EST [facility] Comment:Screening for HIV 1 & 2 antibodies, and P24 antigen is NONREACTIVE. No confirmatory testing is required. Blood Venous blood specimen / Unknown Venipuncture / Unknown 08/12/2023 4:31 PM EST 08/12/2023 4:38 PM EST us Shankar Chacon MD LAB BLOOD ORDERABLES Final Result [facility] [address] [place] [address] * Hepatitis C antibody (08/12/2023 4:31 PM EST) Hepatitis C Antibody Negative Negative 08/12/2023 5:09 PM EST [facility] Blood Venous blood specimen / Unknown Venipuncture / Unknown 08/12/2023 4:31 PM EST 08/12/2023 4:38 PM EST us Shankar Chacon MD LAB BLOOD ORDERABLES Final Result [facility] [address] [place] [address] from Last 3 Months or Most Recently Relevant to Health Maintenance Insurance [employer] [facility] MEDICAID Care Teams Furnace Cooler Relationship Specialty Start Date End Date Brenden Antoine MD [address] [place] [id number] PCP - General 03/21/23
[2024-07-24 05:04] VITALS: BMI 24.7
[2024-07-24 05:23] VITALS: BP 133/79; PULSE 95; RESP 20; TEMP 36.8; O2SAT 98; BMI 24.7
[2024-07-24 05:45] LABS: Microscopic, Urine URINE MICROSCOPIC (MICROSCOPIC)
[2024-07-24 05:48] LABS: Basophils % 0.2 % (0.1-2.0); Eosinophils # 0.1 K/mm3 (0.0-0.4); Eosinophils % 0.8 % (0.1-12.0); Hematocrit 30.1 % (37.0-47.0); Hemoglobin 10.6 g/dL (12.2-16.2); Lymphocytes # 2.3 K/mm3 (0.7-4.5); Mean Corpuscular HGB Conc 35.3 g/dL (31.8-35.4); Mean Corpuscular Hemoglobin 29.6 pg (27.0-31.2); Mean Corpuscular Volume 83.8 fl (81-99); Mean Platelet Volume 8.6 fl (7.4-10.4); Monocytes # 0.3 K/mm3 (0.1-1.0); Monocytes % 3.8 % (1.7-9.3); Neutrophils % 69.3 % (37.0-80.0); Platelet Count 285 K/mm3 (142-424); Red Blood Count 3.59 M/mm3 (4.20-5.40); Red Cell Distribution Width 15.2 % (11.5-17.5); White Blood Count 8.7 K/mm3 (4.8-10.8)
[2024-07-24 05:50] LABS: Appearance,Urine CLEAR (Clear); Bilirubin,Urine Negative (Negative); Blood, Urine Negative (Negative); Color,Urine YELLOW (Yellow); Glucose,Urine (UA) Negative (Negative); Ketones,Urine Negative (Negative); Leukocyte Esterase,Urine TRACE (Negative); Nitrate,Urine Negative (Negative); Protein,Urine Negative (Negative); Specific Gravity, Urine 1.015 (1.005-1.030)
[2024-07-24 05:58] LABS: Barbiturates Screen,Urine Negative ng/ml (<200)
[2024-07-24 05:59] LABS: Benzodiazepines Screen,Urine Negative ng/ml (<200)
[2024-07-24 06:00] LABS: Amphetamine/Metha Screen,Urine Negative ng/ml (<1000); Cannabinoid Screen,Urine Negative ng/ml (<50)
[2024-07-24 06:01] LABS: Cocaine Screen,Urine Negative ng/ml (<300)
[2024-07-24 06:02] LABS: Amorphous Sediment,Urine 1+ /lpf; Bacteria,Urine 2+ /lpf; Methadone Screen,Urine Negative ng/ml (<300); Mucus,Urine 1+ /lpf; Opiate Screen,Urine Negative ng/ml (<300)
[2024-07-24 06:06] LABS: Phencyclidine Screen,Urine Negative ng/ml (<25)
[2024-07-24] MEDS: DEXTROSE 5%-LACTATED RINGERS 1,000 ML 125 ML IV (06:49)
[2024-07-24] MEDS: OXYTOCIN/RINGERS LACTATE 30 UNITS/500 ML BAG IV (06:52)
--- NOTE | 2024-07-24 08:56 | P.HP_ITS ---
OB - H&P: HPI Antepartum History of Present Illness Chief complaint: Elective induction of labor History of present illness: Ms Asmita Ferguson is a 28 yo at 39w0d who presents to [facility] L&D for scheduled elective induction of labor. She has had good care. complicated by history of genital HSV. No outbreaks during this . She is taking Valtrex prophylaxis. History of marijuana use in . Feeling well today. Baby is active. History of Present Criteria for establishing EDC:: based on 1st trimester US only care: good care Ultrasounds: normal mid trimester US Obstetrical complications: none Medical complications: none Labs Blood type: O (-) negative Rubella: immune RPR/VDRL: nonreactive GBS status: negative HBsAG: negative PFSH [facility] Disclaimer: The information contained in this section may have been updated after the patient was seen, as this information can be updated by other users. Medical History (Updated 07/24/24 @ 12:31 by Miguelina Bond DO) 39 weeks gestation of Encounter for elective induction of labor Painful menstrual flow Unintentional weight loss Herpes simplex of female genitalia History of delivery, currently Rh negative state in antepartum period Marijuana use during Nausea and vomiting during Anxiety Nausea & vomiting LGSIL on Pap smear of cervix DUB (dysfunctional uterine bleeding) Rh negative status during History of chlamydia PID (acute pelvic inflammatory disease) Surgical History History of dilation and curettage Family History Other Heart attack Hypertension Thyroid disorder Social History (Updated 07/24/24 @ 08:48 by Emerita John RN) Smoking Status: Current every day smoker alcohol intake: never substance use type: denies use and marijuana current occupational status: unemployed Travel in the last 8 weeks: None Other Medical History Have you received the Flu Vaccine for this season: No Have you received the Pneumonia Vaccine: No Review of Systems Review of Systems Review of systems:: pertinent systems reviewed and negative unless documented below *Genitourinary Comments: + irregular contractions Meds Home Medications and Allergies Home Medications ?Medication ?Instructions ?Recorded ?Confirmed ?Type valacyclovir 500 mg tablet 500 mg PO BID #60 tabs 06/17/24 07/24/24 Rx New Prescriptions to Start Prescriptions: Allergies Allergy/AdvReac Type Severity Reaction Status Date / Time Penicillins (PENICILLINS) Allergy Unknown Hives Verified 07/19/24 08:50 venom-honey bee (BEE VENOM Allergy Unknown Hives Verified 07/19/24 08:50 (HONEY BEE)) OB - H&P: Exam Physical Exam Vital signs: Temp Pulse Resp BP Pulse Ox O2 Del Method 98.3 F 95 H 20 133/79 98 Room Air 07/24/24 05:23 07/24/24 05:23 07/24/24 05:23 07/24/24 05:23 07/24/24 05:23 07/24/24 05:23 Constitutional no acute distress Routine HEENT Exam Head: Present normocephalic and atraumatic Eye: Absent conjunctivae pink ENT: Present mucous membranes moist Routine Neck Exam Present full ROM Routine Respiratory Exam Present CTA bilaterally and normal respiratory effort Routine Cardiovascular Exam Present RRR Routine Abdominal Exam Present soft (Gravid); Absent tenderness Routine Rectal Exam Patient deferred: visual exam Routine Exam External: Present normal urethra appearance; Absent erythema, swelling, lesions or lacerations Routine Extremities Exam Present full ROM; Absent edema or calf tenderness Routine Neurological Exam Present alert, moving all extremities and normal speech Routine Psychiatric Exam Present normal affect and cooperative Detailed Labor and Delivery Exam Dilation (cm): 2 Effacement (%): 60 Cervix position: mid station: -1 Consistency: soft Membranes: artificially ruptured Amniotic fluid: clear Baseline heart rate: 135 monitor accelerations: Present monitor decelerations: None nursing home variability: Moderate (11-25) Contraction frequency (min): 3 Tachysystole: No OB - Results Labs Labs: Short CBC 07/24/24 Range/Units 05:30 WBC 8.7 (4.8-10.8) K/mm3 Hgb 10.6 L (12.2-16.2) g/dL Hct 30.1 L (37.0-47.0) % Plt Count 285 (142-424) K/mm3 Urine 07/24/24 Range/Units 05:30 Urine Color Yellow (Yellow) Urine Appearance Clear (Clear) Urine pH 7.0 (5.0-8.5) Ur Specific [place] 1.015 (1.005-1.030) Urine Protein Negative (Negative) Urine Glucose (UA) Negative (Negative) OB - A/P Antepartum (1) Encounter for elective induction of labor: Status: Acute (2) 39 weeks gestation of : Status: Acute (3) Marijuana use during : Status: Acute (4) Herpes simplex of female genitalia: Status: Acute (5) Rh negative state in antepartum period: Status: Acute Additional Plan Additional Information:: Admit to [facility] for scheduled induction of labor. Induction with Pitocin and amniotomy GBS negative Close monitoring Anticipate
--- NOTE | 2024-07-24 10:38 | EXP.ANES.CKL ---
[facility] Disclaimer: The information contained in this section may have been updated after the patient was seen, as this information can be updated by other users. Medical History Painful menstrual flow Unintentional weight loss Herpes simplex of female genitalia History of delivery, currently Rh negative state in antepartum period Marijuana use during Nausea and vomiting during Anxiety Nausea & vomiting LGSIL on Pap smear of cervix DUB (dysfunctional uterine bleeding) Rh negative status during History of chlamydia PID (acute pelvic inflammatory disease) Surgical History History of dilation and curettage Family History Other Heart attack Hypertension Thyroid disorder Social History (Updated 07/24/24 @ 08:48 by Emerita John RN) Smoking Status: Current every day smoker alcohol intake: never substance use type: denies use and marijuana current occupational status: unemployed Travel in the last 8 weeks: None [facility] Anesthesia Checklist Patient Identification Patient Identification: Arm Band Structural Data Admitted From: Home Planned Operative Procedure/s: Labor Epidural Consent for Planned Operative Procedure(s) Verified: Yes Verified Documents: Surgical Consent and History and Physical NPO Status Verified Time NPO: 00:00 Additional verifications Anesthesia Reactions: No Neurological Assessment Level of Consciousness: Awake, Alert and Appropriate Anesthesia Plan Anesthesia Risk discussed: Yes Anesthesia Plan: Verified ASA Class: II Anesthesia Type: Epidural
[2024-07-24] MEDS: ePHEDrine SULF 50MG/ML VIAL 10 MG IV (12:20)
[2024-07-24] MEDS: LACTATED RINGERS 1000ML 1,000 ML 250 ML IV (12:22)
--- NOTE | 2024-07-24 13:44 | EXP.DN ---
Delivery Note Delivery Date:: 07/24/24 Delivery Time:: 13:25 Anesthesia Type: Epidural Was labor medically induced?: No Induction method: per pitocin protocol Gestational age (weeks): 39 delivered prior to 39 weeks?: No Infant Gender: Female at 1 minute: 9 at 5 minutes: 9 Delivery Procedure:: Mom complete with epidural. Pushed for approximately two contractions. Head delivered spontaneously over intact perineum in TERE position. Nuchal cord x 1 easily reduce. Anterior shoulder delivered with gentle downward pressure. Posterior shoulder and remainder of body delivered spontaneously. Baby placed on maternal abdomen, mouth and nares bulb suctioned, warmed/dried and stimulated. Delayed cord clamping was performed for 60 seconds. Cord was clamped and cut by father of baby. Cord blood was obtained. Placenta delivered spontaneously and intact. No lacerations. Mom and baby were skin to skin and doing well after delivery. Live female baby (baby's name is Rebekah) APGARs 9 (1 min), 9 (5 min) EBL 25 mL Placental Delivery Description: Spontaneous
[2024-07-24] MEDS: OXYTOCIN/RINGERS LACTATE 30 UNITS/500 ML BAG 40 UNITS IV (13:45)
[2024-07-24] MEDS: ACETAMINOPHEN 500MG TAB 1000 MG PO ×2 (14:33→21:15)
[2024-07-24] MEDS: IBUPROFEN 400 MG TABLET 800 MG PO (14:34)
[2024-07-24 15:30] VITALS: BP 117/70; PULSE 92; RESP 19; TEMP 36.7; O2SAT 98
[2024-07-24 21:13] VITALS: BP 123/70; PULSE 75; RESP 17; TEMP 36.7; O2SAT 100
[2024-07-24] MEDS: BENZOCAINE-MENTHOL SPRAY 56GM CAN TP (23:05)
[2024-07-25] MEDS: ACETAMINOPHEN 500MG TAB 1000 MG PO ×2 (04:09→11:23)
[2024-07-25] MEDS: IBUPROFEN 400 MG TABLET 800 MG PO (04:10)
[2024-07-25 06:30] LABS: Basophils % 0.4 % (0.1-2.0); Eosinophils # 0.1 K/mm3 (0.0-0.4); Hematocrit 31.2 % (37.0-47.0); Hemoglobin 10.5 g/dL (12.2-16.2); Lymphocytes # 2.4 K/mm3 (0.7-4.5); Lymphocytes % 24.3 % (10-50); Mean Corpuscular HGB Conc 33.6 g/dL (31.8-35.4); Mean Corpuscular Hemoglobin 29.1 pg (27.0-31.2); Mean Corpuscular Volume 86.6 fl (81-99); Mean Platelet Volume 8.6 fl (7.4-10.4); Monocytes # 0.5 K/mm3 (0.1-1.0); Monocytes % 5.2 % (1.7-9.3); Neutrophils # 6.7 K/mm3 (1.8-7.8); Neutrophils % 69.1 % (37.0-80.0); Platelet Count 249 K/mm3 (142-424); Red Cell Distribution Width 15.5 % (11.5-17.5); White Blood Count 9.8 K/mm3 (4.8-10.8)
[2024-07-25 08:44] VITALS: BP 117/70; PULSE 74; RESP 17; TEMP 36.7; O2SAT 98
[2024-07-25] MEDS: RHO(D) IMMUNE GLOBULIN 1,500 UNIT (300MCG) SYRINGE 300 MCG IM (09:46)
--- NOTE | 2024-07-25 09:57 | SW/DCPLANNER ---
Addendum entered by Asmita Sood 07/29/24 07:33: Infant cord screen is NEGATIVE. Addendum entered by Asmita Sood 07/25/24 10:51: Central Intake ID#[id number] Original Note: I received a consult this AM regarding THC use during . Patient tested positive for THC on the following dates: 12/18/2023, 03/21/2024 and 04/25/2024. Patient admits to THC use due to weight loss and no appetite. Patient stated that last use was in April. Patient and were negative at admission. Patient delivered infant female (Rebekah Olmedo) on 07/24/24. Infant's father is involved: Maury Olmedo 89. Patient stated this is her fourth child and did have Social Service involvement in the past (open/closed case). Patient, and three other children Lon Turner 11/12/18, Anjelica Ferguson 11/29/19 and La Cabrales 08/04/22) will reside at [address] [place] [address]. Patient's contact number is [phone]. Patient is currently established w/ [facility] and stated that she has the following items at home: crib, car seat, clothing, diapers and will be breast feeding. PED MD will be Dr Enriquez and patient stated that she will have transportation to all follow up appointments. Patient is expected to discharge home today or tomorrow. I will report THC use to Central Intake.
--- NOTE | 2024-07-25 10:24 | EXP.DC.SUM ---
General Admission date:: 07/24/24 Discharge date: 07/25/24 HPI HPI HPI: PPD # 1 s/p Feeling well. Pain controlled. Breast feeding. Lochia is appropriate. Voiding without difficulty and passing flatus. Tolerating regular diet. Denies fever/chills, chest pain and shortness of breath. No headaches, vision changes, lightheadedness/dizziness. No lower extremity swelling. Ambulating well ad tate. Hospital Course Hospital Course Hospital Course: Ms Asmita Ferguson is a 28 yo at 39w0d who presents to [facility] L&D for scheduled elective induction of labor. She has had good care. complicated by history of genital HSV. No outbreaks during this . She is taking Valtrex prophylaxis. History of marijuana use in . Feeling well today. Baby is active. She underwent induction of labor with Pitocin. She had a normal spontaneous vaginal delivery on 07/24/24 at 1325. She delivered a live female baby, Rebekah, weighing 6 lb 12 oz. APGARs 9 (1 min), 9 (5 min) EBL 25 mL She did well . Pain controlled. Breast feeding. Lochia appropriate. Voiding without difficulty and passing flatus. Tolerating regular diet. Denies fever/chills, chest pain and shortness of breath. No headaches, dizziness/lightheadedness or vision changes. Vital signs stable, afebrile. Heart regular rate and rhythm. Lungs clear to auscultation. Abdomen soft, nontender. No lower extremity swelling. Ambulating well ad tate. Normal hospital course. She was discharged to home on POD # 1 with instructions to follow-up in the office in 2 weeks or sooner if needed. Exam Data for Last 24 hours Vital signs and Labs for Last 24 Hours: Temp Pulse Resp BP Pulse Ox O2 Del Method 98.1 F 74 17 117/70 98 Room Air 07/25/24 08:44 07/25/24 08:44 07/25/24 08:44 07/25/24 08:44 07/25/24 08:44 07/25/24 08:44 Laboratory Results - last 24 hr 07/25/24 06:13: WBC 9.8, RBC 3.60 L, Hgb 10.5 L, Hct 31.2 L, MCV 86.6, MCH 29.1, MCHC 33.6, RDW 15.5, Plt Count 249, MPV 8.6, Neut % (Auto) 69.1, Lymph % (Auto) 24.3, [place] % (Auto) 5.2, Eos % (Auto) 1.0, Baso % (Auto) 0.4, Neut # (Auto) 6.7, Lymph # (Auto) 2.4, [place] # (Auto) 0.5, Eos # (Auto) 0.1, Baso # (Auto) 0.0, Screen Negative, Baby's Rh Status Positive I & O for Last 24 hours: Intake & Output 07/22/24 07/23/24 07/24/24 07/25/24 23:59 23:59 23:59 23:59 Weight 131 lb Microbiology Reports for the Last 24 Hours: Microbiology 07/24/24 05:30 Urine,Clean Catch Urine Culture - Final No growth. Constitutional Constitutional: no acute distress and cooperative *Routine HEENT Exam Head: Present normocephalic and atraumatic Eye: Absent conjunctivae pink ENT: Present mucous membranes moist *Routine Neck Exam Neck: Present full ROM *Routine Respiratory Exam Respiratory: Present CTA bilaterally and normal respiratory effort *Routine Cardiovascular Exam Cardiovascular: Present RRR *Routine Abdominal Exam Abdominal: Present soft; Absent tenderness or distended Comments: Uterine fundus firm and below umbilicus *Routine Rectal Exam Patient deferred: visual exam *Routine Exam Patient deferred: external exam *Routine Extremities Exam Extremities: Present full ROM; Absent edema or calf tenderness *Routine Neurological Exam Neurological: Present alert, moving all extremities and normal speech Routine Psychiatric Exam Psychiatric: Present normal affect and cooperative Results Data Completed and Pending Labs on day of discharge: Labs from last 24 hours 07/25/24 06:13 WBC 9.8 RBC 3.60 L Hgb 10.5 L Hct 31.2 L MCV 86.6 MCH 29.1 MCHC 33.6 RDW 15.5 Plt Count 249 MPV 8.6 Neut % (Auto) 69.1 Lymph % (Auto) 24.3 [place] % (Auto) 5.2 Eos % (Auto) 1.0 Baso % (Auto) 0.4 Neut # (Auto) 6.7 Lymph # (Auto) 2.4 [place] # (Auto) 0.5 Eos # (Auto) 0.1 Baso # (Auto) 0.0 Screen Negative Baby's Rh Status Positive DS: Diagnosis Discharge Diagnosis (1) Status post vaginal delivery: Status: Acute (2) Encounter for elective induction of labor: Status: Acute Code(s): Z34.90 - Encounter for supervision of normal , unspecified, unspecified trimester (3) 39 weeks gestation of : Status: Acute Code(s): Z3A.39 - 39 weeks gestation of (4) Marijuana use during : Status: Acute Code(s): O99.320 - Drug use complicating , unspecified trimester; F12.90 - Cannabis use, unspecified, uncomplicated (5) Herpes simplex of female genitalia: Status: Acute Code(s): A60.09 - Herpesviral infection of other urogenital tract (6) Rh negative state in antepartum period: Status: Acute Code(s): O26.899 - Other specified related conditions, unspecified trimester; Z67.91 - Unspecified blood type, Rh negative Meds Home Medications and Allergies New Prescriptions to Start Prescriptions: Allergies Allergy/AdvReac Type Severity Reaction Status Date / Time Penicillins (PENICILLINS) Allergy Unknown Hives Verified 07/19/24 08:50 venom-honey bee (BEE VENOM Allergy Unknown Hives Verified 07/19/24 08:50 (HONEY BEE)) Discharge Plan Disposition Patient Disposition: Home, Self-Care Discharge Order Discharge Orders: Discharge Order (Routine); Ordered 07/25/24 Ordered By: Miguelina Bond Follow up Plan Follow up with: Miguelina Bond DO [Primary Care Provider] - 08/08/24 1:45 pm Prescriptions/Medication Reconciliation: Discontinued valacyclovir 500 mg tablet 500 mg PO BID Qty: 60 2RF Problem Reconciliation Problems Reviewed?: Yes Patient Discharge Instructions ACTIVITY: Limited activity DIET: continue same diet and regular diet Additional Instructions: Congratulations! Discharge: 1. Take 800 mg Ibuprofen every 8 hours as needed for pain. You can also take 500-1000 mg of Tylenol in between doses, every 6-8 hours. 2. Nothing in the vagina for 6 weeks - no intercourse, douching or tampons. No tub baths/hot tubs or swimming pools 3. Reasons to return to L&D or call On-Call doctor - fever (greater than 100.4) - heavy vaginal bleeding (soaking through 1 pad in less than 2 hours) - vaginal discharge (malodorous and/or purulent) - severe headaches not resolved by medication or rest and leg tenderness/edema 4. depression/blues - Normal to feel anxious/overwhelmed for first 2 weeks - Talk to your doctor if: severe anxiety, trouble bonding with baby, withdrawing from other family members, thoughts of harming yourself or others Miguelina Bond DO [facility] [phone] Patient Instructions: Depression, Hemorrhage, DI for Labor and Delivery, Vaginal , DI for Pre-eclampsia, [facility] Post Discharge Instructions Print Language: Setswana Providers Primary Care Provider: Miguelina Bond Admit Provider: Miguelina Bond Attending Provider: Miguelina Bond
[2024-07-25 12:29] LABS: Rapid Plasma Reagin Ab Titer Non Reactive titer (NonRea<1:1)
== END 2024-07-25 13:45 | disposition home or self-care (01) | DRG 806 ==
PROVIDERS: Admitting Provider Obstetrics & Gynecology; PCP Obstetrics & Gynecology; Visit Provider Obstetrics & Gynecology
DX: O69.81X0 Labor and delivery complicated by cord around neck, without compression, not applicable or unspecified (principal); O98.32 Other infections with a predominantly sexual mode of transmission complicating childbirth; Z37.0 Single live birth; O99.324 Drug use complicating childbirth; Z3A.39 39 weeks gestation of pregnancy; A60.09 Herpesviral infection of other urogenital tract; F12.91 Cannabis use, unspecified, in remission
CPT/HCPCS: 36415; 59025; 80307; 81001; 85025; 85461; 86593; 86850; 86870; 87086; 94761; G0283; J2790; J3010; J7120

== ENCOUNTER 2024-08-24 19:14 | Emergency (ER) | payer OTHER, SELFPAY ==
--- NOTE | 2024-08-24 20:19 | PC.NURSE ---
This RN called admissions to bring pt back to a room. Admissions called back approx 5 minutes later to let me know that they couldn't find the patient. Initial call at 1950.
[2024-08-24 20:21] VITALS: BP 000/00; PULSE 0; RESP 0; TEMP -17.7; TEMP 0; O2SAT 0
--- NOTE | 2024-08-24 20:23 | HMH.EDGENADL ---
Discharge Plan Prescriptions Prescriptions: No Action No Known Home Medications Print Language Print Language: Bolivian Discharge ED Provider: Stacy Hoffman General Adult HPI General Stated complaint: Vomiting,GIRON,lightheaded History of Present Illness HPI narrative: Patient left without being seen Related Data Home Medications ?Medication ?Instructions ?Recorded ?Confirmed No Known Home Medications 08/08/24 08/08/24 Allergies Allergy/AdvReac Type Severity Reaction Status Date / Time Penicillins (PENICILLINS) Allergy Unknown Hives Verified 08/08/24 13:53 venom-honey bee (BEE VENOM Allergy Unknown Hives Verified 08/08/24 13:53 (HONEY BEE)) [facility] Disclaimer: The information contained in this section may have been updated after the patient was seen, as this information can be updated by other users. Medical History 39 weeks gestation of Encounter for elective induction of labor Painful menstrual flow Unintentional weight loss Herpes simplex of female genitalia History of delivery, currently Rh negative state in antepartum period Marijuana use during Nausea and vomiting during Anxiety Nausea & vomiting LGSIL on Pap smear of cervix DUB (dysfunctional uterine bleeding) Rh negative status during Fetus Rh negative History of chlamydia PID (acute pelvic inflammatory disease) Surgical History Status post vaginal delivery History of dilation and curettage Family History Other Heart attack Hypertension Thyroid disorder Social History Smoking Status: Current every day smoker alcohol intake: never substance use type: denies use and marijuana current occupational status: unemployed Travel in the last 8 weeks: None Other Medical History Have you received the Flu Vaccine for this season: No Have you received the Pneumonia Vaccine: No ROS Obtained: Yes other (Left without being seen) Medical Decision Making Medical Records Screening: Per USPSTF and CDC recommendations, given the prevalence of disease in our region, it is our hospital?s policy to screen for HIV and viral Hepatitis for all patients aged 18 and over and those with ongoing risk factors. Vital Signs: 08/24/24 20:21 Temperature 0 F L Pulse Rate 0 L Respiratory Rate 0 L Blood Pressure 000/00 L
== END 2024-08-24 20:20 | disposition left against medical advice (07) ==
LOC: ER 20:26
PROVIDERS: Emergency Provider Student in an Organized Health Care Education/Training Program
DX: R11.10 Vomiting, unspecified (principal)

== ENCOUNTER 2025-04-20 21:02 | Emergency (ER) | payer OTHER, SELFPAY ==
[2025-04-20] VITALS (11 sets, daily range): BP systolic 95–112; BP diastolic 56–74; PULSE 60–81; RESP 16–18; TEMP 36.6–36.7; O2SAT 98–100; BMI 21.0
--- OUTSIDE RECORDS SUMMARY | 2025-04-20 21:32 | XMS_ITS | Clinical Summary ---
Author Organization Healthcare Address [address] [place] [address] Care Team Providers Care Equipment Washer Name Role Phone Brenden Antoine MD Primary Care Provider Allergies Active Allergy Reactions Criticality Noted Date Comments Penicillins Unknown - Patient st ates they do not know rxn details Low 03/21/2023 Medications promethazine (Phenergan) 25 MG tablet Take 1 tablet (25 mg) by mouth every 6 (six) hours if needed for nausea or vomiting for up to 15 doses. 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) to steady your nerves or to get [...] 88 08/12/2023 3:55 PM EST Temperature 36.8 C (98.3 F) 08/12/2023 3:55 PM EST Respiratory Rate 16 08/12/2023 3:55 PM EST [...] of 2 - 13+ 2-dose series) 2010 [facility]- SDOH Screenings 2015 [facility]-Adult SDOH Screenings 2015 [facility]-Hepatitis B Vaccines (1 of 3 - 19+ 3-dose series) 2016 [facility]-Pap Smear 2018 [id number] Vaccine (1 - 2023- season) 2024 HPV Vaccines (1 - 3-dose SCDM series) 2024 [facility]-Influenza Vaccine (#1) 2025 [facility]-DTaP,Tdap,and Td Vaccines (4 - Td or Tdap) 03/21/2033 03/21/2023, 05/08/2020, 10/22/2008 [facility]-Zoster Vaccines (1 of 2) 2047 [facility]-HIV Screening Completed 08/12/2023, , 05/03/2019, Additional history exists [facility]-Hepatitis C Screening Completed 2022, 08/12/2023, 03/21/2023, Additional history exists [facility]-HIB Vaccines Aged Out No longer e ligible based on patient's age to complete this topic [facility]-Hepatitis A Vaccines Aged Out No longer eligible based on patient's age to complete this topic [facility]-IPV Vaccines Aged Out No longer e ligible based on patient's age to complete this topic [facility]-Pneumococcal Vaccine: Pediatrics (0 to 5 Years) and At-Risk Patients (6 to 49 Years) Aged Out No longer eligible based [...] BLOOD ORDERABLES Final Result Performing Organization Address City/State/[facility] Co de Phone Number [facility] [address] [place] [phone] * Hepatitis C antibody (08/12/2023 4:31 PM EST) Hepatitis C Antibody Negative Negative 08/12/2023 5:09 PM EST [facility] Blood Venous blood specimen / Unknown Venipuncture / Unknown 08/12/2023 4:31 PM EST 08/12/2023 4:38 PM EST Shankar Chacon MD LAB BLOOD ORDERABLES Final Result [facility] [address] [place] [address] from Last 3 Months or Most Recently Relevant to Health Maintenance Insurance [employer] Care Teams Equipment Washer Relationship Specialty Start Date End Date Brenden Antoine MD [address] [place] [id number] PCP - General 03/21/23
--- NOTE | 2025-04-20 23:29 | ED_ITS ---
Discharge Plan Disposition Patient Disposition: Home, Self-Care Condition: Good Prescriptions Prescriptions: No Action ondansetron 4 mg tablet,disintegrating 4 mg PO Q8H PRN (Reason: nausea and vomiting) Qty: 10 0RF Referrals Follow up/Referrals: Ephraim Salas DO [Staff Physician, Orthopedics] - See instructions Referral Note: pulled vs partial tear left medial hamstring/adductor Jackeline Sin APRN [Primary Care Provider, Medical] - See instructions Activity Restrictions/Add. Instructions Additional Instructions/Restrictions: You were evaluated in the ER and are believed to be appropriate for discharge at this time. Take Tylenol and ibuprofen if needed for pain, do not exceed the recommended dose on the bottle. Drink water and eat a small snack each time you take these medications to avoid side effects. Use the crutches to help you get around until you have been cleared by Ortho or sports med. As discussed, avoid anything that causes pain. You have been referred to Dr. Salas with orthopedics here for follow-up, below is also the information for the sports medicine urgent care walk-in clinic. Please be evaluated by one of them in the next few days for further information and recommendations regarding your injury. [facility] [address] [place] [address]. [place] [address] Monday through Monday 7:30 AM to 8 AM Monday and ONLY 3 PM to 3:30 PM Follow-up with your primary care doctor for reevaluation as well. Return to the ER with any new, worsening, or otherwise concerning symptoms. Clinical Impressions Clinical Impression: Pulled hamstring Qualifiers: Encounter type: initial encounter Laterality: left Qualified Code(s): S76.312A - Strain of muscle, fascia and tendon of the posterior muscle group at thigh level, left thigh, initial encounter Print Language Print Language: Greek Discharge ED Provider: Jean Gunderson Adult [facility] General Chief complaint: PAIN Stated complaint: AO 04/18/25 2100 injury left leg Time Seen by Provider: 04/20/25 23:16 Mode of Arrival: Ambulatory Source of Information: Patient Description of Symptoms (Recalled from ER Triage Doc. by RN): Pt states she was at a [employer] on monday, attempted to do the splits and felt a popping sensation in her left hamstring. Pt noted to have bruising to leg. Pt states she hx of torn hamstring to the left leg. Pt has tried tylenol and ibuprofen but rates pain as 10/10 History of Present Illness HPI narrative: 29-year-old female presents to the ER with left hamstring pain. Patient reports Landon she was at a [employer] and attempted to do the splits feeling a popping sensation in her left hamstring. She has very mild bruising of the left hamstring including very close to the groin and states she has previously completely torn a hamstring on this leg. She states the last time when it was torn she had much more bruising than she has this time so she is worried that she pulled it but states that when she walks she has significant pain. She came to the ER for evaluation. She has not seen any other providers for this complaint. She has no numbness, tingling, or weakness, no other injuries sustained in the accident. She took Tylenol and ibuprofen yesterday but has not had any today. Related Data Previous Rx's ?Medication ?Instructions ?Recorded ondansetron 4 mg disintegrating 4 mg PO Q8H PRN nausea and 04/13/25 tablet vomiting #10 tabs Allergies Allergy/AdvReac Type Severity Reaction Status Date / Time Penicillins (PENICILLINS) Allergy Unknown Hives Verified 04/13/25 18:35 venom-honey bee (BEE VENOM Allergy Unknown Hives Verified 04/13/25 18:35 (HONEY BEE)) [facility] Disclaimer: The information contained in this section may have been updated after the patient was seen, as this information can be updated by other users. Medical History 39 weeks gestation of Encounter for elective induction of labor Painful menstrual flow Unintentional weight loss Herpes simplex of female genitalia History of delivery, currently Rh negative state in antepartum period Marijuana use during Nausea and vomiting during Anxiety Nausea & vomiting LGSIL on Pap smear of cervix DUB (dysfunctional uterine bleeding) Rh negative status during Fetus Rh negative History of chlamydia PID (acute pelvic inflammatory disease) Surgical History Status post vaginal delivery History of dilation and curettage Family History Other Heart attack Hypertension Thyroid disorder Social History Smoking Status: Current every day smoker alcohol intake: never substance use type: denies use and marijuana current occupational status: unemployed Travel in the last 8 weeks?: None Have you lived/traveled outside US in past 30 days?: No Contact w/someone who lives/traveled outside US past 30 days?: No Exposure to someone with infectious disease in past 14 days?: No Do you have a fever (greater than 100.4 F or 38 C)?: No Have you tested positive for COVID-19?: No Exposed to someone with COVID-19 in past 14 days?: No Do you have a sore throat?: No Do you have a cough?: No Do you have any weakness?: No Do you have any diarrhea?: No Are you experiencing any unusual bleeding?: No Do you have any muscle aches/pain?: No Do you have any abdominal pain?: No Are you experiencing loss of taste or smell?: No Other Medical History Have you received the Flu Vaccine for this season: No Have you received the Pneumonia Vaccine: No ROS Obtained: Yes Systems reviewed as appropriate & no additional complaints except as documented Per HPI Physical Exam General General appearance: alert and in no apparent distress Head Head exam: atraumatic and normocephalic Eye Eye exam: Present PERRL and EOMI ENT ENT exam: Present mucous membranes moist Neck Neck exam: Present normal inspection and full ROM Chest Chest inspection: Present symmetric chest wall rise Respiratory Respiratory exam: Absent respiratory distress or stridor Cardiovascular Cardiovascular exam: Present regular rate and normal rhythm Extremities Exam Extremities exam: Present normal capillary refill; Absent full ROM (Limited range of motion with abduction of the left leg secondary to pain in the adductor region), edema or joint swelling Expanded Lower Extremity Exam Left: Leg image: 2 1. Area of ecchymosis on the proximal medial thigh overlying the proximal adductor 2. Area of tenderness and pain with abduction or complete extension of the left leg, no crepitus or deformity, no swelling Knee exam: Present normal inspection; Absent tenderness or swelling Neurological Exam Neurological exam: Present alert and oriented X3; Absent motor sensory deficit Psychiatric Psychiatric exam: Present normal affect and normal mood Skin Skin exam: Present warm and dry Medical Decision Making Medical Records Medical records reviewed: Yes I reviewed the patient's medical records. Screening: Per USPSTF and CDC recommendations, given the prevalence of disease in our region, it is our hospital?s policy to screen for HIV and viral Hepatitis for all patients aged 18 and over and those with ongoing risk factors. Stevie Inquiry Pt receiving controlled substance: No Vital Signs: 04/20/25 21:21 04/20/25 21:30 04/20/25 21:31 Temperature 98 F Temperature Source Temporal Artery Scan Pulse Rate 77 60 Pulse Rate [Right] 63 Respiratory Rate 18 16 Blood Pressure 112/74 Blood Pressure [Right Arm] 98/63 L Blood Pressure Mean Blood Pressure Mean [Right Arm] 74 Blood Pressure Source Blood Pressure Source [Right Arm] Automatic Cuff Blood Pressure Position Sitting Blood Pressure Position [Right Arm] Sitting 02 Sat by Pulse Oximetry 100 99 100 Oxygen Delivery Method Room Air Room Air 04/20/25 21:31 04/20/25 21:31 04/20/25 21:45 Temperature Temperature Source Pulse Rate 62 65 Pulse Rate [Right] Respiratory Rate Blood Pressure 112/74 Blood Pressure [Right Arm] Blood Pressure Mean 79 Blood Pressure Mean [Right Arm] Blood Pressure Source Blood Pressure Source [Right Arm] Blood Pressure Position Blood Pressure Position [Right Arm] 02 Sat by Pulse Oximetry 100 100 Oxygen Delivery Method 04/20/25 22:00 04/20/25 22:00 04/20/25 22:15 Temperature Temperature Source Pulse Rate 64 81 Pulse Rate [Right] Respiratory Rate Blood Pressure 98/56 L Blood Pressure [Right Arm] Blood Pressure Mean 72 Blood Pressure Mean [Right Arm] Blood Pressure Source Blood Pressure Source [Right Arm] Blood Pressure Position Blood Pressure Position [Right Arm] 02 Sat by Pulse Oximetry 99 99 Oxygen Delivery Method 04/20/25 22:30 04/20/25 22:30 04/20/25 22:45 Temperature Temperature Source Pulse Rate 61 65 Pulse Rate [Right] Respiratory Rate Blood Pressure 95/59 L Blood Pressure [Right Arm] Blood Pressure Mean 69 Blood Pressure Mean [Right Arm] Blood Pressure Source Blood Pressure Source [Right Arm] Blood Pressure Position Blood Pressure Position [Right Arm] 02 Sat by Pulse Oximetry 99 99 Oxygen Delivery Method 04/20/25 23:00 04/20/25 23:15 04/20/25 23:36 Temperature 98.0 F Temperature Source Pulse Rate 61 61 Pulse Rate [Right] Respiratory Rate 16 Blood Pressure 96/62 L 96/62 L Blood Pressure [Right Arm] Blood Pressure Mean 71 Blood Pressure Mean [Right Arm] Blood Pressure Source Automatic Cuff Blood Pressure Source [Right Arm] Blood Pressure Position Sitting Blood Pressure Position [Right Arm] 02 Sat by Pulse Oximetry 98 Oxygen Delivery Method Room Air Orders (Tests/Meds): ED MEDICATIONS Discontinued Medications Generic Name Dose Route Start Last Admin Trade Name Emiliano PRN Reason Stop Dose Admin Acetaminophen 1,000 mg 04/20/25 23:23 04/20/25 23:32 Acetaminophen 500mg Tab PO 04/20/25 23:24 1,000 mg ONCE ONE Administration Ibuprofen 800 mg 04/20/25 23:23 04/20/25 23:32 Ibuprofen 800 Mg Tablet PO 04/20/25 23:24 800 mg ONCE ONE Administration Medical Decision Narrative: In summary, this otherwise healthy 29-year-old female presents to the emergency department today with left inner thigh/hamstring pain. On initial evaluation patient is hemodynamically stable, afebrile, physical exam is notable for tenderness along the left medial thigh in the area of the adductor and medial hamstring with no crepitus or deformity, no swelling, patient does have mild ecchymosis in the proximal area of this region. Pelvis stable. No joint swelling or effusions, patient has discomfort with abduction of the left leg and extension of the left knee to complete extension with pain in the adductor/hamstring area as described. Differential diagnosis includes but is not limited to partial tear or complete rupture of hamstring or adductor, also considered simple pulled muscle, sprain, strain, patient does not have evidence of hematoma and is 2 days post injury so I would expect this to be evident at this time if it was going to develop. She has no evidence of bony injury clinically though I did consider initially the possibility of a fracture or dislocation. I do not believe at this time any advanced imaging is going to be beneficial to the patient since she has no evidence of osseous injury and this appears to all be related to soft tissue injury. Because of significant discomfort with ambulation patient was provided crutches to assist. She was given instructions on being very cautious with range of motion and not doing anything that causes pain. She did receive Tylenol ibuprofen in the ER since she has not taken these at home. I gave her referral to Dr. Booth for sports medicine follow-up but also gave her information for the sports medicine walk-in clinic in [place] and recommended very close follow-up for further evaluation and continued management. Patient is comfortable with this plan. Patient was given instructions on symptomatic management, follow up instructions, and return precautions for the emergency department. Patient indicated understanding and was discharged in stable condition. Critical Care Critical Care Time Critical Care Time: No
[2025-04-20] MEDS: ACETAMINOPHEN 500MG TAB 1000 MG PO (23:32)
[2025-04-20] MEDS: IBUPROFEN 800 MG TABLET PO (23:32)
== END 2025-04-20 23:38 | disposition home or self-care (01) ==
PROVIDERS: Emergency Provider Emergency Medicine; PCP Nurse Practitioner
DX: S76.312A Strain of muscle, fascia and tendon of the posterior muscle group at thigh level, left thigh, initial encounter (principal); S70.12XA Contusion of left thigh, initial encounter; F17.210 Nicotine dependence, cigarettes, uncomplicated; X50.9XXA Other and unspecified overexertion or strenuous movements or postures, initial encounter
CPT/HCPCS: 99283

== ENCOUNTER 2025-05-23 16:13 | Emergency (ER) | payer OTHER, SELFPAY ==
[2025-05-23] VITALS (11 sets, daily range): BP systolic 93–114; BP diastolic 65–75; PULSE 65–94; RESP 18–20; TEMP 36.6–36.8; O2SAT 80–100; BMI 17.6
--- OUTSIDE RECORDS SUMMARY | 2025-05-23 16:50 | XMS_ITS | Clinical Summary ---
Author Organization Healthcare Address [address] [place] [address] Care Team Providers Care Director Global Development Name Role Phone Brenden Antoine MD Primary Care Provider [phone] Allergies Active Allergy Reactions Criticality Noted Date [...] drink first t alison in the morning ([employer]) to steady your nerves or to [...] Date Last Done Comments [facility]-Depression Screening 1997 [facility]-Infant/Child/Adol SDOH Screenings 1997 [facility]Varicella Vaccines (1 of 2 - 13+ 2-dose series) 2010 [facility]- SDOH Screenings 2015 [facility]Adult SDOH Screenings 2015 [facility]-Hepatitis B Vaccines (1 of 3 - 19+ 3-dose series) 2016 [facility]-Pap Smear 2018 HPV Vaccines (1 - 3-dose SCDM series) 2024 [id number] Vaccine ( - season) 2025 [facility]-Influenza Vaccine (#1) 2025 [facility]-DTaP,Tdap,and Td Vaccines [...] BLOOD ORDERABLES Final Result Performing Organization Address City/State/[facility] [[email or web address]] de Phone Number [facility] [address] [place] [phone] * Hepatitis C antibody (08/12/2023 4:31 PM EST) Hepatitis C Antibody Negative Negative 08/12/2023 5:09 PM EST [facility] Blood Venous blood specimen / Unknown Venipuncture / Unknown 08/12/2023 4:31 PM EST 08/12/2023 4:38 PM EST Shankar Chacon MD LAB BLOOD ORDERABLES Final Result [facility] [address] [place] [address] from Last 3 Months or Most Recently Relevant to Health Maintenance Insurance [employer] [facility] MEDICAID Care Teams Director Global Development Relationship Specialty Start Date End Date Brenden Antoine MD [address] [place], [place] [phone] PCP - General 03/21/23
--- NOTE | 2025-05-23 17:08 | ED_ITS ---
Discharge Plan Disposition Patient Disposition: Home, Self-Care Prescriptions Prescriptions: No Action ondansetron 4 mg tablet,disintegrating 4 mg PO Q8H PRN (Reason: nausea and vomiting) Qty: 10 0RF mirtazapine [Remeron] 15 mg tablet 15 mg PO HS Qty: 30 2RF atomoxetine 40 mg capsule 40 mg PO DAILY Qty: 30 2RF ondansetron 4 mg tablet,disintegrating 4 mg PO Q8H PRN (Reason: nausea and vomiting) Qty: 10 0RF Referrals Follow up/Referrals: Trevor Simpson II, MD [Staff Physician, Gastroenterology] - See instructions Jackeline Sin APRN [Primary Care Provider, Medical] - See instructions Manuel Bradley MD [Staff Physician, General Surgery] - See instructions Activity Restrictions/Add. Instructions Additional Instructions/Restrictions: You were found to have sludge within your gallbladder. There is no evidence of inflammation around your gallbladder at this time. I am referring you to our surgeon, Dr. Bradley, for follow-up regarding your gallbladder as it may need to come out at some point in the future. I am also referring you to our pipe finishing supervisor, Dr. Simpson, as there was an incidentally found cyst of the pancreatic duct. I encourage you to contact their office next week to schedule follow-up appointment. Also could you to follow with your primary care physician if symptoms persist. You can return the stool specimen to the hospital if you able to produce a sample at home. Clinical Impressions Clinical Impression: Diarrhea, Abdominal pain, Cyst of pancreas, Biliary sludge determined by ultrasound Instructions Patient Instructions: DI for Acute Abdominal Pain Print Language Print Language: [place] Discharge ED Provider: Cleveland Velázquez Adult HPI General Chief complaint: Abdominal Pain Stated complaint: weakness, nausea, diarrhea Time Seen by Provider: 05/23/25 16:57 History of Present Illness HPI narrative: Asmita Ferguson is a 29y female with a past medical history of ADHD, anemia, who presents to the emergency department for complaints of abdominal pain and diarrhea x 1 month. Patient states that she has had multiple episodes of daily diarrhea that is nonbloody over the past month. She states initially was happening multiple times a day. She was seeing her PCP who told her to stop taking her mental health medications, which she stopped taking approximately 2 weeks ago, as this was thought to be contributing. She states that she has not had any change in her diarrhea and that is still pale and happening 2-3 times a day now that she is on diarrhea medication . She has also had constant nausea over that. She does report weight loss over that time as well. She states that she generally has abdominal pain with that as well. She states that she was post have an ultrasound and a CT scan at the end of this month. Today while picking her get up from school, she felt weak and like she was going to pass out but never fully passed out. She denies any chest pain or shortness of breath. She states that this tends to happen when she stands up. She was told to come to the emergency department because she looked pale. Related Data Previous Rx's ?Medication ?Instructions ?Recorded ondansetron 4 mg disintegrating 4 mg PO Q8H PRN nausea and 04/13/25 tablet vomiting #10 tabs atomoxetine 40 mg capsule 40 mg PO DAILY #30 caps 05/05 09/28 mirtazapine 15 mg tablet (Remeron) 15 mg PO HS #30 tab s 05/15/25 ondansetron 4 mg disintegrating 4 mg PO Q8H PRN nausea and 05/16/25 tablet vomiting #10 tabs Allergies Allergy/AdvReac Type Severity Reaction Status Date / Time Penicillins (PENICILLINS) Allergy Unknown Hives Verified 05/16/25 09:20 venom-honey bee (BEE VENOM Allergy Unknown Hives Verified 05/16/25 09:20 (HONEY BEE)) [facility] Disclaimer: The information contained in this section may have been updated after the patient was seen, as this information can be updated by other users. Medical History (Updated 05/23/25 @ 20:20 by Cleveland Velázquez MD) Nausea & vomiting 39 weeks gestation of Encounter for elective induction of labor Painful menstrual flow Unintentional weight loss Herpes simplex of female genitalia History of delivery, currently Rh negative state in antepartum period Marijuana use during Nausea and vomiting during Anxiety Nausea & vomiting LGSIL on Pap smear of cervix DUB (dysfunctional uterine bleeding) Rh negative status during History of chlamydia PID (acute pelvic inflammatory disease) Surgical History Status post vaginal delivery History of dilation and curettage Family History Other Heart attack Hypertension Thyroid disorder Social History Smoking Status: Current every day smoker alcohol intake: never substance use type: denies use and marijuana current occupational status: unemployed Travel in the last 8 weeks?: None Have you lived/traveled outside US in past 30 days?: No Contact w/someone who lives/traveled outside US past 30 days?: No Exposure to someone with infectious disease in past 14 days?: No Do you have a fever (greater than 100.4 F or 38 C)?: No Have you tested positive for COVID-19?: No Exposed to someone with COVID-19 in past 14 days?: No Do you have a sore throat?: No Do you have a cough?: No Do you have any weakness?: No Do you have any diarrhea?: No Are you experiencing any unusual bleeding?: No Do you have any muscle aches/pain?: No Do you have any abdominal pain?: No Are you experiencing loss of taste or smell?: No Other Medical History Have you received the Flu Vaccine for this season: No Have you received the Pneumonia Vaccine: No ROS Obtained: Yes Systems reviewed as appropriate & no additional complaints except as documented Physical Exam General General appearance: alert and in no apparent distress Head Head exam: atraumatic Eye Eye exam: Present normal appearance ENT ENT exam: Present normal external ear exam Neck Neck exam: Present full ROM Chest Chest inspection: Present symmetric chest wall rise Respiratory Respiratory exam: Present normal lung sounds bilaterally; Absent respiratory distress Cardiovascular Cardiovascular exam: Present regular rate and normal rhythm Abdominal Exam Abdominal exam: Present soft and tenderness (suprapubic tenderness); Absent guarding Extremities Exam Extremities exam: Present normal inspection Back Exam Back exam: Present normal inspection Neurological Exam Neurological exam: Present alert and oriented X3 Psychiatric Psychiatric exam: Present normal affect Skin Skin exam: Present warm and dry Medical Decision Making Medical Records Screening: Per USPSTF and CDC recommendations, given the prevalence of disease in our region, it is our hospital?s policy to screen for HIV and viral Hepatitis for all patients aged 18 and over and those with ongoing risk factors. Stevie Inquiry Pt receiving controlled substance: No Vital Signs: 05/23/25 17:01 05/23/25 17:08 05/23/25 17:08 Temperature 98.3 F 98.3 F Temperature Source Oral Oral Pulse Rate 86 76 Pulse Rate [Orthostatic Lying Bilateral] Pulse Rate [Orthostatic Sitting Bilateral] Pulse Rate [Orthostatic Standing Bilateral] Pulse Rate [Right] 76 Respiratory Rate 18 18 Blood Pressure 114/70 105/75 L Blood Pressure [Orthostatic Lying Right Arm] Blood Pressure [Orthostatic Sitting Right Arm] Blood Pressure [Orthostatic Standing] Blood Pressure [Right Arm] 105/75 L Blood Pressure Mean [Right Arm] 85 Blood Pressure Source Automatic Cuff Blood Pressure Source [Right Arm] Automatic Cuff Blood Pressure Position Supine Blood Pressure Position [Right Arm] Supine 02 Sat by Pulse Oximetry 99 99 99 Oxygen Delivery Method Room Air Room Air 05/23/25 17:30 05/23/25 18:00 05/23/25 19:28 Temperature Temperature Source Pulse Rate 83 70 94 H Pulse Rate [Orthostatic Lying Bilateral] Pulse Rate [Orthostatic Sitting Bilateral] Pulse Rate [Orthostatic Standing Bilateral] Pulse Rate [Right] Respiratory Rate Blood Pressure 97/65 L 106/66 L 103/74 L Blood Pressure [Orthostatic Lying Right Arm] Blood Pressure [Orthostatic Sitting Right Arm] Blood Pressure [Orthostatic Standing] Blood Pressure [Right Arm] Blood Pressure Mean [Right Arm] Blood Pressure Source Blood Pressure Source [Right Arm] Blood Pressure Position Blood Pressure Position [Right Arm] 02 Sat by Pulse Oximetry 98 80 L 99 Oxygen Delivery Method 05/23/25 19:29 05/23/25 19:41 05/23/25 19:42 Temperature Temperature Source Pulse Rate 81 68 65 Pulse Rate [Orthostatic Lying Bilateral] Pulse Rate [Orthostatic Sitting Bilateral] Pulse Rate [Orthostatic Standing Bilateral] Pulse Rate [Right] Respiratory Rate Blood Pressure 104/73 L 104/69 L 104/70 L Blood Pressure [Orthostatic Lying Right Arm] Blood Pressure [Orthostatic Sitting Right Arm] Blood Pressure [Orthostatic Standing] Blood Pressure [Right Arm] Blood Pressure Mean [Right Arm] Blood Pressure Source Blood Pressure Source [Right Arm] Blood Pressure Position Blood Pressure Position [Right Arm] 02 Sat by Pulse Oximetry 100 100 99 Oxygen Delivery Method 05/23/25 19:43 05/23/25 19:49 05/23/25 20:31 Temperature 97.9 F Temperature Source Oral Pulse Rate 74 83 Pulse Rate [Orthostatic Lying Bilateral] 68 Pulse Rate [Orthostatic Sitting Bilateral] 90 Pulse Rate [Orthostatic Standing Bilateral] 91 H Pulse Rate [Right] Respiratory Rate 20 Blood Pressure 93/69 L 104/70 L Blood Pressure [Orthostatic Lying Right Arm] 104/69 L Blood Pressure [Orthostatic Sitting Right Arm] 104/70 L Blood Pressure [Orthostatic Standing] 93/69 L Blood Pressure [Right Arm] Blood Pressure Mean [Right Arm] Blood Pressure Source Blood Pressure Source [Right Arm] Blood Pressure Position Blood Pressure Position [Right Arm] 02 Sat by Pulse Oximetry 100 Oxygen Delivery Method Room Air Lab Data Lab Results 05/23/25 16:58: WBC 7.0, RBC 4.84, Hgb 14.4, Hct 42.3, MCV 87.4, MCH 29.8, MCHC 34.0, RDW 13.5, Plt Count 225, MPV 10.5 H, Neut % (Auto) 63.8, Lymph % (Auto) 29.8, [place] % (Auto) 4.0, Eos % (Auto) 1.4, Baso % (Auto) 0.9, Neut # (Auto) 4.4, Lymph # (Auto) 2.1, Davie # (Auto) 0.3, Eos # (Auto) 0.1, Baso # (Auto) 0.1, Sodium 142, Potassium 3.7, Chloride 101, Carbon Dioxide 27, Anion Gap 17.7 H, BUN 7, Creatinine 0.90, Estimated Creat Clear 67, Estimated GFR 75, Est GFR ( Amer) 91, Glucose 84, Calcium 10.0, Magnesium 1.8, Total Bilirubin 0.5, AST 27, ALT 17, Alkaline Phosphatase 80, C-Reactive Protein 0.5, Total Protein 8.5 H, Albumin 5.0, Globulin 3.5 H, Albumin/Globulin Ratio 1.4, Lipase 51, Serum HCG, Qual Positive, HCG, Quant < 2, HCV Ab NINOSKA w/Rflx PCR Qn Negative 05/23/25 17:14: HIV Ag/Ab Combo Qual Negative 05/23/25 : Urine Color Yellow, Urine Appearance Sl cloudy, Urine pH 6.0, Ur Specific [place] 1.025, Urine Protein Negative, Urine Glucose (UA) Negative, Urine Ketones Negative, Urine Blood 3+ A, Urine Nitrate Negative, Urine Bilirubin Negative, Urine Urobilinogen 0.2, Ur Leukocyte Esterase Negative, Urine RBC Tntc, Urine WBC 5-10, Ur Squamous Epith Cells 20-50, Urine Bacteria 2+, Urine Mucus 1+ 05/23/25 16:58 05/23/25 16:58 Orders (Tests/Meds): ED MEDICATIONS Discontinued Medications Generic Name Dose Route Start Last Admin Trade Name Freq PRN Reason Stop Dose Admin Lactated Ringer's 1,000 mls @ 999 mls/hr 05/23/25 17:05 05/23/25 18:36 Lactated Ringer's 1000 Ml Bag IV 05/23/25 18:05 Infused .Q1H1M ONE Infusion Iopamidol 75 ml 05/23/25 18:55 05/23/25 18:56 Iopamidol-370 (76%);100ml Bottle IV 05/23/25 18:56 75 ml ONCE ONE Administration Ondansetron HCl 4 mg 05/23/25 17:05 05/23/25 17:59 Ondansetron 4mg/2ml Vial IV 05/23/25 17:06 4 mg ONCE ONE Administration Sodium Chloride 10 ml 05/23/25 18:55 05/23/25 18:56 Sodium Chloride 0.9% 10ml Syr (Rad Only) IV 05/23/25 18:56 10 ml ONCE ONE Administration ORDERS Category Date Time Status CT abdomen pelvis w con Stat Cat Scan 05/23/25 18:44 Completed POCUS Point of Care (ER Only) Stat Exams 05/23/25 20:10 Taken Beta HCG, Quant [HCG,Quantitative] Stat Lab 05/23/25 16:58 Completed CBC w/Auto Diff [Complete Blood Count Auto Diff] Stat Lab 05/23/25 16:58 Completed CMP [Comprehensive Metabolic Panel] Stat Lab 05/23/25 16:58 Completed CRP [C-Reactive Protein] Stat Lab 05/23/25 16:58 Completed HIV Combo Stat Lab 05/23/25 17:14 Completed Hepatitis C Ab Qual. W/ RFX Stat Lab 05/23/25 16:58 Completed Lipase Stat Lab 05/23/25 16:58 Completed Magnesium Stat Lab 05/23/25 16:58 Completed Serum [HCG Qualitative, Serum] Stat Lab 05/23/25 16:58 Completed UA [Urinalysis and Microscopic] Stat Lab 05/23/25 Completed Urine Culture Stat Micro 05/23/25 Received Medical Decision Narrative: Asmita Ferguson is a 29y female with a past medical history of ADHD, anemia, who presents to the emergency department for complaints of abdominal pain and diarrhea x 1 month. Patient states that she has had multiple episodes of daily diarrhea that is nonbloody over the past month. She states initially was happening multiple times a day. She was seeing her PCP who told her to stop taking her mental health medications, which she stopped taking approximately 2 weeks ago, as this was thought to be contributing. She states that she has not had any change in her diarrhea and that is still pale and happening 2-3 times a day now that she is on diarrhea medication . She has also had constant nausea over that. She does report weight loss over that time as well. She states that she generally has abdominal pain with that as well. She states that she was post have an ultrasound and a CT scan at the end of this month. Today while picking her get up from school, she felt weak and like she was going to pass out but never fully passed out. She denies any chest pain or shortness of breath. She states that this tends to happen when she stands up. She was told to come to the emergency department because she looked pale.On arrival, patient is hemodynamically stable, initial systolic blood pressure of 114, afebrile, breathing comfortably on room air with appropriate oxygen saturation. Physical exam, stated above, revealed overall well-appearing female in no distress. Cardiopulmonary exam is unremarkable. Abdomen with mild tenderness in the suprapubic region. She does not have peritonitis and no abdominal distention or guarding. The remainder of her physical exam is grossly unremarkable and nonactionable. Differential diagnosis includes, but is not limited to: Acute cholecystitis, enteritis, colitis, diverticulitis, IBS, IBD, urinary tract infection, acute pancreatitis, infectious colitis, ectopic , among others. The most morbid conditions were considered and workup was based on these. Initial workup in the emergency department included: Urinalysis, CBC with differential, magnesium level, CMP, CRP, lipase, serum qualitative test, diarrhea panel, orthostatic blood pressures. Patient was treated with 1 L lactated ringer as well as following grams of IV Zofran. Patient's laboratory workup is reviewed by me personally. No leukocytosis. No anemia. Platelet count within normal limits. Electrolytes within normal limits. Mildly elevated anion gap 17.7. No JUAN CARLOS. Magnesium normal at 1.8. Liver enzymes and bilirubin within normal limits. Lipase normal at 31. Patient's qualitative test is positive. I discussed this with patient and she states that that is essentially impossible that she started her period 2 days ago. She states that her last period prior to this was at the end of April and her period this month occurred on the date that she expected it to. She states that she and her partner use condoms consistently and the likelihood that she is is significantly low. She does note that she was told that one of the medications that she was taking could make her have a false positive test. Will obtain quantitative beta-hCG to evaluate further. Will hold off on CT abdomen pelvis at this time pending results of her quantitative test. Patient's quantitative test is negative at less than 2. Given this, is felt that her initial test was a false positive. Will proceed with CT abdomen pelvis with IV contrast. Will also perform a bedside right upper quadrant ultrasound to evaluate for biliary pathology. Patient's orthostatic blood pressures did not change significantly. Her heart rate did elevate appropriately with sitting and standing Right upper quadrant ultrasound demonstrated biliary sludge but no thickening of the gallbladder wall, no pericholecystic fluid, no enlarged gallbladder. Normal common bile duct. See procedure note for details. CT imaging was also interpreted by me personally. There is no acute findings within the abdomen or pelvis. Radiology does report that she has a new 4 mm cyst in the pancreatic neck and can be further evaluated with pancreatic MRI/MRCP. She does have polycystic ovaries that appear similar to CT scan from September 2023. See radiology report for details. Given biliary sludge without evidence of acute cholecystitis, will refer patient to general surgery. For patient's small pancreatic cyst, will also refer her to gastroenterology. She has no acute findings for her diarrhea today. She was unable to provide a stool sample at this time. Will discharge patient with prescription for Zofran and instructions to return stool sample when she is able to provide 1 at home. Instruct her to follow-up with her primary care physician. All questions were answered. She demonstrated understanding and was agreement with this plan. She was then discharged from the emergency department in stable condition. Procedures Limited Ultrasound Indication:: N/V/diarrhea, abdominal pain Interpretation:: Limited RUQ ultrasound performed by Cleveland Velázquez MD Indication: -Abdominal pain -Nausea/Vomiting Identified structures: -Gallbladder -Gallbladder wall -Common bile duct -Liver Findings: Sonographic Vanegas sign: Absent Gallstones: Absent Sludge: Present Pericholecystic fluid: Absent Maximal GB wall thickness (mm): [normal is </= 3mm] Normal Common bile duct width (mm): [normal is </= 6mm] Normal Gallbladder width (cm): [normal is < 4cm] Normal Gallbladder length (cm): [normal is < 10cm] Normal Impression: Biliary sludge without evidence of acute cholecystitis Images were saved to permanent archive The study was technically adequate CPT 29833-22 This study was performed by me, and I personally interpreted all images/videos. Based on my clinical judgement, these images were adequate and did not necessitate further imaging. Critical Care Critical Care Time Critical Care Time: No
[2025-05-23 17:18] LABS: Hematocrit 42.3 % (37.0-47.0); Hemoglobin 14.4 g/dL (12.2-16.2); Immature Granulocytes % 0.1 %; Mean Corpuscular HGB Conc 34.0 g/dL (31.8-35.4); Mean Corpuscular Hemoglobin 29.8 pg (27.0-31.2); Mean Corpuscular Volume 87.4 fl (81-99); Nucleated Red Blood Cells % 0 %; Platelet Count 225 K/mm3 (142-424); Red Blood Count 4.84 M/mm3 (4.20-5.40); Red Cell Distribution Width-SD 43.0 fL; White Blood Count 7.0 K/mm3 (4.8-10.8)
[2025-05-23 17:18] LABS: Microscopic, Urine URINE MICROSCOPIC (MICROSCOPIC)
[2025-05-23 17:24] LABS: Bilirubin,Urine Negative (Negative); Color,Urine YELLOW (Yellow); Glucose,Urine (UA) Negative (Negative); Ketones,Urine Negative (Negative); Leukocyte Esterase,Urine Negative (Negative); PH,Urine 6.0 (5.0-8.5); Protein,Urine Negative (Negative); Specific Gravity, Urine 1.025 (1.005-1.030); Urobilinogen,Urine 0.2 EU/dl (0.2)
[2025-05-23 17:25] LABS: Chloride 101 mmol/L (98-107)
[2025-05-23 17:26] LABS: Albumin Level 5.0 g/dl (3.5-5.0); Potassium 3.7 mmoL/L (3.5-5.1); Sodium 142 mmol/L (136-145)
[2025-05-23 17:28] LABS: Blood Urea Nitrogen 7 mg/dl (7-17); HCG Qualitative, Serum Positive (Negative)
[2025-05-23 17:29] LABS: Alanine Aminotransferase 17 U/L (12-78); Albumin/Globulin Ratio 1.4 (1.1-1.8); Alkaline Phosphatase 80 U/L (38-126); Anion Gap 17.7 mEq/L (5-15); Aspartate Amino Transferase 27 U/L (14-36); Bilirubin,Total 0.5 mg/dl (0.2-1.3); Calcium 10.0 mg/dl (8.4-10.2); Carbon Dioxide 27 mmol/L (22.0-30.0); Creatinine Clearance Estimated 67 mL/min (50-200); Creatinine,Serum 0.90 mg/dl (0.52-1.04); Estimated Glomerular Filt Rate 75 ml/min (>60); GFR (African American) 91 ML/MIN (>60); Globulin 3.5 g/dL (1.3-3.2); Glucose 84 mg/dl (74-100); Lipase 51 U/L (23-300); Magnesium 1.8 mg/dl (1.6-2.3); Total Protein,Serum 8.5 g/dl (6.3-8.2)
[2025-05-23] MEDS: LACTATED RINGERS 1000ML 1,000 ML 999 ML IV (17:33)
[2025-05-23 17:50] LABS: Bacteria,Urine 2+ /lpf; Mucus,Urine 1+ /lpf; RBC,Urine TNTC #/hpf (0-3); Squamous Epithelial Cell,Urine 20-50 #/hpf (0-5)
[2025-05-23 17:57] LABS: C-Reactive Protein 0.5 mg/L (0-4)
[2025-05-23] MEDS: ONDANSETRON 4MG/2ML VIAL 4 MG IV (17:59)
[2025-05-23 18:18] LABS: Hepatitis C Ab Qual. W/ RFX NEGATIVE (Negative)
--- NOTE | 2025-05-23 18:44 | CT_ITS ---
PROCEDURE INFORMATION: Exam: CT Abdomen And Pelvis With Contrast Exam date and time: 05/23/2025 6:57 PM Age: 29 years old Clinical indication: Other: Nausea, diarrhea, abdominal pain x1 month TECHNIQUE: Imaging protocol: Computed tomography of the abdomen and pelvis with contrast. Radiation optimization: All CT scans at this facility use at least one of these dose optimization techniques: automated exposure control; mA and/or kV adjustment per patient size (includes targeted exams where dose is matched to clinical indication); or iterative reconstruction. Contrast material: ISOVUE; Contrast volume: 75 ml; Contrast route: IV; COMPARISON: 1. CT ABDOMEN PELVIS W CON 10/04/2023 5:[address] abdomen pelvis 01/28/2023 FINDINGS: Lungs: Visualized lung bases demonstrate no acute abnormality. Liver: No focal liver lesion is identified. Gallbladder and biliary ducts: No visualized gallstones (not all gallstones are visible via CT). No wall thickening or surrounding inflammation. No bile duct dilation. Pancreas: No peripancreatic inflammatory change or significant pancreatic duct dilation. New 4 mm cyst in the pancreatic neck (series 3, image 30). Spleen: Splenic size is within normal limits. No focal splenic lesion is identified. Calcified splenic granulomas. Adrenal glands: The adrenal glands are unremarkable. Kidneys and ureters: The kidneys enhance symmetrically. No hydronephrosis. No renal perfusion defects or perinephric inflammation. Stomach and bowel: The stomach is distended by recent meal. No gastric obstruction. No focal gastric wall thickening or surrounding inflammation. No small bowel obstruction or acute inflammatory change. The colon is not obstructed. No evidence of diverticulosis or acute inflammatory change. Appendix: The appendix is identified. No evidence of acute appendicitis. Intraperitoneal space: Small pelvic free fluid is likely physiologic. No free air. Vasculature: The abdominal aorta is nonaneurysmal. Mesenteric vessels are patent. No portal vein thrombosis. Lymph nodes: Unremarkable. No enlarged lymph nodes. Urinary bladder: Unremarkable. Reproductive: No visualized uterine mass. Ovaries are mildly enlarged and contain multiple follicles. The appearance is similar to the CT from 10/04/2023 but is new compared to the CT from 01/28/2023. Bones/joints: No acute fracture is identified. Soft tissues: Unremarkable. IMPRESSION: 1. No acute abnormality is identified. 2. New 4 mm cyst in the pancreatic neck. If indicated, this can be further assessed with a pancreatic MRI/MRCP. 3. Polycystic ovaries. The appearance of the ovaries is similar to the CT from 10/04/2023 but is new compared to the CT from 01/28/2023.
[2025-05-23] MEDS: IOPAMIDOL-370 (76%);100ML BOTTLE 75 ML IV (18:56)
[2025-05-23] MEDS: SODIUM CHLORIDE 0.9% 10ML SYR (RAD ONLY) 10 ML IV (18:56)
== END 2025-05-23 20:32 | disposition home or self-care (01) ==
PROVIDERS: Emergency Provider Student in an Organized Health Care Education/Training Program; PCP Nurse Practitioner
DX: R10.84 Generalized abdominal pain (principal); K83.8 Other specified diseases of biliary tract; K86.2 Cyst of pancreas; R19.7 Diarrhea, unspecified; F17.200 Nicotine dependence, unspecified, uncomplicated
CPT/HCPCS: 74177; 80053; 81001; 83690; 83735; 84702; 84703; 85025; 86140; 86803; 87086; 87389; 96365; 96375; 99285; J2405; J7120; Q9967

== ENCOUNTER 2025-06-02 07:58 | Outpatient (CLI) | payer OTHER, SELFPAY ==
--- NOTE | 2025-06-02 07:59 | US_ITS ---
FINAL REPORT CLINICAL HISTORY: RUQ/ NAUSEA AND VOMITING COMPARISON: None FINDINGS: Sonographic images of the right upper quadrant were obtained. The pancreas is partially obscured.The liver has an unremarkable appearance.The gallbladder demonstrates sludge without definite gallstones seen.There is no evidence of biliary ductal dilatation.The common duct measures 3 mm. Limited images of the right kidney are unremarkable. IMPRESSION: Sludge is present in the gallbladder without definite gallstones seen. Reviewed, Interpreted and Dictated by Moreno Kelsey MD Transcribed by Rosa Kilgore Authenticated and [facility]
--- OUTSIDE RECORDS SUMMARY | 2025-06-02 08:00 | XMS_ITS | Clinical Summary ---
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 or to get [...] Vaccines (1 - 3-dose SCDM series) 2024 [id number] Vaccine ( - season) 2025 UKY-Influenza Vaccine [...] BLOOD ORDERABLES Final Result Performing Organization Address City/State/[facility] de Phone Number [facility] [address] [place] [phone] * Hepatitis C antibody (08/12/2023 4:31 PM EST) Hepatitis C Antibody Negative Negative 08/12/2023 5:09 PM EST [facility] Blood Venous blood specimen / Unknown Venipuncture / Unknown 08/12/2023 4:31 PM EST 08/12/2023 4:38 PM EST Shankar Chacon MD LAB BLOOD ORDERABLES Final Result [facility] [address] [place] [address] from Last 3 Months or Most Recently Relevant to Health Maintenance Insurance [employer] [facility] MEDICAID Care Teams Active Directory Administrator Relationship Specialty Start Date End Date Brenden Antoine MD [address] [place], [place] [phone] PCP - General 03/21/23
== END 2025-06-02 23:59 | disposition home or self-care (01) ==
LOC: RAD 07:58
PROVIDERS: PCP Nurse Practitioner; Visit Provider Nurse Practitioner
DX: K82.8 Other specified diseases of gallbladder (principal); R10.11 Right upper quadrant pain; R11.2 Nausea with vomiting, unspecified
CPT/HCPCS: 76705

== ENCOUNTER 2025-07-03 11:36 | Outpatient (CLI) | payer OTHER, SELFPAY ==
--- OUTSIDE RECORDS SUMMARY | 2025-07-03 11:39 | XMS_ITS | Clinical Summary ---
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) to steady your nerves or to get [...] Vaccines (1 - 3-dose SCDM series) 2024 [id number] Vaccine ( - season) 2025 [facility]-Influenza Vaccine [...] BLOOD ORDERABLES Final Result Performing Organization Address City/State/[facility] de Phone Number [facility] [address] [place] [phone] * Hepatitis C antibody (08/12/2023 4:31 PM EST) Hepatitis C Antibody Negative Negative 08/12/2023 5:09 PM EST [facility] Blood Venous blood specimen / Unknown Venipuncture / Unknown 08/12/2023 4:31 PM EST 08/12/2023 4:38 PM EST Shankar Chacon MD LAB BLOOD ORDERABLES Final Result [facility] [address] [place] [address] from Last 3 Months or Most Recently Relevant to Health Maintenance Insurance [employer] [facility] MEDICAID Care Teams Helmet Coverer Relationship Specialty Start Date End Date Brenden Antoine MD [address] [place], [place] [id number] PCP - General 03/21/23
[2025-07-03 12:28] LABS: Clostridium Difficile A/B, PCR Not Detected (NotDetected); Cyclospora Cayetanesis Not Detected (NotDetected); Salmonella, PCR Not Detected (NotDetected); Shiga-like toxin E coli Not Detected (NotDetected); Shigella Enterovasive E coli Not Detected (NotDetected); Vibrio, PCR Not Detected (NotDetected); Yersinia Entercolitica, PCR Not Detected (NotDetected)
[2025-07-03 12:56] LABS: Albumin Level 3.8 g/dl (3.5-5.0); Chloride 99 mmol/L (98-107); Potassium 4.2 mmoL/L (3.5-5.1); Sodium 136 mmol/L (136-145)
[2025-07-03 12:58] LABS: Blood Urea Nitrogen 10 mg/dl (7-17); Creatinine,Serum 0.90 mg/dl (0.52-1.04); Estimated Glomerular Filt Rate 75 ml/min (>60); GFR (African American) 91 ML/MIN (>60)
[2025-07-03 12:59] LABS: Alanine Aminotransferase 20 U/L (12-78); Albumin/Globulin Ratio 0.9 (1.1-1.8); Alkaline Phosphatase 93 U/L (38-126); Anion Gap 11.2 mEq/L (5-15); Aspartate Amino Transferase 29 U/L (14-36); Bilirubin,Total 0.4 mg/dl (0.2-1.3); Calcium 9.4 mg/dl (8.4-10.2); Carbon Dioxide 30 mmol/L (22.0-30.0); Globulin 4.2 g/dL (1.3-3.2); Glucose 65 mg/dl (74-100); Lipase 39 U/L (23-300); Total Protein,Serum 8.0 g/dl (6.3-8.2)
[2025-07-04 08:52] LABS: CA 19-9 4 U/mL (0-35)
== END 2025-07-03 23:59 | disposition home or self-care (01) ==
PROVIDERS: PCP Nurse Practitioner Family; Visit Provider Nurse Practitioner Family
DX: K86.2 Cyst of pancreas (principal); R19.7 Diarrhea, unspecified
CPT/HCPCS: 36415; 80053; 82653; 83690; 86301; 87506